=== PATIENT | female | born 1935 | race Caucasian/White ===

== ENCOUNTER 2016-10-06 17:08 | Emergency (ER) | payer OTHER ==
[~2016-10-06] VITALS: Ht 162.6 cm; Wt 75.0 kg
[~2016-10-06 17:08] MED LIST: ALLO100T PO; ASPI325T39 PO; CLOB-65 TOP; DILT120C68 PO; EZET10TA63 PO; FLUO0.05 TOP; LEVO50TA PO; ZNTT/150 PO
[2016-10-06 17:11] VITALS: TEMP 36.8; Ht 162.6 cm; Wt 75.0 kg
[2016-10-06] MEDS ORDERED: GEMF600T3 PO (17:29)
[2016-10-06] MEDS ORDERED: FLUO0.0566 TOP (17:32)
[2016-10-06] MEDS ORDERED: CLOB-77 TOP (17:32)
[2016-10-06] MEDS ORDERED: GELATIN SPONGE 12-7MM EXT STA (17:35)
[2016-10-06] MEDS ORDERED: DIPHTHERIA/TETANUS/PERTUSSIS 0.5 ML SYR/VIAL IM. ONE (17:45)
--- NOTE | 2016-10-06 18:26 | EMERGENCY ROOM VISIT NOTE ---
History First contact with patient: 17:23 Chief Complaint: FINGER PAIN Stated Complaint: LEFT INDEX FINGER LACERATION, ON BLOOD THINNER History of Present Illness The patient is a 81 year old female who presents to the Emergency Room with complaints of "left index finger laceration, on blood thinner". The patient states that earlier today she was cutting the tip of chicken wings around 9 AM when she accidentally sliced the left index finger just distal to the left second PIP removing a section of the skin. She states that since then it is been seeping blood and she went to the urgent care to bandage it and sent her home but she believes that due to the aspirin she takes the bleeding has not stopped therefore came here for evaluation. She denies any numbness or tingling or problems with movement of this region. She rates the pain is minimal and a 2/10. Her tetanus is not up-to-date. Review of Systems A complete 6-point Review of Systems was discussed with the patient, with pertinent positives and negatives listed in the History of Present Illness. All remaining Review of Systems questions can be considered negative unless otherwise specified. Past Medical/Surgical History High blood pressure, skin problems, bronchitis, hysterectomy, breast lumpectomy Family History Diabetes, high blood pressure, cancer, lung disease, emphysema Social History Smoking Status: Former Smoker Occupation Status: unemployed Social History: Patient is unemployed, lives alone, and denies alcohol or tobacco products. Current/Historical Medications Scheduled Allopurinol (Zyloprim), 2 TAB PO DAILY Aspirin (Aspirin Ec), 1 TAB PO DAILY Diltiazem Hcl Ext Rel (Tiazac), 120 MG PO DAILY Ezetimibe (Zetia), 10 MG PO DAILY Gemfibrozil (Lopid), 600 MG PO BID Levothyroxine Sodium (Synthroid), 1 TAB PO DAILY Ranitidine (Zantac), 150 MG PO DAILY Scheduled PRN Clobetasol Propionate (Temovate), 1 APPLN TOP BID PRN for Fluocinonide (Fluocinonide), 1 APPLN TOP BID PRN for Allergies Coded Allergies: Simvastatin (Verified Allergy, Unknown, RASH, 07/17/15) Physical Exam Vital Signs Date Time Temp Pulse Resp B/P Pulse Ox O2 Delivery O2 Flow Rate FiO2 10/06/16 18:49 71 16 185/88 95 10/06/16 17:11 36.8 72 20 188/88 93 Room Air Physical Exam VITAL SIGNS - Vital signs and nursing notes were reviewed. Patient is afebrile , she is hypertensive at 188/88, she is not tachycardic and is saturating well on room air at 93%. She was informed upon the hypertensive finding. GENERAL -81-year-old female appearing her stated age who is in no acute distress. Communicates well with provider and answers questions appropriately. SKIN - There is a 1 cm long skin avulsion/ laceration noted on the dorsal aspect of the second digit just distal to the PIP. There are no wound edges to approximate as the skin has been completely removed leaving a small crater. No foreign bodies appreciated. Upon further examination there are no deep structures including vessel, tendon, or bony structures appreciated. There is minimal active bleeding noted. MUSCULOSKELETAL - Laceration as described above. +5/5 strength appreciated of the affected digit. Full range of motion of the affected digit. NEUROLOGIC - Spinothalamic tract was found to be intact with ability to discriminate sharp versus dull sensation. No sensory defects of the dorsal column were appreciated utilizing light touch for evaluation. VASCULAR - Capillary refill was brisk. Medical Decision & Procedures Medications Administered Medications (Trade) Dose Ordered Sig/Dilip Route Start Time Stop Time Status Last Admin Dose Admin Diphtheria/ Pertussis/Tetanus Vacc (Adacel Inj) 0.5 ml ONCE ONCE IM. 10/06/16 17:45 10/06/16 17:46 DC 10/06/16 18:05 0.5 ML Medical Decision Patient was seen and evaluated by myself. Risks and benefits of performing primary wound closure versus no repair were discussed with the patient who verbalizes understanding. Verbal consent was obtained prior to performing the procedure. The wound was cleansed and prepped in the typical sterile fashion utilizing normal saline and Betadine. The wound was copiously irrigated with normal saline and Betadine. Gelfoam was applied and secured with roll gauze and coban and metal splint. Patient tolerated the procedure well. No complications were met. 15 minutes were allowed to pass and she was reevaluated and noted no additional bleeding. Patient received their Adacel vaccination. She was educated upon management. She was instructed to follow-up her high blood pressure. Patient educated on worrisome symptoms for return visit to the Emergency Department. Patient discharged to home in good condition. In the evaluation and treatment of this patient the following differential diagnoses were entertained: Finger laceration/avulsion. Impression Primary Impression: Avulsion of skin of finger Departure Information Dispostion Home / Self-Care Condition GOOD Referrals Ike Villa M.D. (PCP) Patient Instructions My [facility] Additional Instructions You have been treated in the Emergency Department today for your finger laceration. Leave the GELFOAM and dressing in place for the next 48 hours. Keep the dressing clean and dry until time for removal. To remove the GELFOAM dressing, remove the overlying tape and then soak the wound in warm water until the piece of GELFOAM can be easily removed. Please of the finger splint on for the first 48 hours as well. Proper wound care is essential for adequate wound healing and infection prevention. You can shower and clean the wound with soap and water. Do not scour over the wound, pat dry with a towel. You can use an antibiotic ointment with a dressing/bandage over the wound for the next 3-4 days. After this time you may leave the wound dry and open to the air. Look for signs of infection of the wound including: increased pain, swelling, foul discharge, streaking, or increased temperature. If any of these are noticed you should return to the Emergency Department for further assessment and treatment. As with any laceration you may have received nerve damage to the surrounding tissues. This damage could be permanent. For pain control, you can use the following fhjr-fuf-[id number] medicines (if >12 yo): - Regular strength (325mg/tab) Tylenol (acetaminophen) 2 tabs every 4-6 hours as needed. Do not exceed 12 tablets in a 24 hour period. Avoid taking more than 4 grams (4000 mg) of Tylenol per day. This includes any other sources of acetaminophen you may take on a regular basis. - Regular strength (200 mg/tab) Advil (ibuprofen) 1-2 tabs every 4-6 hours as needed. Do not exceed a dose of 3200 mg per day. Return to the emergency department if your symptoms worsen despite treatment course outlined above. As we discussed your blood pressure was high today. Please have this rechecked with your family doctor as soon as possible. Please return to the emergency department with any new/concerning symptoms. Problem Qualifiers Primary Impression: Avulsion of skin of finger Encounter type: initial encounter Qualified Codes: S61.209A - Unspecified open wound of unspecified finger without damage to nail, initial encounter
[2016-10-06 18:49] VITALS: BP 185/88; PULSE 71; O2SAT 95
== END 2016-10-06 18:50 | disposition home or self-care (01) ==
LOC: C.EDB 17:09 → C.EDD 18:50
DX: S61.211A Laceration without foreign body of left index finger without damage to nail, initial encounter (principal); W26.0XXA Contact with knife, initial encounter; Z87.891 Personal history of nicotine dependence; Z90.710 Acquired absence of both cervix and uterus; Z79.82 Long term (current) use of aspirin; Z23 Encounter for immunization

== ENCOUNTER → 2017-04-16 | Outpatient (CLI) | payer OTHER ==
[~2017-04-16] MED LIST changes: -CLOB-65 TOP; +CLOB-77 TOP; -FLUO0.05 TOP; +FLUO0.0566 TOP; +GEMF600T3 PO
[2017-04-16 18:33] LABS: ALT/SGPT 28 U/L (12-78); AST/SGOT 27 U/L (15-37); BLOOD UREA NITROGEN 16 mg/dl (7-18); BUN/CREATININE RATIO 16.8 (10-20); CALCIUM 9.4 mg/dl (8.5-10.1); CARBON DIOXIDE 27 mmol/L (21-32); CHLORIDE 107 mmol/L (98-107); CREATININE 0.96 mg/dl (0.60-1.20); GLUCOSE 105 mg/dl (70-99); POTASSIUM 3.8 mmol/L (3.5-5.1); SODIUM 142 mmol/L (136-145)
[2017-04-16 18:39] LABS: ALB/GLOB RATIO 0.9 (0.9-2); ALKALINE PHOSPHATASE 69 U/L (45-117)
--- NOTE | 2017-05-12 08:33 | CODING QUERY NO DIAGNOSIS ---
TREATMENT RENDERED WITHOUT A DIAGNOSIS To promote full compliance with coding requirements relating to patient care, physician participation is requested in all cases of outpatient coder uncertainty. Please assist us with providing a diagnosis/symptom for the test(s) below: A diagnosis/symptom was not documented on your Order. A valid diagnosis/symptom is required to bill all insurances. Please remember that we are unable to code a diagnosis of rule out, probable, possible, questionable, or suspected. Tests that require a diagnosis: * CMP DIAGNOSIS: Provider Signature: Date: Thank you Bernie Morales [employer] Once completed, please kindly fax back to [phone] For questions please call [phone]
== END | disposition home or self-care (01) ==
LOC: C.LABBFT 09:51
PROVIDERS: ATTEND Dermatology
DX: Z51.81 Encounter for therapeutic drug level monitoring (principal); L12.0 Bullous pemphigoid

== ENCOUNTER → 2017-05-11 | Outpatient (CLI) | payer OTHER ==
[2017-05-11 17:53] LABS: CHOLESTEROL/HDL RATIO 3.5; THYROID STIMULATING HORMONE 2.48 uIu/ml (0.300-4.500)
== END | disposition home or self-care (01) ==
LOC: C.LABBFT 12:57
PROVIDERS: ATTEND Internal Medicine
DX: I10 Essential (primary) hypertension (principal); E03.9 Hypothyroidism, unspecified

== ENCOUNTER → 2017-05-11 | Outpatient (CLI) | payer OTHER ==
--- NOTE | 2017-05-11 15:34 | MAMMOGRAPHY REPORT ---
BILATERAL DIGITAL SCREENING MAMMOGRAM TOMOSYNTHESIS WITH CAD: 05/11/2017 CLINICAL HISTORY: Asymptomatic. Personal history of breast cancer. TECHNIQUE: Breast tomosynthesis in addition to standard 2D mammography was performed. Current study was also evaluated with a Computer Aided Detection (CAD) system. COMPARISON: Comparison is made to exams dated: 09/13/2015 mammogram, 07/10/2014 mammogram, 07/09/2013 mammogram, 07/08/2012 mammogram, and 07/03/2011 mammogram - [facility]. BREAST COMPOSITION: There are scattered areas of fibroglandular density in both breasts. FINDINGS: No suspicious masses, calcifications, or areas of architectural distortion are noted in ei ther breast. There has been no significant interval change compared to prior exams. There are stable postoperative changes in the left 12:00 breast from prior lumpectomy. Bilateral benign-appearing ca lcifications are not significantly changed. IMPRESSION: ACR BI-RADS CATEGORY 2: BENIGN There is no mammographic evidence of malignancy. A 1 year screening mammogram is recommended. The pa tient will receive written notification of the results. Approximately 10% of breast cancers are not detected with mammography. A negative mammographic report should not delay biopsy if a clinically suggestive mass is present. Ana Branch M.D. ah/:05/11/2017 14:53:17 Permanent Waver: Arabella WANG)(M), [facility] letter sent: Normal 1/2 BI-RADS Code: ACR BI-RADS Category 2: Benign
== END | disposition home or self-care (01) ==
LOC: C.MAMM 13:56
PROVIDERS: ATTEND Internal Medicine
DX: Z12.31 Encounter for screening mammogram for malignant neoplasm of breast (principal); I10 Essential (primary) hypertension; E03.9 Hypothyroidism, unspecified

== ENCOUNTER → 2017-11-06 | Outpatient (CLI) | payer OTHER ==
[~2017-11-06] MED LIST changes: +RANI150T85 PO; -ZNTT/150 PO
[2017-11-06 12:59] LABS: ALBUMIN 3.7 gm/dl (3.4-5.0); ALKALINE PHOSPHATASE 58 U/L (45-117); ALT/SGPT 22 U/L (12-78); AST/SGOT 19 U/L (15-37); BLOOD UREA NITROGEN 22 mg/dl (7-18); CALCIUM 9.5 mg/dl (8.5-10.1); CARBON DIOXIDE 26 mmol/L (21-32); CREATININE 0.93 mg/dl (0.60-1.20); GLUCOSE 91 mg/dl (70-99); POTASSIUM 3.9 mmol/L (3.5-5.1); SODIUM 140 mmol/L (136-145); TOTAL PROTEIN 7.6 gm/dl (6.4-8.2)
[2017-11-06 13:10] LABS: CHOLESTEROL 162 mg/dl (0-200); LDL CHOLESTEROL CALCULATED 93 mg/dl
[2017-11-06 13:43] LABS: HEMOGLOBIN A1C 6.1 % (4.5-5.6)
== END | disposition home or self-care (01) ==
LOC: C.LABBFT 09:22
PROVIDERS: ATTEND Internal Medicine
DX: R73.01 Impaired fasting glucose (principal); E78.5 Hyperlipidemia, unspecified; E03.9 Hypothyroidism, unspecified

== ENCOUNTER → 2017-12-18 | Outpatient (CLI) | payer OTHER | END | disposition home or self-care (01) | LOC: C.LABSPEC 17:37 | PROVIDERS: ATTEND Internal Medicine | DX: R39.9 Unspecified symptoms and signs involving the genitourinary system (principal) ==

== ENCOUNTER 2019-10-31 00:41 | Inpatient (IN) ==
[2019-10-31 01:29] LABS: Basophils # (auto) 0.08 K/uL (0-0.2); Basophils % (auto) 0.7 %; Eosinophils # (auto) 0.33 K/uL (0-0.5); Eosinophils % (auto) 2.7 %; Hematocrit (blood only) 23.3 % (37-47); Hemoglobin 7.3 g/dL (12.0-16.0); Immature Granulocytes # (auto) 0.05 K/uL (0.00-0.02); Immature Granulocytes % (auto) 0.4 %; Lymphocytes # (auto) 1.47 K/uL (1.2-3.4); Lymphocytes % (auto) 12.1 %; Mean Corpuscular Hgb Conc 31.3 g/dL (32-36); Mean Corpuscular Volume 89.3 fL (80-100); Monocytes # (auto) 1.05 K/uL (0.11-0.59); Monocytes % (auto) 8.6 %; Neutrophils # (auto) 9.19 K/uL (1.4-6.5); Neutrophils % (auto) 75.5 %; Platelet Count 530 K/uL (130-400); RDW Coefficient of Variation 15.3 % (11.5-14.5); RDW Standard Deviation 49.3 fL (36.4-46.3); Red Blood Count 2.61 M/uL (4.2-5.4); White Blood Count 12.17 K/uL (4.8-10.8)
[2019-10-31] MEDS ORDERED: SODIUM CHLORIDE 0.9% 250 ML IV PRN (01:32)
[2019-10-31 01:40] LABS: Partial Thromboplastin Ratio 0.8; Partial Thromboplastin Time 21.7 Seconds (21.0-31.0); Prothrombin Time 10.4 Seconds (9.0-12.0)
[2019-10-31 01:41] LABS: Alanine Aminotransferase 14 U/L (12-78); Albumin Level 3.6 gm/dl (3.4-5.0); Aspartate Aminotransferase 18 U/L (15-37); BUN Creatinine Ratio 20.9 (10-20); Blood Urea Nitrogen 24 mg/dl (7-18); Calcium 10.3 mg/dl (8.5-10.1); Carbon Dioxide 23 mmol/L (21-32); Chloride 105 mmol/L (98-107); Est GFR (African American) 50.6; Est GFR (Non-African American) 43.7; Glucose 122 mg/dl (70-99); Potassium 3.6 mmol/L (3.5-5.1); Sodium 137 mmol/L (136-145)
[2019-10-31 01:46] LABS: Albumin Globulin Ratio 0.9 (0.9-2); Alkaline Phosphatase 57 U/L (45-117); Bilirubin,Total 0.4 mg/dl (0.2-1); Globulin 3.8 gm/dl (2.5-4.0); NT Pro B Type Natriuretic Pept 1220 pg/ml (0-1800); Total Protein 7.4 gm/dl (6.4-8.2); Troponin I 0.026 ng/ml (0-0.045)
[2019-10-31 01:50] LABS: Hypochromasia Present; Polychromasia 1+
--- NOTE | 2019-10-31 04:06 | History & Physical Report ---
Date of Service October 31, 2019 Assessment & Plan (1) GI bleed: Ana is a 84-year-old female with a past medical history of recently diagnosed mitral regurg, impaired fasting glucose, hypothyroidism, hypertension, hyperlipidemia, and dyspepsia who presents to the emergency department with increasing weakness and dyspnea on exertion and he was Hemoccult positive. Dyspnea on exertion, suspect 2/2 anemia with acute GI bleed Prior hemoglobin 10.9, 7.3 on admission. Receiving 1 unit of blood in ED at time of assessment. Patient endorses melena in the past week, progressive dyspnea on exertion for 2 weeks. Hemoccult positive in ED. Vital signs stable, clinically asymptomatic at rest at time of exam. No abdominal pain. Last colonoscopy 10 years ago, normal. Strong family history of colon cancer. Protonix IV bolus, followed by drip protocol Gastroenterology consulted Focal T wave inversions, no ST segment changes on exam. Troponin negative, patient asymptomatic. Trend troponins x3 total. H&H trend every 6 hours x3, defer further blood unless clinically symptomatic or hemoglobin less than 7 Mitral regurgitation Recently diagnosed, patient pending repeat echo on 11/09 TTE ordered, pending Lipidemia Continue ease a team but 10 mg daily Continue gemfibrozil 600 mg daily Hypertension Hold aspirin 81 mg daily in the setting of acute bleed Continue diltiazem 240 mg daily, hold for systolic pressure less than 110, diastolic pressure less than 90 Hypothyroidism Continue Synthroid 50 mcg daily History of bullous pemphigoid Under good control with prednisone maintenance therapy Held prednisone 10 mg daily THERAPIST RADIATION dosing in the setting of possible GI bleed Disposition: Med/surge with telemetry FEN GI: N.p.o. CODE STATUS: DNR/DNI DVT prophylaxis: SCDs, pharmacoprophylaxis contraindicated in the setting of acute bleed (2) Dyspnea: (3) Anemia: (4) Mitral regurgitation: (5) Impaired fasting glucose: History of Present Illness Chief Complaint: Dyspnea on exertion, melena Primary Care Provider: Ike Villa MD Ana is a 84-year-old female with a past medical history of recently diagnosed mitral regurg, impaired fasting glucose, hypothyroidism, hypertension, hyperlipidemia, and dyspepsia who presents to the emergency department with increasing weakness and dyspnea on exertion and he was Hemoccult positive. Ana reports her symptoms began about 2 weeks ago when she developed some cough and dyspnea on exertion. She was seen by her PCP KT who thought she had postnasal drip and prescribed her Claritin with pill in pocket azithromycin. She was not feeling improved after several days, so she completed a Z-Kendrick course. She took her last dose 4 days prior to presentation to the ED. she feels her cough resolved, but her shortness of breath has continued to progress. She is not short of breath at rest, but becomes easily winded with exertion. She does not have any chest pain, chest pressure syncope, presyncope, lightheadedness, dizziness. She endorses a history of dyspepsia, for which she takes intermittent [id number]-gyfgnlj antacids which has not changed in many years. She denies bright red blood per rectum, but endorses melena. She has a strong family history of colon cancer, she has 2 sisters and a maternal uncle all who developed colon cancer. Her last colonoscopy was normal, was performed about 10 years ago. She denies weight loss. He has had a recent murmur diagnosed for which he is scheduled to have a follow-up echo on 11/09, denies history of CAD/WV or other heart disease. Medical history: Reviewed in chart Surgical history: Reviewed in chart Medications: Reviewed Family history: 2 sisters and a maternal uncle with colon cancer, lung cancer in a relative who was a heavy smoker. Personal and family history of breast cancer. Social: Past tobacco use, 7 pack years quit in 1967. No alcohol use. No recreational drug use. CODE STATUS: DNR/DNI Allergies Allergy/AdvReac Type Severity Reaction Status Date / Time simvastatin Allergy Unknown RASH Verified 10/29/19 11:18 Home Medications Home Medications Medication Instructions Recorded Confirmed Type gemfibrozil 600 mg tablet 600 mg PO BID #180 tab 03/12/19 10/31/19 Rx calcium carb-vit D3-minerals 600 1 tab PO DAILY tab 05/23/19 10/31/19 History mg calcium-200 unit tablet aspirin 81 mg tablet,delayed 81 mg PO DAILY tab 05/29/19 10/31/19 History release prednisone 10 mg tablet 10 mg PO Q OTHER DAY #100 tab 05/29/19 10/31/19 Rx allopurinol 100 mg tablet 100 mg PO BID #60 tab 08/29/19 10/31/19 Rx diltiazem HCl 240 mg capsule,24 240 mg PO DAILY #30 cap 08/29/19 10/31/19 Rx hr,extended release ezetimibe 10 mg tablet 10 mg PO DAILY #30 tab 09/29/19 10/31/19 Rx levothyroxine 50 mcg tablet 50 mcg PO DAILY #30 tab 09/29/19 10/31/19 Rx loratadine 10 mg tablet 10 mg PO DAILY #30 tab 10/20/19 10/31/19 Rx Past Med/Surg History Medical History Avulsion of skin of finger (Acute) Gout (Acute) Hyperlipidemia (Chronic) Hypertension (Chronic) Hypothyroid (Chronic) Impaired fasting glucose (Chronic) Mitral regurgitation Rash (Acute) Surgical History S/P hysterectomy with oophorectomy S/P lumpectomy, left breast Family History Sister Breast cancer Colorectal cancer COPD (chronic obstructive pulmonary disease) Mother Diabetes Social History Preferred Language: Latvian Communication Ability: Effective Beliefs That Will Affect Care: None marital status: / Current Living Situation: Alone current occupational status: retired Feels Safe at Home: Yes Safety Concerns: Feels Safe At This Time Smoking Status: Former smoker Tobacco Type: cigarettes ; Age Started Using Tobacco: 15 ; Age Quit Using Tobacco: 33 ; packs per day: 0.5 ; Cigarettes Per Day: 10 ; Smoking End Date: 1967 ; Number of Years Since Quit: 51 ; Hx Alcohol Use: No Hx Substance Use: No Review of Systems Review of Systems: All systems reviewed & are unremarkable except as noted in HPI & below Physical Exam Physical Exam: General: A&Ox3. NAD. Cooperative. HEENT: Atraumatic, normocephalic. Mild pallor. Mucous membranes moist. Pulm: CTAB A&P. -wheezes, -rales, -rhonchi. Symmetrical chest rise. No increase work of breathing. No respiratory distress. Cardiac: RRR, iv/vi systolic murmur. Radial pulses intact and symmetrical. Abdominal: Nontender, nondistended, soft. BS present. Pupils are equal and react to light and accomidation. Visual acuity grossly intact. At primary gaze, there is no eye deviation. EoM intact without nystagmus. No facial asymmetry, full strength to eyebrow raise, smile, eye close, and cheek puff. Hearing is grossly intact. Palate elevates symmetrically. Phonation is normal without dysarthria.Head turning intact Tongue protrudes midline. Sensory: Light touch, pinprick intact in upper and low extremities without deficit or asymmetry. Strength: RUE: Shoulder flexion/extension/internal rotation/external rotation, elbow flexion/extension, finger flexion/extension, panel machine setter strength, interosseous 5/5 LUE: Shoulder flexion/extension/internal rotation/external rotation, elbow flexion/extension, finger flexion/extension, panel machine setter strength, interosseous 5/5 RLE: Hip flexion, knee flexion/extension, ankle plantar flexion/dorsiflexion 5/5 LLE: Hip flexion, knee flexion/extension, ankle plantar flexion/dorsiflexion 5/5 Coord Results & Data Vital Signs (Past 12 Hours) Vital Signs Temp Pulse Resp BP BP Pulse Ox 10/31/19 03:31 96 H 20 95 10/31/19 03:30 96 H 20 121/89 94 10/31/19 03:24 92 H 23 149/70 H 93 10/31/19 03:23 36.8 C 94 H 20 149/70 H 93 10/31/19 03:21 94 H 24 93 10/31/19 03:20 95 H 27 H 152/73 H 96 10/31/19 03:15 93 H 26 H 145/73 H 10/31/19 03:04 94 H 21 92 10/31/19 03:03 36.6 C 93 H 24 159/67 H 96 10/31/19 03:01 93 H 24 94 10/31/19 03:00 95 H 18 137/78 94 10/31/19 02:31 89 24 148/62 H 96 10/31/19 02:30 91 H 21 95 10/31/19 02:15 89 20 97 10/31/19 02:14 88 23 145/70 H 96 10/31/19 02:00 87 20 96 10/31/19 01:36 97 H 23 99 10/31/19 01:20 97 10/31/19 01:03 16 150/66 H 100 10/31/19 01:01 100 10/31/19 01:00 98 H 15 98 10/31/19 00:55 92 H 23 10/31/19 00:54 92 H 22 150/66 H 10/31/19 00:44 36.6 C 98 H 24 138/70 97 Supervising Physician Co-Signing Physician Notes Attending addendum: I have physically seen this patient, have supervised the medical residents activities, and agree with the H&P unless as otherwise noted. Assessment and Plan: Symptomatic anemia secondary to GI bleed- Admit to monitored bed. Hemoglobin decreased from 10.9-7.3 upon admission today. ED has begun transfusion of 1 unit PRBCs. H&H every 6 hours. Begin Protonix IV infusion. N.p.o. Consult gastroenterology. Holding aspirin. Nonspecific EKG changes/hypertension- Holding aspirin for GI bleed. The patient will be admitted to telemetry for serial cardiac enzymes, serial EKG's, cardiac rhythm monitoring and a 2-D echocardiogram with Dopplers. Continue oral diltiazem for now, but may need to change IV. Remainder of orders and notations as noted. Resident Activity Tracking Resident Involvement: Resident Care Provided Care Provided: Adult Hospital Medicine (1) GI bleed GI bleed type/associated pathology: unspecified gastrointestinal hemorrhage type Qualified Code(s): K92.2 - Gastrointestinal hemorrhage, unspecified (2) Anemia Anemia type: unspecified type Qualified Code(s): D64.9 - Anemia, unspecified (3) Dyspnea Dyspnea type: unspecified Qualified Code(s): R06.00 - Dyspnea, unspecified
[2019-10-31] MEDS ORDERED: ONDANSETRON INJ 2 MG/ML 2 ML VIAL IV STA (04:12)
[2019-10-31] MEDS ORDERED: FUROSEMIDE 40 MG/4 ML VIAL IV STA (04:12)
[2019-10-31] MEDS ORDERED: PANTOprazole 80 MG in DEXTROSE 5% 100 ML IV STA (04:21)
[2019-10-31] MEDS: PANTOprazole 40 MG in DEXTROSE 5% 100 ML IV SCH ×2 (04:49→08:58)
[2019-10-31] MEDS ORDERED: ONDANSETRON INJ 2 MG/ML 2 ML VIAL IV PRN (05:41)
[2019-10-31] MEDS ORDERED: ACETAMINOPHEN 325 MG TAB PO PRN (05:41)
--- NOTE | 2019-10-31 05:57 | Emergency Department Note ---
Entered by Thanh Granados acting as a scribe for History of Present Illness General Chief complaint: Shortness of Breath/Dyspnea Stated complaint: SOB,RAPID HEART RATE,HEART MURMMER,WEAKNESS Time Seen by Provider: 10/31/19 01:04 Source: patient History of Present Illness Onset (ago): day(s) (last night) Location: chest Pain Consistency: + other (worsening) Quality: + other (SOB) Exacerbated By: + other (exertion) Associated symptoms: + other (Positive for cough, congestion, and weakness.) The patient is an 84 year old female who presents to the emergency department with complaints of worsening SOB beginning last night. The patient states that she finished a Z-pack three days ago for congestion and a cough. She notes that she has also been SOB and weak for the last few weeks, but she reports that her symptoms worsened tonight. The patient states that her symptoms worsen with exertion, and she cannot walk the length of her mobile home, prompting her visit to the emergency department tonight. She notes that she has a history of a heart murmur. Home Medications Home Medications Medication Instructions Recorded Confirmed Type gemfibrozil 600 mg tablet 600 mg PO BID #180 tab 03/12/19 10/31/19 Rx calcium carb-vit D3-minerals 600 1 tab PO DAILY tab 05/23/19 10/31/19 History mg calcium-200 unit tablet aspirin 81 mg tablet,delayed 81 mg PO DAILY tab 05/29/19 10/31/19 History release prednisone 10 mg tablet 10 mg PO Q OTHER DAY #100 tab 05/29/19 10/31/19 Rx allopurinol 100 mg tablet 100 mg PO BID #60 tab 08/29/19 10/31/19 Rx diltiazem HCl 240 mg capsule,24 240 mg PO DAILY #30 cap 08/29/19 10/31/19 Rx hr,extended release ezetimibe 10 mg tablet 10 mg PO DAILY #30 tab 09/29/19 10/31/19 Rx levothyroxine 50 mcg tablet 50 mcg PO DAILY #30 tab 09/29/19 10/31/19 Rx loratadine 10 mg tablet 10 mg PO DAILY #30 tab 10/20/19 10/31/19 Rx Allergies Allergy/AdvReac Type Severity Reaction Status Date / Time simvastatin Allergy Unknown RASH Verified 10/29/19 11:18 Past Med/Surg History Medical History (Updated 10/31/19 @ 03:54 by Thanh Granados) Avulsion of skin of finger (Acute) Gout (Acute) Hyperlipidemia (Chronic) Hypertension (Chronic) Hypothyroid (Chronic) Impaired fasting glucose (Chronic) Mitral regurgitation Rash (Acute) Surgical History S/P hysterectomy with oophorectomy S/P lumpectomy, left breast Social History marital status: / current occupational status: retired Feels Safe at Home: Yes Smoking Status: Former smoker Tobacco Type: cigarettes ; Age Started Using Tobacco: 15 ; Age Quit Using Tobacco: 33 ; packs per day: 0.5 ; Cigarettes Per Day: 10 ; Number of Years Since Quit: 51 ; Review of Systems See HPI for pertinent positives & negatives. and A total of 10 systems reviewed and were otherwise negative Physical Exam Vital Signs Vital Signs - 24 hr 10/31/19 00:44 10/31/19 00:54 10/31/19 00:55 Temperature 36.6 C Temperature Source Oral Pulse Rate 98 H 92 H 92 H Pulse Rate from SpO2 Sensor Pulse Rhythm Respiratory Rate 24 22 23 Respiratory Effort / Characteristics Non-Labored Spontaneous Respiratory Depth Normal Respiratory Pattern Blood Pressure 138/70 150/66 H Blood Pressure [Right Arm] Blood Pressure Mean 92 107 Blood Pressure Mean [Right Arm] Blood Pressure Position Pulse Oximetry 97 Oxygen Delivery Method Room Air Sepsis Recent Fever Within 48 Hours No Sepsis Action Taken by Nursing No Action Required 10/31/19 01:00 10/31/19 01:01 10/31/19 01:03 Temperature Temperature Source Pulse Rate 98 H Pulse Rate from SpO2 Sensor 98 H Pulse Rhythm Respiratory Rate 15 16 Respiratory Effort / Characteristics Non-Labored Spontaneous Respiratory Depth Normal Respiratory Pattern Regular Blood Pressure Blood Pressure [Right Arm] 150/66 H Blood Pressure Mean Blood Pressure Mean [Right Arm] 94 Blood Pressure Position Pulse Oximetry 98 100 100 Oxygen Delivery Method Room Air Room Air Sepsis Recent Fever Within 48 Hours Sepsis Action Taken by Nursing 10/31/19 01:20 10/31/19 01:36 10/31/19 02:00 Temperature Temperature Source Pulse Rate 97 H 87 Pulse Rate from SpO2 Sensor 97 H 88 Pulse Rhythm Respiratory Rate 23 20 Respiratory Effort / Characteristics Respiratory Depth Respiratory Pattern Blood Pressure Blood Pressure [Right Arm] Blood Pressure Mean Blood Pressure Mean [Right Arm] Blood Pressure Position Pulse Oximetry 97 99 96 Oxygen Delivery Method Room Air Room Air Sepsis Recent Fever Within 48 Hours Sepsis Action Taken by Nursing 10/31/19 02:14 10/31/19 02:15 10/31/19 02:30 Temperature Temperature Source Pulse Rate 88 89 91 H Pulse Rate from SpO2 Sensor 88 87 92 H Pulse Rhythm Respiratory Rate 23 20 21 Respiratory Effort / Characteristics Respiratory Depth Respiratory Pattern Blood Pressure 145/70 H Blood Pressure [Right Arm] Blood Pressure Mean 100 Blood Pressure Mean [Right Arm] Blood Pressure Position Pulse Oximetry 96 97 95 Oxygen Delivery Method Sepsis Recent Fever Within 48 Hours Sepsis Action Taken by Nursing 10/31/19 02:31 10/31/19 03:00 10/31/19 03:01 Temperature Temperature Source Pulse Rate 89 95 H 93 H Pulse Rate from SpO2 Sensor 89 96 H 93 H Pulse Rhythm Respiratory Rate 24 18 24 Respiratory Effort / Characteristics Respiratory Depth Respiratory Pattern Blood Pressure 148/62 H 137/78 Blood Pressure [Right Arm] Blood Pressure Mean 86 99 Blood Pressure Mean [Right Arm] Blood Pressure Position Pulse Oximetry 96 94 94 Oxygen Delivery Method Sepsis Recent Fever Within 48 Hours Sepsis Action Taken by Nursing 10/31/19 03:03 10/31/19 03:04 10/31/19 03:15 Temperature 36.6 C Temperature Source Oral Pulse Rate 93 H 94 H 93 H Pulse Rate from SpO2 Sensor 94 H 92 H Pulse Rhythm Regular Respiratory Rate 24 21 26 H Respiratory Effort / Characteristics Respiratory Depth Respiratory Pattern Blood Pressure 159/67 H 145/73 H Blood Pressure [Right Arm] Blood Pressure Mean 97 105 Blood Pressure Mean [Right Arm] Blood Pressure Position Lying Pulse Oximetry 96 92 Oxygen Delivery Method Sepsis Recent Fever Within 48 Hours Sepsis Action Taken by Nursing 10/31/19 03:20 10/31/19 03:21 10/31/19 03:23 Temperature 36.8 C Temperature Source Oral Pulse Rate 95 H 94 H 94 H Pulse Rate from SpO2 Sensor 94 H 94 H Pulse Rhythm Respiratory Rate 27 H 24 20 Respiratory Effort / Characteristics Respiratory Depth Respiratory Pattern Blood Pressure 152/73 H 149/70 H Blood Pressure [Right Arm] Blood Pressure Mean 109 96 Blood Pressure Mean [Right Arm] Blood Pressure Position Lying Pulse Oximetry 96 93 93 Oxygen Delivery Method Sepsis Recent Fever Within 48 Hours Sepsis Action Taken by Nursing 10/31/19 03:24 10/31/19 03:30 10/31/19 03:31 Temperature Temperature Source Pulse Rate 92 H 96 H 96 H Pulse Rate from SpO2 Sensor 93 H 96 H 96 H Pulse Rhythm Respiratory Rate 23 20 20 Respiratory Effort / Characteristics Respiratory Depth Respiratory Pattern Blood Pressure 149/70 H 121/89 Blood Pressure [Right Arm] Blood Pressure Mean 102 95 Blood Pressure Mean [Right Arm] Blood Pressure Position Pulse Oximetry 93 94 95 Oxygen Delivery Method Sepsis Recent Fever Within 48 Hours Sepsis Action Taken by Nursing 10/31/19 04:00 10/31/19 04:12 Temperature 36.7 C Temperature Source Oral Pulse Rate 99 H Pulse Rate from SpO2 Sensor 94 H Pulse Rhythm Respiratory Rate 22 Respiratory Effort / Characteristics Respiratory Depth Respiratory Pattern Blood Pressure Blood Pressure [Right Arm] Blood Pressure Mean Blood Pressure Mean [Right Arm] Blood Pressure Position Pulse Oximetry Oxygen Delivery Method Sepsis Recent Fever Within 48 Hours Sepsis Action Taken by Nursing HEENT: Head - normocephalic and atraumatic Pupils are equal, round, and reactive to light. Extraocular eye muscles are intact, and sclera are anicteric. Nose - moist nasal mucosa without discharge. Mouth - dry buccal mucosa. Oropharynx is nonerythematous and there is no tonsillar exudate or edema noted. Neck: Supple; no JVD, nuchal rigidity, cervical lymphadenopathy, or auscultated bruits. Heart: Regular rate and rhythm. There is a normal S1 and S2 with no clicks or gallops appreciated. 4/6 systolic ejection murmur. Lungs: Clear to auscultation bilaterally with no wheezes, rales, or rhonchi. Diminished breath sounds at both lung bases. Abdomen: Soft, completely nontender, nondistended, with good bowel sounds. There are no palpable pulsatile masses or hepatosplenomegaly. There is no guarding, rigidity, or rebound noted. Extremities: No evidence of cyanosis or clubbing. There are easily palpable peripheral pulses. Trace pedal edema. Skin: warm and dry with good turgor and no rashes. Rectal: Brown stool that is Hemoccult positive. Course Course 0122: The patient was evaluated in room C8. A complete history and physical examination were performed. Nursing notes and previous electronic medical records were reviewed. IV lock was established and labs were drawn as above. An order was placed for continuous cardiac monitoring. The patient remained in a normal sinus rhythm at a rate of 88. The patient will go for chest x-ray. A twelve-lead EKG was obtained as described below. 0243: I reevaluated and updated the patient. A rectal exam was performed. 0256: I rechecked the patient. She was consented for packed red blood cells. 0317: Upon reevaluation, the patient is stable. I discussed the findings and the treatment plan with the patient. She expresses agreement and understanding. I spoke with the [facility] [place]. The patient will be evaluated for further management. 0410: I rechecked the patient while she is receiving the blood transfusion. She appears more SOB and has diffuse rales. The rate of her blood transfusion will be slowed. She is nauseous and will get 4mg Zofran. She will also get 40mg Lasix IV. She states that she has a history of anxiety, but she notes that she does not want anything for her anxiety yet. 0416: Furosemide 40mg IV, Ondansetron HCl 4mg IV Consultations Consultation #1: I reviewed the patient's case with Dr. Hurt - Hospitalist, [facility] [place]. He will evaluate the patient for further management. Time: 03:17 Administered Medications Pantoprazole Sodium 40 mg/ (Dextrose) 100 mls @ 20 mls/hr IV Q5H DEQUAN Stop: 11/30/19 04:44 Last Admin: 10/31/19 04:49 Dose: 20 mls/hr Documented by: [id number] Discontinued Medications Furosemide (Lasix) 40 mg IV NOW STA Stop: 10/31/19 04:13 Last Admin: 10/31/19 04:16 Dose: 40 mg Documented by: [id number] Pantoprazole Sodium 80 mg/ (Dextrose) 120 mls @ 480 mls/hr IV NOW STA Stop: 10/31/19 04:35 Last Infusion: 10/31/19 04:46 Dose: 0 mls/hr Documented by: [id number] Admin: 10/31/19 04:31 Dose: 480 mls/hr Documented by: [id number] Ondansetron HCl (Zofran) 4 mg IV NOW STA Stop: 10/31/19 04:13 Last Admin: 10/31/19 04:16 Dose: 4 mg Documented by: [id number] Critical Care Time Critical Care Time: Yes Total Critical Care Time: 50 I have personally spent 50 minutes of critical care time in the direct management of this patient. This includes bedside care, interpretation of diagnostic studies, and testing, discussion with consultants, patient, and family members, and other required patient management activities. This 50 minutes is in excess of all separately billable procedures. Medical Decision Making Differential Diagnosis Differential diagnoses include: CHF, cardiac ischemia, worsening mitral valve insufficiency, and anemia. Medical Records Attestation: I reviewed the patient's medical records. Home Medications Current Medication List: was personally reviewed by me Laboratory Data Attestation: I reviewed the patient's lab results. Result diagrams: 10/31/19 00:57 10/31/19 00:57 Lab Results 10/31/19 10/31/19 10/31/19 Range/Units 00:57 00:57 00:57 WBC 12.17 H (4.8-10.8) K/uL RBC 2.61 L (4.2-5.4) M/uL Hgb 7.3 L (12.0-16.0) g/dL Hct 23.3 L (37-47) % MCV 89.3 (80-100) fL MCH 28.0 (25-34) pg MCHC 31.3 L (32-36) g/dL RDW Std Deviation 49.3 H (36.4-46.3) fL RDW Coeff of Mervin 15.3 H (11.5-14.5) % Plt Count 530 H (130-400) K/uL MPV 9.0 (7.4-10.4) fL Immature Gran % (Auto) 0.4 % Neut % (Auto) 75.5 % Lymph % (Auto) 12.1 % [place] % (Auto) 8.6 % Eos % (Auto) 2.7 % Baso % (Auto) 0.7 % Immature Gran # (Auto) 0.05 H (0.00-0.02) K/uL Neut # (Auto) 9.19 H (1.4-6.5) K/uL Lymph # (Auto) 1.47 (1.2-3.4) K/uL [place] # (Auto) 1.05 H (0.11-0.59) K/uL Eos # (Auto) 0.33 (0-0.5) K/uL Baso # (Auto) 0.08 (0-0.2) K/uL Hypersegmented Neuts 1+ Polychromasia 1+ Hypochromasia Present PT 10.4 (9.0-12.0) Seconds INR 1.0 (0.9-1.1) APTT 21.7 (21.0-31.0) Seconds PTT Ratio 0.8 Sodium 137 (136-145) mmol/L Potassium 3.6 (3.5-5.1) mmol/L Chloride 105 (98-107) mmol/L Carbon Dioxide 23 (21-32) mmol/L Anion Gap 9.0 (3-11) BUN 24 H (7-18) mg/dl Creatinine 1.15 (0.6-1.2) mg/dl Est Cr Clr Drug Dosing Not Reportable Est GFR ( Amer) 50.6 Est GFR (Non-Af Amer) 43.7 BUN/Creatinine Ratio 20.9 H (10-20) Glucose 122 H (70-99) mg/dl Calcium 10.3 H (8.5-10.1) mg/dl Total Bilirubin 0.4 (0.2-1) mg/dl AST 18 (15-37) U/L ALT 14 (12-78) U/L Alkaline Phosphatase 57 (45-117) U/L Troponin I 0.026 (0-0.045) ng/ml NT-Pro-B Natriuret Pep 1220 (0-1800) pg/ml Total Protein 7.4 (6.4-8.2) gm/dl Albumin 3.6 (3.4-5.0) gm/dl Globulin 3.8 (2.5-4.0) gm/dl Albumin/Globulin Ratio 0.9 (0.9-2) Blood Type Antibody Screen Crossmatch 10/31/19 Range/Units 01:37 WBC (4.8-10.8) K/uL RBC (4.2-5.4) M/uL Hgb (12.0-16.0) g/dL Hct (37-47) % MCV (80-100) fL MCH (25-34) pg MCHC (32-36) g/dL RDW Std Deviation (36.4-46.3) fL RDW Coeff of Mervin (11.5-14.5) % Plt Count (130-400) K/uL MPV (7.4-10.4) fL Immature Gran % (Auto) % Neut % (Auto) % Lymph % (Auto) % [place] % (Auto) % Eos % (Auto) % Baso % (Auto) % Immature Gran # (Auto) (0.00-0.02) K/uL Neut # (Auto) (1.4-6.5) K/uL Lymph # (Auto) (1.2-3.4) K/uL [place] # (Auto) (0.11-0.59) K/uL Eos # (Auto) (0-0.5) K/uL Baso # (Auto) (0-0.2) K/uL Hypersegmented Neuts Polychromasia Hypochromasia PT (9.0-12.0) Seconds INR (0.9-1.1) APTT (21.0-31.0) Seconds PTT Ratio Sodium (136-145) mmol/L Potassium (3.5-5.1) mmol/L Chloride (98-107) mmol/L Carbon Dioxide (21-32) mmol/L Anion Gap (3-11) BUN (7-18) mg/dl Creatinine (0.6-1.2) mg/dl Est Cr Clr Drug Dosing Est GFR ( Amer) Est GFR (Non-Af Amer) BUN/Creatinine Ratio (10-20) Glucose (70-99) mg/dl Calcium (8.5-10.1) mg/dl Total Bilirubin (0.2-1) mg/dl AST (15-37) U/L ALT (12-78) U/L Alkaline Phosphatase (45-117) U/L Troponin I (0-0.045) ng/ml NT-Pro-B Natriuret Pep (0-1800) pg/ml Total Protein (6.4-8.2) gm/dl Albumin (3.4-5.0) gm/dl Globulin (2.5-4.0) gm/dl Albumin/Globulin Ratio (0.9-2) Blood Type A Positive Antibody Screen NEGATIVE Crossmatch See Detail Imaging Data Attestation: I personally reviewed and interpreted this imaging study as follo ws: My Impression: CHEST X-RAY: Left-sided pleural effusion vs. atelectasis. Borderline cardiomegaly. ECG Data Attestation: I personally reviewed and interpreted this ECG as follows: Indication: + SOB/dyspnea Rate (beats per minute): 93 Rhythm: + normal sinus ECG ST segments: + T-wave inversions (in lead 1 and AVL concerning for ischemia) ECG Findings: no PACs and no PVCs Comparison ECG Date: from (07/18/10) Change: the following changes noted (Compared to prior, TWI are new.) Blood Pressure Blood Pressure Findings: Elevated blood pressure Blood Pressure Disposition: further management by hospitalist CHARLES Fernández The patient is an 84 year old female who presents to the emergency department with complaints of worsening SOB beginning last night. Patient has a history of valvular insufficiency and is scheduled to undergo a repeat echocardiogram. However, she is noticed significant increasing in her shortness of breath especially with exertion. On laboratory testing tonight, the patient was found to be significantly anemic with a hemoglobin less than 8. She has no history of this. I did test her stool for blood and it was positive. She was typed and crossed for a unit of packed red blood cells. She has undergone previous colonoscopies which were negative for bleeding or other abnormalities. During the blood transfusion, the patient developed rails and became more short of breath. The transfusion was slowed and she was given a dose of IV Lasix. The patient did have EKG changes including T wave inversions in leads I and aVL. She had a negative troponin. The patient will be evaluated by the [facility] Hospitalist group. Impression & Plan Anemia, Dyspnea, GI bleed Discharge Plan Visit Data *Final* Discharge Date/Time: 10/31/19 05:01 Chief Complaint: Shortness of Breath/Dyspnea Stated Complaint: SOB,RAPID HEART RATE,HEART MURMMER,WEAKNESS ED Provider: Darlene Rodríguez Discharge Problem: Anemia, Dyspnea, GI bleed Patient Disposition: Admitted As Inpatient Discharge Instructions Interventions: ED Discharge Assessment Last Done: 10/31/19 05:01 Discharge Problem: Anemia Qualifiers: Anemia type: unspecified type Qualified Code(s): D64.9 - Anemia, unspecified Dyspnea Qualifiers: Dyspnea type: unspecified Qualified Code(s): R06.00 - Dyspnea, unspecified GI bleed Qualifiers: GI bleed type/associated pathology: unspecified gastrointestinal hemorrhage type Qualified Code(s): K92.2 - Gastrointestinal hemorrhage, unspecified The scribe's documentation has been prepared under my direction and personally reviewed by me in its entirety. I confirm that the note above accurately reflects all work, treatment, procedures, and medical decision making performed by me.
[2019-10-31] MEDS: SODIUM CHLORIDE 0.9% 1000ML 1,000 ML IV SCH ×2 (06:42→19:28)
[2019-10-31 06:56] LABS: Appearance Urine Clear (Clear); Bilirubin Urine Negative (Negative); Blood Urine Negative (Negative); Color Urine Yellow; Glucose Urine UA Negative (Negative); Ketones Urine Negative (Negative); Leukocyte Esterase Urine Negative (Negative); Nitrite Urine Negative (Negative); Protein Urine Negative (Negative); Specific Gravity Urine 1.009 (1.000-1.030); Urobilinogen Urine Negative (Negative); pH Urine 6.5 (4.5-7.5)
--- NOTE | 2019-10-31 07:17 | XRay Report ---
TWO VIEW CHEST CLINICAL HISTORY: Dyspnea. FINDINGS: PA and lateral chest radiographs are compared to study dated 09/26/2013. Heart is mildly enl arged. The pulmonary vasculature is noncongested. Chronic interstitial thickening is similar to previ ous. Surgical clips are noted in the left lower chest. There is bibasilar scarring/atelectasis. No ai rspace consolidation or pleural effusion is identified. There is no pneumothorax. The skeletal struct ures are osteopenic. The bony thorax appears intact. Degenerative change is seen throughout the thora cic spine. IMPRESSION: Mild cardiac enlargement with no active disease in the chest. ACT 112: Negative or not required by law. Electronically signed by: Luis Eagle M.D. 10/31/2019 7:15 AM
[2019-10-31 07:33] LABS: Hematocrit (blood only) 28.8 % (37-47); Hemoglobin 9.1 g/dL (12.0-16.0); Mean Corpuscular Hemoglobin 28.2 pg (25-34); Mean Corpuscular Hgb Conc 31.6 g/dL (32-36); Mean Corpuscular Volume 89.2 fL (80-100); Mean Platelet Volume 9.2 fL (7.4-10.4); Platelet Count 443 K/uL (130-400); RDW Coefficient of Variation 14.9 % (11.5-14.5); RDW Standard Deviation 48.6 fL (36.4-46.3); Red Blood Count 3.23 M/uL (4.2-5.4); White Blood Count 9.34 K/uL (4.8-10.8)
[2019-10-31] MEDS: LORATADINE 10 MG TAB PO SCH (08:58)
[2019-10-31] MEDS: dilTIAZem HCL 240 MG CAPCR PO SCH (08:58)
[2019-10-31] MEDS: LEVOTHYROXINE SODIUM 50 MCG TABLET PO SCH (08:58)
[2019-10-31] MEDS: EZETIMIBE 10 MG TABLET PO SCH (08:59)
[2019-10-31] MEDS: allopurinoL 100 MG TAB PO SCH ×3 (08:59→20:15)
[2019-10-31] MEDS ORDERED: CALCIUM 600MG + VIT D 400 IU TAB PO SCH (09:00)
[2019-10-31] MEDS ORDERED: gemfibroziL 600 MG TAB PO SCH (09:00)
--- NOTE | 2019-10-31 10:17 | Gastrointestinal Consultation ---
Date of Consultation October 31, 2019 Assessment & Plan (1) GI bleed: (2) Anemia: 1. Keep NPO for now. 2. Discussed plan for EGD today. Unfortunately anesthesia does not clear the patient at this time due to pending cardiac work up and respiratory status and is awaiting medical optimization. 3. Continue PPI ggt at 8 mg/hr. 4. Once EGD is performed, if no findings will likely need to proceed with consideration of colonoscopy as last procedure was >10 years ago and she carries a strong family history of colon cancer. Thank you for allowing us to participate in the care of this pleasant patient. If you have any questions or concerns, may contact the office at [phone]. Thanks. Supervising Physician Co-Signing Physician Notes I personally evaluated the patient and agree with the findings as documented by HORACIO Comer Exam: abd: soft, nt, nd Lungs: CTAB At this time patient is not cleared for the procedure by anesthesia. recommend supportive care, continue PPI drip or BID protonix 40 mg. If patient is discharged over the weekend then will plan for EGD as an outpatient. She can follow up with me in the office. Arnoldo Curry MD Gastroenterology History of Present Illness Reason for Consultation: GIB Requesting Physician: Dr. Lai Attending Physician: Rai Sharma MD History of Present Illness I had the pleasure of seeing Ana Rodríguez at the bedside in consultation after admission for symptomatic acute blood loss anemia. The patient does carry a history of GERD, hypothyroidism, HTN, HLD, and bullous pemphigoid for which she takes a daily low dose of Prednisone. She also uses a daily lose dose of aspirin. Prior to arrival, she reports a sudden onset of cough with associated dyspnea and had been evaluated by her PCP and treated with a Z-pack as well as Claritin. During the course of treatment, she began to develop soft stools that were melanotic in nature. No reported abdominal pain, nausea or vomiting or hematemesis. On arrival, she was noted to have a hemoglobin of 7.3 which was a noted drop from 10.9. After receiving 1 unit of PRBCs, she did have an improvement of the H&H to 9.1 and 28.8%. There was an abnormal ECG with inverted T-waves without ST elevation. Troponin has been serially negative. Echo is pending. She has been made NPO. Last solid food consumption was last evening. Last liquid consumption was approximately 8 oz around midnight. She has been placed on a PPI ggt at 8 mg/hr. Allergies Allergy/AdvReac Type Severity Reaction Status Date / Time simvastatin Allergy Unknown RASH Verified 10/29/19 11:18 Home Medications Home Medications Medication Instructions Recorded Confirmed Type gemfibrozil 600 mg tablet 600 mg PO BID #180 tab 03/12/19 10/31/19 Rx calcium carb-vit D3-minerals 600 1 tab PO DAILY tab 05/23/19 10/31/19 History mg calcium-200 unit tablet aspirin 81 mg tablet,delayed 81 mg PO DAILY tab 05/29/19 10/31/19 History release prednisone 10 mg tablet 10 mg PO Q OTHER DAY #100 tab 05/29/19 10/31/19 Rx allopurinol 100 mg tablet 100 mg PO BID #60 tab 08/29/19 10/31/19 Rx diltiazem HCl 240 mg capsule,24 240 mg PO DAILY #30 cap 08/29/19 10/31/19 Rx hr,extended release ezetimibe 10 mg tablet 10 mg PO DAILY #30 tab 09/29/19 10/31/19 Rx levothyroxine 50 mcg tablet 50 mcg PO DAILY #30 tab 09/29/19 10/31/19 Rx loratadine 10 mg tablet 10 mg PO DAILY #30 tab 10/20/19 10/31/19 Rx Patient History Medical History Avulsion of skin of finger (Acute) Gout (Acute) Hyperlipidemia (Chronic) Hypertension (Chronic) Hypothyroid (Chronic) Impaired fasting glucose (Chronic) Mitral regurgitation Rash (Acute) Surgical History S/P hysterectomy with oophorectomy S/P lumpectomy, left breast Family History Sister Breast cancer Colorectal cancer COPD (chronic obstructive pulmonary disease) Mother Diabetes Social History Preferred Language: Faroese Communication Ability: Effective Beliefs That Will Affect Care: None marital status: / Current Living Situation: Alone current occupational status: retired Feels Safe at Home: Yes Safety Concerns: Feels Safe At This Time Smoking Status: Former smoker Tobacco Type: cigarettes ; Age Started Using Tobacco: 15 ; Age Quit Using Tobacco: 33 ; packs per day: 0.5 ; Cigarettes Per Day: 10 ; Smoking End Date: 1967 ; Number of Years Since Quit: 51 ; Hx Alcohol Use: No Hx Substance Use: No Review of Systems Constitutional: + fatigue; no fever and no chills Eyes: no problem reported Ear, Nose, Mouth, Throat: no problem reported Respiratory: as per Subjective / HPI Cardiovascular: no chest pain and no palpitations Gastrointestinal: as per Subjective / HPI Genitourinary: no problem reported Musculoskeletal: no joint pain and no swelling Integumentary: no problem reported Neurologic: no problem reported Psychiatric: no problem reported Endocrine: no problem reported Physical Exam Constitutional: WD/WN, vitals as above Eyes: EOM intact bilaterally Neck: normal visual inspection Respiratory: normal respiratory effort, lungs clear to auscultation Cardiovascular: Rate/Rhythm: regular rate and regular rhythm Heart Sounds: + murmur Gastrointestinal (Abdomen): normal bowel sounds, soft, nontender, no hepatosplenomegaly Musculoskeletal: Extremities: extremities normal to inspection Skin: no rashes, warm and dry Psychiatric: A+Ox3, euthymic affect Results & Data ([facility]) Vital Signs (Past 12 Hours) Vital Signs Temp Pulse Pulse Resp BP BP Pulse Ox 10/31/19 08:05 36.7 C 89 19 145/77 H 91 10/31/19 06:46 88 10/31/19 06:23 36.8 C 88 18 155/78 H 99 10/31/19 05:57 36.8 C 91 H 18 158/74 H 97 10/31/19 04:31 92 H 15 98 10/31/19 04:30 92 H 18 131/81 98 10/31/19 04:12 36.7 C 10/31/19 04:00 99 H 22 10/31/19 03:31 96 H 20 95 10/31/19 03:30 96 H 20 121/89 94 10/31/19 03:24 92 H 23 149/70 H 93 10/31/19 03:23 36.8 C 94 H 20 149/70 H 93 10/31/19 03:21 94 H 24 93 10/31/19 03:20 95 H 27 H 152/73 H 96 10/31/19 03:15 93 H 26 H 145/73 H 10/31/19 03:04 94 H 21 92 10/31/19 03:03 36.6 C 93 H 24 159/67 H 96 10/31/19 03:01 93 H 24 94 10/31/19 03:00 95 H 18 137/78 94 10/31/19 02:31 89 24 148/62 H 96 10/31/19 02:30 91 H 21 95 10/31/19 02:15 89 20 97 10/31/19 02:14 88 23 145/70 H 96 10/31/19 02:00 87 20 96 10/31/19 01:36 97 H 23 99 10/31/19 01:20 97 10/31/19 01:03 16 150/66 H 100 10/31/19 01:01 100 10/31/19 01:00 98 H 15 98 10/31/19 00:55 92 H 23 10/31/19 00:54 92 H 22 150/66 H 10/31/19 00:44 36.6 C 98 H 24 138/70 97 PG Care Time/CCT Total # of Minutes Spent Total Time Spent with Patient: Total time spent is greater than 50% in coordination of care (as documented) at patient's floor/unit and/or counseling patient: Coding Level of Care Code 21004 Initial Inpt Care Lvl 3 Diagnoses GI bleed K92.2 GI bleed type/associated pathology: unspecified gastrointestinal hemorrhage type Anemia D64.9 Anemia type: unspecified type (1) GI bleed GI bleed type/associated pathology: unspecified gastrointestinal hemorrhage type Qualified Code(s): K92.2 - Gastrointestinal hemorrhage, unspecified (2) Anemia Anemia type: unspecified type Qualified Code(s): D64.9 - Anemia, unspecified
[2019-10-31 11:43] LABS: Hematocrit (blood only) 27.2 % (37-47); Hemoglobin 8.7 g/dL (12.0-16.0); Mean Corpuscular Hemoglobin 28.2 pg (25-34); Mean Corpuscular Volume 88.3 fL (80-100); Mean Platelet Volume 8.8 fL (7.4-10.4); Platelet Count 396 K/uL (130-400); RDW Coefficient of Variation 14.9 % (11.5-14.5); Red Blood Count 3.08 M/uL (4.2-5.4); White Blood Count 8.98 K/uL (4.8-10.8)
[2019-10-31] MEDS ORDERED: dilTIAZem HCL 240 MG CAPCR PO STA (16:57)
--- NOTE | 2019-10-31 17:41 | XCELERA ---
[id number] \\[email or web address]\[id number]_[email or web address]\[id number]
[2019-10-31] MEDS ORDERED: allopurinoL 100 MG TAB PO STA (18:08)
--- NOTE | 2019-10-31 18:47 | Communication Note ---
Date of Service: October 31, 2019 Patient seen and examined but admitted same day therefore I will not be billing for this encounter. Admission for GI bleed. Melena for 7-10 days. Started before azithromycin given progressed after she started this. Two sisters with colon cancer. Patient feeling much better after 1 unit blood transfusion. Patient was NPO for EGD however delayed to await cardiac workup before clearance prior to surgery. Risk factor for gastroduodenal ulcer - steroid and azithromycin use. Prior to this bleeding episode she reports some mild SOBOE but no chest pains or dizziness on exertion. O/E Chest CTAB, tachycardia (regular) Ejection murmur 5/6 loudest LUSB, Abdo SNT A&P GI bleed -> very symptomatic with Hgb 7.3. Transfuse Hgb > 8. Switch to pantoprazole 40mg IV BID as per GI and patient can eat. Possible EGD as outpatient if discharged over weekend. Severe aortic and mitral stenosis - surprising echocardiogram given relatively n ormal echocardiogram in 2017 and lack of symptoms prior to her melena 1 week ago. Discussed with Dr Law who will review in AM as suspect she is too high risk for EGD. Will d/c IV fluids at this time although no signs of heart failure on exam. Prior to discharge may aim Hgb higher > 9 as likely contributing towards SOBOE. Abnormal EKG - troponin x2 negative. Not ACS.
[2019-10-31 18:54] LABS: Hematocrit (blood only) 26.3 % (37-47); Hemoglobin 8.4 g/dL (12.0-16.0); Mean Corpuscular Hemoglobin 28.3 pg (25-34); Mean Corpuscular Hgb Conc 31.9 g/dL (32-36); Mean Corpuscular Volume 88.6 fL (80-100); Platelet Count 395 K/uL (130-400); RDW Coefficient of Variation 14.9 % (11.5-14.5); Red Blood Count 2.97 M/uL (4.2-5.4); White Blood Count 8.69 K/uL (4.8-10.8)
[2019-10-31] MEDS: PANTOprazole 40 MG in SYRINGE 0 ML IV SCH (20:15)
--- NOTE | 2019-10-31 21:23 | Electrocardiogram Report ---
Test Reason : Blood Pressure : / mmHG Vent. Rate : 093 BPM Atrial Rate : 093 BPM P-R Int : 148 ms QRS Dur : 088 ms QT Int : 380 ms P-R-T Axes : 041 004 118 degrees QTc Int : 472 ms Poor data quality, interpretation may be adversely affected Normal sinus rhythm Left ventricular hypertrophy with repolarization abnormality Abnormal ECG When compared with ECG of 18-JUL-2010 20:09, T wave inversion now evident in Lateral leads Confirmed by Peter Porras ([id number]) on 10/31/2019 9:22:56 PM Referred By: REFERRED SELF Confirmed By:Peter Porras
--- NOTE | 2019-11-01 00:02 | Billing Data ---
Date of Service November 01, 2019 Coding Level of Care Code 90762 Initial Inpt Care Lvl 3
[2019-11-01 06:21] LABS: Hematocrit (blood only) 27.5 % (37-47); Hemoglobin 8.7 g/dL (12.0-16.0); Mean Corpuscular Hemoglobin 28.2 pg (25-34); Mean Corpuscular Hgb Conc 31.6 g/dL (32-36); Mean Platelet Volume 8.7 fL (7.4-10.4); Platelet Count 414 K/uL (130-400); RDW Coefficient of Variation 14.8 % (11.5-14.5); RDW Standard Deviation 47.9 fL (36.4-46.3); Red Blood Count 3.09 M/uL (4.2-5.4); White Blood Count 7.83 K/uL (4.8-10.8)
[2019-11-01] MEDS: LEVOTHYROXINE SODIUM 50 MCG TABLET PO SCH (06:27)
[2019-11-01 06:58] LABS: BUN Creatinine Ratio 19.9 (10-20); Calcium 8.9 mg/dl (8.5-10.1); Creatinine Clr Calc Pharmacy 36.3 ml/min; Est GFR (African American) 55.8; Est GFR (Non-African American) 48.2; Potassium 3.2 mmol/L (3.5-5.1)
[2019-11-01] MEDS: POTASSIUM CHLORIDE / WTR 10 MEQ/100 ML PLCT IV SCH ×2 (08:11→09:10)
[2019-11-01] MEDS: LORATADINE 10 MG TAB PO SCH (08:20)
[2019-11-01] MEDS: dilTIAZem HCL 240 MG CAPCR PO SCH (08:21)
[2019-11-01] MEDS: EZETIMIBE 10 MG TABLET PO SCH (08:23)
[2019-11-01] MEDS: allopurinoL 100 MG TAB PO SCH ×2 (08:24→21:00)
[2019-11-01] MEDS: PANTOprazole 40 MG in SYRINGE 0 ML IV SCH (08:25)
--- NOTE | 2019-11-01 09:31 | Hospitalist Progress Note ---
Date of Service November 01, 2019 Assessment & Plan (1) GI bleed: s/p 2 units blood, 2nd unit given in light of severe /MS to aim Hgb > 9. Repeat Hgb in PM. Switch IV to PO pantoprazole. Concerning family history with two sisters diagnosed with colon cancer however prednisone use and melena make a gastric ulcer more likely. Plan to consult anesthesiology tomorrow after cardiac clearance for potential EGD on Sunday. Given valvular disease this would be a much safer procedure as an inpatient rather than outpatient. Holding gemfibrozil in case contributory. (2) Dyspnea: Secondary to above. Less likely severe valvular disease playing a role si nce she felt fine 1 month ago -> minimal SOBOE which may be down to deconditioning rather than valvular disease. (3) Anemia: Stable as above s/p 2 units PRBCs (4) Impaired fasting glucose: HbA1C 6.0 in May 2019. Will not be accurate at present given GI bleed, therefore no plans to repeat. Glucose levels WNL. (5) Aortic stenosis, severe: Follow up cardiology outpatient Fluid status acceptable, no heart failure on exam from IV fluids and blood given. Appreciate cardiology review (6) Mitral stenosis: Follow up cardiology outpatient Appreciate cardiology review Admission and Anticipated Discharge Date Admission Date: October 31, 2019 Subjective Hgb stable. Patient feels much improved after 1 unit blood transfusion, however she hasn't been walking around much. No chest pain or shortness of breath at rest. She does report a history of mild shortness of breath on exertion but no dizziness or chest pain prior to this bleeding episode that started 7-10 days ago. Review of Systems Review of Systems: All systems reviewed & are unremarkable except as noted in HPI & below Physical Exam Constitutional: WD/WN, vitals as above Eyes: + anicteric sclerae; normal pupil size Neck: trachea midline Respiratory: normal respiratory effort, lungs clear to auscultation Cardiovascular: Rate/Rhythm: regular rate and regular rhythm Heart Sounds: + murmur (holosystolic murmur 5/6 loudest LUSB) Gastrointestinal (Abdomen): normal bowel sounds, soft, nontender, no hepatosplenomegaly Musculoskeletal: no cyanosis or clubbing, extremities motor strength 5/5 Extremities: extremities normal to inspection Skin: no rashes, warm and dry Neurologic: moves all extremities and awake; no focal motor deficits and not confused Motor/Sensory: no tremor Psychiatric: A+Ox3, euthymic affect Results & Data ([facility]) Vital Signs (Past 12 Hours) Vital Signs Temp Pulse Pulse Resp BP Pulse Ox 11/01/19 08:01 36.9 C 96 H 18 138/72 97 11/01/19 03:48 37.0 C 88 18 131/78 96 11/01/19 00:00 87 10/31/19 22:07 36.9 C 92 H 18 126/82 95 PG Care Time/CCT Total # of Minutes Spent Total Time Spent with Patient: Total time spent is greater than 50% in coordination of care (as documented) at patient's floor/unit and/or counseling patient: Coding Level of Care Code 71276 Subseq Hosp Care Lvl 3 Diagnoses GI bleed K92.2 GI bleed type/associated pathology: unspecified gastrointestinal hemorrhage type Dyspnea R06.00 Dyspnea type: unspecified Anemia D64.9 Anemia type: unspecified type Impaired fasting glucose R73.01 Aortic stenosis, severe I35.0 Mitral stenosis I05.0 Cardiac valve disease etiology: etiology unspecified (1) GI bleed GI bleed type/associated pathology: unspecified gastrointestinal hemorrhage type Qualified Code(s): K92.2 - Gastrointestinal hemorrhage, unspecified (2) Anemia Anemia type: unspecified type Qualified Code(s): D64.9 - Anemia, unspecified (3) Dyspnea Dyspnea type: unspecified Qualified Code(s): R06.00 - Dyspnea, unspecified (4) Mitral stenosis Cardiac valve disease etiology: etiology unspecified Qualified Code(s): I05.0 - Rheumatic mitral stenosis
[2019-11-01] MEDS ORDERED: SODIUM CHLORIDE 0.9% 250 ML IV PRN (10:20)
--- NOTE | 2019-11-01 10:54 | Cardiology Consultation ---
Date of Consultation November 01, 2019 Assessment & Plan (1) Aortic stenosis, severe: (2) Mitral stenosis: (3) Mitral regurgitation: The patient has severe valvular heart disease. She did have echocardiography performed in 2017 which suggested moderate to severe mitral stenosis. She had an element of mitral regurgitation at that time. Was no evidence of significant aortic stenosis at that time but her current transvalvular velocities are quite high and the dimensionless index approach is for. This would suggest significant aortic stenosis as well. It does seem that her current symptoms are more likely related to her acute blood loss rather than valvular heart disease. He states that her acute breathing difficulties appear to have resolved with transfusion an increase in her hemoglobin. She does have some element of baseline dyspnea. However, she is elderly and relatively sedentary. Unclear whether she has symptomatic valvular heart disease. She does not endorse other symptoms of aortic stenosis such as chest discomfort, dizziness or syncope. While she does have mildly elevated pulmonary pressures based on her echocardiogram, she does not have a known history of atrial fibrillation. I do not believe her current sense of palpitations represents atrial fibrillation. I do not believe she requires any acute intervention. I do not believe she has a current indication for anticoagulation despite her degree of mitral stenosis. She will need to have her overall volume status monitored closely and fluids should be used judiciously in order to avoid pulmonary edema. While her procedural risk is certainly higher given her severe valvular heart disease, she appears to be compensated at this time. Main concern during any procedure would be a change in her volume status or hemodynamics. Avoiding significant hypotension or volume overload would be the main recommendation. It seems imperative that we exclude some form of GI malignancy prior to proceeding with any form of cardiovascular evaluation. It is very likely that she will need surgical intervention for her valvular heart disease at some point in the future. I do not believe there is a current indication for urgent or emergent valve with intervention including valvotomy. History of Present Illness Reason for Consultation: Murmur Requesting Physician: Ming Attending Physician: Rai Sharma MD History of Present Illness The patient is an 84-year-old woman with a history of mitral regurgitation who presented to the hospital with symptoms of progressive dyspnea over 2 weeks. Patient states that at baseline she has an element of dyspnea. This is fairly mild in nature and associated with walking long distances or moderate exertion. It does not appear to be limiting in nature. However, over 2 weeks the patient has breathing deteriorated to the point where she was short of breath even walking around her residence. This did not appear to be associated with symptoms of dizziness or lightheadedness. She did not have symptoms of chest discomfort. She did not report orthopnea or paroxysmal nocturnal dyspnea. It also seems that for several days leading up to her presentation she had dark stool. She denied other gastrointestinal symptoms such as abdominal pain, nausea or difficulty eating. She did not endorse the use of significant nonsteroidal medication. She had been recently treated for an upper respiratory infection with antibiotics. Patient was found to be anemic and thought to have evidence of gastrointestinal blood loss. She underwent a blood transfusion with resolution of her acute dyspnea. Patient states that at this time she is not having breathing difficulty. She is occasionally aware of a sense of palpitation. However, this appears to be fairly fleeting in nature and lasting only a few seconds. It is not associated with other symptoms. Allergies Allergy/AdvReac Type Severity Reaction Status Date / Time simvastatin Allergy Unknown RASH Verified 10/29/19 11:18 Home Medications Home Medications Medication Instructions Recorded Confirmed Type gemfibrozil 600 mg tablet 600 mg PO BID #180 tab 03/12/19 10/31/19 Rx calcium carb-vit D3-minerals 600 1 tab PO DAILY tab 05/23/19 10/31/19 History mg calcium-200 unit tablet aspirin 81 mg tablet,delayed 81 mg PO DAILY tab 05/29/19 10/31/19 History release prednisone 10 mg tablet 10 mg PO Q OTHER DAY #100 tab 05/29/19 10/31/19 Rx allopurinol 100 mg tablet 100 mg PO BID #60 tab 08/29/19 10/31/19 Rx diltiazem HCl 240 mg capsule,24 240 mg PO DAILY #30 cap 08/29/19 10/31/19 Rx hr,extended release ezetimibe 10 mg tablet 10 mg PO DAILY #30 tab 09/29/19 10/31/19 Rx levothyroxine 50 mcg tablet 50 mcg PO DAILY #30 tab 09/29/19 10/31/19 Rx loratadine 10 mg tablet 10 mg PO DAILY #30 tab 10/20/19 10/31/19 Rx Patient History Medical History Avulsion of skin of finger (Acute) Gout (Acute) Hyperlipidemia (Chronic) Hypertension (Chronic) Hypothyroid (Chronic) Impaired fasting glucose (Chronic) Mitral regurgitation Rash (Acute) Surgical History S/P hysterectomy with oophorectomy S/P lumpectomy, left breast Family History Sister Breast cancer Colorectal cancer COPD (chronic obstructive pulmonary disease) Mother Diabetes Social History Preferred Language: Martiniquais Communication Ability: Effective Beliefs That Will Affect Care: None marital status: / Current Living Situation: Alone current occupational status: retired Feels Safe at Home: Yes Safety Concerns: Feels Safe At This Time Smoking Status: Former smoker Tobacco Type: cigarettes ; Age Started Using Tobacco: 15 ; Age Quit Using Tobacco: 33 ; packs per day: 0.5 ; Cigarettes Per Day: 10 ; Smoking End Date: 1967 ; Number of Years Since Quit: 51 ; Hx Alcohol Use: No Hx Substance Use: No Review of Systems Review of Systems: Per HPI. No history of syncope or presyncope. Physical Exam Physical Exam: She is alert and oriented x3. Mood affect appear normal. She answered all questions appropriately. HEENT: Sclerae are anicteric. Pupils are equal and reactive to light and accommodation. Extraocular movements were intact. Neuro: Cranial nerves intact Neck: Examination of the submandibular region did not reveal any significant lymphadenopathy. Carotids are palpable bilaterally and free of bruits on auscultation. There was no evidence of jugular venous distention. The thyroid was not enlarged. Lungs: Lungs are clear to auscultation bilaterally. There are no rales wheezes or rhonchi. She has normal respiratory effort without use of accessory muscles. There is normal pulmonary excursion. Cardiac: The rhythm was regular. There was an opening S1 click. There was a course crescendo systolic murmur and a very soft diastolic murmur. Abdomen: The abdomen was soft and nontender. Extremities: Patient has bilateral radial pulses that are equal in intensity. There is no evidence cyanosis or clubbing. There was no evidence of significant peripheral edema bilaterally. Skin: There are no rashes noted on examination today. Results & Data ([facility]) Vital Signs (Past 12 Hours) Vital Signs Temp Pulse Pulse Resp BP Pulse Ox 11/01/19 08:01 36.9 C 96 H 18 138/72 97 11/01/19 03:48 37.0 C 88 18 131/78 96 11/01/19 00:00 87 Laboratory Results Abnormal Lab Results 10/31/19 10/31/19 10/31/19 01:37 11:30 18:29 WBC 8.98 8.69 RBC 3.08 L 2.97 L Hgb 8.7 L 8.4 L Hct 27.2 L 26.3 L MCV 88.3 88.6 MCH 28.2 28.3 MCHC 32.0 31.9 L RDW Std Deviation 48.0 H 48.0 H RDW Coeff of Mervin 14.9 H 14.9 H Plt Count 396 395 MPV 8.8 9.0 Sodium Potassium Chloride Carbon Dioxide Anion Gap BUN Creatinine Est Cr Clr Drug Dosing Est GFR ( Amer) Est GFR (Non-Af Amer) BUN/Creatinine Ratio Glucose Calcium Crossmatch See Detail 11/01/19 11/01/19 05:57 05:57 WBC 7.83 RBC 3.09 L Hgb 8.7 L Hct 27.5 L MCV 89.0 MCH 28.2 MCHC 31.6 L RDW Std Deviation 47.9 H RDW Coeff of Mervin 14.8 H Plt Count 414 H MPV 8.7 Sodium 140 Potassium 3.2 L Chloride 107 Carbon Dioxide 27 Anion Gap 6.0 BUN 21 H Creatinine 1.06 Est Cr Clr Drug Dosing 36.3 Est GFR ( Amer) 55.8 Est GFR (Non-Af Amer) 48.2 BUN/Creatinine Ratio 19.9 Glucose 88 Calcium 8.9 Crossmatch Diagnostic Findings Echocardiogram obtained 10/31/2019: Moderate LVH. Normal LV systolic function. Moderate left atrial and mild right atrial dilation. Mild aortic regurgitation. Mild to moderate mitral regurgitation. Severe aortic and mitral stenosis. Mildly elevated right ventricular systolic pressure. Chest x-ray obtained at the time of admission did not reveal any acute cardiopulmonary process ECG Additional Comments: EKG revealed normal sinus rhythm with evidence of left ventricular hypertrophy. The PG Care Time/CCT Total # of Minutes Spent Total Time Spent with Patient: Total time spent is greater than 50% in coordination of care (as documented) at patient's floor/unit and/or counseling patient: Coding Level of Care Code 73141 Initial Inpt Care Lvl 3 Diagnoses Aortic stenosis, severe I35.0 Mitral stenosis I05.0 Mitral regurgitation I34.0
[2019-11-01 17:01] LABS: Hematocrit (blood only) 31.2 % (37-47); Hemoglobin 10.2 g/dL (12.0-16.0); Mean Corpuscular Hemoglobin 28.3 pg (25-34); Mean Corpuscular Hgb Conc 32.7 g/dL (32-36); Mean Corpuscular Volume 86.7 fL (80-100); Mean Platelet Volume 8.9 fL (7.4-10.4); Platelet Count 384 K/uL (130-400); RDW Coefficient of Variation 15.3 % (11.5-14.5); RDW Standard Deviation 48.1 fL (36.4-46.3)
[2019-11-01] MEDS: PANTOprazole 40 MG TAB PO SCH (21:00)
[2019-11-02 06:10] LABS: Basophils # (auto) 0.03 K/uL (0-0.2); Basophils % (auto) 0.3 %; Eosinophils # (auto) 0.35 K/uL (0-0.5); Eosinophils % (auto) 3.1 %; Hematocrit (blood only) 31.7 % (37-47); Hemoglobin 10.3 g/dL (12.0-16.0); Immature Granulocytes # (auto) 0.03 K/uL (0.00-0.02); Immature Granulocytes % (auto) 0.3 %; Lymphocytes # (auto) 0.67 K/uL (1.2-3.4); Lymphocytes % (auto) 5.9 %; Mean Corpuscular Hemoglobin 28.5 pg (25-34); Mean Corpuscular Hgb Conc 32.5 g/dL (32-36); Mean Corpuscular Volume 87.6 fL (80-100); Mean Platelet Volume 9.1 fL (7.4-10.4); Monocytes # (auto) 1.05 K/uL (0.11-0.59); Monocytes % (auto) 9.3 %; Neutrophils # (auto) 9.14 K/uL (1.4-6.5); Neutrophils % (auto) 81.1 %; Platelet Count 410 K/uL (130-400); RDW Coefficient of Variation 16.1 % (11.5-14.5); RDW Standard Deviation 51.3 fL (36.4-46.3); Red Blood Count 3.62 M/uL (4.2-5.4); White Blood Count 11.27 K/uL (4.8-10.8)
[2019-11-02] MEDS: LEVOTHYROXINE SODIUM 50 MCG TABLET PO SCH (06:34)
[2019-11-02 06:41] LABS: BUN Creatinine Ratio 18.2 (10-20); Calcium 8.7 mg/dl (8.5-10.1); Creatinine Clr Calc Pharmacy 42.8 ml/min; Est GFR (African American) 68.1; Est GFR (Non-African American) 58.7
[2019-11-02] MEDS ORDERED: POTASSIUM CHLORIDE 20 MEQ TABCR PO STA (07:54)
[2019-11-02] MEDS: dilTIAZem HCL 240 MG CAPCR PO SCH (08:16)
[2019-11-02] MEDS: EZETIMIBE 10 MG TABLET PO SCH (08:17)
[2019-11-02] MEDS: LORATADINE 10 MG TAB PO SCH (08:17)
[2019-11-02] MEDS: PANTOprazole 40 MG TAB PO SCH ×2 (08:17→20:33)
[2019-11-02] MEDS: allopurinoL 100 MG TAB PO SCH ×2 (08:18→20:32)
--- NOTE | 2019-11-02 09:54 | Anesthesiology Consultation ---
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 History Height/Weight Height: 5 ft 3 in Weight: 66.9 kg Allergies Allergy/AdvReac Type Severity Reaction Status Date / Time simvastatin Allergy Unknown RASH Verified 10/29/19 11:18 Medications Home Medications Medication Instructions Recorded Confirmed Last Taken gemfibrozil 600 mg tablet 600 mg PO BID #180 tab 03/12/19 10/31/19 Unknown calcium carb-vit D3-minerals 600 1 tab PO DAILY tab 05/23/19 10/31/19 Unknown mg calcium-200 unit tablet aspirin 81 mg tablet,delayed 81 mg PO DAILY tab 05/29/19 10/31/19 Unknown release prednisone 10 mg tablet 10 mg PO Q OTHER DAY #100 tab 05/29/19 10/31/19 Unknown allopurinol 100 mg tablet 100 mg PO BID #60 tab 08/29/19 10/31/19 Unknown diltiazem HCl 240 mg capsule,24 240 mg PO DAILY #30 cap 08/29/19 10/31/19 Unknown hr,extended release ezetimibe 10 mg tablet 10 mg PO DAILY #30 tab 09/29/19 10/31/19 Unknown levothyroxine 50 mcg tablet 50 mcg PO DAILY #30 tab 09/29/19 10/31/19 Unknown loratadine 10 mg tablet 10 mg PO DAILY #30 tab 10/20/19 10/31/19 Unknown Active Medications Generic Name Dose Route Start Last Admin Trade Name Freq PRN Reason Stop Dose Admin Acetaminophen 650 mg 10/31/19 05:41 11/02/19 06:34 Tylenol PO 11/30/19 05:40 650 mg Q4H PRN Administration Pain or Fever Allopurinol 100 mg 10/31/19 09:00 11/02/19 08:18 Zyloprim PO 11/30/19 08:59 100 mg BID DEQUAN Administration Diltiazem HCl 240 mg 10/31/19 09:00 11/02/19 08:16 Cardizem Cd PO 11/30/19 08:59 240 mg DAILY DEQUAN Administration Ezetimibe 10 mg 10/31/19 09:00 11/02/19 08:17 Zetia PO 11/30/19 08:59 10 mg DAILY DEQUAN Administration Gemfibrozil 600 mg 10/31/19 09:00 10/31/19 08:59 Lopid PO 11/30/19 08:59 Not Given BID DEQUAN Levothyroxine Sodium 50 mcg 10/31/19 06:30 11/02/19 06:34 Synthroid PO 11/30/19 06:29 50 mcg DAILYBB DEQUAN Administration Loratadine 10 mg 10/31/19 09:00 11/02/19 08:17 Claritin PO 11/30/19 08:59 Not Given DAILY DEQUAN Pantoprazole Sodium 40 mg 11/01/19 21:00 11/02/19 08:17 Protonix PO 12/01/19 20:59 40 mg BID DEQUAN Administration Past Medical History Medical History Avulsion of skin of finger (Acute) Gout (Acute) Hyperlipidemia (Chronic) Hypertension (Chronic) Hypothyroid (Chronic) Impaired fasting glucose (Chronic) Mitral regurgitation Rash (Acute) Past Family History Family History Sister Breast cancer Colorectal cancer COPD (chronic obstructive pulmonary disease) Mother Diabetes Past Surgical History Surgical History S/P hysterectomy with oophorectomy S/P lumpectomy, left breast Social History Smoking Status: Former smoker tobacco type: cigarettes Smoking cigarettes per day: 10 Smoking End Date: 1967 Hx Alcohol Use: No Hx Substance Use: No Physical Exam Vital Signs Last Vital Signs Temp 100.0 F H 11/02/19 07:51 Pulse 96 H 11/02/19 07:51 Resp 19 11/02/19 07:51 BP 123/69 11/02/19 07:51 Pulse Ox 95 11/02/19 07:51 Testing Laboratory Results 11/02/19 05:42 11/02/19 05:42 PT 10.4 Seconds (9.0-12.0) 10/31/19 00:57 INR 1.0 (0.9-1.1) 10/31/19 00:57 APTT 21.7 Seconds (21.0-31.0) 10/31/19 00:57 Urine Color Yellow 10/31/19 06:43 Urine Appearance Clear (Clear) 10/31/19 06:43 Urine pH 6.5 (4.5-7.5) 10/31/19 06:43 Ur Specific [place] 1.009 (1.000-1.030) 10/31/19 06:43 Urine Protein Negative (Negative) 10/31/19 06:43 Urine Glucose (UA) Negative (Negative) 10/31/19 06:43 Urine Ketones Negative (Negative) 10/31/19 06:43 Urine Nitrite Negative (Negative) 10/31/19 06:43 Ur Leukocyte Esterase Negative (Negative) 10/31/19 06:43 Blood Type A Positive 10/31/19 01:37 Antibody Screen NEGATIVE 10/31/19 01:37 Electrocardiogram Date: 10/31/19 Normal sinus rhythm, rate 93 bpm Left ventricular hypertrophy with repolarization abnormality Abnormal ECG When compared with ECG of 18-JUL-2010 20:09, T wave inversion now evident in Lateral leads Confirmed by Peter Porras ([id number]) on 10/31/2019 9:22:56 PM Chest X-Ray Date: 10/31/19 IMPRESSION: Mild cardiac enlargement with no active disease in the chest. Echocardiogram Date: 10/31/19 EF 60-65% Moderate LVH LV systolic function is normal LA moderately dilated RA mildly dilated Mild AR Severe Mod mitral annular calcification Mild-mod MR Severe MS RVSP 30-40mmHg
--- NOTE | 2019-11-02 19:38 | Hospitalist Progress Note ---
Date of Service November 02, 2019 Assessment & Plan (1) GI bleed: s/p 2 units blood, 2nd unit given in light of severe /MS to aim Hgb > 9. Now stable 10.3. Concerning family history with two sisters diagnosed with colon cancer however prednisone use, high stress levels and melena make a gastric ulcer more likely. Plan for EGD on tomorrow. Given valvular disease this would be a much safer procedure as an inpatient rather than outpatient. Holding gemfibrozil in case contributory. (2) Dyspnea: Secondary to above. Less likely severe valvular disease playing a role since she felt fine 1 month ago -> minimal SOBOE which may be down to deconditi oning rather than valvular disease. (3) Anemia: Stable as above s/p 2 units PRBCs (4) Impaired fasting glucose: HbA1C 6.0 in May 2019. Will not be accurate at present given GI bleed, therefore no plans to repeat. Glucose levels WNL. (5) Aortic stenosis, severe: Follow up cardiology outpatient Fluid status acceptable, no heart failure on exam from IV fluids and blood given. Appreciate cardiology review (6) Mitral stenosis: Follow up cardiology outpatient Appreciate cardiology review Admission and Anticipated Discharge Date Admission Date: October 31, 2019 Subjective Very anxious about everything that is going on. She had a friend that had an EGD requiring a dilatation for stenosis and caused esophageal tear which she related to her subsequent progressive medical issues where she a year later. We discussed her care was different from this and I suspect she doesn't need a dilatation. She admits to having a panic attack after Dr Law described open heart surgery regarding her severe aortic stenosis and mitral stenosis although I reassured her that she was currently not having a lot of symptoms regarding this and we should concentrate on her bleeding initially and she should follow up with cardiology regarding the heart after this. She does not wish to try any medication for anxiety at present. Reports previously having Ativan after her breast cancer but this didn't work well. No chest pain, shortness of breath, dizziness. Review of Systems Review of Systems: All systems reviewed & are unremarkable except as noted in HPI & below Physical Exam Constitutional: WD/WN, vitals as above Eyes: + anicteric sclerae; normal pupil size Neck: trachea midline Respiratory: normal respiratory effort, lungs clear to auscultation Cardiovascular: Rate/Rhythm: regular rate and regular rhythm Heart Sounds: + murmur (holosystolic murmur 5/6 loudest LUSB) Gastrointestinal (Abdomen): normal bowel sounds, soft, nontender, no hepatosplenomegaly Musculoskeletal: no cyanosis or clubbing, extremities motor strength 5/5 Extremities: extremities normal to inspection Skin: no rashes, warm and dry Neurologic: moves all extremities and awake; no focal motor deficits and not confused Motor/Sensory: no tremor Psychiatric: A+Ox3, euthymic affect Results & Data ([facility]) Vital Signs (Past 12 Hours) Vital Signs Temp Pulse Pulse Resp BP Pulse Ox 11/02/19 15:46 37.2 C 95 H 19 145/68 H 96 11/02/19 15:18 91 H 11/02/19 11:44 36.6 C 79 18 152/61 H 93 11/02/19 08:00 37.2 C 91 H 11/02/19 07:51 37.8 C H 96 H 19 123/69 95 PG Care Time/CCT Total # of Minutes Spent Total Time Spent with Patient: Total time spent is greater than 50% in coordination of care (as documented) at patient's floor/unit and/or counseling patient: Coding Level of Care Code 96184 Subseq Hosp Care Lvl 2 Diagnoses GI bleed K92.2 GI bleed type/associated pathology: unspecified gastrointestinal hemorrhage type Dyspnea R06.00 Dyspnea type: unspecified Anemia D64.9 Anemia type: unspecified type Impaired fasting glucose R73.01 Aortic stenosis, severe I35.0 Mitral stenosis I05.0 Cardiac valve disease etiology: etiology unspecified (1) GI bleed GI bleed type/associated pathology: unspecified gastrointestinal hemorrhage type Qualified Code(s): K92.2 - Gastrointestinal hemorrhage, unspecified (2) Anemia Anemia type: unspecified type Qualified Code(s): D64.9 - Anemia, unspecified (3) Dyspnea Dyspnea type: unspecified Qualified Code(s): R06.00 - Dyspnea, unspecified (4) Mitral stenosis Cardiac valve disease etiology: etiology unspecified Qualified Code(s): I05.0 - Rheumatic mitral stenosis
[2019-11-03] MEDS: LEVOTHYROXINE SODIUM 50 MCG TABLET PO SCH (06:36)
[2019-11-03 07:19] LABS: Hematocrit (blood only) 29.7 % (37-47); Hemoglobin 9.6 g/dL (12.0-16.0); Mean Corpuscular Hemoglobin 28.6 pg (25-34); Mean Corpuscular Hgb Conc 32.3 g/dL (32-36); Mean Corpuscular Volume 88.4 fL (80-100); Mean Platelet Volume 9.3 fL (7.4-10.4); Platelet Count 352 K/uL (130-400); RDW Coefficient of Variation 16.1 % (11.5-14.5); RDW Standard Deviation 51.6 fL (36.4-46.3); Red Blood Count 3.36 M/uL (4.2-5.4); White Blood Count 11.88 K/uL (4.8-10.8)
[2019-11-03 07:50] LABS: BUN Creatinine Ratio 24.4 (10-20); Calcium 9.2 mg/dl (8.5-10.1); Est GFR (African American) 68.1; Est GFR (Non-African American) 58.7; Potassium 3.4 mmol/L (3.5-5.1)
[2019-11-03] MEDS: PANTOprazole 40 MG TAB PO SCH ×2 (08:00→21:21)
[2019-11-03] MEDS: LORATADINE 10 MG TAB PO SCH ×2 (08:00→08:01)
[2019-11-03] MEDS: dilTIAZem HCL 240 MG CAPCR PO SCH (08:00)
[2019-11-03] MEDS: allopurinoL 100 MG TAB PO SCH ×2 (08:00→21:22)
[2019-11-03] MEDS: EZETIMIBE 10 MG TABLET PO SCH (08:00)
[2019-11-03] MEDS: POTASSIUM CHLORIDE 20 MEQ TABCR PO SCH ×2 (08:40→21:21)
[2019-11-03] MEDS ORDERED: methylPREDNISolone 10 MG in SYRINGE 0 ML IV SCH (14:00)
[2019-11-03] MEDS ORDERED: ePHEDrine sulfate 50 MG/ML AMP IV PRN (14:42)
[2019-11-03] MEDS ORDERED: ATROPINE SULFATE 0.1 MG/ML 10ML SYR IV PRN (14:42)
--- NOTE | 2019-11-03 15:19 | Gastroenterology Progress Note ---
Date of Service November 03, 2019 Assessment & Plan (1) GI bleed: Admission and Anticipated Discharge Date Admission Date: October 31, 2019 Continue current therapy Proceed with EGD now. Subjective Doing better today. Denies fevers, chills, nausea, vomiting, hematemesis, hematochezia or melena. She denies any other complaints at present. She states that she has not had a BM since she presented to [facility]. Review of Systems Review of Systems: All systems reviewed & are unremarkable except as noted in HPI & below Physical Exam Constitutional: WD/WN, vitals as above Respiratory: normal respiratory effort, lungs clear to auscultation Cardiovascular: RRR, no murmur, no edema Gastrointestinal (Abdomen): normal bowel sounds, soft, nontender, no hepatosplenomegaly Results & Data ([facility]) Vital Signs (Past 12 Hours) Vital Signs Temp Pulse Pulse Resp BP BP Pulse Ox 11/03/19 14:57 36.9 C 109 H 18 139/75 96 11/03/19 14:51 37.6 C H 101 H 20 131/70 131/70 96 11/03/19 10:59 37.5 C 97 H 20 110/61 92 11/03/19 07:52 90 11/03/19 07:20 37.2 C 97 H 18 133/70 94 PG Care Time/CCT Total # of Minutes Spent Total Time Spent with Patient: Total time spent is greater than 50% in coordination of care (as documented) at patient's floor/unit and/or counseling patient: Coding Level of Care Code None Diagnoses GI bleed K92.2 GI bleed type/associated pathology: unspecified gastrointestinal hemorrhage type (1) GI bleed GI bleed type/associated pathology: unspecified gastrointestinal hemorrhage type Qualified Code(s): K92.2 - Gastrointestinal hemorrhage, unspecified
[2019-11-03] MEDS ORDERED: PROPOFOL IV EMULSION 10 MG/ML 20 ML VIAL IV ONE (15:55)
[2019-11-03] MEDS ORDERED: LIDOCAINE HCL 2% 2 ML VIAL/AMP(20MG/ML) INFIL ONE (15:55)
[2019-11-03] MEDS ORDERED: PHENYLEPHRINE 100MCG/ML 5ML SYR ONE (15:55)
--- NOTE | 2019-11-03 15:57 | GI REPORT ---
Patient Name: Ana Rodríguez Procedure Date: 11/03/2019 3:37 PM Date of : 1935 Admit Type: Inpatient Age: 84 Gender: Female Attending MD: Loco Woodruff DO Procedure: Upper GI endoscopy Providers: Loco Woodruff DO Referring MD: Rai Arellano Indications: Recent gastrointestinal bleeding Medicines: Monitored Anesthesia Care Complications: No immediate complications. Estimated Blood Loss: Estimated blood loss: none. Procedure: Pre-Anesthesia Assessment: - Prior to the procedure, a History and Physical was performed, and patient medications and allergies were reviewed. The patient's tolerance of previous anesthesia was also reviewed. The risks and benefits of the procedure and the sedation options and risks were discussed with the patient. All questions were answered, and informed consent was obtained. Prior Anticoagulants: The patient has taken aspirin, last dose was 4 days prior to procedure. ASA Grade Assessment: IV - A patient with severe systemic disease that is a constant threat to life. After reviewing the risks and benefits, the patient was deemed in satisfactory condition to undergo the procedure. After obtaining informed consent, the endoscope was passed under direct vision. Throughout the procedure, the patient's blood pressure, pulse, and oxygen saturations were monitored continuously. The Endoscope was introduced through the mouth, and advanced to the second part of duodenum. The upper GI endoscopy was accomplished without difficulty. The patient tolerated the procedure well. Findings: A moderate Schatzki ring was found in the distal esophagus. A small hiatal hernia was present. The examined duodenum was normal. Impression: - Moderate Schatzki ring. - Small hiatal hernia. - Normal examined duodenum. - No specimens collected. Recommendation: - [facility]. - Advance diet as tolerated. - Continue present medications. - Perform a CT scan (computed tomography) of abdomen with contrast and pelvis with contrast tomorrow. Loco Woodruff DO 11/03/2019 3:57:26 PM This report has been signed electronically. Note Initiated On: 11/03/2019 3:37 PM Number of Addenda: 0 I attest to the content of the Intraoperative Record and orders documented therein, exceptions below {[id number]}
--- NOTE | 2019-11-03 16:17 | Anesthesiology Progress Note ---
Date of Service November 03, 2019 Anesthesia Post Procedure Vital Signs Vital Signs: Temp Pulse Pulse Resp BP BP Pulse Ox 11/03/19 16:13 99 H 18 119/69 95 11/03/19 15:59 105 H 11/03/19 15:58 36.6 C 96 H 18 110/56 L 95 11/03/19 14:57 36.9 C 109 H 18 139/75 96 11/03/19 14:51 37.6 C H 101 H 20 131/70 131/70 96 11/03/19 10:59 37.5 C 97 H 20 110/61 92 11/03/19 07:52 90 11/03/19 07:20 37.2 C 97 H 18 133/70 94 11/03/19 00:40 93 H 11/02/19 22:32 37.0 C 106 H 18 137/70 94 11/02/19 20:24 37.4 C 102 H 18 125/71 96 Pain Intensity Back: Pain Intensity: 0 Transfer of Care Handoff Completed per policy Notes Mental Status: alert / awake / arousable and participated in evaluation Patient Amnestic to Procedure: Yes Nausea / Vomiting: adequately controlled Pain: adequately controlled Airway Patency, RR, SpO2: stable & adequate BP & HR: stable & adequate Hydration State: stable & adequate Anesthetic Complications: no major complications apparent
[2019-11-03] MEDS ORDERED: IOVERSOL 100ml IV PRN (19:33)
--- NOTE | 2019-11-03 19:52 | CT Scan Report ---
CT OF THE ABDOMEN AND PELVIS WITH CONTRAST CLINICAL HISTORY: GI bleeding COMPARISON STUDY: None. TECHNIQUE: Following IV administration of 84 mL of Optiray-320, axial images of the abdomen and pelvi s were obtained from the lung bases to the proximal femurs. Images were reviewed in the axial, sagitt al, and coronal planes. IV contrast was administered without complication. Automated exposure contro l was utilized for the study. A dose lowering technique was utilized adhering to the principles of A KAYLA. Oral contrast was administered. CT DOSE: 774.11 mGycm FINDINGS: Imaged portions of the lower chest demonstrate small left and trace right pleural effusions with associated airspace opacities consistent with atelectasis. Interlobular septal thickening sugge sts mild pulmonary edema. Moderate cardiomegaly. Moderate aortic valvular calcification is noted. The re is mitral annular calcification. No pneumatosis, free air or portal venous gas is present. The junie er, spleen, adrenal glands and pancreas are unremarkable. There is no biliary or pancreatic ductal di latation. There is no hydronephrosis. A few subcentimeter renal lesions are too small to characterize . There is scarring within the upper pole of the right kidney. A cortical calcification within the up per pole the right kidney is noted. Sensitivity for detection of mucosal lesions is diminished given CT technique but none are identified. There is no bowel wall thickening. Sigmoid diverticulosis is no tarik without evidence for acute diverticulitis. The appendix is normal. There is no lymphadenopathy. S mall fat-containing umbilical hernia is noted. There are no suspicious osseous lesions. There is mode rate plaque of the abdominal aorta. IMPRESSION: 1. No acute process within the abdomen or pelvis. 2. No bowel wall thickening. No bowel obstruction. Colonic diverticulosis without evidence for acute diverticulitis. 3. Small left and trace right pleural effusions with associated atelectasis. Mild interstitial pulmon diamond edema. Cardiomegaly. ACT 112: Negative or not required by law. Electronically signed by: Nickolas Green M.D. 11/03/2019 7:51 PM
[2019-11-03] MEDS ORDERED: LORazepam 0.5 MG TAB PO ONE (20:43)
--- NOTE | 2019-11-03 20:51 | Hospitalist Progress Note ---
Date of Service November 03, 2019 Assessment & Plan (1) GI bleed: etiology uncertain. GI bleed resulted in acute blood loss anemia. s/p 2 units PRBCs earlier this admission. EGD today - no source of bleeding. CT abd/pelvis ordered by Dr Woodruff - no abnormalities. outpatient capsule endoscopy? colonoscopy? both? start ferrous sulfate at discharge. repeat CBC am. diet as tolerated. (2) Anemia: Stable as above s/p 2 units PRBCs for ACUTE BLOOD LOSS ANEMIA. repeat cbc in am. (3) Dyspnea: likely 2nd to severe acute blood loss anemia (lowest Hb was 7.3). dyspnea now improved. seen by cardiology - dyspnea not felt to be from valvular heart disease. (4) Impaired fasting glucose: HbA1C 6.0 in May 2019. Controlled. (5) Aortic stenosis, severe: outpatient cardiology f/u to discuss future valve replacement (6) Mitral stenosis: outpatient cardiology follow-up to discuss potential for valve replacement down the line, if desired by patient (7) Hypothyroid: TSH 05/2019 wnl cont synthroid as is (8) Hypertension: controlled cont home meds (9) Bullous pemphigoid: on chronic prednisone 10mg QOD x 3-4 years gave solumedrol 10mg IV x 1 as she was NPO today resume prednisone 10mg QOD starting tomorrow (10) Chronic kidney disease, stage 3a: baseline CrCl 30s/40s repeat BMP am (11) DVT prophylaxis: SCDs ambulation chemical means contraindicated due to suspected GI bleeding insomnia x 4-5 days -- ativan orally 0.25mg x 1 tonight cautiously replace K repeat BMP/mag am family updated PT eval on 11/04 to see if patient is appropriate for home Admission and Anticipated Discharge Date Admission Date: October 31, 2019 Subjective patient denies any complaints. saw her pre-EGD. multiple family at bedside. she was anxious about the EGD. she states she has not slept in 4-5 nights due to anxiety. denies dyspnea. denies abd pain. denies ongoing melena or BRBPR. Review of Systems Constitutional: no fever, no chills and no fatigue Respiratory: no cough and no dyspnea Cardiovascular: no chest pain Gastrointestinal: no abdominal pain, no nausea, no vomiting, no diarrhea/loose stools, no blood in stools and no melena Physical Exam Constitutional: well developed and well nourished; no acute distress ENMT: external ear and nose normal, oropharynx normal Respiratory: normal respiratory effort, lungs clear to auscultation Cardiovascular: Rate/Rhythm: regular rate and regular rhythm Heart Sounds: normal S1, normal S2 and + murmur (3/6 holosystolic RUSB/apex) Vessels: posterior tibial pulses present and dorsalis pedis pulses present; no JVD Extremities: no edema Gastrointestinal (Abdomen): normal bowel sounds, soft, nontender, no hepatosplenomegaly Skin: + pallor (mild) Psychiatric: Orientation: alert and oriented x 3 Speech: + pressured speech (speaks very quickly) Affect: + anxious affect Results & Data ([facility]) Vital Signs (Past 12 Hours) Vital Signs Temp Pulse Pulse Resp BP BP Pulse Ox 11/03/19 18:45 37.1 C 106 H 20 136/74 96 11/03/19 17:21 36.7 C 109 H 16 148/75 H 97 11/03/19 16:28 100 H 16 129/71 97 11/03/19 16:13 99 H 18 119/69 95 11/03/19 15:59 105 H 11/03/19 15:58 36.6 C 96 H 18 110/56 L 95 11/03/19 14:57 36.9 C 109 H 18 139/75 96 11/03/19 14:51 37.6 C H 101 H 20 131/70 131/70 96 11/03/19 10:59 37.5 C 97 H 20 110/61 92 Laboratory Results Laboratory Results - last 24 hr 11/03/19 11/03/19 07:03 07:03 WBC 11.88 H RBC 3.36 L Hgb 9.6 L Hct 29.7 L MCV 88.4 MCH 28.6 MCHC 32.3 RDW Std Deviation 51.6 H RDW Coeff of Mervin 16.1 H Plt Count 352 MPV 9.3 Sodium 143 Potassium 3.4 L Chloride 111 H Carbon Dioxide 24 Anion Gap 7.0 BUN 22 H Creatinine 0.90 Est Cr Clr Drug Dosing 43.0 Est GFR ( Amer) 68.1 Est GFR (Non-Af Amer) 58.7 BUN/Creatinine Ratio 24.4 H Glucose 99 Calcium 9.2 PG Care Time/CCT Total # of Minutes Spent Total Time Spent with Patient: Total time spent is greater than 50% in coordination of care (as documented) at patient's floor/unit and/or counseling patient: Coding Level of Care Code 45017 Subseq Hosp Care Lvl 3 Diagnoses GI bleed K92.2 GI bleed type/associated pathology: unspecified gastrointestinal hemorrhage type Anemia D64.9 Anemia type: unspecified type Dyspnea R06.00 Dyspnea type: unspecified Impaired fasting glucose R73.01 Aortic stenosis, severe I35.0 Mitral stenosis I05.0 Cardiac valve disease etiology: etiology unspecified Hypothyroid E03.9 Hypothyroidism type: acquired Hypertension I10 Hypertension type: essential hypertension Bullous pemphigoid L12.0 Chronic kidney disease, stage 3a N18.3 DVT prophylaxis Z29.9 (1) GI bleed GI bleed type/associated pathology: unspecified gastrointestinal hemorrhage type Qualified Code(s): K92.2 - Gastrointestinal hemorrhage, unspecified (2) Dyspnea Dyspnea type: unspecified Qualified Code(s): R06.00 - Dyspnea, unspecified (3) Anemia Anemia type: unspecified type Qualified Code(s): D64.9 - Anemia, unspecified (4) Mitral stenosis Cardiac valve disease etiology: etiology unspecified Qualified Code(s): I05.0 - Rheumatic mitral stenosis (5) Hypothyroid Hypothyroidism type: acquired Qualified Code(s): E03.9 - Hypothyroidism, unsp ecified (6) Hypertension Hypertension type: essential hypertension Qualified Code(s): I10 - Essential (primary) hypertension
[2019-11-04 05:39] LABS: Hematocrit (blood only) 27.2 % (37-47); Hemoglobin 8.8 g/dL (12.0-16.0); Mean Corpuscular Hemoglobin 28.7 pg (25-34); Mean Corpuscular Hgb Conc 32.4 g/dL (32-36); Mean Corpuscular Volume 88.6 fL (80-100); Mean Platelet Volume 8.9 fL (7.4-10.4); Platelet Count 318 K/uL (130-400); RDW Standard Deviation 51.1 fL (36.4-46.3); Red Blood Count 3.07 M/uL (4.2-5.4); White Blood Count 10.45 K/uL (4.8-10.8)
[2019-11-04] MEDS: LEVOTHYROXINE SODIUM 50 MCG TABLET PO SCH (05:44)
[2019-11-04 06:24] LABS: BUN Creatinine Ratio 26.4 (10-20); Calcium 8.3 mg/dl (8.5-10.1); Creatinine Clr Calc Pharmacy 49.7 ml/min; Est GFR (African American) 80.9; Est GFR (Non-African American) 69.8
--- NOTE | 2019-11-04 07:51 | Anesthesiology Progress Note ---
Date of Service November 04, 2019 Anesthesia Post Procedure Vital Signs Vital Signs: Temp Pulse Pulse Resp BP BP Pulse Ox 11/04/19 04:29 37.0 C 93 H 20 103/53 L 95 11/04/19 02:45 91 H 11/03/19 23:55 36.9 C 102 H 20 118/71 95 11/03/19 18:45 37.1 C 106 H 20 136/74 96 11/03/19 17:21 36.7 C 109 H 16 148/75 H 97 11/03/19 16:28 100 H 16 129/71 97 11/03/19 16:13 99 H 18 119/69 95 11/03/19 15:59 105 H 11/03/19 15:58 36.6 C 96 H 18 110/56 L 95 11/03/19 14:57 36.9 C 109 H 18 139/75 96 11/03/19 14:51 37.6 C H 101 H 20 131/70 131/70 96 11/03/19 10:59 37.5 C 97 H 20 110/61 92 11/03/19 07:52 90 Pain Intensity Back: Pain Intensity: 0 Notes Mental Status: alert / awake / arousable and participated in evaluation Patient Amnestic to Procedure: Yes Nausea / Vomiting: adequately controlled Pain: adequately controlled Airway Patency, RR, SpO2: stable & adequate BP & HR: stable & adequate Hydration State: stable & adequate Anesthetic Complications: no major complications apparent and Pt Satisfied with anesthetic care
[2019-11-04] MEDS: LORATADINE 10 MG TAB PO SCH (07:52)
[2019-11-04] MEDS: allopurinoL 100 MG TAB PO SCH ×2 (07:54→21:47)
[2019-11-04] MEDS: predniSONE 10 MG TABLET PO SCH (07:54)
[2019-11-04] MEDS: POTASSIUM CHLORIDE 20 MEQ TABCR PO SCH ×2 (07:55→21:46)
[2019-11-04] MEDS: EZETIMIBE 10 MG TABLET PO SCH (07:55)
[2019-11-04] MEDS: dilTIAZem HCL 240 MG CAPCR PO SCH ×2 (07:59→08:00)
[2019-11-04] MEDS: PANTOprazole 40 MG TAB PO SCH ×2 (07:59→21:47)
--- NOTE | 2019-11-04 14:09 | Hospitalist Progress Note ---
Date of Service November 04, 2019 Assessment & Plan (1) GI bleed: Presumed. Etiology uncertain. GI bleed resulted in acute blood loss anemia. S/p 2 units PRBCs -> One on 10/31 & one on 11/01. EGD on 11/03 - no source of bleeding. CT abd/pelvis ordered by Dr Woodruff - no abnormalities. Hgb on 11/04 down to 8.8; almost 1 gram drop in 1 day. Patient willing to undergo colonoscopy and this was discussed with Dr. Woodruff. Has 2 sisters with colon cancer and her last colonoscopy was >10 years ago. Will give IV iron. Start ferrous sulfate at discharge. repeat CBC am. diet as tolerated. (2) Anemia: Stable as above s/p 2 units PRBCs for ACUTE BLOOD LOSS ANEMIA. repeat cbc in am. IV Iron today and tomorrow. (3) Dyspnea: likely 2nd to severe acute blood loss anemia (lowest Hb was 7.3). dyspnea now improved. seen by cardiology - dyspnea not felt to be from valvular heart disease. (4) Impaired fasting glucose: HbA1C 6.0 in May 2019. Controlled. (5) Aortic stenosis, severe: outpatient cardiology f/u to discuss future valve replacement (6) Mitral stenosis: outpatient cardiology follow-up to discuss potential for valve replacement down the line, if desired by patient (7) Hypothyroid: TSH 05/2019 wnl cont synthroid as is (8) Hypertension: controlled cont home meds (9) Bullous pemphigoid: on chronic prednisone 10mg QOD x 3-4 years prednisone 10mg QOD (10) Chronic kidney disease, stage 3a: baseline CrCl 30s/40s repeat BMP am (11) DVT prophylaxis: SCDs ambulation chemical means contraindicated due to suspected GI bleeding Admission and Anticipated Discharge Date Admission Date: October 31, 2019 Subjective Notes darker, looser stools today. Possibly the contrast coming through. Reports no fevers/chills, chest pain, shortness of breath, abdominal pain, nausea, or vomiting. Physical Exam Constitutional: WD/WN, vitals as above Eyes: EOM intact bilaterally; no conjunctival abnormality ENMT: external ear and nose normal, oropharynx normal Neck: trachea midline, no thyromegaly normal visual inspection Respiratory: normal respiratory effort, lungs clear to auscultation no respiratory distress Cardiovascular: RRR, no murmur, no edema Gastrointestinal (Abdomen): Inspection/Auscultation: abdomen normal to inspection; abdomen not distended Musculoskeletal: no cyanosis or clubbing, extremities motor strength 5/5 Skin: no rashes, warm and dry Neurologic: moves all extremities and awake Psychiatric: Orientation: alert, oriented to person and cooperative Results & Data ([facility]) Vital Signs (Past 12 Hours) Vital Signs Temp Pulse Pulse Resp BP BP Pulse Ox 11/04/19 11:17 36.7 C 97 H 18 134/79 96 11/04/19 09:49 93 H 11/04/19 08:01 37.0 C 90 18 119/71 95 11/04/19 04:29 37.0 C 93 H 20 103/53 L 95 11/04/19 02:45 91 H PG Care Time/CCT Total # of Minutes Spent Total Time Spent with Patient: Total time spent is greater than 50% in coordination of care (as documented) at patient's floor/unit and/or counseling patient: Coding Level of Care Code 26091 Subseq Hosp Care Lvl 3 Diagnoses GI bleed K92.2 GI bleed type/associated pathology: unspecified gastrointestinal hemorrhage type Anemia D64.9 Anemia type: unspecified type Dyspnea R06.00 Dyspnea type: unspecified Impaired fasting glucose R73.01 Aortic stenosis, severe I35.0 Mitral stenosis I05.0 Cardiac valve disease etiology: etiology unspecified Hypothyroid E03.9 Hypothyroidism type: acquired Hypertension I10 Hypertension type: essential hypertension Bullous pemphigoid L12.0 Chronic kidney disease, stage 3a N18.3 DVT prophylaxis Z29.9 (1) GI bleed GI bleed type/associated pathology: unspecified gastrointestinal hemorrhage type Qualified Code(s): K92.2 - Gastrointestinal hemorrhage, unspecified (2) Anemia Anemia type: unspecified type Qualified Code(s): D64.9 - Anemia, unspecified (3) Dyspnea Dyspnea type: unspecified Qualified Code(s): R06.00 - Dyspnea, unspecified (4) Mitral stenosis Cardiac valve disease etiology: etiology unspecified Qualified Code(s): I05.0 - Rheumatic mitral stenosis (5) Hypothyroid Hypothyroidism type: acquired Qualified Code(s): E03.9 - Hypothyroidism, unspecified (6) Hypertension Hypertension type: essential hypertension Qualified Code(s): I10 - Essential (primary) hypertension
[2019-11-04 15:13] LABS: Ferritin 38.9 ng/ml (8-388)
[2019-11-04] MEDS: IRON SUCROSE 200 MG in 0.9 % SODIUM CHLORIDE 100 ML IV SCH (16:26)
[2019-11-04] MEDS ORDERED: POLYETHYLENE (MIRALAX) 17 GM PACK PO SCH (18:00)
[2019-11-04] MEDS ORDERED: bisacodyL 5 MG TABEC PO ONE (18:00)
[2019-11-04] MEDS ORDERED: POLYETHYLENE (MIRALAX) 17 GM PACK PO ONE (21:00)
[2019-11-05] MEDS: LEVOTHYROXINE SODIUM 50 MCG TABLET PO SCH (05:44)
[2019-11-05 06:48] LABS: Hematocrit (blood only) 27.5 % (37-47); Hemoglobin 8.7 g/dL (12.0-16.0); Mean Corpuscular Hgb Conc 31.6 g/dL (32-36); Mean Corpuscular Volume 88.4 fL (80-100); Platelet Count 347 K/uL (130-400); RDW Coefficient of Variation 15.9 % (11.5-14.5); RDW Standard Deviation 51.2 fL (36.4-46.3); Red Blood Count 3.11 M/uL (4.2-5.4); White Blood Count 10.32 K/uL (4.8-10.8)
[2019-11-05 07:23] LABS: BUN Creatinine Ratio 21.7 (10-20); Calcium 8.7 mg/dl (8.5-10.1); Creatinine Clr Calc Pharmacy 43.6 ml/min; Est GFR (Non-African American) 59.5; Potassium 3.4 mmol/L (3.5-5.1)
[2019-11-05] MEDS: allopurinoL 100 MG TAB PO SCH ×2 (07:38→20:30)
[2019-11-05] MEDS: LORATADINE 10 MG TAB PO SCH (07:39)
[2019-11-05] MEDS: POTASSIUM CHLORIDE 20 MEQ TABCR PO SCH ×3 (07:39→20:29)
[2019-11-05] MEDS: EZETIMIBE 10 MG TABLET PO SCH (07:39)
[2019-11-05] MEDS: PANTOprazole 40 MG TAB PO SCH ×2 (07:39→20:30)
[2019-11-05] MEDS: IRON SUCROSE 200 MG in 0.9 % SODIUM CHLORIDE 100 ML IV SCH (13:21)
--- NOTE | 2019-11-05 14:21 | Gastroenterology Progress Note ---
Date of Service November 05, 2019 Assessment & Plan (1) GI bleed: (2) Acute blood loss anemia: Doing better today Proceed with colonoscopy now Continue PPI Further recommendations to follow. Admission and Anticipated Discharge Date Admission Date: October 31, 2019 Subjective Feeling a little better today. No overt GI bleeding overnight. She denies any abdominal pain, fevers, chills, nausea or vomiting. No further complaints. Physical Exam Constitutional: WD/WN, vitals as above Respiratory: normal respiratory effort, lungs clear to auscultation Cardiovascular: RRR, no murmur, no edema Gastrointestinal (Abdomen): normal bowel sounds, soft, nontender, no hepatosplenomegaly Results & Data ([facility]) Vital Signs (Past 12 Hours) Vital Signs Temp Pulse Resp BP BP Pulse Ox 11/05/19 13:00 37 C 105 H 20 150/77 H 98 11/05/19 07:39 36.9 C 62 18 131/66 11/05/19 03:53 36.8 C 98 H 20 130/71 92 PG Care Time/CCT Total # of Minutes Spent Total Time Spent with Patient: Total time spent is greater than 50% in coordination of care (as documented) at patient's floor/unit and/or counseling patient: Coding Level of Care Code None Diagnoses GI bleed K92.2 GI bleed type/associated pathology: unspecified gastrointestinal hemorrhage type Acute blood loss anemia D62 (1) GI bleed GI bleed type/associated pathology: unspecified gastrointestinal hemorrhage type Qualified Code(s): K92.2 - Gastrointestinal hemorrhage, unspecified
--- NOTE | 2019-11-05 14:38 | Anesthesiology Consultation ---
Date of Service November 05, 2019 Assessment & Plan (1) Encounter for pre-operative examination: Chart Review Chart Review: Acceptable Risk for Surgery and Patient NOT seen in Pre Admission Testing Consults Requested none History Surgery Operation Date: 11/03/19 16:00 Proposed Procedures p Esophagogastroduodenoscopy Dr Ranjan Rosales Case, DO Operation Date: 11/05/19 16:00 Proposed Procedures p Colonoscopy Dr. Ranjan Rosales Case, DO Height/Weight Height: 5 ft 3 in Weight: 68.2 kg Allergies Allergy/AdvReac Type Severity Reaction Status Date / Time simvastatin Allergy Unknown RASH Verified 11/05/19 14:16 Medications Home Medications Medication Instructions Recorded Confirmed Last Taken gemfibrozil 600 mg tablet 600 mg PO BID #180 tab 03/12/19 10/31/19 Unknown calcium carb-vit D3-minerals 600 1 tab PO DAILY tab 05/23/19 10/31/19 Unknown mg calcium-200 unit tablet aspirin 81 mg tablet,delayed 81 mg PO DAILY tab 05/29/19 10/31/19 Unknown release prednisone 10 mg tablet 10 mg PO Q OTHER DAY #100 tab 05/29/19 10/31/19 Unknown allopurinol 100 mg tablet 100 mg PO BID #60 tab 08/29/19 10/31/19 Unknown diltiazem HCl 240 mg capsule,24 240 mg PO DAILY #30 cap 08/29/19 10/31/19 Unknown hr,extended release ezetimibe 10 mg tablet 10 mg PO DAILY #30 tab 09/29/19 10/31/19 Unknown levothyroxine 50 mcg tablet 50 mcg PO DAILY #30 tab 09/29/19 10/31/19 Unknown loratadine 10 mg tablet 10 mg PO DAILY #30 tab 10/20/19 10/31/19 Unknown Active Medications Generic Name Dose Route Start Last Admin Trade Name Freq PRN Reason Stop Dose Admin Acetaminophen 650 mg 10/31/19 05:41 11/02/19 06:34 Tylenol PO 11/30/19 05:40 650 mg Q4H PRN Administration Pain or Fever Allopurinol 100 mg 10/31/19 09:00 11/05/19 07:38 Zyloprim PO 11/30/19 08:59 100 mg BID DEQUAN Administration Diltiazem HCl 240 mg 10/31/19 09:00 02/25/20 08:00 Cardizem Cd PO 11/30/19 08:59 240 mg DAILY DEQUAN Administration Ezetimibe 10 mg 10/31/19 09:00 11/05/19 07:39 Zetia PO 11/30/19 08:59 10 mg DAILY DEQUAN Administration Gemfibrozil 600 mg 10/31/19 09:00 10/31/19 08:59 Lopid PO 11/30/19 08:59 Not Given BID DEQUAN Iron Sucrose 200 mg/ Sodium 110 mls @ 220 mls/hr 11/04/19 14:30 11/05/19 13:55 Chloride IV 11/06/19 14:29 Infused DAILY@1400 DEQUAN Infusion Ioversol 84 ml 11/03/19 19:33 11/03/19 19:34 Optiray 320 100ml IV 11/07/19 19:32 84 ml ONCE PRN Administration Interaction Checking Levothyroxine Sodium 50 mcg 10/31/19 06:30 11/05/19 05:44 Synthroid PO 11/30/19 06:29 50 mcg DAILYBB DEQUAN Administration Loratadine 10 mg 10/31/19 09:00 11/05/19 07:39 Claritin PO 11/30/19 08:59 10 mg DAILY DEQUAN Administration Pantoprazole Sodium 40 mg 11/01/19 21:00 11/05/19 07:39 Protonix PO 12/01/19 20:59 40 mg BID DEQUAN Administration Potassium Chloride 40 meq 11/05/19 09:00 11/05/19 09:01 Klor-Con M20 PO 12/05/19 08:59 40 meq BID DEQUAN Administration Prednisone 10 mg 11/04/19 09:00 11/04/19 07:54 Prednisone PO 12/04/19 08:59 10 mg Q2D DEQUAN Administration NPO Date Last Intake of Fluids: 11/04/19 Time Last Intake of Fluids: 21:00 Last Intake of Fluids Comment: ice chips and hour ago Date Last Intake of Solids: 11/04/19 Time Last Intake of Solids: 12:00 Past Medical History Medical History (Updated 11/05/19 @ 14:38 by Deep Ahn MD) Acute blood loss anemia Aortic stenosis, severe Avulsion of skin of finger (Acute) Bullous pemphigoid Chronic kidney disease, stage 3a Gout (Acute) Hyperlipidemia (Chronic) Hypertension (Chronic) Hypothyroid (Chronic) Impaired fasting glucose (Chronic) Mitral regurgitation Mitral stenosis Rash (Acute) Exercise / Class Metabolic Activity III < 4 Walking/Shop/Light housework Past Family History Family History Sister Breast cancer Colorectal cancer COPD (chronic obstructive pulmonary disease) Mother Diabetes Past Surgical History Surgical History S/P hysterectomy with oophorectomy S/P lumpectomy, left breast egd 11/03/2019: propofol no issues. Past Anesthesia History No Hx of Anesthesia Complications and No Family Hx of Anesthesia Complications History of PONV No Hx of PONV and No Hx of Motion Sickness Social History Smoking Status: Former smoker tobacco type: cigarettes Smoking cigarettes per day: 10 Do You Dip or Chew Tobacco: No Smoking End Date: 1967 Hx Alcohol Use: No Hx Substance Use: No Physical Exam Vital Signs Last Vital Signs Temp 37.5 C 11/05/19 14:17 Pulse 110 H 11/05/19 14:17 Resp 18 11/05/19 14:17 BP 147/79 H 11/05/19 14:17 Pulse Ox 91 11/05/19 14:17 Testing Laboratory Results 11/05/19 06:24 11/05/19 06:24 PT 10.4 Seconds (9.0-12.0) 10/31/19 00:57 INR 1.0 (0.9-1.1) 10/31/19 00:57 APTT 21.7 Seconds (21.0-31.0) 10/31/19 00:57 Urine Color Yellow 10/31/19 06:43 Urine Appearance Clear (Clear) 10/31/19 06:43 Urine pH 6.5 (4.5-7.5) 10/31/19 06:43 Ur Specific [place] 1.009 (1.000-1.030) 10/31/19 06:43 Urine Protein Negative (Negative) 10/31/19 06:43 Urine Glucose (UA) Negative (Negative) 10/31/19 06:43 Urine Ketones Negative (Negative) 10/31/19 06:43 Urine Nitrite Negative (Negative) 10/31/19 06:43 Ur Leukocyte Esterase Negative (Negative) 10/31/19 06:43 Blood Type A Positive 10/31/19 01:37 Antibody Screen NEGATIVE 10/31/19 01:37 Electrocardiogram Date: 10/31/19 Normal sinus rhythm, rate 93 bpm Left ventricular hypertrophy with repolarization abnormality Abnormal ECG When compared with ECG of 18-JUL-2010 20:09, T wave inversion now evident in Lateral leads Confirmed by Peter Porras ([id number]) on 10/31/2019 9:22:56 PM Chest X-Ray Date: 10/31/19 IMPRESSION: Mild cardiac enlargement with no active disease in the chest. Echocardiogram Date: 10/31/19 EF 60-65% Moderate LVH LV systolic function is normal LA moderately dilated RA mildly dilated Mild AR Severe Mod mitral annular calcification Mild-mod MR Severe MS RVSP 30-40mmHg
--- NOTE | 2019-11-05 15:35 | GI REPORT ---
Patient Name: Ana Rodríguez Procedure Date: 11/05/2019 2:53 PM Date of : 1935 Admit Type: Inpatient Age: 84 Gender: Female Attending MD: Loco Woodruff DO Procedure: Colonoscopy Providers: Loco Woodruff DO Referring MD: Rai Arellano Indications: Acute post hemorrhagic anemia Medicines: Monitored Anesthesia Care Complications: No immediate complications. Estimated Blood Loss: Estimated blood loss: none. Procedure: Pre-Anesthesia Assessment: - Prior to the procedure, a History and Physical was performed, and patient medications and allergies were reviewed. The patient's tolerance of previous anesthesia was also reviewed. The risks and benefits of the procedure and the sedation options and risks were discussed with the patient. All questions were answered, and informed consent was obtained. Prior Anticoagulants: The patient has taken aspirin, last dose was 7 days prior to procedure. ASA Grade Assessment: IV - A patient with severe systemic disease that is a constant threat to life. After reviewing the risks and benefits, the patient was deemed in satisfactory condition to undergo the procedure. After I obtained informed consent, the scope was passed under direct vision. Throughout the procedure, the patient's blood pressure, pulse, and oxygen saturations were monitored continuously. The scope was introduced through the anus and advanced to the terminal ileum. The colonoscopy was performed without difficulty. The patient tolerated the procedure well. The quality of the bowel preparation was fair. The terminal ileum, the appendiceal orifice and the rectum were photographed. Findings: The perianal and digital rectal examinations were normal. Multiple small-mouthed diverticula were found in the sigmoid colon. Non-bleeding internal hemorrhoids were found during retroflexion. The hemorrhoids were small. Impression: - Preparation of the colon was fair. - Diverticulosis in the sigmoid colon. - Non-bleeding internal hemorrhoids. - No specimens collected. Recommendation: - Resume previous diet. - Continue present medications. - No repeat colonoscopy due to age and the absence of advanced adenomas. - Return to primary care physician as previously scheduled. Loco Woodruff DO 11/05/2019 3:35:24 PM This report has been signed electronically. Note Initiated On: 11/05/2019 2:53 PM Number of Addenda: 0 I attest to the content of the Intraoperative Record and orders documented therein, exceptions below {[id number]}
[2019-11-05] MEDS ORDERED: PROPOFOL IV EMULSION 10 MG/ML 20 ML VIAL IV ONE (15:37)
[2019-11-05] MEDS ORDERED: LIDOCAINE HCL 2% 2 ML VIAL/AMP(20MG/ML) INFIL ONE (15:37)
--- NOTE | 2019-11-05 16:10 | Anesthesiology Progress Note ---
Date of Service November 05, 2019 Anesthesia Post Procedure Vital Signs Vital Signs: Temp Pulse Pulse Resp BP BP Pulse Ox 11/05/19 15:54 115 H 18 134/99 95 11/05/19 15:37 112 H 16 106/69 93 11/05/19 14:17 99.5 F 110 H 18 147/79 H 91 11/05/19 13:00 98.6 F 105 H 20 150/77 H 98 11/05/19 07:39 98.4 F 62 18 131/66 11/05/19 03:53 98.2 F 98 H 20 130/71 92 11/05/19 00:56 99 H 11/05/19 00:08 98.2 F 96 H 20 160/72 H 95 11/04/19 19:56 97.9 F 98 H 18 125/68 97 11/04/19 18:39 106 H Pain Intensity Back: Pain Intensity: 0 Transfer of Care Handoff Completed per policy Notes Mental Status: alert / awake / arousable and participated in evaluation Patient Amnestic to Procedure: Yes Nausea / Vomiting: adequately controlled Pain: adequately controlled Airway Patency, RR, SpO2: stable & adequate BP & HR: stable & adequate Hydration State: stable & adequate Anesthetic Complications: no major complications apparent and Pt Satisfied with anesthetic care
[2019-11-05] MEDS: dilTIAZem HCL 240 MG CAPCR PO SCH (18:07)
--- NOTE | 2019-11-05 20:15 | Hospitalist Progress Note ---
Date of Service November 05, 2019 Assessment & Plan (1) GI bleed: etiology uncertain. GI bleed resulted in acute blood loss anemia. s/p 2 units PRBCs earlier this admission. s/p EGD - no source of bleeding. CT abd/pelvis w/o abnormalities. colonoscopy today w/o source of bleeding (mild distal diverticular disease but no signs of recent bleeding). No colon ca noted either. outpatient capsule endoscopy? defer to GI. given her aortic stenosis could she have small bowel AVMs? repeat CBC in am for stability. allow diet as tolerated. cont Fe infusion. (2) Anemia: Stable as above s/p 2 units PRBCs for ACUTE BLOOD LOSS ANEMIA. repeat cbc in am. H/H last 24 hours noted to be stable. (3) Dyspnea: likely 2nd to severe acute blood loss anemia (lowest Hb was 7.3). dyspnea now improved. seen by cardiology - dyspnea not felt to be from valvular heart disease. (4) Impaired fasting glucose: HbA1C 6.0 in May 2019. Controlled. (5) Aortic stenosis, severe: outpatient cardiology f/u to discuss future valve replacement (6) Mitral stenosis: outpatient cardiology follow-up to discuss potential for valve replacement down the line, if desired by patient (7) Hypothyroid: TSH 05/2019 wnl cont synthroid (8) Hypertension: controlled cont home meds (9) Bullous pemphigoid: on chronic prednisone 10mg QOD x 3-4 years cont such (10) Chronic kidney disease, stage 3a: baseline CrCl 30s/40s (11) DVT prophylaxis: SCDs ambulation d/c home tomorrow am Admission and Anticipated Discharge Date Admission Date: October 31, 2019 Subjective saw patient before and after the colonoscopy today. had no GI complaints - no BRBPR, melena, abd pain. no dizziness. tele has been normal. Review of Systems Constitutional: no fatigue Respiratory: no dyspnea Cardiovascular: no chest pain Gastrointestinal: no abdominal pain, no nausea, no vomiting, no blood in stools and no melena Physical Exam Constitutional: well developed and well nourished; no acute distress ENMT: external ear and nose normal, oropharynx normal Respiratory: normal respiratory effort, lungs clear to auscultation Cardiovascular: Rate/Rhythm: regular rate and regular rhythm Heart Sounds: normal S1, normal S2 and + murmur (3/6 holosystolic RUSB/apex) Vessels: posterior tibial pulses present and dorsalis pedis pulses present; no JVD Extremities: no edema Gastrointestinal (Abdomen): normal bowel sounds, soft, nontender, no hepatosplenomegaly Skin: + pallor (mild) Psychiatric: Orientation: alert and oriented x 3 Results & Data ([facility]) Vital Signs (Past 12 Hours) Vital Signs Temp Pulse Pulse Resp BP BP Pulse Ox 11/05/19 19:16 37.2 C 108 H 20 143/67 H 97 11/05/19 17:39 118 H 11/05/19 16:31 36.5 C 115 H 20 143/81 H 95 11/05/19 16:08 113 H 18 131/75 94 11/05/19 15:54 115 H 18 134/99 95 11/05/19 15:37 112 H 16 106/69 93 11/05/19 14:17 37.5 C 110 H 18 147/79 H 91 11/05/19 13:00 37 C 105 H 20 150/77 H 98 Laboratory Results Laboratory Results - last 24 hr 11/05/19 11/05/19 06:24 06:24 WBC 10.32 RBC 3.11 L Hgb 8.7 L Hct 27.5 L MCV 88.4 MCH 28.0 MCHC 31.6 L RDW Std Deviation 51.2 H RDW Coeff of Mervin 15.9 H Plt Count 347 MPV 9.0 Sodium 142 Potassium 3.4 L Chloride 115 H Carbon Dioxide 21 Anion Gap 6.0 BUN 19 H Creatinine 0.89 Est Cr Clr Drug Dosing 43.6 Est GFR ( Amer) 69.0 Est GFR (Non-Af Amer) 59.5 BUN/Creatinine Ratio 21.7 H Glucose 84 Calcium 8.7 PG Care Time/CCT Total # of Minutes Spent Total Time Spent with Patient: Total time spent is greater than 50% in coordination of care (as documented) at patient's floor/unit and/or counseling patient: Coding Level of Care Code 49974 Subseq Hosp Care Lvl 2 Diagnoses GI bleed K92.2 GI bleed type/associated pathology: unspecified gastrointestinal hemorrhage type Anemia D64.9 Anemia type: unspecified type Dyspnea R06.00 Dyspnea type: unspecified Impaired fasting glucose R73.01 Aortic stenosis, severe I35.0 Mitral stenosis I05.0 Cardiac valve disease etiology: etiology unspecified Hypothyroid E03.9 Hypothyroidism type: acquired Hypertension I10 Hypertension type: essential hypertension Bullous pemphigoid L12.0 Chronic kidney disease, stage 3a N18.3 DVT prophylaxis Z29.9 (1) GI bleed GI bleed type/associated pathology: unspecified gastrointestinal hemorrhage type Qualified Code(s): K92.2 - Gastrointestinal hemorrhage, unspecified (2) Anemia Anemia type: unspecified type Qualified Code(s): D64.9 - Anemia, unspecified (3) Dyspnea Dyspnea type: unspecified Qualified Code(s): R06.00 - Dyspnea, unspecified (4) Hypothyroid Hypothyroidism type: acquired Qualified Code(s): E03.9 - Hypothyroidism, unspecified (5) Mitral stenosis Cardiac valve disease etiology: etiology unspecified Qualified Code(s): I05.0 - Rheumatic mitral stenosis (6) Hypertension Hypertension type: essential hypertension Qualified Code(s): I10 - Essential (primary) hypertension
[2019-11-05] MEDS ORDERED: LORazepam 0.5 MG TAB PO ONE (21:00)
[2019-11-06] MEDS: LEVOTHYROXINE SODIUM 50 MCG TABLET PO SCH (06:16)
[2019-11-06 06:24] LABS: Hemoglobin 9.7 g/dL (12.0-16.0); Mean Corpuscular Hgb Conc 31.3 g/dL (32-36); Mean Corpuscular Volume 89.6 fL (80-100); Mean Platelet Volume 8.9 fL (7.4-10.4); Platelet Count 423 K/uL (130-400); RDW Coefficient of Variation 16.1 % (11.5-14.5); RDW Standard Deviation 51.9 fL (36.4-46.3); Red Blood Count 3.46 M/uL (4.2-5.4); White Blood Count 8.92 K/uL (4.8-10.8)
[2019-11-06 07:02] LABS: BUN Creatinine Ratio 15.6 (10-20); Calcium 9.1 mg/dl (8.5-10.1); Creatinine Clr Calc Pharmacy 47.3 ml/min; Est GFR (African American) 76.2; Est GFR (Non-African American) 65.7; Potassium 4.2 mmol/L (3.5-5.1)
[2019-11-06] MEDS: dilTIAZem HCL 240 MG CAPCR PO SCH (07:28)
[2019-11-06] MEDS: EZETIMIBE 10 MG TABLET PO SCH (07:28)
[2019-11-06] MEDS: POTASSIUM CHLORIDE 20 MEQ TABCR PO SCH (07:28)
[2019-11-06] MEDS: allopurinoL 100 MG TAB PO SCH (07:28)
[2019-11-06] MEDS: predniSONE 10 MG TABLET PO SCH (07:29)
[2019-11-06] MEDS: LORATADINE 10 MG TAB PO SCH (07:29)
[2019-11-06] MEDS: PANTOprazole 40 MG TAB PO SCH (07:29)
--- NOTE | 2019-11-06 07:44 | Anesthesiology Progress Note ---
Date of Service November 06, 2019 Anesthesia Post Procedure Vital Signs Vital Signs: Temp Pulse Pulse Resp BP BP Pulse Ox 11/06/19 07:24 36.6 C 97 H 20 133/76 96 11/06/19 05:20 92 H 11/06/19 00:03 36.8 C 89 20 116/60 92 11/05/19 19:16 37.2 C 108 H 20 143/67 H 97 11/05/19 17:39 118 H 11/05/19 16:31 36.5 C 115 H 20 143/81 H 95 11/05/19 16:08 113 H 18 131/75 94 11/05/19 15:54 115 H 18 134/99 95 11/05/19 15:37 112 H 16 106/69 93 11/05/19 14:17 37.5 C 110 H 18 147/79 H 91 11/05/19 13:00 37 C 105 H 20 150/77 H 98 Pain Intensity Back: Pain Intensity: 0 Notes Mental Status: alert / awake / arousable and participated in evaluation Patient Amnestic to Procedure: Yes Nausea / Vomiting: adequately controlled Pain: adequately controlled Airway Patency, RR, SpO2: stable & adequate BP & HR: stable & adequate Hydration State: stable & adequate Anesthetic Complications: no major complications apparent and Pt Satisfied with anesthetic care
[2019-11-06] MEDS: IRON SUCROSE 200 MG in 0.9 % SODIUM CHLORIDE 100 ML IV SCH (10:44)
--- NOTE | 2019-11-06 10:53 | Discharge Summary ---
Date of Service November 06, 2019 Admission HPI Per Admitting Provider Ana is a 84-year-old female with a past medical history of recently diagnosed mitral regurg, impaired fasting glucose, hypothyroidism, hypertension, hyperlipidemia, and dyspepsia who presents to the emergency department with increasing weakness and dyspnea on exertion and she was Hemoccult positive. Ana reports her symptoms began about 2 weeks ago when she developed some cough and dyspnea on exertion. She was seen by her PCP PA who thought she had postnasal drip and prescribed her Claritin with pill in pocket azithromycin. She was not feeling improved after several days, so she completed a Z-Kendrick course. She took her last dose 4 days prior to presentation to the ED. she feels her cough resolved, but her shortness of breath has continued to progress. She is not short of breath at rest, but becomes easily winded with exertion. She does not have any chest pain, chest pressure syncope, presyncope, lightheadedness, dizziness. She endorses a history of dyspepsia, for which she takes intermittent rhtb-rcz-[id number] antacids which has not changed in many years. She denies bright red blood per rectum, but endorses melena. She has a strong family history of colon cancer, she has 2 sisters and a maternal uncle all who developed colon cancer. Her last colonoscopy was normal, was performed about 10 years ago. She denies weight loss. He has had a recent murmur diagnosed for which he is scheduled to have a follow-up echo on 11/09, denies history of CAD/SC or other heart disease. Principal Diagnosis acute blood loss anemia 2nd to GI bleeding - source unknown Discharge Exam Constitutional well developed and well nourished; no acute distress ENMT external ear and nose normal, oropharynx normal Respiratory normal respiratory effort, lungs clear to auscultation Cardiovascular Rate/Rhythm: regular rate and regular rhythm Heart Sounds: normal S1, normal S2 and + murmur (3/6 holosystolic RUSB/apex) Vessels: posterior tibial pulses present and dorsalis pedis pulses present; no JVD Extremities: no edema Gastrointestinal (Abdomen) normal bowel sounds, soft, nontender, no hepatosplenomegaly Skin + pallor (mild) Psychiatric Orientation: alert and oriented x 3 Affect: + anxious affect Discharge Data Allergies Allergy/AdvReac Type Severity Reaction Status Date / Time simvastatin Allergy Unknown RASH Verified 11/05/19 14:16 Consultations Gastroenterology - Loco Woodruff DO Cardiology - Matthew Law MD Anesthesiology Procedures Performed Operation Date: 11/03/19 Esophagogastroduodenoscopy - Loco Rosales Case, DO * Moderate Schatzki ring. * Small hiatal hernia. * Normal examined duodenum. * No specimens collected. * No source for recent bleeding. Operation Date: 11/05/19 Colonoscopy - Loco Rosales Case, DO * Diverticulosis in the sigmoid colon. No active or stigmata of any recent bleeding. * Non-bleeding internal hemorrhoids. * No polyps or mass. * No source for recent bleeding. Ordered Studies * CT abd pelvis w/ IV/PO contrast - IMPRESSION: 1. No acute process within the abdomen or pelvis. 2. No bowel wall thickening. No bowel obstruction. Colonic diverticulosis without evidence for acute diverticulitis. 3. Small left and trace right pleural effusions with associated atelectasis. Mild interstitial pulmonary edema. Cardiomegaly. * 2 units PRBCs * echocardiogram - * EF 60-65% * severe * severe MS * mild-moderate MR * mild pulmonary HTN Hospital Course (1) GI bleed: Etiology was uncertain. The GI bleed resulted in acute blood loss anemia. She was s/p 2 units PRBCs for such. EGD by Dr Loco Woodruff - no source of bleeding. CT abd/pelvis w/o abnormalities. Colonoscopy by Dr Woodruff also w/o source of bleeding. Given her aortic stenosis could she have small bowel AVMs? I recommended follow-up with Dr Woodruff in the [facility] [place]. Outpatient capsule endoscopy? (2) Anemia: ACUTE BLOOD LOSS ANEMIA. 2nd to GI bleeding of undetermined location. s/p 2 units PRBCs. Lowest Hb 7.3 Discharge Hb 9.7. Received 2 runs of IV venofer and was asked to take ferrous sulfate after discharge. Recommend repeat CBC within 1 week of discharge. Iron studies should also be followed as an outpatient. (3) Dyspnea: Likely 2nd to severe acute blood loss anemia. Seen by [facility] - dyspnea not felt to be from valvular heart disease. Dyspnea improved following her blood transfusion. o2 sats were normal at rest and with activity during the hospitalization. (4) Impaired fasting glucose: pre-T2DM. HbA1C 6.0 in May 2019. Controlled while hospitalized. (5) Aortic stenosis, severe: As seen on echocardiogram. Outpatient cardiology f/u to discuss future valve replacement advised. (6) Mitral stenosis: Severe MS. As seen on echo this admission. Outpatient cardiology follow-up advised to discuss potential for valve replacement down the line, if desired by patient. (7) Hypothyroid: TSH 05/2019 wnl. cont synthroid. (8) Hypertension: controlled cont home meds as previous (9) Bullous pemphigoid: On chronic prednisone 10mg QOD x 3-4 years. Continue prednisone as previous. No issues while hospitalized. (10) Chronic kidney disease, stage 3a: baseline CrCl 30s/40s discharge Cr was 0.8. Total Time Total Time Spent Total Time Spent (In Minutes): 40 Total Time Includes: Examination of the Patient, Discharge Planning and Medication Reconciliation Discharge Plan Discharge Items Patient Disposition: Home - Self-Care Reason For Visit: Shortness of breath; gastrointestinal bleeding Discharge Diagnosis: 1. shortness of breath - likely due to anemia (low red cells) from gastrointestinal bleeding 2. gastrointestinal bleeding - upper and lower endoscopies without source of bleeding; presumed that bleeding was from the small intestine; follow-up with MICHAEL Chapin, recommended 3. severe aortic stenosis and severe mitral stenosis Activity: As commented below Activity Comment: gradually increase activities over the next 5 days Non-emergency contact: Primary Care Provider, Product Management Intern and Gas troenterologist Call non-emergency contact if: you have any medication questions, your symptoms worsen and you have a fever Follow-up/Referrals: Loco Woodruff DO [Physician] - (see Dr Woodruff or his PAs within 1-2 weeks) Ike Villa III, MD [Primary Care Provider] - 11/13/19 2:00 pm (If you need to reschedule this appointment, please call either [phone] or [phone]. You will be seeing Tonia Heredia.) Sin Law MD [Physician] - (see Dr Law next 2 weeks for mitral & aortic stenosis ) Diet: Carb Consistent or DM2 Addtl Attending Provider Instructions: You were treated for the conditions listed above in "discharge diagnoses." Dr Woodruff from [facility] performed upper and lower endoscopies. You have a very small hiatal hernia but this is not causing problems for you. We did not find any source of bleeding on the upper endoscopy. On the colonoscopy we saw a small amount of diverticulosis and small hemorrhoids but NO colon cancer or source of bleeding. It is presumed, then, that your GI bleeding came from the small intestine. You received 2 units of blood and 3 runs of intravenous iron for your anemia. Your discharge hemoglobin was 9.7. Your hemoglobin when you were first admitted was 7.3. At time of discharge there are no signs of active, ongoing bleeding. You were also seen by the showplace manager for your shortness of breath. It was felt that your shortness of breath was due to the anemia as opposed to a heart issue. Your echocardiogram did show severe stenosis of the aortic valve and mitral valve, however, and you will need follow-up for this. Recommendations: 1. please take wvvr-txz-cnvvpxf iron (ferrous sulfate) 325mg once daily. The iron may make your stools look dark and may make you constipated. Take the iron for 2-3 months or as directed by Dr Villa. 2. STOP your aspirin for now. 3. DO NOT TAKE lvwn-qrs-zuvidku motrin, ibuprofen, naprosyn, or alleve. 4. for your hemorrhoids - use anusol cream up to 4 times a day. Also consider taking a fiber supplement (metamucil) once daily to soften the stools. 5. take pantoprazole 40mg once daily; this is to protect your stomach from the effects of prednisone. 6. follow-up - see separate section. 7. please ask Dr Villa to recheck a "CBC" on you at time of hospital follow- up. This is to ensure your blood counts are stable. Return to [facility] if: * you see recurrent black/coffee-ground like stools at home - this would be concerning for recurrent GI bleeding * you have dizziness or lightheadedness * you have chest pains or worsening shortness of breath * any other concerns Pending Studies at Discharge: No Stand-Alone Forms: My [facility] CV Properties, Smoking Cessation Medications and DC Order Prescriptions: New pantoprazole 40 mg Tablet,Delayed Release (Dr/Ec) 40 mg PO DAILY Qty: 30 RF: 5 ferrous sulfate 325 mg (65 mg iron) tablet 325 mg PO DAILY Qty: 30 RF: 2 hydrocortisone [Proctozone-HC] 2.5 % cream with perineal applicator 1 appln W[place] Q6H PRN (Reason: hemorrhoids) Qty: 30 RF: 0 Continued gemfibrozil 600 mg tablet 600 mg PO BID Qty: 180 RF: 3 allopurinol 100 mg tablet 100 mg PO BID Qty: 60 RF: 11 diltiazem HCl 240 mg capsule,extended release 24 hr 240 mg PO DAILY Qty: 30 RF: 11 ezetimibe 10 mg tablet 10 mg PO DAILY Qty: 30 RF: 5 levothyroxine 50 mcg tablet 50 mcg PO DAILY Qty: 30 RF: 5 loratadine [Claritin] 10 mg tablet 10 mg PO DAILY Qty: 30 RF: 0 Calcium 600 + Minerals 600 mg calcium- 200 unit tablet 1 tab PO DAILY RF: 0 prednisone 10 mg tablet 10 mg PO Q OTHER DAY Qty: 100 RF: 0 Discontinued aspirin 81 mg tablet,delayed release (DR/EC) 81 mg PO DAILY RF: 0 Discharge Orders: Discharge Order (Routine); Ordered 11/06/19 Ordered By: Rai Arellano Admission Data Admit Date/Time: 10/31/19 04:18 Attending Provider: Rai Arellano Admit Provider: Bright Lai Primary Care Provider: Ike Villa III Other Providers: Sin Law ; Saad Weiner ; Arnoldo Curry Other Interventions: Discharge Summary Assessment (RN) Last Done: 11/06/19 11:09 DC Date/Time DO NOT enter until pt leaves facility: 11/06/19 12:30 Coding Level of Care Code D/C Day Management >30 mins Diagnoses GI bleed K92.2 GI bleed type/associated pathology: unspecified gastrointestinal hemorrhage type Anemia D64.9 Anemia type: unspecified type Dyspnea R06.00 Dyspnea type: unspecified Impaired fasting glucose R73.01 Aortic stenosis, severe I35.0 Mitral stenosis I05.0 Cardiac valve disease etiology: etiology unspecified Hypothyroid E03.9 Hypothyroidism type: acquired Hypertension I10 Hypertension type: essential hypertension Bullous pemphigoid L12.0 Chronic kidney disease, stage 3a N18.3
== END 2019-11-06 12:30 | disposition home or self-care (01) | DRG 378 ==
LOC: ED 00:41 → SUATTDRO 04:18 → 2N 04:18

== ENCOUNTER 2021-03-22 23:35 | Inpatient (IN) ==
[2021-03-23] MEDS ORDERED: FUROSEMIDE 40 MG/4 ML VIAL IV STA (00:18)
[2021-03-23 00:33] LABS: Basophils # (auto) 0.03 K/uL (0-0.2); Basophils % (auto) 0.2 %; Eosinophils # (auto) 0.28 K/uL (0-0.5); Eosinophils % (auto) 1.9 %; Hematocrit (blood only) 28.2 % (37-47); Hemoglobin 8.7 g/dL (12.0-16.0); Immature Granulocytes # (auto) 0.06 K/uL (0.00-0.02); Immature Granulocytes % (auto) 0.4 %; Lymphocytes % (auto) 9.7 %; Mean Corpuscular Hemoglobin 28.2 pg (25-34); Mean Corpuscular Hgb Conc 30.9 g/dL (32-36); Mean Corpuscular Volume 91.3 fL (80-100); Mean Platelet Volume 9.5 fL (7.4-10.4); Monocytes # (auto) 1.04 K/uL (0.11-0.59); Monocytes % (auto) 7.2 %; Neutrophils # (auto) 11.57 K/uL (1.4-6.5); Neutrophils % (auto) 80.6 %; Platelet Count 436 K/uL (130-400); RDW Coefficient of Variation 14.8 % (11.5-14.5); RDW Standard Deviation 48.7 fL (36.4-46.3); Red Blood Count 3.09 M/uL (4.2-5.4); White Blood Count 14.38 K/uL (4.8-10.8)
[2021-03-23 00:51] LABS: Alanine Aminotransferase 14 U/L (12-78); Albumin Level 3.4 gm/dl (3.4-5.0); Aspartate Aminotransferase 13 U/L (15-37); BUN Creatinine Ratio 27.8 (10-20); Blood Urea Nitrogen 29 mg/dl (7-18); Calcium 9.1 mg/dl (8.5-10.1); Carbon Dioxide 25 mmol/L (21-32); Chloride 106 mmol/L (98-107); Est GFR (African American) 56.1 ml/min; Est GFR (Non-African American) 48.4 ml/min; Glucose 124 mg/dl (70-99); Potassium 3.7 mmol/L (3.5-5.1); Sodium 140 mmol/L (136-145)
[2021-03-23 00:56] LABS: Albumin Globulin Ratio 0.8 (0.9-2); Alkaline Phosphatase 75 U/L (45-117); Bilirubin,Total 0.3 mg/dl (0.2-1); Globulin 4.1 gm/dl (2.5-4.0); NT Pro B Type Natriuretic Pept 2114 pg/ml (0-1800); Total Protein 7.5 gm/dl (6.4-8.2)
[2021-03-23] MEDS ORDERED: PANTOprazole 40 MG in SYRINGE 0 ML IV ONE (01:40)
--- NOTE | 2021-03-23 04:21 | History & Physical Report ---
Date of Service March 23, 2021 Assessment & Plan (1) GI bleed: 85 yo F with a history severe and MS, TIA, anxiety, hypothyroidism, HTN, HLD, impaired fasting glucose, bullous pemphigoid on chronic steroid therapy, previous GIB 10/2019 admitted for low Hgb and suspected GIB. GIB: - Hx of 10/2019 requiring PRBCs x2 units, workup including colonoscopy and EGD was negative. - Hgb 8.7 in ER today; hemodynamically stable. - Not on PPI chronically, no subjective GERD. No noted melana, BRBPR. - Protonix 40mg IV BID; iron supplement daily. - 60mL/hr NSS with KCl 20meq added. - Ceftriaxone empirically given GIB. - NPO. - GI consulted. - Telemetry for cardiac monitoring. Hx bullous pemphigoid: -On PO steroids chronically. -Solumedrol 50 IV q8h for adrenal insufficiency while NPO. Impaired fasting glucose: -SSI ordered given Hx impaired fasting glucose and IV steroids. Aortic and Mitral valve stenosis, severe: -Noted on [facility] 01/2021. -For TAVR 04/06/21. -No present cardiac concerns/complaints. HTN: -Hold home anti-hypertensives. -Lopressor 5mg IV q4h prn SBP >140. Code Status: DNR/DNI FEN: NPO, NSS with KCl 20meq at 60cc/hr DVT ppx: SCDs, no chemoppx given GI Bleed Dispo: Telemetry (2) Impaired fasting glucose: (3) Hypothyroid: (4) Anxiety: (5) Hypertension: (6) Mitral stenosis: (7) Aortic stenosis: (8) Hyperlipidemia: Admission and Anticipated Discharge Date Admission Date: March 23, 2021 History of Present Illness Chief Complaint: SOB, weakness Primary Care Provider: Ike Villa MD 85 yo F with a history severe and MS, TIA, anxiety, hypothyroidism, HTN, HLD, impaired fasting glucose, bullous pemphigoid on chronic steroid therapy, pr evious GIB 10/2019 presented with feeling weak for the last 2 weeks, worsening in that time. Tonight she started to have SOB and typically she will take her furosemide and it will resolve. When it did not she came to the ER. Denies recent fevers or chills, chest pain, abdominal pain, melena, bright red stools, diarrhea, constipation, recent sick contacts. In ER patient did get Lasix 20mg IV prior to labwork coming back. Hgb noted to be 8.7 (baseline 13) and hemoccult was positive. Allergies Allergy/AdvReac Type Severity Reaction Status Date / Time simvastatin Allergy Mild RASH Verified 03/23/21 00:44 HMG-CoA-R Inhibitors Allergy Unknown CAN'T Uncoded 03/23/21 00:44 REMEMBER hydroCHLOROthiazide TABS Allergy Unknown CAN'T Uncoded 03/23/21 00:44 REMEMBER Statins Allergy Unknown CAN'T Uncoded 03/23/21 00:44 REMEMBER Tramadol Allergy Unknown CAN'T Uncoded 03/23/21 00:44 REMEMBER trospium Allergy Unknown CAN'T Uncoded 03/23/21 00:44 REMEMBER Home Medications Medication Instructions Recorded Confirmed Type prednisone 10 mg tablet 10 mg PO Q OTHER DAY #100 tab 05/29/19 03/23/21 Rx ezetimibe 10 mg tablet 10 mg PO DAILY #30 tab 02/18/21 03/23/21 Rx gemfibrozil 600 mg tablet 600 mg PO BID #180 tab 02/18/21 03/23/21 Rx levothyroxine 50 mcg tablet 50 mcg PO DAILY #30 tab 02/18/21 03/23/21 Rx allopurinol 100 mg tablet 200 mg PO QAM 03/23/21 03/23/21 History diltiazem HCl 240 mg capsule,24 240 mg PO QPM 03/23/21 03/23/21 History hr,extended release (Tiadylt ER) furosemide 20 mg tablet (Lasix) 20 mg PO DAILY 03/23/21 03/23/21 History potassium chloride 15 mEq 15 meq PO QPM 03/23/21 03/23/21 History tablet,extended release(part/cryst) Past Med/Surg History Medical History (Updated 03/23/21 @ 04:22 by Rosalba Stoner DO) Acute blood loss anemia Acute blood loss anemia Aortic stenosis, severe Avulsion of skin of finger Bullous pemphigoid Chronic kidney disease, stage 3a Gout Hyperlipidemia Hypertension Hypothyroid Impaired fasting glucose Mammogram abnormal Mitral regurgitation Mitral stenosis Rash Right carotid bruit Surgical History S/P hysterectomy with oophorectomy S/P lumpectomy, left breast Family History Sister Breast cancer Colorectal cancer COPD (chronic obstructive pulmonary disease) Mother Diabetes Sister Breast cancer Colorectal cancer Denies family history of Ovarian cancer Prostate cancer Myocardial infarction Social History Smoking Status: Former smoker Age Started Using Tobacco: 15; Age Quit Using Tobacco: 33; packs per day: 0.5; Years Smoked: 18; Cigarettes Per Day: 10; Number of Years Since Quit: 51; Second Hand Exposure: Yes; Hx Alcohol Use: No Hx Substance Use: No Preferred Language: Vincentian Communication Ability: Effective Visual Impairment: No Limitations Hearing Ability: Normal Beliefs That Will Affect Care: None marital status: / Current Living Situation: Alone current occupational status: retired 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 - HEENT: Denies changes in vision and hearing. - RESPIRATORY: Endorses SOB (not during interview but at home), denies cough. - CV: Denies palpitations and CP. - GI: Denies abdominal pain, nausea, vomiting and diarrhea. - : Denies dysuria, hematuria, and urinary frequency. - NEUROLOGICAL: Denies headache and syncope. Physical Exam Physical Exam: - GENERAL: Alert and oriented x 3. No acute distress. Well- nourished. - EYES: EOMI. Anicteric. - HEENT: Moist mucous membranes. No scleral icterus. No cervical lymphadenopathy. No nasal or ear external abnormalities. - LUNGS: Clear to auscultation bilaterally. No accessory muscle use. - CARDIOVASCULAR: Regular rate and rhythm. 4/6 systolic murmur noted over RUSB, LMSB. No JVD. - ABDOMEN: Soft, non-tender and non-distended. No palpable masses. - EXTREMITIES: No edema. Non-tender. - SKIN: No rashes or lesions. Warm. - NEUROLOGIC: No focal neurological deficits. - PSYCHIATRIC: Cooperative. Appropriate mood and affect. Results & Data Results & Data ([facility]) Vital Signs (Past 12 Hours) Vital Signs Temp Pulse Resp BP Pulse Ox 03/23/21 01:00 118/67 95 03/23/21 00:45 86 10 L 130/75 97 03/23/21 00:30 90 18 129/63 97 03/23/21 00:15 97 H 18 141/97 H 98 03/23/21 00:01 132/78 97 03/22/21 23:42 36.6 C 98 H 20 127/64 97 Code Status & VTE Plan Code Status DNR/DNI VTE Prophylaxis Plan VTE Prophylaxis will be ordered: Yes Supervising Physician Co-Signing Physician Notes Attending addendum: I have physically seen this patient, have supervised the medical residents activities, and agree with the H&P unless as otherwise noted. Assessment and Plan: GI bleed- Admit to monitored bed Hemoglobin 8.7 upon admission, down from 13.1 when last checked on 01/19/2021. Last admission on 11/01/2019, with GI bleed at that time requiring 2 units PRBCs, with negative colonoscopy and EGD performed by Dr. Woodruff +2040 mg IV twice daily N.p.o. NSS plus KCl 20 mEq at 60 mils per hour Ceftriaxone 2 g IV daily Consult gastroenterology Dr. Woodruff History bullous pemphigoid- Hold prednisone 10 mg every other day Placed on hydrocortisone 50 mg IV every 8 hours for stress testing Impaired fasting glucose- Placed on Accu-Cheks before meals and at bedtime with NovoLog coverage due to potential increased caused by IV hydrocortisone Severe aortic valve and mitral valve stenosis/hypertension- While n.p.o. hold oral medications Lopressor 5 mg IV every 4 hours as needed systolic blood pressure greater than 140 Remaining orders and notations as noted Resident Activity Tracking Resident Involvement: Resident Care Provided Care Provided: Adult Hospital Medicine (1) Hypothyroid Hypothyroidism type: acquired Qualified Code(s): E03.9 - Hypothyroidism, unspecified
--- NOTE | 2021-03-23 04:34 | Billing Data ---
Date of Service March 23, 2021 Coding Level of Care Code 08462 Initial Inpt Care Lvl 3
[2021-03-23] MEDS ORDERED: PATIENT'S WEIGHT NEEDED SCH (05:30)
[2021-03-23] MEDS ORDERED: METOPROLOL TARTRATE 1 MG/ML VIAL IV PRN (05:53)
[2021-03-23] MEDS ORDERED: ACETAMINOPHEN 1000 MG/100 ML IV IV PRN (05:53)
[2021-03-23] MEDS ORDERED: HYDROCORTISONE SOD SUCCINATE 100 MG/2 ML VIAL IV SCH (05:53)
[2021-03-23] MEDS ORDERED: GLUCAGON FOR INJ 1 MG VIAL SQ PRN (05:53)
[2021-03-23] MEDS ORDERED: DEXTROSE 50% 50 ML SYRINGE IV PRN (05:53)
[2021-03-23] MEDS ORDERED: GLUCOSE 10 TABS/TUBE PO PRN (05:53)
[2021-03-23] MEDS ORDERED: CARBOHYDRATES FOR HYPOGLYCEMIA PO PRN (05:53)
[2021-03-23] MEDS ORDERED: ONDANSETRON INJ 2 MG/ML 2 ML VIAL IV PRN (05:53)
[2021-03-23] MEDS ORDERED: GLUCOSE 40% GEL 15 GM TUBE PO PRN (05:53)
[2021-03-23 06:22] LABS: Hematocrit (blood only) 27.8 % (37-47); Hemoglobin 8.9 g/dL (12.0-16.0)
[2021-03-23] MEDS: NSS + 20MEQ KCL 20 MEQ/1,000 ML BAG IV SCH (06:37)
[2021-03-23] MEDS: INSULIN ASPART 100 UNITS/ML 3 ML PEN SC SCH ×3 (07:32→18:33)
--- NOTE | 2021-03-23 07:47 | XRay Report ---
XR chest 1V portable CLINICAL HISTORY: Dyspnea COMPARISON STUDY: Chest radiograph October 31, 2020. FINDINGS: There is no pneumothorax. There may be a trace left pleural effusion. There is pulmonary va scular congestion. No consolidation is identified. Note is made of mild cardiomegaly. IMPRESSION: 1. Pulmonary vascular congestion. 2. Trace left pleural effusion. ACT 112: Negative or not required by law. Electronically signed by: Nickolas Green M.D. 03/23/2021 7:45 AM
[2021-03-23] MEDS: PANTOprazole 40 MG in SYRINGE 0 ML IV SCH ×2 (08:26→20:49)
[2021-03-23] MEDS: HYDROCORTISONE SOD 50 MG in SYRINGE 0 ML IV SCH ×3 (08:29→21:58)
[2021-03-23] MEDS: cefTRIAXone SODIUM 2,000 MG in DEXTROSE 5% 50 ML IV SCH (08:30)
[2021-03-23] MEDS: FERROUS SULFATE 325 MG TAB PO SCH (08:32)
[2021-03-23] MEDS ORDERED: cefTRIAXone SODIUM 2,000 MG in DEXTROSE 5% 50 ML IV SCH (09:00)
--- NOTE | 2021-03-23 09:44 | Medical Student Progress Note ---
Date of Service March 23, 2021 Assessment & Plan (1) GI bleed: 85 yo F with a history severe and MS, TIA, anxiety, hypothyroidism, HTN, HLD, impaired fasting glucose, bullous pemphigoid on chronic steroid therapy, previous GIB 10/2019 admitted for low Hgb and suspected GIB. GIB: History GI bleed 10/2019 requiring PRBCs x2 units. Workup including colonoscopy and EGD was negative at the time. Patient presented to the ED with Hgb 8.7 but hemodynamically stable. She is not on PPI chronically. Reported intermittent dark stools, but not black and sticky. Hbg was noted to be 13.1 on 01/19/2021. - Protonix 40mg IV BID; iron supplement daily. - 60mL/hr NSS with KCl 20meq added. - Ceftriaxone empirically given GIB. - NPO - GI consulted. - Small bowel enteroscopy was planned for today, but anesthesiology felt she was too high risk given her severe and MS. Recommended transfer to [facility] - Transfer pending - Telemetry for cardiac monitoring. Hx bullous pemphigoid: -On PO steroids chronically. -Solumedrol 50 IV q8h for adrenal insufficiency while NPO. Impaired fasting glucose: -SSI ordered given Hx impaired fasting glucose and IV steroids. Aortic and Mitral valve stenosis, severe: -Noted on [facility] 01/2021. -Scheduled for TAVR 04/06/21. -No present cardiac concerns/complaints. HTN: -Hold home anti-hypertensives. -Lopressor 5mg IV q4h prn SBP >140. HLD: -Continue home ezetimibe, gemfibrozil Gout: -Continue home allopurinol Hypothyroidism: -Continue home levothyroxine Code Status: DNR/DNI FEN: NPO, NSS with KCl 20meq at 60cc/hr DVT ppx: SCDs, no chemoppx given GI Bleed Dispo: Telemetry Admission and Anticipated Discharge Date Admission Date: March 23, 2021 Supervising Attestation Attending attestation Pt seen and examined in concert with St. Dr. Alise Arvizu. In agreement with the documented findings as noted in the resident documentation with any exceptions or additions as noted here. Resting in chair with persistent complaint of fatigue which is unchanged from presentation. On examination, S1/S2 tachycardia with 3/6 DRAKE to the carotid c/w impending TAVR. CTAB. Abd NT/ND BS+ve New onset anemia (13 --> 8.8) with concern for GIB (+ guiac) - GI consultation - recommendation of specialty team in the setting of impending TAVR with complicated underlying disease would rec transfer to [facility] for further evaluation, agree w/ same. Continue PPI and trend CBC q12 Else see student/resident documentation as noted. Subjective Seen seated in room chair. Does not feel short of breath at rest, but says she would if she walked. Has baseline SOB from valvular issues. Endorses history of occasional dark stools, although not sticky and black. Endorses generalized weakness. Denies dizziness. Denies chest pain/ palitations. Denies abdominal pain. Review of Systems Review of Systems: All systems reviewed & are unremarkable except as noted in Subjective Physical Exam Physical Exam: GENERAL: pleasant, nad HEENT: conjunctiva without injection b/l, oropharynx moist, external nose and pinna are normal CHEST: cta bilaterally with no wheezes, rhonchi or rales, normal respiratory effort CARDIOVASCULAR: heart regular rate and rhythm, systolic murmur appreciated, no gallops or rubs, no lower extremity edema ABD: nontender to palpation, nondistended, normal active bowel sounds SKIN: no rashes or suspicious lesions noted NEURO: PERRLA Results & Data ([facility]) Vital Signs (Past 12 Hours) Vital Signs Temp Pulse Pulse Resp BP BP Pulse Ox 03/23/21 07:27 87 16 114/63 97 03/23/21 05:18 89 18 120/58 L 96 03/23/21 01:00 118/67 95 03/23/21 00:45 86 10 L 130/75 97 03/23/21 00:30 90 18 129/63 97 03/23/21 00:15 97 H 18 141/97 H 98 03/23/21 00:01 132/78 97 03/22/21 23:42 36.6 C 98 H 20 127/64 97
--- NOTE | 2021-03-23 10:48 | Gastrointestinal Consultation ---
Date of Consultation March 23, 2021 Assessment & Plan (1) Anemia: -Keep NPO for small bowel enteroscopy today -If no findings, will need to reconsider outpatient video capsule study and hematology evaluation -Continue to monitor H/H -Continue IV Protonix 40 mg BID -Supportive care per primary team Supervising Physician Co-Signing Physician Notes Agree with WILLIAM Rojas as above Discussed case with Dr. Rascon of Anesthesia, and he did not feel the patient was an appropriate candidate for push enteroscopy with Aortic stenosis, Heart failure and no overt GI bleeding. Decision was made to recommend transfer to [facility] as she is undergoing Aortic Valve Replacement at [facility] in 2 weeks. If they feel a GI workup is indicated this can occur at [facility] as well. Continue current therapy and supportive care History of Present Illness Reason for Consultation: Anemia Attending Physician: Sin Garcia MD History of Present Illness Patient is an 85 yo female with PMH of severe aortic stenosis, TIA, anxiety, hypothyroidism, HTN, HLD, bullous pemphigoid on chronic steroid therapy, & previous admissions for anemia who presents with weakness over 2 weeks. She was noted to be anemic upon presentation to the ED. H/H 8.9/27.8 presently and stool is heme positive. Patient had a work-up for anemia while hospitalized in October 2019. EGD indicated a schatzki ring that was dilated and a small hiatal hernia. Colonoscopy indicated diverticulosis & internal hemorrhoids. There was no obvious source of GI bleeding. Patient has no overt GI bleeding at present. She has been NPO since 7 PM on 03/22/21. She denies abdominal pain, heartburn, reflux, or dysphagia. She denies changes in her bowel habits. She notes that she has an upcoming aortic valve replacement in 2 weeks scheduled at [facility]. She does not take a PPI daily. The patient has been seen in the office by Latoya LEONARD in November 2019. At that time, the patient had declined a VCE for further evaluation as her anemia had resolved and she was feeling well. Allergies Allergy/AdvReac Type Severity Reaction Status Date / Time simvastatin Allergy Mild RASH Verified 03/23/21 00:44 hydrochlorothiazide Allergy Unknown Unknown Verified 03/23/21 05:31 Mmrhius-Orv-Qch Reductase Allergy Unknown Unknown Verified 03/23/21 05:30 Inhibitor tramadol Allergy Unknown Unknown Verified 03/23/21 05:31 trospium Allergy Unknown Unknown Verified 03/23/21 05:32 Home Medications Medication Instructions Recorded Confirmed Type prednisone 10 mg tablet 10 mg PO Q OTHER DAY #100 tab 05/29/19 03/23/21 Rx ezetimibe 10 mg tablet 10 mg PO DAILY #30 tab 02/18/21 03/23/21 Rx gemfibrozil 600 mg tablet 600 mg PO BID #180 tab 02/18/21 03/23/21 Rx levothyroxine 50 mcg tablet 50 mcg PO DAILY #30 tab 02/18/21 03/23/21 Rx allopurinol 100 mg tablet 200 mg PO QAM 03/23/21 03/23/21 History diltiazem HCl 240 mg capsule,24 240 mg PO QPM 03/23/21 03/23/21 History hr,extended release (Tiadylt ER) furosemide 20 mg tablet (Lasix) 20 mg PO DAILY 03/23/21 03/23/21 History potassium chloride 15 mEq 15 meq PO QPM 03/23/21 03/23/21 History tablet,extended release(part/cryst) Patient History Medical History Acute blood loss anemia Acute blood loss anemia Aortic stenosis, severe Avulsion of skin of finger Bullous pemphigoid Chronic kidney disease, stage 3a Gout Hyperlipidemia Hypertension Hypothyroid Impaired fasting glucose Mammogram abnormal Mitral regurgitation Mitral stenosis Rash Right carotid bruit Surgical History S/P hysterectomy with oophorectomy S/P lumpectomy, left breast Family History Sister Breast cancer Colorectal cancer COPD (chronic obstructive pulmonary disease) Mother Diabetes Sister Breast cancer Colorectal cancer Denies family history of Ovarian cancer Prostate cancer Myocardial infarction Social History Smoking Status: Never smoker Age Started Using Tobacco: 15; Age Quit Using Tobacco: 33; packs per day: 0.5; Years Smoked: 18; Cigarettes Per Day: 10; Number of Years Since Quit: 51; Second Hand Exposure: Yes; Hx Alcohol Use: No Hx Substance Use: No Preferred Language: Bahamian Communication Ability: Effective Visual Impairment: No Limitations Hearing Ability: Normal Beliefs That Will Affect Care: None marital status: / Current Living Situation: Alone current occupational status: retired 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 How many Children do You have: 3 Other Information That Helps Us Care for You: No Feels Safe at Home: Yes Childhood Exposure to Second-Hand Smoke: Yes caffeine: No during the past year weight has: remained stable Dental Care, Regularly: No Physical Activity Frequency: Does not Exercise Seatbelt Use: always Sunscreen Use: Yes Assistive Devices: Denture - Upper Review of Systems Constitutional: + fatigue; no fever and no chills Respiratory: no cough and no dyspnea Cardiovascular: no chest pain Gastrointestinal: no abdominal pain, no bloating, no heartburn, no nausea, no vomiting, no dysphagia, no change in bowel habits, no diarrhea/loose stools, no blood in stools and no melena Hematologic / Lymphatic: no unexplained weight loss Physical Exam Constitutional: well developed Respiratory: normal respiratory effort, lungs clear to auscultation Cardiovascular: Rate/Rhythm: regular rate and regular rhythm Heart Sounds: + murmur Gastrointestinal (Abdomen): normal bowel sounds, soft, nontender, no hepatosplenomegaly Musculoskeletal: Extremities: extremities normal to inspection Psychiatric: A+Ox3, euthymic affect Results & Data ([facility]) Vital Signs (Past 12 Hours) Vital Signs Temp Pulse Pulse Resp BP BP Pulse Ox 03/23/21 07:27 87 16 114/63 97 03/23/21 05:18 89 18 120/58 L 96 03/23/21 01:00 118/67 95 03/23/21 00:45 86 10 L 130/75 97 03/23/21 00:30 90 18 129/63 97 03/23/21 00:15 97 H 18 141/97 H 98 03/23/21 00:01 132/78 97 03/22/21 23:42 36.6 C 98 H 20 127/64 97 Laboratory Results H/H 8.9/27.8 PG Care Time/CCT Total # of Minutes Spent Total Time Spent with Patient: Total time spent is greater than 50% in coordination of care (as documented) at patient's floor/unit and/or counseling patient: Coding Level of Care Code 36671 Initial Inpt Care Lvl 3 Diagnoses Anemia D64.9 Anemia type: unspecified type (1) Anemia Anemia type: unspecified type Qualified Code(s): D64.9 - Anemia, unspecified
[2021-03-23] MEDS: allopurinoL 100 MG TAB PO SCH (11:36)
[2021-03-23] MEDS: EZETIMIBE 10 MG TABLET PO SCH (11:37)
[2021-03-23] MEDS: gemfibroziL 600 MG TAB PO SCH ×2 (11:38→20:49)
[2021-03-23 13:33] LABS: Appearance Urine Clear (Clear); Bilirubin Urine Negative (Negative); Blood Urine Negative (Negative); Color Urine Yellow; Glucose Urine UA Negative (Negative); Ketones Urine Negative (Negative); Leukocyte Esterase Urine Negative (Negative); Nitrite Urine Negative (Negative); Protein Urine Negative (Negative); Specific Gravity Urine 1.015 (1.000-1.030); Urobilinogen Urine Negative (Negative)
[2021-03-23 15:08] LABS: Hematocrit (blood only) 28.2 % (37-47); Hemoglobin 8.8 g/dL (12.0-16.0)
--- NOTE | 2021-03-23 17:05 | Electrocardiogram Report ---
Test Reason : Blood Pressure : / mmHG Vent. Rate : 103 BPM Atrial Rate : 103 BPM P-R Int : 196 ms QRS Dur : 088 ms QT Int : 388 ms P-R-T Axes : 074 003 168 degrees QTc Int : 508 ms Sinus tachycardia Left ventricular hypertrophy with repolarization abnormality Abnormal ECG When compared with ECG of 31-OCT-2019 00:51, No significant change was found Confirmed by Matthew Law ([id number]) on 03/23/2021 5:05:43 PM Referred By: REFERRED SELF Confirmed By:Zoltan Law
[2021-03-23 19:03] LABS: Hematocrit (blood only) 28.3 % (37-47); Hemoglobin 8.9 g/dL (12.0-16.0)
[2021-03-24] MEDS: INSULIN ASPART 100 UNITS/ML 3 ML PEN SC SCH ×4 (00:28→19:15)
[2021-03-24 00:39] LABS: Hematocrit (blood only) 25.5 % (37-47); Hemoglobin 8.1 g/dL (12.0-16.0)
[2021-03-24] MEDS: NSS + 20MEQ KCL 20 MEQ/1,000 ML BAG IV SCH ×2 (04:07→17:03)
[2021-03-24] MEDS: HYDROCORTISONE SOD 50 MG in SYRINGE 0 ML IV SCH ×2 (05:54→14:06)
[2021-03-24] MEDS ORDERED: LEVOTHYROXINE SODIUM 50 MCG TABLET PO SCH (06:30)
[2021-03-24 07:24] LABS: Basophils # (auto) 0.02 K/uL (0-0.2); Basophils % (auto) 0.2 %; Eosinophils # (auto) 0.02 K/uL (0-0.5); Eosinophils % (auto) 0.2 %; Hematocrit (blood only) 26.9 % (37-47); Hemoglobin 8.4 g/dL (12.0-16.0); Immature Granulocytes # (auto) 0.03 K/uL (0.00-0.02); Immature Granulocytes % (auto) 0.3 %; Lymphocytes # (auto) 0.73 K/uL (1.2-3.4); Lymphocytes % (auto) 7.1 %; Mean Corpuscular Hemoglobin 27.8 pg (25-34); Mean Corpuscular Hgb Conc 31.2 g/dL (32-36); Mean Corpuscular Volume 89.1 fL (80-100); Mean Platelet Volume 8.8 fL (7.4-10.4); Monocytes % (auto) 4.9 %; Neutrophils # (auto) 8.99 K/uL (1.4-6.5); Neutrophils % (auto) 87.3 %; Platelet Count 397 K/uL (130-400); RDW Coefficient of Variation 14.9 % (11.5-14.5); RDW Standard Deviation 48.2 fL (36.4-46.3); Red Blood Count 3.02 M/uL (4.2-5.4); White Blood Count 10.29 K/uL (4.8-10.8)
[2021-03-24] MEDS: PANTOprazole 40 MG in SYRINGE 0 ML IV SCH ×2 (07:47→21:16)
[2021-03-24] MEDS: gemfibroziL 600 MG TAB PO SCH ×2 (07:48→21:16)
[2021-03-24] MEDS: EZETIMIBE 10 MG TABLET PO SCH (07:48)
[2021-03-24] MEDS: allopurinoL 100 MG TAB PO SCH (07:48)
[2021-03-24] MEDS: FERROUS SULFATE 325 MG TAB PO SCH (07:48)
[2021-03-24 07:57] LABS: Albumin Level 3.3 gm/dl (3.4-5.0); Calcium 9.1 mg/dl (8.5-10.1); Creatinine Clr Calc Pharmacy 38.7 ml/min; Est GFR (African American) 69.4 ml/min; Est GFR (Non-African American) 59.9 ml/min; Magnesium 2.3 mg/dl (1.8-2.4); Potassium 3.9 mmol/L (3.5-5.1)
[2021-03-24 08:00] LABS: Albumin Globulin Ratio 0.9 (0.9-2); Bilirubin,Total 0.5 mg/dl (0.2-1); Globulin 3.8 gm/dl (2.5-4.0); Total Protein 7.1 gm/dl (6.4-8.2)
[2021-03-24] MEDS: cefTRIAXone SODIUM 2,000 MG in DEXTROSE 5% 50 ML IV SCH (08:06)
[2021-03-24] MEDS: LEVOTHYROXINE SODIUM 50 MCG TABLET PO SCH (08:49)
[2021-03-24 09:17] LABS: Estimated Average Glucose 111 mg/dl; Hemoglobin A1C 5.5 % (4.5-5.6)
[2021-03-24 12:50] LABS: Hematocrit (blood only) 28.2 % (37-47); Hemoglobin 8.6 g/dL (12.0-16.0)
--- NOTE | 2021-03-24 14:14 | Medical Student Progress Note ---
Date of Service March 24, 2021 Assessment & Plan (1) GI bleed: Plan: 85yo female with a history of acute blood loss anemia due to GI bleed (10/2020, requiring 2u pRBC), severe aortic stenosis and mitral stenosis with TAVR planned for 04/07/2021), severe mitral stenosis, HTN, HLD, impaired fasting glucose, bullous pemphigoid (on chronic steroid therapy), TIA, and anxiety who presented with 1-2 days of SOB and generalized weakness. Acute anemia Patient with acute-onset SOB and generalized weakness found on admission with Hgb of 8.7, representing a drop from 13 one month ago History of GI bleed (10/2020) requiring transfusion of 2u pRBC; colonoscopy and EGD negative at that time Reports recent melena but no BRBPR Empiric ceftriaxone 2g IV given, discontinued 03/24 GI consulted and felt patient requires push enteroscopy; however, [facility] anesthesiology uncomfortable with procedure given patient's cardiac history Discussed with [facility] [place] patient will be transferred there for higher level of care Continue NSS @ 60mL/hr with KCl 20mEq Continue protonix 40mg IV bid Continue ferrous sulfate 325mg qd NPO except for sips and chips Continue telemetry monitoring Follow serial hemoglobin/hematocrit q8h. Stable Covid PCR negative (03/23/2021) in preparation of transfer to [facility] Severe aortic stenosis, severe mitral stenosis Noted on NEV[place] (01/2021); patient is scheduled for TAVR on 04/07/2021 at [facility] Patient without chest pain, EKG with sinus tachycardia and LVH but otherwise unremarkable [facility] team can consider cardiology consult, as earlier TAVR may be indicated HTN Hold home diltiazem Lopressor 5mg IV q4h as needed for SBP>140 Bullous pemphigoid Symptoms under control at this time Home prednisone held, hydrocortizone 50mg IV q8h changed to hydrocortisone 25mg IV Q8H HLD Continue home ezetimibe, gemfibrozil Gout Continue home allopurinol Hypothyroidism Continue home levothyroxine Code Status: DNR/DNI FEN: NPO, NSS with KCl 20meq at 60cc/hr DVT ppx: SCDs, no chemoppx given GI Bleed Dispo: Telemetry Admission and Anticipated Discharge Date Admission Date: March 23, 2021 Supervising Attestation Attending attestation Pt seen and examined in concert with Dr. Sterling, . Dr. Carrero. In agreement with the documented findings as noted in the resident documentation with any exceptions or additions as noted here. Resting in chair with persistent complaint of fatigue which is unchanged from presentation. On examination, S1/S2 tachycardia with 3/6 DRAKE to the carotid c/w impending TAVR. CTAB. Abd NT/ND BS+ve New onset anemia (13 --> 8.6) with concern for GIB (+ guiac) - GI consultation - monitoring CBC, transition to q8h. Continue PPI Else see student/resident documentation as noted. Subjective Seen at bedside. Patient is feeling well. Denies any shortness of breath, increased fatigue, chest pain, palpitations. Has not had a BM since arrival to the hospital. Review of Systems Review of Systems: All systems reviewed & are unremarkable except as noted in Subjective Physical Exam Physical Exam: GENERAL: pleasant, nad HEENT: conjunctiva without injection b/l, oropharynx moist, external nose and pinna are normal CHEST: cta bilaterally with no wheezes, rhonchi or rales, normal respiratory effort CARDIOVASCULAR: heart regular rate and rhythm, systolic murmur appreciated, no gallops or rubs, no lower extremity edema ABD: nontender to palpation, nondistended, normal active bowel sounds SKIN: no rashes or suspicious lesions noted NEURO: PERRLA Results & Data ([facility]) Vital Signs (Past 12 Hours) Vital Signs Temp Pulse Pulse Resp BP BP Pulse Ox 03/24/21 11:20 36.6 C 97 H 16 119/72 92 03/24/21 07:43 98 H 03/24/21 07:03 36.4 C L 101 H 19 129/69 97 03/24/21 04:39 36.5 C 96 H 18 125/74 97
[2021-03-24] MEDS: POTASSIUM CHLORIDE 20 MEQ in LACTATED RINGER'S 1,000 ML IV SCH (18:38)
[2021-03-24] MEDS: HYDROCORTISONE SOD 25 MG in SYRINGE 0 ML IV SCH (21:16)
[2021-03-24 22:53] LABS: Hematocrit (blood only) 24.6 % (37-47); Hemoglobin 7.6 g/dL (12.0-16.0)
[2021-03-24] MEDS ORDERED: SODIUM CHLORIDE 0.9% 250 ML IV PRN (23:11)
[2021-03-25] MEDS: INSULIN ASPART 100 UNITS/ML 3 ML PEN SC SCH ×4 (00:24→19:11)
[2021-03-25] MEDS: HYDROCORTISONE SOD 25 MG in SYRINGE 0 ML IV SCH ×3 (06:10→22:04)
[2021-03-25 06:52] LABS: Hemoglobin 9.8 g/dL (12.0-16.0)
[2021-03-25 07:30] LABS: Albumin Level 3.2 gm/dl (3.4-5.0); BUN Creatinine Ratio 32.5 (10-20); Calcium 9.2 mg/dl (8.5-10.1); Est GFR (African American) 59.5 ml/min; Est GFR (Non-African American) 51.3 ml/min; Magnesium 2.3 mg/dl (1.8-2.4); Potassium 3.7 mmol/L (3.5-5.1)
[2021-03-25 07:33] LABS: Albumin Globulin Ratio 0.8 (0.9-2); Bilirubin,Total 0.8 mg/dl (0.2-1); Globulin 3.9 gm/dl (2.5-4.0); Total Protein 7.1 gm/dl (6.4-8.2)
--- NOTE | 2021-03-25 08:28 | Medical Student Progress Note ---
Date of Service March 25, 2021 Assessment & Plan (1) GI bleed: Plan: 85yo female with a history of acute blood loss anemia due to GI bleed (10/2020, requiring 2u pRBC), severe aortic stenosis and mitral stenosis with TAVR planned for 04/07/2021), severe mitral stenosis, HTN, HLD, impaired fasting glucose, bullous pemphigoid (on chronic steroid therapy), TIA, and anxiety who presented with 1-2 days of SOB and generalized weakness. Acute anemia Patient with acute-onset SOB and generalized weakness found on admission with Hgb of 8.7, representing a drop from 13 one month ago History of GI bleed (10/2020) requiring transfusion of 2u pRBC; colonoscopy and EGD negative at that time Reports recent melena but no BRBPR Empiric ceftriaxone 2g IV given, discontinued 03/24 GI consulted and felt patient requires push enteroscopy; however, [facility] anesthesiology uncomfortable with procedure given patient's cardiac history Discussed with [facility] [place] patient will be transferred there for higher level of care Continue KCl 20Meq in LR @110mls/hr Continue protonix 40mg IV bid Continue ferrous sulfate 325mg qd NPO except for sips and chips Continue telemetry monitoring Follow serial hemoglobin/hematocrit q8h. Hbg dropped to 7.6 on 03/24 requiring 1 unit PRBCs. Stable Covid PCR negative (03/23/2021) in preparation of transfer to [facility] Severe aortic stenosis, severe mitral stenosis Noted on [place] (01/2021); patient is scheduled for TAVR on 04/07/2021 at [facility] Patient without chest pain, EKG with sinus tachycardia and LVH but otherwise unremarkable [facility] team can consider cardiology consult, as earlier TAVR may be indicated HTN Hold home diltiazem Lopressor 5mg IV q4h as needed for SBP>140 Bullous pemphigoid Symptoms under control at this time Home prednisone held, hydrocortizone 50mg IV q8h changed to hydrocortisone 25mg IV Q8H HLD Continue home ezetimibe, gemfibrozil Gout Continue home allopurinol Hypothyroidism Continue home levothyroxine Code Status: DNR/DNI FEN: NPO, KCl 20Meq in LR 110mls Q10h DVT ppx: SCDs, no chemoppx given GI Bleed Dispo: Telemetry Admission and Anticipated Discharge Date Admission Date: March 23, 2021 Supervising Attestation I also saw the patient with the resident physician as well as the medical student who has documented, and I completed a history and physical exam concurrent with the team. Upon our visit, the patient was seated in the bedside chair. She had no complaints. She does report a black watery stool just prior to our visit. Exam 132/77, heart rate 95, respiratory rate 20, temperature 36.6, pulse oximetry 90% on room air Heart is regular with 3/6 systolic ejection murmur Lungs are clear Abdomen is soft and nontender Data Hemoglobin 9.7; this is up from 7.6 last evening (status post 1 unit packed red blood cells), and relatively stable from earlier this morning (9.8). Platelet count 397 BUN 33, creatinine 1.0. Impression and plan Acute anemia secondary to gastrointestinal bleed Severe aortic stenosis Close monitoring of H&H Continue IV proton pump inhibitor Increase rate of IV fluids given n.p.o. status Plan is transfer to tertiary care facility once bed available Transfuse if necessary I did discuss with the patient showed a bed not become available at the [facility], we may need to look at alternative tertiary care facilities. Obviously, [facility] would be optimal since that is where she is scheduled for her TAVR procedure later this month. Hypertension Holding home medications As needed Lopressor Elevated cholesterol Gout Hypothyroidism Chronic and stable Continue home medications Subjective Patient seen seated in her chair. She had two episodes of watery melena. Endorses increased weakness and dizziness associated with going from lying to upright. Denies acute worsening of SOB at rest. Denies abdominal pain, chest pain, and palpitations. Review of Systems Review of Systems: All systems reviewed & are unremarkable except as noted in Subjective Physical Exam Physical Exam: GENERAL: pleasant, nad HEENT: conjunctiva without injection b/l, oropharynx moist, external nose and pinna are normal CHEST: cta bilaterally with no wheezes, rhonchi or rales, normal respiratory effort CARDIOVASCULAR: heart regular rate and rhythm, systolic murmur appreciated, no gallops or rubs, no lower extremity edema ABD: nontender to palpation, nondistended, normal active bowel sounds SKIN: no rashes or suspicious lesions noted NEURO: PERRLA Results & Data ([facility]) Vital Signs (Past 12 Hours) Vital Signs Temp Pulse Pulse Resp BP BP Pulse Ox 03/25/21 08:05 36.4 C L 97 H 18 128/76 98 03/25/21 07:12 95 H 03/25/21 02:51 36.5 C 100 H 20 115/68 95 03/25/21 02:19 36.3 C L 101 H 16 120/74 92 03/25/21 01:19 36.6 C 101 H 20 130/80 95 03/25/21 01:00 132 H 149/85 H 03/25/21 00:49 36.3 C L 132 H 22 149/85 H 97 03/25/21 00:34 36.8 C 114 H 18 114/70 92 03/25/21 00:13 36.5 C 107 H 18 111/68 95 03/24/21 23:30 101 H
[2021-03-25] MEDS: PANTOprazole 40 MG in SYRINGE 0 ML IV SCH ×2 (09:26→20:33)
[2021-03-25] MEDS: LEVOTHYROXINE SODIUM 50 MCG TABLET PO SCH (09:27)
[2021-03-25] MEDS: FERROUS SULFATE 325 MG TAB PO SCH (09:27)
[2021-03-25] MEDS: EZETIMIBE 10 MG TABLET PO SCH (09:27)
[2021-03-25] MEDS: gemfibroziL 600 MG TAB PO SCH ×2 (09:27→20:33)
[2021-03-25] MEDS: allopurinoL 100 MG TAB PO SCH (09:27)
[2021-03-25] MEDS: POTASSIUM CHLORIDE 20 MEQ in LACTATED RINGER'S 1,000 ML IV SCH ×3 (11:50→22:03)
[2021-03-25 11:59] LABS: Hematocrit (blood only) 31.1 % (37-47); Hemoglobin 9.7 g/dL (12.0-16.0)
[2021-03-25 18:13] LABS: Hematocrit (blood only) 31.9 % (37-47); Hemoglobin 9.9 g/dL (12.0-16.0)
[2021-03-26 01:28] LABS: Hematocrit (blood only) 28.6 % (37-47)
[2021-03-26] MEDS: INSULIN ASPART 100 UNITS/ML 3 ML PEN SC SCH ×5 (01:44→21:02)
[2021-03-26 06:03] LABS: Hematocrit (blood only) 28.5 % (37-47)
[2021-03-26] MEDS: HYDROCORTISONE SOD 25 MG in SYRINGE 0 ML IV SCH ×3 (06:20→21:01)
[2021-03-26 06:39] LABS: Albumin Level 3.1 gm/dl (3.4-5.0); BUN Creatinine Ratio 32.5 (10-20); Calcium 8.9 mg/dl (8.5-10.1); Creatinine Clr Calc Pharmacy 42.5 ml/min; Est GFR (African American) 77.9 ml/min; Est GFR (Non-African American) 67.2 ml/min; Magnesium 2.2 mg/dl (1.8-2.4); Potassium 4.1 mmol/L (3.5-5.1)
[2021-03-26 06:42] LABS: Albumin Globulin Ratio 0.9 (0.9-2); Bilirubin,Total 0.7 mg/dl (0.2-1); Globulin 3.6 gm/dl (2.5-4.0); Total Protein 6.7 gm/dl (6.4-8.2)
--- NOTE | 2021-03-26 06:47 | Hospitalist Progress Note ---
Date of Service March 26, 2021 Assessment & Plan (1) GI bleed: Plan: 85yo female with a history of acute blood loss anemia due to GI bleed (10/2020, requiring 2u pRBC), severe aortic stenosis and mitral stenosis with TAVR planned for 04/07/2021), severe mitral stenosis, HTN, HLD, impaired fasting glucose, bullous pemphigoid (on chronic steroid therapy), TIA, and anxiety who presented with 1-2 days of SOB and generalized weakness, likely 2/2 acute blood loss from unknown GI source. Stable. Acute anemia Patient with acute-onset SOB and generalized weakness found on admission with Hgb of 8.7, representing a drop from 13 one month ago History of GI bleed (10/2020) requiring transfusion of 2u pRBC; colonoscopy and EGD negative at that time Reports recent melena but no BRBPR Empiric ceftriaxone 2g IV given, discontinued 03/24 GI consulted and felt patient requires push enteroscopy; however, [facility] anesthesiology uncomfortable with procedure given patient's cardiac history Discussed with [facility] - patient will be transferred there for higher level of care Continue protonix 40mg IV bid Continue ferrous sulfate 325mg qd Continue telemetry monitoring Follow serial hemoglobin/hematocrit q8h. Hbg dropped to 7.6 on 03/24 requiring 1 unit PRBCs. Stable Severe aortic stenosis, severe mitral stenosis Noted on [place] (01/2021); patient is scheduled for TAVR on 04/07/2021 at [facility] Patient without chest pain, EKG with sinus tachycardia and LVH but otherwise unremarkable [facility] team can consider cardiology consult, as earlier TAVR may be indicated - slightly hypervolemic on 03/26 exam, restarted home PO lasix 20mg daily. cxr ~ unchanged vs 03/22, HTN Hold home diltiazem Bullous pemphigoid Symptoms under control at this time Home prednisone held, hydrocortisone 50mg IV q8h changed to hydrocortisone 25mg IV Q8H HLD Continue home ezetimibe, gemfibrozil Gout Continue home allopurinol Hypothyroidism Continue home levothyroxine Code Status: DNR/DNI FEN: restarted diet today. HH, low Na. d/c'd ivf DVT ppx: SCDs, no chemoppx given GI Bleed Dispo: PCU. Pending transfer to [place], no bed as of 03/26 Plan: I also saw the patient and confirmed khan portions of the history and physical examination. I discussed the case with the resident physician and I agree with the assessment and plan as noted in his documentation. She denies abdominal pain. She had one bowel movement overnight -dark in color but not watery. Her hemoglobin remained stable. She has been n.p.o. since Sunday in anticipation of either emergent procedure here or transfer to [facility] for procedure. She is still awaiting transfer to [facility] pending bed availability. At this point, giv en that she is hemodynamically stable and not having any abdominal pain, I think is reasonable to resume a diet. Discussed this with the patient -even if she were to transfer today, I suspect the procedure would not be completed for couple days yet. Exam 117/73, 114, 17, 36.9, 95% on room air Heart is regular with 3/6 systolic ejection murmur Upon my auscultation, heart rate in the mid 90s Lungs are clear Abdomen is soft and nontender Data Hemoglobin 9.5 BUN 26, creatinine 0.80 Impression and Plan Acute anemia secondary to gastrointestinal bleed Severe aortic stenosis Close monitoring of H&H Continue IV proton pump inhibitor Will resume diet; start with full liquid and advance as tolerated Plan is transfer to tertiary care facility once bed available Transfuse if necessary Again discussed with the patient showed a bed not become available at the [facility], we may need to look at alternative tertiary care facilities. Obviously, [facility] would be optimal since that is where she is scheduled for her TAVR procedure later this month. She remains hemodynamically stable with relatively stable hemoglobin at this point time. Hypertension Holding home medications As needed Lopressor Elevated cholesterol Gout Hypothyroidism Chronic and stable Continue home medications Admission and Anticipated Discharge Date Admission Date: March 23, 2021 Subjective Patient would like to transfer out. She is anxious about waiting. Per sighout, patient had anxiety this AM regarding her medical conditions. Patient feels ok. States she felt a little SOB while lying down last night. She thinks it's from home Lasix being held. + small amount of melenic liquid this AM, mostly passing gas. Overall, this has been decreasing in the last few days. Review of Systems Review of Systems: Constitutional: Denies fever, chills, weight change Eyes: Denies blurry vision, vision changes Cardiovascular: Denies chest pain, palpitations Respiratory: Denies shortness of breath while sitting in chair. +CONDON at baseline. Gastrointestinal: Denies abdominal pain, nausea, vomiting, constipation. Genitourinary: Denies urinary symptoms including dysuria Musculoskeletal: Denies weakness, muscle aches/pain, joint aches/pain Neurological: Denies headache, numbness, tingling, focal weakness Physical Exam Physical Exam: General: Grossly A&O. NAD. Cooperative. HEENT: Atraumatic, normocephalic. +JVD Pulm: Faint insp crackles diffusely. No respiratory distress. Cardiac: RRR, 3/6 systolic murmur. No LE edema. Abdominal: Nontender, nondistended, soft. Results & Data Results & Data ([facility]) Vital Signs (Past 12 Hours) Vital Signs Temp Pulse Pulse Resp BP BP Pulse Ox 03/26/21 03:52 36.7 C 106 H 24 144/82 H 95 03/26/21 00:00 95 H 03/25/21 23:14 36.7 C 103 H 16 111/68 95 03/25/21 20:00 99 H 03/25/21 19:26 36.8 C 108 H 16 153/75 H 96 Laboratory Results H/H stable 9.0. cmp stable. Diagnostic Findings 03/26 cxr 1. Cardiomegaly with mild central pulmonary vascular congestion. 2. Trace bilateral pleural effusions. 3. Bibasilar linear densities are nonspecific but favor segmental atelectasis. Resident Activity Tracking Resident Involvement: Resident Care Provided Care Provided: Adult Hospital Medicine
[2021-03-26] MEDS: PANTOprazole 40 MG in SYRINGE 0 ML IV SCH ×2 (08:00→20:58)
[2021-03-26] MEDS: allopurinoL 100 MG TAB PO SCH (08:00)
[2021-03-26] MEDS: FERROUS SULFATE 325 MG TAB PO SCH (08:00)
[2021-03-26] MEDS: gemfibroziL 600 MG TAB PO SCH ×2 (08:00→21:00)
[2021-03-26] MEDS: LEVOTHYROXINE SODIUM 50 MCG TABLET PO SCH (08:00)
[2021-03-26] MEDS: EZETIMIBE 10 MG TABLET PO SCH (08:00)
--- NOTE | 2021-03-26 08:24 | XRay Report ---
XR chest 1V portable HISTORY: Shortness of breath. COMPARISON: Chest 03/22/2021. FINDINGS: No pneumothorax. Trace bilateral pleural effusions. The heart is mildly enlarged. There is mild diffuse interstitial thickening, unchanged. There are bibasilar linear densities. IMPRESSION: 1. Cardiomegaly with mild central pulmonary vascular congestion. 2. Trace bilateral pleural effusions. 3. Bibasilar linear densities are nonspecific but favor segmental atelectasis. ACT 112: Negative or not required by law. Electronically signed by: Dany Samson M.D. 03/26/2021 8:23 AM
[2021-03-26] MEDS: POTASSIUM CHLORIDE 20 MEQ in LACTATED RINGER'S 1,000 ML IV SCH (10:24)
[2021-03-26 12:08] LABS: Hematocrit (blood only) 30.2 % (37-47); Hemoglobin 9.5 g/dL (12.0-16.0)
[2021-03-26] MEDS ORDERED: POTASSIUM CHLORIDE PWD 20 MEQ PACK PO SCH (18:15)
[2021-03-26] MEDS ORDERED: FUROSEMIDE 20 MG TAB PO SCH (18:15)
[2021-03-26 23:56] LABS: Hematocrit (blood only) 30.8 % (37-47); Hemoglobin 9.8 g/dL (12.0-16.0)
--- NOTE | 2021-03-27 05:40 | Discharge Summary ---
Date of Service March 27, 2021 Principal Diagnosis Anemia secondary to GI bleed Discharge Exam Constitutional WD/WN, vitals as above Respiratory normal respiratory effort; no respiratory distress, no labored breathing and no audible wheezes Cardiovascular Rate/Rhythm: regular rate and regular rhythm Gastrointestinal (Abdomen) Percussion/Palpation: abdomen soft; abdomen nontender Skin no rashes, warm and dry Discharge Data Allergies Allergy/AdvReac Type Severity Reaction Status Date / Time simvastatin Allergy Mild RASH Verified 03/23/21 00:44 hydrochlorothiazide Allergy Unknown Unknown Verified 03/23/21 05:31 Wclqrdt-Hrw-Aej Reductase Allergy Unknown Unknown Verified 03/23/21 05:30 Inhibitor tramadol Allergy Unknown Unknown Verified 03/23/21 05:31 trospium Allergy Unknown Unknown Verified 03/23/21 05:32 Consultations 03/23/21 01:22 ED Decision to Admit Stat Procedures Performed Operation Date: 03/23/21 17:00 <No data on this case meets the specified criteria> Hospital Course (1) GI bleed: 85yo female with a history of acute blood loss anemia due to GI bleed (10/2020, requiring 2u pRBC), severe aortic stenosis and mitral stenosis with TAVR planned for 04/07/2021), severe mitral stenosis, HTN, HLD, impaired fasting glucose, bullous pemphigoid (on chronic steroid therapy), TIA, and anxiety who presented with 1-2 days of SOB and generalized weakness, likely 2/2 acute blood loss from unknown GI source. Stable. Acute anemia secondary to GI bleed Patient with acute-onset SOB and generalized weakness found on admission with Hgb of 8.7, representing a drop from 13 one month ago History of GI bleed (10/2020) requiring transfusion of 2u pRBC; colonoscopy and EGD negative at that time Reports recent melena but no BRBPR Empiric ceftriaxone 2g IV given, discontinued 03/24 GI consulted and felt patient requires push enteroscopy; however, [facility] anesthesiology uncomfortable with procedure given patient's cardiac history Patient transferred to [facility] for further evaluation and treatment Severe aortic stenosis, severe mitral stenosis Noted on [place] (01/2021); patient is scheduled for TAVR on 04/07/2021 at [facility] Patient without chest pain, EKG with sinus tachycardia and LVH but otherwise unremarkable HTN Hold home diltiazem Bullous pemphigoid Symptoms under control at this time Home prednisone held, hydrocortisone 50mg IV q8h changed to hydrocortisone 25mg IV Q8H HLD Continue home ezetimibe, gemfibrozil Gout Continue home allopurinol Hypothyroidism Continue home levothyroxine Code Status: DNR/DNI DVT ppx: SCDs, no chemoppx given GI Bleed Total Time Total Time Spent Total Time Spent (In Minutes): <30 Discharge Plan Discharge Items Patient Disposition: Transfer Acute Care Hospital Reason For Visit: GI BLEED, SYMPTOMATIC ANEMIA Discharge Diagnosis: Acute symptomatic anemia Activity: Per Instructions section Non-emergency contact: Primary Care Provider and Drier Tender Call non-emergency contact if: your symptoms worsen Follow-up/Referrals: Ike Villa III, MD [Primary Care Provider] - Diet: Carb Consistent or DM2 and Heart Healthy Addtl Attending Provider Instructions: 85yo female with a history of acute blood loss anemia due to GI bleed (10/2020, requiring 2u pRBC), severe aortic stenosis and mitral stenosis with TAVR planned for 04/07/2021), severe mitral stenosis, HTN, HLD, impaired fasting glucose, bullous pemphigoid (on chronic steroid therapy), TIA, and anxiety who presented with 1-2 days of SOB and generalized weakness. Acute anemia Patient with acute-onset SOB and generalized weakness found on admission with Hgb of 8.7, representing a drop from 13 one month ago History of GI bleed (10/2020) requiring transfusion of 2u pRBC; colonoscopy and EGD negative at that time Reports recent melena but no BRBPR Empiric ceftriaxone 2g IV given GI consulted and felt patient requires push enteroscopy; however, [facility] anesthesiology uncomfortable with procedure given patient's cardiac history Discussed with [facility] - patient will be transferred there for higher level of care Continue NSS @ 60mL/hr with KCl 20mEq Continue protonix 40mg IV bid Continue ferrous sulfate 325mg qd NPO except for sips and chips Continue telemetry monitoring Follow serial hemoglobin/hematocrit q6h Covid PCR negative (03/23/2021) in preparation of transfer to [facility] Severe aortic stenosis, severe mitral stenosis Noted on [place] (01/2021); patient is scheduled for TAVR on 04/07/2021 at [facility] Patient without chest pain, EKG with sinus tachycardia and LVH but otherwise unremarkable [facility] team can consider cardiology consult, as earlier TAVR may be indicated HTN Hold home diltiazem Lopressor 5mg IV q4h as needed for SBP>140 Bullous pemphigoid Symptoms under control at this time Home prednisone held, continue hydrocortizone 50mg IV q8h HLD Continue home ezetimibe, gemfibrozil Gout Continue home allopurinol Hypothyroidism Continue home levothyroxine Pending Studies at Discharge: No Stand-Alone Forms: My [facility] Skilled Items Patient informed of condition?: Yes DNR: Yes Discharge Level of Care: Other Communicable Disease: No Discharge Prognosis: Stable Lines: Peripheral IV Urinary Catheter: No Medications and DC Order Prescriptions: Continued ezetimibe 10 mg tablet 10 mg PO DAILY Qty: 30 RF: 11 gemfibrozil 600 mg tablet 600 mg PO BID Qty: 180 RF: 3 levothyroxine 50 mcg tablet 50 mcg PO DAILY Qty: 30 RF: 11 allopurinol 100 mg tablet 200 mg PO QAM RF: 0 Discontinued prednisone 10 mg tablet 10 mg PO Q OTHER DAY Qty: 100 RF: 0 diltiazem HCl [Tiadylt ER] 240 mg capsule,extended release 24 hr 240 mg PO QPM RF: 0 furosemide [Lasix] 20 mg tablet 20 mg PO DAILY RF: 0 potassium chloride 15 mEq tablet,ER particles/crystals 15 meq PO QPM RF: 0 Discharge Orders: Discharge Order (Routine); Ordered 03/26/21 Ordered By: Johnathan Shaffer Admission Data Admit Date/Time: 03/23/21 01:40 Attending Provider: Sherman Guy Admit Provider: Shekhar Hurt Primary Care Provider: Ike Villa III Other Providers: Shekhar Hurt ; Sin Garcia Other Interventions: Discharge Summary Assessment (RN) Last Done: 03/27/21 08:04 Supervising Physician Co-Signing Physician Notes I did not see the patient on the day of discharge (03/27/2021) as she was transferred to [facility] during the overnight shift. In sum, 85-year-old female scheduled for TAVR later this month at the [facility] presented to our facility with acute anemia secondary to gastrointestinal bleed. The patient was hemodynamically stable; given her severe aortic stenosis, intervention was deferred to her tertiary care center. The patient remained hemodynamically stable during her hospitalization here while awaiting bed availability at [place]. In the securities and real estate director hours of 03/27/2021, notified that a bed had become available. ALS ground transport was arranged and the patient was subsequently transferred for definitive care. Resident Activity Tracking Resident Involvement: Resident Care Provided Care Provided: Adult Hospital Medicine
[2021-03-27] MEDS: HYDROCORTISONE SOD 25 MG in SYRINGE 0 ML IV SCH (06:26)
[2021-03-27] MEDS: INSULIN ASPART 100 UNITS/ML 3 ML PEN SC SCH (07:57)
--- NOTE | 2021-03-29 21:01 | Emergency Department Note ---
History of Present Illness General Chief complaint: Respiratory Problems Stated complaint: HAVING TROUBLE BREATHING Time Seen by Provider: 03/22/21 23:50 Source: patient and RN notes reviewed Mode of arrival: ambulatory Limitations: no limitations History of Present Illness Provider complaint: Weakness, dizziness, shortness of breath This patient is an 85-year-old female who presents to the emergency department with complaints of shortness of breath and weakness. She states she took her fluid pill today but continues to be short of breath. She does have a history of aortic stenosis, mitral stenosis and hypertension. Patient is known also to have a history of GI bleeds. She is not able to give a very detailed history but denies any fevers. She states she does cough when she gets particularly short of breath but otherwise is okay. Patient only feels short of breath when she is exerting herself. She denies any nausea, vomiting or significant diarrhea. Patient denies any urinary symptoms. Home Medications Medication Instructions Recorded Confirmed Type ezetimibe 10 mg tablet 10 mg PO DAILY #30 tab 02/18/21 03/23/21 Rx gemfibrozil 600 mg tablet 600 mg PO BID #180 tab 02/18/21 03/23/21 Rx levothyroxine 50 mcg tablet 50 mcg PO DAILY #30 tab 02/18/21 03/23/21 Rx allopurinol 100 mg tablet 200 mg PO QAM 03/23/21 03/23/21 History Allergies Allergy/AdvReac Type Severity Reaction Status Date / Time simvastatin Allergy Mild RASH Verified 03/23/21 00:44 hydrochlorothiazide Allergy Unknown Unknown Verified 03/23/21 05:31 Aphermj-Vrd-Nrr Reductase Allergy Unknown Unknown Verified 03/23/21 05:30 Inhibitor tramadol Allergy Unknown Unknown Verified 03/23/21 05:31 trospium Allergy Unknown Unknown Verified 03/23/21 05:32 Past Med/Surg History Medical History (Updated 03/30/21 @ 19:13 by Fabiola Magdaleno MD) Acute blood loss anemia Acute blood loss anemia Aortic stenosis, severe Avulsion of skin of finger Bullous pemphigoid Chronic kidney disease, stage 3a Gout Hyperlipidemia Hypertension Hypothyroid Impaired fasting glucose Mammogram abnormal Mitral regurgitation Mitral stenosis Rash Right carotid bruit Surgical History S/P hysterectomy with oophorectomy S/P lumpectomy, left breast Family History Sister Breast cancer Colorectal cancer COPD (chronic obstructive pulmonary disease) Mother Diabetes Sister Breast cancer Colorectal cancer Denies family history of Ovarian cancer Prostate cancer Myocardial infarction Social History Smoking Status: Never smoker Age Started Using Tobacco: 15; Age Quit Using Tobacco: 33; packs per day: 0.5; Years Smoked: 18; Cigarettes Per Day: 10; Number of Years Since Quit: 51; Second Hand Exposure: Yes; Hx Alcohol Use: No Hx Substance Use: No Preferred Language: Lao Communication Ability: Effective Visual Impairment: No Limitations Hearing Ability: Normal Beliefs That Will Affect Care: None marital status: / Current Living Situation: Alone current occupational status: retired 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 and A total of 10 systems reviewed and were otherwise negative Physical Exam Vital Signs Vital Signs - 24 hr 03/22/21 23:42 03/23/21 00:01 03/23/21 00:15 Temperature 36.6 C Temperature Source Temporal Artery Scan Pulse Rate 98 H 97 H Pulse Rate from SpO2 Sensor 98 H 97 H Respiratory Rate 20 18 Blood Pressure 127/64 132/78 141/97 H Blood Pressure Mean 85 96 111 Pulse Oximetry 97 97 98 Oxygen Delivery Method Room Air Sepsis Recent Fever Within 48 Hours No Sepsis New/Unexplained Change in Mental Status No Sepsis Action Taken by Nursing No Action Required 03/23/21 00:16 03/23/21 00:30 03/23/21 00:45 Temperature Temperature Source Pulse Rate 90 86 Pulse Rate from SpO2 Sensor 90 86 Respiratory Rate 18 10 L Blood Pressure 129/63 130/75 Blood Pressure Mean 85 93 Pulse Oximetry 97 97 Oxygen Delivery Method Room Air Sepsis Recent Fever Within 48 Hours Sepsis New/Unexplained Change in Mental Status Sepsis Action Taken by Nursing 03/23/21 01:00 Temperature Temperature Source Pulse Rate Pulse Rate from SpO2 Sensor 85 Respiratory Rate Blood Pressure 118/67 Blood Pressure Mean 84 Pulse Oximetry 95 Oxygen Delivery Method Sepsis Recent Fever Within 48 Hours Sepsis New/Unexplained Change in Mental Status Sepsis Action Taken by Nursing Vital signs reviewed. General: Well-appearing 85-year-old female, in no significant distress. HEENT: No scleral icterus, PERRLA, neck supple. Atraumatic. Cardiovascular: Regular rate and rhythm, positive systolic ejection murmur Pulmonary: Distant breath sounds bilaterally but generally clear, somewhat increased work of breathing. Abdomen: Soft, nontender, nondistended, positive bowel sounds. Rectal: Guaiac positive dark stool, soft. No fissure noted. Musculoskeletal: Atraumatic, no peripheral edema. Neurologic: Patient awake alert and oriented x 3 Skin: Warm, dry, no rash Course Administered Medications Discontinued Medications Allopurinol (Allopurinol 100 Mg Tab) 200 mg PO [facility] Stop: 04/22/21 10:14 Last Admin: 03/26/21 08:00 Dose: 200 mg Documented by: [id number] Admin: 03/25/21 09:27 Dose: 200 mg Documented by: [id number] Admin: 03/24/21 07:48 Dose: 200 mg Documented by: [id number] Admin: 03/23/21 11:36 Dose: 200 mg Documented by: [id number] Ezetimibe (Ezetimibe 10 Mg Tablet) 10 mg PO [facility] Stop: 04/22/21 10:14 Last Admin: 03/26/21 08:00 Dose: 10 mg Documented by: [id number] Admin: 03/25/21 09:27 Dose: 10 mg Documented by: [id number] Admin: 03/24/21 07:48 Dose: 10 mg Documented by: [id number] Admin: 03/23/21 11:37 Dose: 10 mg Documented by: [id number] Ferrous Sulfate (Ferrous Sulfate 325 Mg Tab) 325 mg PO [facility] Stop: 04/22/21 08:59 Last Admin: 03/26/21 08:00 Dose: 325 mg Documented by: [id number] Admin: 03/25/21 09:27 Dose: 325 mg Documented by: [id number] Admin: 03/24/21 07:48 Dose: 325 mg Documented by: [id number] Admin: 03/23/21 08:32 Dose: 325 mg Documented by: [id number] Furosemide (Furosemide 40 Mg/4 Ml Vial) 20 mg IV NOW STA Stop: 03/23/21 00:19 Last Admin: 03/23/21 00:30 Dose: 20 mg Documented by: [id number] Furosemide (Furosemide 20 Mg Tab) 20 mg PO DAILY [facility] Stop: 04/25/21 18:14 Last Admin: 03/26/21 20:58 Dose: 20 mg Documented by: [id number] Gemfibrozil (Gemfibrozil 600 Mg Tab) 600 mg PO BID [facility] Stop: 04/22/21 10:14 Last Admin: 03/26/21 21:00 Dose: 600 mg Documented by: [id number] Admin: 03/26/21 08:00 Dose: 600 mg Documented by: [id number] Admin: 03/25/21 20:33 Dose: 600 mg Documented by: [id number] Admin: 03/25/21 09:27 Dose: 600 mg Documented by: [id number] Admin: 03/24/21 21:16 Dose: 600 mg Documented by: [id number] Admin: 03/24/21 07:48 Dose: 600 mg Documented by: [id number] Admin: 03/23/21 20:49 Dose: 600 mg Documented by: [id number] Admin: 03/23/21 11:38 Dose: 600 mg Documented by: [id number] Pantoprazole Sodium 40 mg/ (Syringe) 10 mls @ 5 mls/min IV NOW ONE Stop: 03/23/21 01:41 Last Admin: 03/23/21 01:54 Dose: 5 mls/min Documented by: [id number] Pantoprazole Sodium 40 mg/ (Syringe) 10 mls @ 5 mls/min IV BID [facility] Stop: 04/22/21 08:59 Last Admin: 03/26/21 20:58 Dose: 5 mls/min Documented by: [id number] Admin: 03/26/21 08:00 Dose: 5 mls/min Documented by: [id number] Admin: 03/25/21 20:33 Dose: 5 mls/min Documented by: [id number] Admin: 03/25/21 09:26 Dose: 5 mls/min Documented by: [id number] Admin: 03/24/21 21:16 Dose: 5 mls/min Documented by: [id number] Admin: 03/24/21 07:47 Dose: 5 mls/min Documented by: [id number] Admin: 03/23/21 20:49 Dose: 5 mls/min Documented by: [id number] Admin: 03/23/21 08:26 Dose: 5 mls/min Documented by: [id number] Ceftriaxone Sodium 2,000 mg/ (Dextrose) 70 mls @ 100 mls/hr IV DAILY DE[facility]; Protocol Stop: 03/25/21 08:59 Last Infusion: 03/24/21 08:49 Dose: 0 mls/hr Documented by: [id number] Admin: 03/24/21 08:06 Dose: 100 mls/hr Documented by: [id number] Infusion: 03/23/21 09:00 Dose: 0 mls/hr Documented by: [id number] Admin: 03/23/21 08:30 Dose: 100 mls/hr Documented by: [id number] Potassium Chloride/Sodium Chloride (Normal Saline W/20 Meq Kcl) 20 meq in 1,000 mls @ 60 mls/hr IV .[id number] [facility] Stop: 04/22/21 05:59 Last Admin: 03/24/21 17:03 Dose: Not Given Documented by: [id number] Infusion: 03/24/21 17:03 Dose: 0 mls/hr Documented by: [id number] Admin: 03/24/21 04:07 Dose: 60 mls/hr Documented by: [id number] Infusion: 03/24/21 04:07 Dose: 0 mls/hr Documented by: [id number] Admin: 03/23/21 06:37 Dose: 60 mls/hr Documented by: [id number] Hydrocortisone Sodium (Succinate 50 mg/ Syringe) 1 mls @ 4 mls/min IV Q8H [facility] Stop: 04/22/21 05:59 Last Admin: 03/24/21 14:06 Dose: 4 mls/min Documented by: [id number] Admin: 03/24/21 05:54 Dose: 4 mls/min Documented by: [id number] Admin: 03/23/21 21:58 Dose: 4 mls/min Documented by: [id number] Admin: 03/23/21 15:48 Dose: 4 mls/min Documented by: [id number] Admin: 03/23/21 08:29 Dose: 4 mls/min Documented by: [id number] Hydrocortisone Sodium (Succinate 25 mg/ Syringe) 0.5 mls @ 4 mls/min IV Q8H [facility] Stop: 04/23/21 21:59 Last Admin: 03/27/21 06:26 Dose: 4 mls/min Documented by: [id number] Admin: 03/26/21 21:01 Dose: 4 mls/min Documented by: [id number] Admin: 03/26/21 13:42 Dose: 4 mls/min Documented by: [id number] Admin: 03/26/21 06:20 Dose: 4 mls/min Documented by: [id number] Admin: 03/25/21 22:04 Dose: 4 mls/min Documented by: [id number] Admin: 03/25/21 15:50 Dose: 4 mls/min Documented by: [id number] Admin: 03/25/21 06:10 Dose: 4 mls/min Documented by: [id number] Admin: 03/24/21 21:16 Dose: 4 mls/min Documented by: [id number] Potassium Chloride 20 meq/ (Lactated Ringer's) 1,010 mls @ 60 mls/hr IV .[id number] [facility] Stop: 04/23/21 17:29 Last Infusion: 03/25/21 12:05 Dose: 0 mls/hr Documented by: [id number] Admin: 03/25/21 11:50 Dose: 60 mls/hr Documented by: [id number] Infusion: 03/25/21 11:28 Dose: 60 mls/hr Documented by: [id number] Admin: 03/24/21 18:38 Dose: 60 mls/hr Documented by: [id number] Potassium Chloride 20 meq/ (Lactated Ringer's) 1,010 mls @ 100 mls/hr IV .Q1 0H6M [facility] Stop: 04/24/21 11:59 Last Admin: 03/26/21 10:24 Dose: Not Given Documented by: [id number] Infusion: 03/26/21 03:50 Dose: 0 mls/hr Documented by: [id number] Admin: 03/25/21 22:03 Dose: 100 mls/hr Documented by: [id number] Infusion: 03/25/21 22:03 Dose: 100 mls/hr Documented by: [id number] Admin: 03/25/21 12:05 Dose: 100 mls/hr Documented by: [id number] Insulin Aspart (Insulin Aspart 100 Units/Ml 3 Ml Pen) 0 units SC Q6 [facility] Stop: 04/22/21 05:59 Last Admin: 03/26/21 06:48 Dose: Not Given Documented by: [id number] Cosigned by: [id number] Admin: 03/26/21 01:44 Dose: Not Given Documented by: [id number] Cosigned by: [id number] Admin: 03/25/21 19:11 Dose: Not Given Documented by: [id number] Cosigned by: [id number] Admin: 03/25/21 11:57 Dose: Not Given Documented by: [id number] Cosigned by: [id number] Admin: 03/25/21 06:33 Dose: Not Given Documented by: [id number] Admin: 03/25/21 00:24 Dose: Not Given Documented by: [id number] Admin: 03/24/21 19:15 Dose: Not Given Documented by: [id number] Admin: 03/24/21 12:14 Dose: Not Given Documented by: [id number] Admin: 03/24/21 06:11 Dose: Not Given Documented by: [id number] Admin: 03/24/21 00:28 Dose: Not Given Documented by: [id number] Admin: 03/23/21 18:33 Dose: Not Given Documented by: [id number] Admin: 03/23/21 12:14 Dose: Not Given Documented by: [id number] Cosigned by: [id number] Admin: 03/23/21 07:32 Dose: Not Given Documented by: [id number] Cosigned by: [id number] Insulin Aspart (Insulin Aspart 100 Units/Ml 3 Ml Pen) [facility] Stop: 04/25/21 11:29 Last Admin: 03/27/21 07:57 Dose: Not Given Documented by: [id number] Admin: 03/26/21 21:02 Dose: 1 units Documented by: [id number] Cosigned by: [id number] Admin: 03/26/21 17:05 Dose: Not Given Documented by: [id number] Cosigned by: [id number] Admin: 03/26/21 12:36 Dose: Not Given Documented by: [id number] Cosigned by: [id number] Levothyroxine Sodium (Levothyroxine Sodium 50 Mcg Tablet) [facility]: 04/23/21 06:29 Last Admin: 03/23/21 11:37 Dose: 50 mcg Documented by: [id number] Levothyroxine Sodium (Levothyroxine Sodium 50 Mcg Tablet) [facility] [place] Stop: 04/23/21 08:59 Last Admin: 03/26/21 08:00 Dose: 50 mcg Documented by: [id number] Admin: 03/25/21 09:27 Dose: 50 mcg Documented by: [id number] Admin: 03/24/21 08:49 Dose: 50 mcg Documented by: [id number] Metoprolol Tartrate (Metoprolol Tartrate 1 Mg/Ml Vial) 5 mg IV Q4 PRN PRN Reason: Hypertension Stop: 04/22/21 05:52 Last Admin: 03/25/21 01:00 Dose: 5 mg Documented by: [id number] Potassium Chloride (Potassium Chloride Pwd 20 Meq Pack) 20 meq PO DAILY [facility] Stop: 04/25/21 18:14 Last Admin: 03/26/21 20:59 Dose: 20 meq Documented by: [id number] Medical Decision Making Differential Diagnosis Reactive airway disease, pneumonia, pneumothorax, COPD, CHF, infections, cardiac ischemia, pulmonary embolism, musculoskeletal, gastrointestinal, as well as other pathologies. Medical Records Attestation: I reviewed the patient's medical records. Home Medications Current Medication List: was personally reviewed by me Laboratory Data Result diagrams: 03/26/21 23:45 03/26/21 05:29 Lab Results 03/23/21 03/23/21 03/23/21 Range/Units 00:19 00:19 00:19 WBC 14.38 H (4.8-10.8) K/uL RBC 3.09 L (4.2-5.4) M/uL Hgb 8.7 L (12.0-16.0) g/dL Hct 28.2 L (37-47) % MCV 91.3 (80-100) fL MCH 28.2 (25-34) pg MCHC 30.9 L (32-36) g/dL RDW Std Deviation 48.7 H (36.4-46.3) fL RDW Coeff of Mervin 14.8 H (11.5-14.5) % Plt Count 436 H (130-400) K/uL MPV 9.5 (7.4-10.4) fL Immature Gran % (Auto) 0.4 % Neut % (Auto) 80.6 % Lymph % (Auto) 9.7 % [place] % (Auto) 7.2 % Eos % (Auto) 1.9 % Baso % (Auto) 0.2 % Neut # (Auto) 11.57 H (1.4-6.5) K/uL Lymph # (Auto) 1.40 (1.2-3.4) K/uL [place] # (Auto) 1.04 H (0.11-0.59) K/uL Eos # (Auto) 0.28 (0-0.5) K/uL Baso # (Auto) 0.03 (0-0.2) K/uL Immature Gran # (Auto) 0.06 H (0.00-0.02) K/uL Sodium 140 (136-145) mmol/L Potassium 3.7 (3.5-5.1) mmol/L Chloride 106 (98-107) mmol/L Carbon Dioxide 25 (21-32) mmol/L Anion Gap 9.0 (3-11) BUN 29 H (7-18) mg/dl Creatinine 1.05 (0.6-1.2) mg/dl Est Cr Clr Drug Dosing Not Reportable Est GFR ( Amer) 56.1 ml/min Est GFR (Non-Af Amer) 48.4 ml/min BUN/Creatinine Ratio 27.8 H (10-20) Glucose 124 H (70-99) mg/dl Calcium 9.1 (8.5-10.1) mg/dl Magnesium 2.0 (1.8-2.4) mg/dl Total Bilirubin 0.3 (0.2-1) mg/dl AST 13 L (15-37) U/L ALT 14 (12-78) U/L Alkaline Phosphatase 75 (45-117) U/L Troponin I 0.040 (0-0.045) ng/ml NT-Pro-B Natriuret Pep 2114 H (0-1800) pg/ml Total Protein 7.5 (6.4-8.2) gm/dl Albumin 3.4 (3.4-5.0) gm/dl Globulin 4.1 H (2.5-4.0) gm/dl Albumin/Globulin Ratio 0.8 L (0.9-2) COVID-19 Eval Order Covid19 at [facility] SARS-CoV-2 (PCR) (Negative) 03/23/21 Range/Units 00:19 WBC (4.8-10.8) K/uL RBC (4.2-5.4) M/uL Hgb (12.0-16.0) g/dL Hct (37-47) % MCV (80-100) fL MCH (25-34) pg MCHC (32-36) g/dL RDW Std Deviation (36.4-46.3) fL RDW Coeff of Mervin (11.5-14.5) % Plt Count (130-400) K/uL MPV (7.4-10.4) fL Immature Gran % (Auto) % Neut % (Auto) % Lymph % (Auto) % [place] % (Auto) % Eos % (Auto) % Baso % (Auto) % Neut # (Auto) (1.4-6.5) K/uL Lymph # (Auto) (1.2-3.4) K/uL [place] # (Auto) (0.11-0.59) K/uL Eos # (Auto) (0-0.5) K/uL Baso # (Auto) (0-0.2) K/uL Immature Gran # (Auto) (0.00-0.02) K/uL Sodium (136-145) mmol/L Potassium (3.5-5.1) mmol/L Chloride (98-107) mmol/L Carbon Dioxide (21-32) mmol/L Anion Gap (3-11) BUN (7-18) mg/dl Creatinine (0.6-1.2) mg/dl Est Cr Clr Drug Dosing Est GFR ( Amer) ml/min Est GFR (Non-Af Amer) ml/min BUN/Creatinine Ratio (10-20) Glucose (70-99) mg/dl Calcium (8.5-10.1) mg/dl Magnesium (1.8-2.4) mg/dl Total Bilirubin (0.2-1) mg/dl AST (15-37) U/L ALT (12-78) U/L Alkaline Phosphatase (45-117) U/L Troponin I (0-0.045) ng/ml NT-Pro-B Natriuret Pep (0-1800) pg/ml Total Protein (6.4-8.2) gm/dl Albumin (3.4-5.0) gm/dl Globulin (2.5-4.0) gm/dl Albumin/Globulin Ratio (0.9-2) COVID-19 Eval Order SARS-CoV-2 (PCR) NEGATIVE (Negative) Imaging Data Radiologist's Impression: Chest X-Ray 03/22/21 23:50 XR chest 1V portable CLINICAL HISTORY: Dyspnea COMPARISON STUDY: Chest radiograph October 31, 2020. FINDINGS: There is no pneumothorax. There may be a trace left pleural effusion. There is pulmonary vascular congestion. No consolidation is identified. Note is made of mild cardiomegaly. IMPRESSION: 1. Pulmonary vascular congestion. 2. Trace left pleural effusion. ACT 112: Negative or not required by law. Electronically signed by: Nickolas Green M.D. 03/23/2021 7:45 AM ECG Data Attestation: I personally reviewed and interpreted this ECG as follows: Indication: + SOB/dyspnea Rate (beats per minute): 103 Rhythm: + sinus tachycardia ECG Intervals/blocks: + Prolonged QT ECG ST segments: + Normal ST segments and + repolarization abnormalities ECG Findings: + LVH MDM Narrative This patient was evaluated and appeared to be in no significant distress. IV access was obtained and laboratory work was drawn. An order for cardiac monitoring was placed and the patient is noted to be in a sinus rhythm at 90 bpm. It was felt that the pt may benefit from diuresis, she was given 20 mg IV lasix. Lab work reveals hgb of 8.7 from 13.1. Pt has h/o occult GI bleed. Case was d/w the hospitalist service. GIven her complex medical history and sx anemia, with likely UGIB, pt will be admitted for further management. Impression & Plan Anemia, UGIB (upper gastrointestinal bleed) Discharge Plan Visit Data Chief Complaint: Respiratory Problems Stated Complaint: HAVING TROUBLE BREATHING ED Provider: Fabiola Magdaleno Discharge Problem: Anemia, UGIB (upper gastrointestinal bleed) Patient Disposition: Admitted As Inpatient Discharge Instructions Interventions: ED Discharge Assessment Last Done: 03/23/21 18:19 Discharge Problem: Anemia Qualifiers: Anemia type: iron deficiency Iron deficiency anemia type: chronic blood loss Qualified Code(s): D50.0 - Iron deficiency anemia secondary to blood loss (chronic)
== END 2021-03-27 08:05 | disposition short-term general hospital (02) | DRG 378 ==
LOC: ED 23:35 → EDINP 03-23 01:31 → SUATTDRO 03-23 01:31 → 2S 03-23 01:40 → EDINP 03-23 18:19

== ENCOUNTER 2022-04-25 15:57 | Inpatient (IN) ==
[2022-04-25] MEDS ORDERED: ONDANSETRON INJ 2 MG/ML 2 ML VIAL IV STA ×2 (16:21→20:41)
[2022-04-25] MEDS ORDERED: SODIUM CHLORIDE 0.9% 1000ML 1,000 ML IV ONE (16:21)
[2022-04-25] MEDS ORDERED: ACETAMINOPHEN 1,000 MG/100 ML VIAL IV STA (16:21)
[2022-04-25] MEDS ORDERED: FAMOTIDINE 20MG IV PUSH 20 MG/5 ML SYR IV STA (16:21)
[2022-04-25 16:36] LABS: Basophils # (auto) 0.05 K/uL (0-0.2); Basophils % (auto) 0.6 %; Eosinophils # (auto) 0.43 K/uL (0-0.50); Eosinophils % (auto) 4.8 %; Hematocrit (blood only) 37.4 % (34.1-44.9); Hemoglobin 12.3 g/dl (12.0-16.0); Immature Granulocytes # (auto) 0.04 K/uL (0.00-0.02); Immature Granulocytes % (auto) 0.4 %; Lymphocytes # (auto) 0.65 K/uL (1.2-3.4); Lymphocytes % (auto) 7.2 %; Mean Corpuscular Hemoglobin 32.5 pg (25.0-34.0); Mean Corpuscular Hgb Conc 32.9 g/dL (32.0-36.0); Mean Corpuscular Volume 98.9 fL (80.0-100.0); Monocytes # (auto) 0.62 K/uL (0.24-0.82); Monocytes % (auto) 6.9 %; Neutrophils % (auto) 80.1 %; Platelet Count 255 K/uL (130-400); RDW Standard Deviation 47.2 fL (36.4-46.3); Red Blood Count 3.78 M/uL (3.93-5.22); White Blood Count 8.99 K/ul (4.8-10.8)
[2022-04-25 16:58] LABS: Albumin Globulin Ratio 1.3 (0.9-2); Albumin Level 4.2 gm/dl (3.4-5.0); BUN Creatinine Ratio 20.2 (10-20); Bilirubin,Total 0.7 mg/dl (0.2-1.0); Calcium 9.5 mg/dl (8.5-10.1); Creatinine Clr Calc Pharmacy 45.1 ml/min; Est GFR (African American) 72.9 ml/min; Est GFR (Non-African American) 62.9 ml/min; Globulin 3.3 gm/dl (2.5-4.0); Potassium 3.6 mmol/L (3.5-5.1); Total Protein 7.5 gm/dl (6.0-8.3)
[2022-04-25 17:01] LABS: Troponin I High Sensitivity 7.8 pg/ml (0-14)
[2022-04-25] MEDS ORDERED: OPTIRAY 300 100mL IV ONE (17:30)
--- NOTE | 2022-04-25 17:48 | CT Scan Report ---
ABDOMEN AND PELVIS CT WITH IV CONTRAST CT DOSE: 505.18 mGy.cm HISTORY: Generalized abdominal pain. Nausea. Vomiting. TECHNIQUE: Multiaxial CT images of the abdomen and pelvis were performed following the use of intrave nous contrast. A dose lowering technique was utilized adhering to the principles of ALARA. COMPARISON STUDY: Abdomen and pelvis CT 11/03/2019. FINDINGS: Partially visualized aortic valve prosthesis is noted. A trace left pleural effusion has de creased in size. There is a 5 mm nodule within the right middle lobe on image 16. Mild interstitial t hickening is noted at the lung bases. This may represent mild congestive change. No pneumoperitoneum. No pneumatosis. No fractures within the visualized osseous structures. Small to moderate size fat-co ntaining umbilical hernia, unchanged. Mild pelvic floor collapse. Prior hysterectomy. The bladder is unremarkable. Colonic diverticulosis. No evidence for acute diverticulitis. The majority of the colon is mildly distended and filled with gas and fluid. There are also multiple gas and fluid-filled loop s of small bowel seen throughout the abdomen. Findings favor a gastroenteritis/diarrheal illness. No transition point to suggest a bowel obstruction. There is no bowel wall thickening. Normal appendix. The liver, gallbladder, spleen, adrenal glands, and pancreas are unremarkable. Mild bilateral cortica l renal scarring. A few subcentimeter hypodense renal lesions are technically too small to characteri ze but favor cysts. The main portal vein is patent. Moderate calcified plaque within the normal calib er abdominal aorta. No retroperitoneal or pelvic lymphadenopathy. IMPRESSION: 1. Multiple borderline dilated gas and fluid-filled loops of large and small bowel seen throughout th e abdomen. No transition point to suggest a bowel obstruction. Therefore, this favors a gastroenterit is/diarrheal illness. 2. Colonic diverticulosis. No evidence for acute diverticulitis. 3. Normal appendix. 4. Interval improvement in the trace left pleural effusion. 5. A 5 mm indeterminate pulmonary nodule within the right middle lobe. Please refer to the chart belo w for recommended follow-up. 6. Mild interstitial thickening at the lung bases. This may represent mild congestive change or chron ic interstitial change. Please refer to below summary of Fleischner criteria recommendations for follow-up of incidental CT n odules (Chris Uriostegui, Guidelines for management of small pulmonary nodules detected on CT scans: A sta tement from the Fleischner Society, Radiology 237: [phone].) SOLID NODULES Solitary nodule size: <6 mm * Low risk patients: no follow-up needed * high risk patients: optional CT at 12 months Solitary nodule size: 6-8 mm * Low risk patients: follow-up at 6-12 months, then consider further follow-up at 18-24 months * high risk patients: initial follow-up CT at 6-12 months and then at 18-24 months if no change Solitary nodule size: >8 mm * either low or high risk patients - consider follow-up CT at 3 months, and/or CT-PET, and/or biopsy Multiple nodules size: <6 mm * Low risk patients: no routine follow-up * high risk patients: optional CT at 12 months Multiple nodules size: 6-8 mm * Low risk patients: follow-up at 3-6 months, then consider further follow-up at 18-24 months * high risk patients: follow-up at 3-6 months, then at 18-24 months if no change Multiple nodules size: >8 mm * Low risk patients: follow-up at 3-6 months, then consider further follow-up at 18-24 months * high risk patients: follow-up at 3-6 months, then at 18-24 months if no change Note: newly detected indeterminate nodule in persons 35 years of age or older. * Low risk patients: minimal or absent history of smoking and/or other known risk factors * high risk patients: history of smoking or of other known risk factors (e.g. first degree relative with lung cancer, or exposure to asbestos, radon, uranium) * if a nodule up to 8 mm is partly solid or is ground glass further follow-up is required after 24 m onths to exclude possible slow growing adenocarcinoma (FIFI) SUBSOLID NODULES Solitary pure ground-glass nodule * nodule size <6 mm - no CT follow-up required * nodule size >=6 mm - follow-up CT at 6-12 months, then every 2 years until 5 years Solitary part-solid nodule * nodule size <6 mm - no CT follow-up required * nodule size >=6 mm - follow-up CT at 3-6 months. If unchanged, and solid component remains <6 mm, then annual follow-up for 5 years Multiple subsolid nodules * nodule size <6 mm - follow-up CT at 3-6 months, consider further follow-up at 2 and 4 years if sta ble * nodule size >=6 mm - follow-up CT at 3-6 months, subsequent management based on the most suspiciou s nodule(s) ACT 112: Positive. There are findings on this exam that require communication between the performing entity and the patient following Patient Test Result Information Act ([place] Act 112) guidelines. Electronically signed by: Dany Samson M.D. 04/25/2022 5:46 PM
[2022-04-25 18:22] LABS: Appearance Urine Clear (Clear); Bilirubin Urine Negative (Negative); Blood Urine Negative (Negative); Color Urine Yellow; Glucose Urine UA Negative (Negative); Ketones Urine Negative (Negative); Leukocyte Esterase Urine Negative (Negative); Nitrite Urine Negative (Negative); Protein Urine Negative (Negative); Specific Gravity Urine 1.018 (1.000-1.030); Urobilinogen Urine Negative (Negative); pH Urine 6.5 (4.5-7.5)
[2022-04-25] MEDS ORDERED: METOCLOPRAMIDE HCL INJ 5 MG/ML 2 ML VIAL IV ONE (18:44)
[2022-04-25] MEDS ORDERED: SUCRALFATE 1 GM/10 ML UDC PO STA (18:44)
--- NOTE | 2022-04-25 20:17 | Emergency Department Note ---
Impression & Plan Gastroenteritis, Dehydration, At risk for inadequate oral intake ED Provider Note NAME: RAFA MACIEL AGE: 86 SEX: F ARRIVES VIA: Ambulance INFORMANT: Patient ED PROVIDER(S): Edmond Yun MD CHIEF COMPLAINT: Nausea, vomiting. PLAN: Disposition: Admit MEDICAL DECISION MAKING: The patient is a pleasant 86-year-old woman with a past medical history of chronic diarrhea who presents to the emergency department referred by her PCPs office for nausea and vomiting in the setting of having an outpatient x-ray on Sunday for evaluation of her chronic diarrhea and there was suggestion of constipation and so was started on MiraLAX. However today she developed nausea and vomiting with increasing weakness. She denies any fevers, cough, congestion, chest pain, shortness of breath. She denies any recent antibiotics. On arrival patient is uncomfortable but no acute distress, afebrile with stable vital signs. Her abdomen is mildly distended but soft without discrete tenderness. She has normal active bowel sounds. Chronic umbilical hernia is s oft and nontender. WBC, H/H and platelets within normal limits. Chemistry without metabolic acidos is. LFTs unremarkable. High-sensitivity troponin 7.8, within normal limits. Lipase is not elevated. UA without evidence of infection. CT of the abdomen pelvis was performed and demonstrates borderline dilated gas and fluid-filled loops of large and small bowel throughout the abdomen without transition point and so favors gastroenteritis/diarrheal illness however also occurs in the setting of the patient taking MiraLAX. Incidental 5 mm indeterminate pulmonary nodule was seen. Mild interstitial thickening likely chronic given no respiratory symptoms. Upon reevaluation the patient did report some improvement after IV fluid hydration, APAP, famotidine, Zofran. She did report mild residual nausea. She was given Reglan and Carafate with additional improvement. We did discuss the option for close outpatient follow-up if she was able to tolerate p.o. trial. However she had reservations about this given the persistence of her nausea and that she lives alone. Thus, given the persistence of her symptoms with poor oral intake we agreed to refer her for admission. Case was discussed with Dr. Hurt, [facility] hospitalist, who will evaluate the patient for admission. Triage Nursing notes reviewed and agree them. Prior medical records reviewed Vital Signs: reviewed and remarkable for no significant abnormalities Differential diagnosis: Gastroenteritis, food borne illness, infections, appendicitis, diverticulitis, inflammatory bowel disease, obstruction, GI bleed, biliary pathology, volvulus, as well as other pathologies. ER treatment provided: See below. Diagnostics interpreted by me: ECG: Normal sinus rhythm, 69 bpm, LVH with repolarization abnormality, no overt ST elevation or depression, QTC 477, QRS 104. Similar to September 30, 2021. Cardiac Monitoring: An order for continuous cardiac monitoring was placed and demonstrated Normal sinus rhythm, 69 bpm, no ectopy. Laboratory studies: See below Imaging studies: See below Consultation(s): Dr. Hurt, [facility] hospitalist HPI: The patient is a pleasant 86-year-old woman with a past medical history of chronic diarrhea who presents emerged department referred by her PCPs office for nausea and vomiting in the setting of having an outpatient x-ray on Sunday for evaluation of her chronic diarrhea and there was suggestion of constipation and so was started on MiraLAX. However today she developed nausea and vomiting with increasing weakness. She denies any fevers, cough, congestion, chest pain, shortness of breath. She denies any recent antibiotics. ROS: See above HPI for pertinent positives & negatives. A total of 10 systems reviewed and were otherwise negative. VITALS:See Below PHYSICAL EXAMINATION: GENERAL: Awake, alert, uncomfortable-appearing, in no distress HENT: Normocephalic, atraumatic. Oropharynx with dry mucous membranes and other michele unremarkable. EYES: Normal conjunctiva. Sclera non-icteric. NECK: Supple. No nuchal rigidity. FROM. No JVD. RESPIRATORY: Clear to auscultation. CARDIAC: Regular rate, normal rhythm. Extremities warm and well perfused. Pulses equal. ABDOMEN: Mildly distended but soft without discrete tenderness. She has normal active bowel sounds. Chronic umbilical hernia is soft and nontender. RECTAL: Deferred. MUSCULOSKELETAL: Chest examination reveals no tenderness. The back is symmetrical on inspection without obvious abnormality. There is no CVA tenderness to palpation. No joint edema. LOWER EXTREMITIES: Calves are equal size bilaterally and non-tender. No edema. No discoloration. NEURO: Normal sensorium. No sensory or motor deficits noted. SKIN: No rash or jaundice noted. Edmond Yun MD Past Med/Surg History Medical History Acute blood loss anemia Acute blood loss anemia Aortic stenosis, severe Avulsion of skin of finger Bullous pemphigoid Chronic kidney disease, stage 3a Gout Hyperlipidemia Hypertension Hypothyroid Impaired fasting glucose Mammogram abnormal Mitral regurgitation Mitral stenosis Rash Right carotid bruit Surgical History H/O aortic valve replacement March 2021 S/P hysterectomy with oophorectomy S/P lumpectomy, left breast Family History Sister Breast cancer Colorectal cancer COPD (chronic obstructive pulmonary disease) Mother Diabetes Sister Breast cancer Colorectal cancer Denies family history of Ovarian cancer Prostate cancer Myocardial infarction Social History Smoking Status: Former smoker Tobacco Type: Cigarettes Age Started Using Tobacco: 15; Age Quit Using Tobacco: 33; packs per day: 0.5; Years Smoked: 18; Cigarettes Per Day: 10; Number of Years Since Quit: 51; Second Hand Exposure: No ( Makes everyone smoke outside ); Hx Alcohol Use: No Hx Substance Use: No Preferred Language: Italian Communication Ability: Effective Visual Impairment: No Limitations Hearing Ability: Normal Electrical Cad Designer Required: No Beliefs That Will Affect Care: None marital status: / Current Living Situation: Alone current occupational status: retired 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 How many Children do You have: 3 Other Information That Helps Us Care for You: No Feels Safe at Home: Yes Safety Concerns: Feels Safe At This Time Childhood Exposure to Second-Hand Smoke: Yes caffeine: No during the past year weight has: remained stable Dental Care, Regularly: No Physical Activity Frequency: Does not Exercise Seatbelt Use: always Sunscreen Use: No Assistive Devices: Denture - Upper and Glasses Allergies Allergies Allergy/AdvReac Type Severity Reaction Status Date / Time simvastatin Allergy Mild RASH Verified 04/25/22 17:14 hydrochlorothiazide Allergy Unknown Unknown Verified 04/25/22 17:14 [id number] Reductase Allergy Unknown Unknown Verified 04/25/22 17:14 Inhibitor [Flwlyne-Hks-Hbk Reductase Inhibitor] tramadol Allergy Unknown Unknown Verified 04/25/22 17:14 trospium Allergy Unknown Unknown Verified 04/25/22 17:14 Home Meds Home Medications Medication Instructions Recorded Confirmed aspirin 81 mg tablet,delayed 81 mg PO QAM 04/20/21 04/25/22 release (Adult Aspirin Regimen) ferrous sulfate 325 mg (65 mg 325 mg PO TID 05/23/21 04/25/22 iron) tablet allopurinol 100 mg tablet 200 mg PO QAM 07/05/21 04/25/22 diltiazem HCl 240 mg capsule,24 240 mg PO QAM 04/25/22 04/25/22 hr,extended release (Tiadylt ER) levothyroxine 50 mcg tablet 50 mcg PO DAILYBB 04/25/22 04/25/22 prednisone 10 mg tablet 10 mg PO Q OTHER DAY 04/25/22 04/25/22 Previous Rx's Medication Instructions Recorded carvedilol 12.5 mg tablet 12.5 mg PO BID #180 tabs 07/18/21 ezetimibe 10 mg tablet 10 mg PO DAILY #30 tabs 12/29/21 pantoprazole 40 mg tablet,delayed 40 mg PO DAILY #90 tabs 02/03/22 release gemfibrozil 600 mg tablet 600 mg PO BID #180 tabs 02/14/22 Results & Data (ED) Vital Signs Vital Signs - 24 hr 04/25/22 16:02 04/25/22 16:21 04/25/22 16:05 Temperature 36.6 C Temperature Source Oral Pulse Rate 74 75 Pulse Rate from SpO2 Sensor 75 Respiratory Rate 17 22 Respiratory Effort / Characteristics Non-Labored Respiratory Depth Normal Blood Pressure 168/78 H Blood Pressure Mean 108 Pulse Oximetry 94 92 95 Oxygen Delivery Method Room Air Room Air Sepsis Recent Fever Within 48 Hours No Sepsis New/Unexplained Change in Mental Status N/A Sepsis Action Taken by Nursing No Action Required 04/25/22 16:10 04/25/22 16:20 04/25/22 16:30 Temperature Temperature Source Pulse Rate 72 72 72 Pulse Rate from SpO2 Sensor 72 72 72 Respiratory Rate 26 H 12 20 Respiratory Effort / Characteristics Respiratory Depth Blood Pressure Blood Pressure Mean Pulse Oximetry 85 L 93 91 Oxygen Delivery Method Sepsis Recent Fever Within 48 Hours Sepsis New/Unexplained Change in Mental Status Sepsis Action Taken by Nursing 04/25/22 16:40 04/25/22 16:50 04/25/22 17:00 Temperature Temperature Source Pulse Rate 71 72 Pulse Rate from SpO2 Sensor 71 72 Respiratory Rate 18 17 Respiratory Effort / Characteristics Respiratory Depth Blood Pressure 164/75 H Blood Pressure Mean 104 Pulse Oximetry 91 94 Oxygen Delivery Method Sepsis Recent Fever Within 48 Hours Sepsis New/Unexplained Change in Mental Status Sepsis Action Taken by Nursing 04/25/22 17:00 04/25/22 17:10 04/25/22 17:20 Temperature Temperature Source Pulse Rate 73 74 74 Pulse Rate from SpO2 Sensor 73 74 75 Respiratory Rate 18 20 18 Respiratory Effort / Characteristics Respiratory Depth Blood Pressure Blood Pressure Mean Pulse Oximetry 92 91 88 L Oxygen Delivery Method Sepsis Recent Fever Within 48 Hours Sepsis New/Unexplained Change in Mental Status Sepsis Action Taken by Nursing 04/25/22 17:37 04/25/22 17:40 04/25/22 17:50 Temperature Temperature Source Pulse Rate 78 79 78 Pulse Rate from SpO2 Sensor Respiratory Rate 14 23 23 Respiratory Effort / Characteristics Respiratory Depth Blood Pressure Blood Pressure Mean Pulse Oximetry Oxygen Delivery Method Sepsis Recent Fever Within 48 Hours Sepsis New/Unexplained Change in Mental Status Sepsis Action Taken by Nursing 04/25/22 18:00 04/25/22 18:10 04/25/22 18:20 Temperature Temperature Source Pulse Rate 86 80 77 Pulse Rate from SpO2 Sensor 79 77 Respiratory Rate 17 19 17 Respiratory Effort / Characteristics Respiratory Depth Blood Pressure Blood Pressure Mean Pulse Oximetry 95 96 Oxygen Delivery Method Sepsis Recent Fever Within 48 Hours Sepsis New/Unexplained Change in Mental Status Sepsis Action Taken by Nursing 04/25/22 18:30 04/25/22 18:40 04/25/22 18:50 Temperature Temperature Source Pulse Rate 80 78 78 Pulse Rate from SpO2 Sensor 80 78 78 Respiratory Rate 17 16 16 Respiratory Effort / Characteristics Respiratory Depth Blood Pressure Blood Pressure Mean Pulse Oximetry 96 96 94 Oxygen Delivery Method Sepsis Recent Fever Within 48 Hours Sepsis New/Unexplained Change in Mental Status Sepsis Action Taken by Nursing 04/25/22 19:00 04/25/22 19:07 04/25/22 19:07 Temperature Temperature Source Pulse Rate 77 80 Pulse Rate from SpO2 Sensor 78 80 Respiratory Rate 19 18 Respiratory Effort / Characteristics Respiratory Depth Blood Pressure 161/77 H Blood Pressure Mean 105 Pulse Oximetry 94 92 Oxygen Delivery Method Sepsis Recent Fever Within 48 Hours Sepsis New/Unexplained Change in Mental Status Sepsis Action Taken by Nursing 04/25/22 19:30 04/25/22 19:30 04/25/22 20:00 Temperature Temperature Source Pulse Rate 82 Pulse Rate from SpO2 Sensor 82 Respiratory Rate 19 Respiratory Effort / Characteristics Respiratory Depth Blood Pressure 162/73 H 165/81 H Blood Pressure Mean 102 109 Pulse Oximetry 93 Oxygen Delivery Method Sepsis Recent Fever Within 48 Hours Sepsis New/Unexplained Change in Mental Status Sepsis Action Taken by Nursing 04/25/22 20:00 04/25/22 20:30 04/25/22 20:30 Temperature Temperature Source Pulse Rate 82 85 Pulse Rate from SpO2 Sensor Respiratory Rate 24 30 H Respiratory Effort / Characteristics Respiratory Depth Blood Pressure 145/72 H Blood Pressure Mean 96 Pulse Oximetry Oxygen Delivery Method Sepsis Recent Fever Within 48 Hours Sepsis New/Unexplained Change in Mental Status Sepsis Action Taken by Nursing 04/25/22 21:00 04/25/22 21:00 Temperature Temperature Source Pulse Rate 83 Pulse Rate from SpO2 Sensor Respiratory Rate 20 Respiratory Effort / Characteristics Respiratory Depth Blood Pressure 169/77 H Blood Pressure Mean 107 Pulse Oximetry Oxygen Delivery Method Sepsis Recent Fever Within 48 Hours Sepsis New/Unexplained Change in Mental Status Sepsis Action Taken by Nursing Laboratory Data Attestation: I reviewed the patient's lab results. Result diagrams: 04/25/22 16:15 04/25/22 16:15 Lab Results 04/25/22 04/25/22 04/25/22 Range/Units 16:15 16:15 18:04 WBC 8.99 (4.8-10.8) K/ul RBC 3.78 L (3.93-5.22) M/uL Hgb 12.3 (12.0-16.0) g/dl Hct 37.4 (34.1-44.9) % MCV 98.9 (80.0-100.0) fL MCH 32.5 (25.0-34.0) pg MCHC 32.9 (32.0-36.0) g/dL RDW Std Deviation 47.2 H (36.4-46.3) fL RDW Coeff of Mervin 13.0 (11.5-14.5) % Plt Count 255 (130-400) K/uL MPV 10.0 (9.4-12.3) fL Immature Gran % (Auto) 0.4 % Neut % (Auto) 80.1 % Lymph % (Auto) 7.2 % [place] % (Auto) 6.9 % Eos % (Auto) 4.8 % Baso % (Auto) 0.6 % Neut # (Auto) 7.20 H (1.4-6.5) K/uL Lymph # (Auto) 0.65 L (1.2-3.4) K/uL [place] # (Auto) 0.62 (0.24-0.82) K/uL Eos # (Auto) 0.43 (0-0.50) K/uL Baso # (Auto) 0.05 (0-0.2) K/uL Immature Gran # (Auto) 0.04 H (0.00-0.02) K/uL Sodium 132 L (136-145) mmol/L Potassium 3.6 (3.5-5.1) mmol/L Chloride 101 (98-107) mmol/L Carbon Dioxide 21 (21-32) mmol/L Anion Gap 10 (3-11) BUN 17 (6-23) mg/dl Creatinine 0.84 (0.6-1.2) mg/dl Est Cr Clr Drug Dosing 45.1 ml/min Est GFR ( Amer) 72.9 ml/min Est GFR (Non-Af Amer) 62.9 ml/min BUN/Creatinine Ratio 20.2 H (10-20) Glucose 112 H (70-99(Fasting)) mg/dl Calcium 9.5 (8.5-10.1) mg/dl Total Bilirubin 0.7 (0.2-1.0) mg/dl AST 16 (13-39) U/L ALT 9 (7-52) U/L Alkaline Phosphatase 92 (34-104) U/L Troponin I High Sens 7.8 (0-14) pg/ml Total Protein 7.5 (6.0-8.3) gm/dl Albumin 4.2 (3.4-5.0) gm/dl Globulin 3.3 (2.5-4.0) gm/dl Albumin/Globulin Ratio 1.3 (0.9-2) Lipase 30 (11-82) U/L Urine Color Yellow Urine Appearance Clear (Clear) Urine pH 6.5 (4.5-7.5) Ur Specific [place] 1.018 (1.000-1.030) Urine Protein Negative (Negative) Urine Glucose (UA) Negative (Negative) Urine Ketones Negative (Negative) Urine Blood Negative (Negative) Urine Nitrite Negative (Negative) Urine Bilirubin Negative (Negative) Urine Urobilinogen Negative (Negative) Ur Leukocyte Esterase Negative (Negative) SARS-CoV-2, RNA, NAAT (NEGATIVE) 04/25/22 Range/Units 20:12 WBC (4.8-10.8) K/ul RBC (3.93-5.22) M/uL Hgb (12.0-16.0) g/dl Hct (34.1-44.9) % MCV (80.0-100.0) fL MCH (25.0-34.0) pg MCHC (32.0-36.0) g/dL RDW Std Deviation (36.4-46.3) fL RDW Coeff of Mervin (11.5-14.5) % Plt Count (130-400) K/uL MPV (9.4-12.3) fL Immature Gran % (Auto) % Neut % (Auto) % Lymph % (Auto) % [place] % (Auto) % Eos % (Auto) % Baso % (Auto) % Neut # (Auto) (1.4-6.5) K/uL Lymph # (Auto) (1.2-3.4) K/uL [place] # (Auto) (0.24-0.82) K/uL Eos # (Auto) (0-0.50) K/uL Baso # (Auto) (0-0.2) K/uL Immature Gran # (Auto) (0.00-0.02) K/uL Sodium (136-145) mmol/L Potassium (3.5-5.1) mmol/L Chloride (98-107) mmol/L Carbon Dioxide (21-32) mmol/L Anion Gap (3-11) BUN (6-23) mg/dl Creatinine (0.6-1.2) mg/dl Est Cr Clr Drug Dosing ml/min Est GFR ( Amer) ml/min Est GFR (Non-Af Amer) ml/min BUN/Creatinine Ratio (10-20) Glucose (70-99(Fasting)) mg/dl Calcium (8.5-10.1) mg/dl Total Bilirubin (0.2-1.0) mg/dl AST (13-39) U/L ALT (7-52) U/L Alkaline Phosphatase (34-104) U/L Troponin I High Sens (0-14) pg/ml Total Protein (6.0-8.3) gm/dl Albumin (3.4-5.0) gm/dl Globulin (2.5-4.0) gm/dl Albumin/Globulin Ratio (0.9-2) Lipase (11-82) U/L Urine Color Urine Appearance (Clear) Urine pH (4.5-7.5) Ur Specific [place] (1.000-1.030) Urine Protein (Negative) Urine Glucose (UA) (Negative) Urine Ketones (Negative) Urine Blood (Negative) Urine Nitrite (Negative) Urine Bilirubin (Negative) Urine Urobilinogen (Negative) Ur Leukocyte Esterase (Negative) SARS-CoV-2, RNA, NAAT NEGATIVE (NEGATIVE) Administered Medications Carvedilol (Carvedilol 12.5 Mg Tab) 12.5 mg PO BID DEQUAN Stop: 05/25/22 22:20 Last Admin: 04/25/22 23:52 Dose: 12.5 mg Documented By: PETTY Gemfibrozil (Gemfibrozil 600 Mg Tab) 600 mg PO BID DEQUAN Stop: 05/25/22 22:20 Last Admin: 04/25/22 23:52 Dose: 600 mg Documented By: PETTY Sodium Chloride (Nss 1000ml) 1,000 mls @ 80 mls/hr IV .[id number] DEQUAN Stop: 04/26/22 10:29 Last Admin: 04/25/22 22:44 Dose: 80 mls/hr Documented By: PETTY Prednisone (Prednisone 10 Mg Tablet) 10 mg PO Q2D@1630 DEQUAN Stop: 05/25/22 22:59 Last Admin: 04/25/22 23:53 Dose: 10 mg Documented By: PETTY Discontinued Medications Sodium Chloride (Nss 1000ml) 1,000 mls @ 999 mls/hr IV .[id number] ONE Stop: 04/25/22 17:21 Last Infusion: 04/25/22 17:12 Dose: 0 mls/hr Documented By: Admin: 04/25/22 16:30 Dose: 999 mls/hr Documented By: ZUNILDA Acetaminophen (Ofirmev) 1,000 mg in 100 mls @ 400 mls/hr IV NOW STA Stop: 04/25/22 16:35 Last Infusion: 04/25/22 17:12 Dose: 0 mls/hr Documented By: Admin: 04/25/22 16:30 Dose: 400 mls/hr Documented By: ZUNILDA Famotidine (Pepcid 20mg Iv Push) 20 mg in 5 mls @ 2.5 mls/min IV NOW STA Stop: 04/25/22 16:22 Last Admin: 04/25/22 16:30 Dose: 2.5 mls/min Documented By: ZUNILDA Ioversol (Optiray 300 100ml) 89 ml IV ONCE ONE Stop: 04/25/22 17:31 Last Admin: 04/25/22 17:33 Dose: 89 ml Documented By: GUSTAVO Metoclopramide HCl (Metoclopramide Hcl Inj 5 Mg/Ml 2 Ml Vial) 5 mg IV ONE ONE Stop: 04/25/22 18:45 Last Admin: 04/25/22 19:11 Dose: 5 mg Documented By: ZUNILDA Ondansetron HCl (Ondansetron Inj 2 Mg/Ml 2 Ml Vial) 4 mg IV NOW STA Stop: 04/25/22 16:22 Last Admin: 04/25/22 16:30 Dose: 4 mg Documented By: ZUNILDA Ondansetron HCl (Ondansetron Inj 2 Mg/Ml 2 Ml Vial) 4 mg IV NOW STA Stop: 04/25/22 20:42 Last Admin: 04/25/22 21:21 Dose: 4 mg Documented By: ZUNILDA Sucralfate (Sucralfate 1 Gm/10 Ml Udc) 1 gm PO NOW STA Stop: 04/25/22 18:45 Last Admin: 04/25/22 19:10 Dose: 1 gm Documented By: ZUNILDA Imaging Data Radiologist's Impression: Abdomen/Pelvis CT 04/25/22 16:[address] WITH IV CONTRAST CT DOSE: 505.18 mGy.cm HISTORY: Generalized abdominal pain. Nausea. Vomiting. TECHNIQUE: Multiaxial CT images of the abdomen and pelvis were performed following the use of intravenous contrast. A dose lowering technique was utilized adhering to the principles of ALARA. COMPARISON STUDY: Abdomen and pelvis CT 11/03/2019. FINDINGS: Partially visualized aortic valve prosthesis is noted. A trace left pleural effusion has decreased in size. There is a 5 mm nodule within the right middle lobe on image 16. Mild interstitial thickening is noted at the lung bases. This may represent mild congestive change. No pneumoperitoneum. No pneumatosis. No fractures within the visualized osseous structures. Small to moderate size fat-containing umbilical hernia, unchanged. Mild pelvic floor collapse. Prior hysterectomy. The bladder is unremarkable. Colonic diverticulosis. No evidence for acute diverticulitis. The majority of the colon is mildly distended and filled with gas and fluid. There are also multiple gas and fluid-filled loops of small bowel seen throughout the abdomen. Findings favor a gastroenteritis/diarrheal illness. No transition point to suggest a bowel obstruction. There is no bowel wall thickening. Normal appendix. The liver, gallbladder, spleen, adrenal glands, and pancreas are unremarkable. Mild bilateral cortical renal scarring. A few subcentimeter hypodense renal lesions are technically too small to characterize but favor cysts. The main portal vein is patent. Moderate calcified plaque within the normal caliber abdominal aorta. No retroperitoneal or pelvic lymphadenopathy. IMPRESSION: 1. Multiple borderline dilated gas and fluid-filled loops of large and small bowel seen throughout the abdomen. No transition point to suggest a bowel obstruction. Therefore, this favors a gastroenteritis/diarrheal illness. 2. Colonic diverticulosis. No evidence for acute diverticulitis. 3. Normal appendix. 4. Interval improvement in the trace left pleural effusion. 5. A 5 mm indeterminate pulmonary nodule within the right middle lobe. Please refer to the chart below for recommended follow-up. 6. Mild interstitial thickening at the lung bases. This may represent mild congestive change or chronic interstitial change. Please refer to below summary of Fleischner criteria recommendations for follow- up of incidental CT nodules (Chris Uriostegui, Guidelines for management of small pulmonary nodules detected on CT scans: A statement from the Fleischner Society, Radiology 237: [phone].) SOLID NODULES Solitary nodule size: <6 mm * Low risk patients: no follow-up needed * high risk patients: optional CT at 12 months Solitary nodule size: 6-8 mm * Low risk patients: follow-up at 6-12 months, then consider further follow-up at 18-24 months * high risk patients: initial follow-up CT at 6-12 months and then at 18-24 months if no change Solitary nodule size: >8 mm * either low or high risk patients - consider follow-up CT at 3 months, and/or CT-PET, and/or biopsy Multiple nodules size: <6 mm * Low risk patients: no routine follow-up * high risk patients: optional CT at 12 months Multiple nodules size: 6-8 mm * Low risk patients: follow-up at 3-6 months, then consider further follow-up at 18-24 months * high risk patients: follow-up at 3-6 months, then at 18-24 months if no change Multiple nodules size: >8 mm * Low risk patients: follow-up at 3-6 months, then consider further follow-up at 18-24 months * high risk patients: follow-up at 3-6 months, then at 18-24 months if no change Note: newly detected indeterminate nodule in persons 35 years of age or older. * Low risk patients: minimal or absent history of smoking and/or other known risk factors * high risk patients: history of smoking or of other known risk factors (e.g. first degree relative with lung cancer, or exposure to asbestos, radon, uranium) * if a nodule up to 8 mm is partly solid or is ground glass further follow-up is required after 24 months to exclude possible slow growing adenocarcinoma (FIFI ) SUBSOLID NODULES Solitary pure ground-glass nodule * nodule size <6 mm - no CT follow-up required * nodule size >=6 mm - follow-up CT at 6-12 months, then every 2 years until 5 years Solitary part-solid nodule * nodule size <6 mm - no CT follow-up required * nodule size >=6 mm - follow-up CT at 3-6 months. If unchanged, and solid component remains <6 mm, then annual follow-up for 5 years Multiple subsolid nodules * nodule size <6 mm - follow-up CT at 3-6 months, consider further follow-up at 2 and 4 years if stable * nodule size >=6 mm - follow-up CT at 3-6 months, subsequent management based on the most suspicious nodule(s) ACT 112: Positive. There are findings on this exam that require communication b etween the performing entity and the patient following Patient Test Result Information Act ([place] Act 112) guidelines. Electronically signed by: Dany Samson M.D. 04/25/2022 5:46 PM Discharge Plan Visit Data Chief Complaint: Nausea Stated Complaint: bowel obstruction ED Provider: Edmond Yun Discharge Problem: Gastroenteritis, Dehydration, At risk for inadequate oral intake Patient Disposition: Admitted As Inpatient Discharge Instructions Interventions: ED Discharge Assessment Last Done: 04/25/22 22:05
--- NOTE | 2022-04-25 20:22 | History & Physical Report ---
Date of Service April 25, 2022 Assessment & Plan (1) Chronic diarrhea: Plan: 86yo female with a history of HTN, HLD, aortic stenosis s/p TAVR, CKD3, impaired fasting glucose, UGIB, TIA, and hypothyroidism presents with a few-day history of diarrhea, nausea, and vomiting. Diarrhea, nausea, vomiting Initial labs notable for mild hyponatremia (132); WBC, Hgb, and plt all wnl; no electrolyte abnormalities; LFTs wnl; UA not infected In the ED, patient received IVF, APAP, famotidine, zofran, reglan, and carafate Stool PCR ordered; contact precautions pending result Continue NSS @ 80mL/hr (x1 bag ordered), continue zofran prn Case management consulted for home safety assessment PT/OT ordered Trend CBC, BMP Aortic stenosis s/p TAVR: continue home regimen HTN: continue home regimen HLD: continue home regimen CKD3: avoid nephrotoxins, continue home regimen, trend BMP History of impaired fasting glucose: A1c 4.8% (04/2021), repeat value pending; holding off on ordering DM2 diet for now Hypothyroidism: continue home regimen FEN: heart-healthy diet, NSS @ 80mL/hr (x1 bag ordered) Code status: DNR/DNI DVT ppx: SCDs Isolation: contact precautions pending stool PCR result PT/OT: ordered Case management: consulted for home safety assessment Dispo: med/surg (2) Chronic kidney disease, stage 3a: (3) Aortic stenosis: (4) S/P TAVR (transcatheter aortic valve replacement): (5) Transient ischemic attack: (6) UGIB (upper gastrointestinal bleed): (7) Iron deficiency anemia: (8) Impaired fasting glucose: (9) Hypertension: (10) Hyperlipidemia: History of Present Illness Primary Care Provider: NO PCP 86yo female with a history of HTN, HLD, aortic stenosis s/p TAVR, CKD3, impaired fasting glucose, UGIB, TIA, and hypothyroidism presents with a few-day history of diarrhea, nausea, and vomiting. Patient was recently seen by her PCP for a follow-up for chronic diarrhea and had a KUB performed which suggested constipation, and so patient was started on miralax; however, after starting m iralax, patient developed nausea and vomiting in addition to weakness. Patient denies fever, chills, headache, vision changes, CP, palpitations, SOB, edema, abdominal pain, dysuria, lightheadedness, dizziness, numbness, tingling, weakness, or other symptoms. Denies recent illness and recent travel. Denies recent antibiotic use. Of note, patient lives alone and was concerned about her safety upon returning home. Initial labs were notable only for mild hyponatremia (132); WBC, Hgb, and plt all wnl. No electrolyte abnormalities, LFTs wnl, UA not infected. In the ED, patient received IVF, APAP, famotidine, zofran, reglan, and carafate. Surrogate decision-maker in case of an emergency: nia Rodríguez (cell: [phone]) Allergies Allergy/AdvReac Type Severity Reaction Status Date / Time simvastatin Allergy Mild RASH Verified 04/25/22 17:14 hydrochlorothiazide Allergy Unknown Unknown Verified 04/25/22 17:14 [id number] Reductase Allergy Unknown Unknown Verified 04/25/22 17:14 Inhibitor [Hotckmk-Ebp-Off Reductase Inhibitor] tramadol Allergy Unknown Unknown Verified 04/25/22 17:14 trospium Allergy Unknown Unknown Verified 04/25/22 17:14 Home Medications Medication Instructions Recorded Confirmed Type aspirin 81 mg tablet,delayed 81 mg PO QAM 04/20/21 04/25/22 History release (Adult Aspirin Regimen) ferrous sulfate 325 mg (65 mg 325 mg PO TID 05/23/21 04/25/22 History iron) tablet allopurinol 100 mg tablet 200 mg PO QAM 07/05/21 04/25/22 History carvedilol 12.5 mg tablet 12.5 mg PO BID #180 tabs 07/18/21 04/25/22 Rx ezetimibe 10 mg tablet 10 mg PO DAILY #30 tabs 12/29/21 04/25/22 Rx pantoprazole 40 mg tablet,delayed 40 mg PO DAILY #90 tabs 02/03/22 04/25/22 Rx release gemfibrozil 600 mg tablet 600 mg PO BID #180 tabs 02/14/22 04/25/22 Rx diltiazem HCl 240 mg capsule,24 240 mg PO QAM 04/25/22 04/25/22 History hr,extended release (Tiadylt ER) levothyroxine 50 mcg tablet 50 mcg PO DAILYBB 04/25/22 04/25/22 History prednisone 10 mg tablet 10 mg PO Q OTHER DAY 04/25/22 04/25/22 History Past Med/Surg History Medical History Acute blood loss anemia Acute blood loss anemia Aortic stenosis, severe Avulsion of skin of finger Bullous pemphigoid Chronic kidney disease, stage 3a Gout Hyperlipidemia Hypertension Hypothyroid Impaired fasting glucose Mammogram abnormal Mitral regurgitation Mitral stenosis Rash Right carotid bruit Surgical History H/O aortic valve replacement March 2021 S/P hysterectomy with oophorectomy S/P lumpectomy, left breast Family History Sister Breast cancer Colorectal cancer COPD (chronic obstructive pulmonary disease) Mother Diabetes Sister Breast cancer Colorectal cancer Denies family history of Ovarian cancer Prostate cancer Myocardial infarction Social History Smoking Status: Former smoker Tobacco Type: Cigarettes Age Started Using Tobacco: 15; Age Quit Using Tobacco: 33; packs per day: 0.5; Years Smoked: 18; Cigarettes Per Day: 10; Number of Years Since Quit: 51; Second Hand Exposure: No ( Makes everyone smoke outside ); Hx Alcohol Use: No Hx Substance Use: No Preferred Language: Kyrgyz Communication Ability: Effective Visual Impairment: No Limitations Hearing Ability: Normal 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: No Beliefs That Will Affect Care: None marital status: / Current Living Situation: Alone current occupational status: retired 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 How many Children do You have: 3 Other Information That Helps Us Care for You: No Feels Safe at Home: Yes Safety Concerns: Feels Safe At This Time Childhood Exposure to Second-Hand Smoke: Yes caffeine: No during the past year weight has: remained stable Dental Care, Regularly: No Physical Activity Frequency: Does not Exercise Seatbelt Use: always Sunscreen Use: No Assistive Devices: Cane Physical Exam Physical Exam: Constitutional: well-appearing, no acute distress HEENT: NCAT, no conjunctival injection CV: regular rhythm, grade 3/6 holosystolic murmur appreciated, extremities well- perfused, 1+ BL LE edema Resp: CTABL, no wheezes/rales/rhonchi appreciated, no increased work of breathing GI: soft, nondistended, nontender, BS normoactive MSK: no gross deformities appreciated Skin: warm, dry, no rash appreciated Neuro: alert, oriented, no focal neurologic deficit appreciated Results & Data Results & Data ([facility]) Vital Signs (Past 12 Hours) Vital Signs Temp Pulse Resp BP Pulse Ox O2 Del Method 04/25/22 19:00 77 19 94 04/25/22 18:50 78 16 94 04/25/22 18:40 78 16 96 04/25/22 18:30 80 17 96 04/25/22 18:20 77 17 96 04/25/22 18:10 80 19 95 04/25/22 18:00 86 17 04/25/22 17:50 78 23 04/25/22 17:40 79 23 04/25/22 17:37 78 14 04/25/22 17:20 74 18 88 L 04/25/22 17:10 74 20 91 04/25/22 17:00 73 18 92 04/25/22 17:00 164/75 H 04/25/22 16:50 72 17 94 04/25/22 16:40 71 18 91 04/25/22 16:30 72 20 91 04/25/22 16:20 72 12 93 04/25/22 16:10 72 26 H 85 L 04/25/22 16:05 75 22 95 04/25/22 16:21 92 Room Air 04/25/22 16:02 36.6 C 74 17 168/78 H 94 Room Air Supervising Physician Co-Signing Physician Notes Attending addendum: I have physically seen this patient, have supervised the medical residents activities, and agree with the H&P unless as otherwise noted. Assessment and Plan: Diarrhea, nausea, vomiting- Check stool PCR NSS 80 mils per hour Zofran 4 mg IV every 6 hours as needed Consult case management for guarding home safety Consult PT/OT Status post TAVR/hypertension/hyperlipidemia- Continue routine home medications CKD stage III- Creatinine 0.84 Follow serially Hypothyroidism- Continue levothyroxine Gout- Continue allopurinol Remaining orders and notations as noted Resident Activity Tracking Resident Involvement: Resident Care Provided and Factorer Coverage Note Care Provided: Adult Hospital Medicine
[2022-04-25] MEDS ORDERED: SODIUM CHLORIDE 0.9% 1000ML 1,000 ML IV SCH (22:00)
[2022-04-25] MEDS ORDERED: ACETAMINOPHEN 325 MG TAB PO PRN (22:21)
[2022-04-25] MEDS ORDERED: ONDANSETRON INJ 2 MG/ML 2 ML VIAL IV PRN (22:21)
[2022-04-25] MEDS ORDERED: predniSONE 10 MG TABLET PO SCH (23:00)
[2022-04-25] MEDS: carvediloL 12.5 MG TAB PO SCH (23:52)
[2022-04-25] MEDS: gemfibroziL 600 MG TAB PO SCH (23:52)
[2022-04-26 01:51] LABS: Adenovirus F 40/41 PCR Not Detected (NotDetected); Astrovirus PCR Not Detected (NotDetected); Campylobacter PCR Not Detected (NotDetected); Cryptosporidium PCR Not Detected (NotDetected); Cyclospora cayetanensis PCR Not Detected (NotDetected); Entamoeba histolytica PCR Not Detected (NotDetected); Enteroaggregative E.coli(EAEC) Not Detected (NotDetected); Enteropathogenic E.coli (EPEC) Not Detected (NotDetected); Enterotoxigenic E.coli (ETEC) Not Detected (NotDetected); Giardia lamblia PCR Not Detected (NotDetected); Norovirus GI/GII PCR Not Detected (NotDetected); Plesiomonas shigelloides PCR Not Detected (NotDetected); Rotavirus A PCR Not Detected (NotDetected); Salmonella PCR Not Detected (NotDetected); Sapovirus PCR Not Detected (NotDetected); Shiga-like Toxin E.coli (STEC) Not Detected (NotDetected); Shigella/Enteroinvasive E.coli Not Detected (NotDetected); Vibrio cholerae PCR Not Detected (NotDetected); Vibrio species PCR Not Detected (NotDetected); Yersinia enterocolitica PCR Not Detected (NotDetected)
[2022-04-26 03:35] LABS: Cdiff Antigen Negative; Cdiff Toxin A+B Negative Cdiff Toxin (Negative)
[2022-04-26] MEDS: LEVOTHYROXINE SODIUM 50 MCG TABLET PO SCH (06:49)
[2022-04-26] MEDS: FERROUS SULFATE 325 MG TAB PO SCH (07:37)
[2022-04-26] MEDS: carvediloL 12.5 MG TAB PO SCH ×2 (07:37→20:53)
[2022-04-26] MEDS: EZETIMIBE 10 MG TABLET PO SCH (07:37)
[2022-04-26] MEDS: ASPIRIN 81 MG ECTAB PO SCH (07:37)
[2022-04-26] MEDS: allopurinoL 100 MG TAB PO SCH (07:37)
[2022-04-26] MEDS: gemfibroziL 600 MG TAB PO SCH ×2 (07:38→20:53)
[2022-04-26] MEDS: dilTIAZem ER 120 MG CAPCR PO SCH (07:38)
[2022-04-26] MEDS: PANTOprazole 40 MG TAB PO SCH (07:38)
--- NOTE | 2022-04-26 07:49 | Hospitalist Progress Note ---
Date of Service April 26, 2022 Assessment & Plan (1) Chronic diarrhea: Plan: 86yo female with a history of HTN, HLD, aortic stenosis s/p TAVR, CKD3, impaired fasting glucose, UGIB, TIA, and hypothyroidism presents with a few-day history of diarrhea, nausea, and vomiting. Diarrhea, nausea, vomiting Initially stated taken Metamucil and had extreme n/v and then explosive episode of incontinence and feeling so weak that she needed to call EMS See by GI recently and w/ overflow, recs for Imodium and Metamucil and patient not compliant at home CTAP c/w diarrheal illness Stool studies +cdiff gene but NOT toxin --Discussed with GI and NOT treat diarrhea given negative toxin --Rec to add Imodium daily -- start/continue Metamucil at d/c at home (encouraged adequate H2O intake with such) No further IVF, monitor ability to keep up with oral intake Supportive care, antiemetics prn PT/OT consulted Bullous Pemphigoid Also of note, on 10mg prednisone Q2D for hx bullous pemphigoid (follows with Dr Magdaleno) -Not hypotensive on admission, however patient without stress dose instructions -Will order 20mg PO x 1 now, double tomorrows dose to 20mg and then would rec 10mg daily x 3 days prior to decreasing back to usual dose at home as possibly a little adrenally insufficiency given chronic use Check cortisol level w/ AM labs Hypomagnesemia Mag 1.6 -- IV replacement ordered Repeat level in AM Aortic stenosis s/p TAVR: follows with cards, known hx mitral stenosis not amendable to intervention continue home regimen HTN: BP stable, no hypotension continue diltiazem 240mg, awguwtldux69.5mg BID HLD: continue home ezetimibe 10mg, gemfibrozil 600mg BID CKD3: avoid nephrotoxins Cr stable Monitor in AM History of impaired fasting glucose: A1c 4.8% (04/2021), repeat value 5.7 Hypothyroidism: TSH 3.483 Continue levothyroxine 50mcg daily GERD Continue protonix 40mg Of note, A 5 mm indeterminate pulmonary nodule within the right middle lobe. Will need follow-up, optional 6 mo f/u CT chest. (2) Chronic kidney disease, stage 3a: (3) Aortic stenosis: (4) S/P TAVR (transcatheter aortic valve replacement): (5) Transient ischemic attack: (6) UGIB (upper gastrointestinal bleed): (7) Iron deficiency anemia: (8) Impaired fasting glucose: (9) Hypertension: (10) Hyperlipidemia: Plan continued inpatient stay 30mg prednisone for today, increased dose for tomorrow to double 20mg and then 10mg daily x 3 days prior to resuming prior schedule hopeful discharge tomorrow Admission and Anticipated Discharge Date Admission Date: April 25, 2022 Supervising Physician Co-Signing Physician Notes Attending Attestation - Chart reviewed in detail, care plan d/w PA Ramona Pryor. I agree with the khan components of her documentation. Rai Arellano MD Subjective Patient evaluated this morning. States had multiple bowel movements overnight, explosive. She states she was doing a prep with metamucil, because of her overflow issues, last night and became so ill that she was nauseated and vomiting. Discussed reached out to GI about cdiff gene positive but not toxin. They do not recommend treating and instead recommend that she be on daily Imodium and start metamucil outpatient. Patient understanding of plan. She states she just felt so weak last night that she needed to call the ambulance and she does feel much better and hoping to go home. Discussed replacement of mag and monitoring of labs in AM to keep up with oral intake. She does follow with dermatology for pemphigus and on prednisone 10mg every other day. She notes previously she was on dosing every 5 days but she got return of blisters to her palms/itchy and this was increased and remained stable at such doses. She denies any instruction for stress dose steroids, however it is possible during these times she may require a dose of steroids to prevent insufficiency. Review of Systems Review of Systems: All systems reviewed & are unremarkable except as noted in HPI & below Physical Exam Physical Exam: General: WD/WN elderly female sitting up in bed, NAD HEENT: head normocephalic, atraumatic, mmm, trachea midline without deviation Resp: CTAB, no w/c/r, on room air CV: regular rate/rhythm, +Murmur, systolic holosystolic at apex, trace b/l LE edema GI: +BS, soft, nontender : no zelaya MSK/Neuro: moves all extremities, no focal deficits Skin: warm, dry, no increased rash Results & Data Results & Data ([facility]) Vital Signs (Past 12 Hours) Vital Signs Temp Pulse Pulse Resp BP BP Pulse Ox 04/26/22 07:20 36.8 C 84 18 132/76 96 04/26/22 03:01 38.4 C H 141 H 20 107/65 92 04/25/22 22:34 04/25/22 22:28 36.7 C 84 20 130/68 91 04/25/22 22:05 04/25/22 21:00 83 20 04/25/22 21:00 169/77 H 04/25/22 20:30 85 30 H 04/25/22 20:30 145/72 H 04/25/22 20:00 82 24 04/25/22 20:00 165/81 H O2 Del Method 04/26/22 07:20 Room Air 04/26/22 03:01 Room Air 04/25/22 22:34 Room Air 04/25/22 22:28 Room Air 04/25/22 22:05 Room Air 04/25/22 21:00 04/25/22 21:00 04/25/22 20:30 04/25/22 20:30 04/25/22 20:00 04/25/22 20:00 Laboratory Results 04/26/22 04/26/22 04/26/22 Range/Units 08:05 08:05 08:05 WBC 7.68 (4.8-10.8) K/ul RBC 3.87 L (3.93-5.22) M/uL Hgb 12.5 (12.0-16.0) g/dl Hct 37.7 (34.1-44.9) % MCV 97.4 (80.0-100.0) fL MCH 32.3 (25.0-34.0) pg MCHC 33.2 (32.0-36.0) g/dL RDW Std Deviation 45.9 (36.4-46.3) fL RDW Coeff of Mervin 13.0 (11.5-14.5) % Plt Count 291 (130-400) K/uL MPV 10.1 (9.4-12.3) fL Immature Gran % (Auto) 0.3 % Neut % (Auto) 91.3 % Lymph % (Auto) 6.1 % [place] % (Auto) 2.0 % Eos % (Auto) 0.0 % Baso % (Auto) 0.3 % Neut # (Auto) 7.02 H (1.4-6.5) K/uL Lymph # (Auto) 0.47 L (1.2-3.4) K/uL [place] # (Auto) 0.15 L (0.24-0.82) K/uL Eos # (Auto) 0.00 (0-0.50) K/uL Baso # (Auto) 0.02 (0-0.2) K/uL Immature Gran # (Auto) 0.02 (0.00-0.02) K/uL Sodium 137 (136-145) mmol/L Potassium 3.6 (3.5-5.1) mmol/L Chloride 107 (98-107) mmol/L Carbon Dioxide 22 (21-32) mmol/L Anion Gap 8 (3-11) BUN 11 (6-23) mg/dl Creatinine 0.72 (0.6-1.2) mg/dl Est Cr Clr Drug Dosing 52.6 ml/min Est GFR ( Amer) 87.9 ml/min Est GFR (Non-Af Amer) 75.8 ml/min BUN/Creatinine Ratio 15.3 (10-20) Glucose 93 (70-99(Fasting)) mg/dl Estimat Average Glucose 117 mg/dl Hemoglobin A1c 5.7 H (4.5-5.6) % Calcium 8.8 (8.5-10.1) mg/dl Magnesium 1.6 L (1.7-2.4) mg/dl Total Bilirubin (0.2-1.0) mg/dl AST (13-39) U/L ALT (7-52) U/L Alkaline Phosphatase (34-104) U/L Troponin I High Sens (0-14) pg/ml Total Protein (6.0-8.3) gm/dl Albumin (3.4-5.0) gm/dl Globulin (2.5-4.0) gm/dl Albumin/Globulin Ratio (0.9-2) Lipase (11-82) U/L Urine Color Urine Appearance (Clear) Urine pH (4.5-7.5) Ur Specific [place] (1.000-1.030) Urine Protein (Negative) Urine Glucose (UA) (Negative) Urine Ketones (Negative) Urine Blood (Negative) Urine Nitrite (Negative) Urine Bilirubin (Negative) Urine Urobilinogen (Negative) Ur Leukocyte Esterase (Negative) Stl C. cayetanensis PCR (NotDetected) Stool Rotavirus A PCR (NotDetected) Stl Adenov F 40/41 PCR (NotDetected) Stool Astrovirus (PCR) (NotDetected) Stool Campylobacter PCR (NotDetected) Stl C.difficile Tox A&B (Negative) Stl C. diff Tox A/B PCR (NotDetected) Stool Cryptosporidium PCR (NotDetected) Stl E.coli Shiga Tox PCR (NotDetected) Stl Enterotoxigenic E PCR (NotDetected) Stool EPEC (PCR) (NotDetected) Stool EAEC (PCR) (NotDetected) Stl E. histolytica PCR (NotDetected) Stool Giardia Lamblia PCR (NotDetected) Stool Salmonella PCR (NotDetected) Stool Sapovirus (PCR) (NotDetected) Stl P. shigelloides PCR (NotDetected) Stl Shigella/EIEC PCR (NotDetected) St Y.enterocolitica PCR (NotDetected) Stool Vibrio (PCR) (NotDetected) Stl Vibrio cholerae PCR (NotDetected) Stl Norovirus GI/GII PCR (NotDetected) SARS-CoV-2, RNA, NAAT (NEGATIVE) 04/26/22 04/25/22 04/25/22 Range/Units 00:20 20:12 18:04 WBC (4.8-10.8) K/ul RBC (3.93-5.22) M/uL Hgb (12.0-16.0) g/dl Hct (34.1-44.9) % MCV (80.0-100.0) fL MCH (25.0-34.0) pg MCHC (32.0-36.0) g/dL RDW Std Deviation (36.4-46.3) fL RDW Coeff of Mervin (11.5-14.5) % Plt Count (130-400) K/uL MPV (9.4-12.3) fL Immature Gran % (Auto) % Neut % (Auto) % Lymph % (Auto) % [place] % (Auto) % Eos % (Auto) % Baso % (Auto) % Neut # (Auto) (1.4-6.5) K/uL Lymph # (Auto) (1.2-3.4) K/uL [place] # (Auto) (0.24-0.82) K/uL Eos # (Auto) (0-0.50) K/uL Baso # (Auto) (0-0.2) K/uL Immature Gran # (Auto) (0.00-0.02) K/uL Sodium (136-145) mmol/L Potassium (3.5-5.1) mmol/L Chloride (98-107) mmol/L Carbon Dioxide (21-32) mmol/L Anion Gap (3-11) BUN (6-23) mg/dl Creatinine (0.6-1.2) mg/dl Est Cr Clr Drug Dosing ml/min Est GFR ( Amer) ml/min Est GFR (Non-Af Amer) ml/min BUN/Creatinine Ratio (10-20) Glucose (70-99(Fasting)) mg/dl Estimat Average Glucose mg/dl Hemoglobin A1c (4.5-5.6) % Calcium (8.5-10.1) mg/dl Magnesium (1.7-2.4) mg/dl Total Bilirubin (0.2-1.0) mg/dl AST (13-39) U/L ALT (7-52) U/L Alkaline Phosphatase (34-104) U/L Troponin I High Sens (0-14) pg/ml Total Protein (6.0-8.3) gm/dl Albumin (3.4-5.0) gm/dl Globulin (2.5-4.0) gm/dl Albumin/Globulin Ratio (0.9-2) Lipase (11-82) U/L Urine Color Yellow Urine Appearance Clear (Clear) Urine pH 6.5 (4.5-7.5) Ur Specific [place] 1.018 (1.000-1.030) Urine Protein Negative (Negative) Urine Glucose (UA) Negative (Negative) Urine Ketones Negative (Negative) Urine Blood Negative (Negative) Urine Nitrite Negative (Negative) Urine Bilirubin Negative (Negative) Urine Urobilinogen Negative (Negative) Ur Leukocyte Esterase Negative (Negative) Stl C. cayetanensis PCR Not Detected (NotDetected) Stool Rotavirus A PCR Not Detected (NotDetected) Stl Adenov F 40/41 PCR Not Detected (NotDetected) Stool Astrovirus (PCR) Not Detected (NotDetected) Stool Campylobacter PCR Not Detected (NotDetected) Stl C.difficile Tox A&B Negative Cdiff Toxin (Negative) Stl C. diff Tox A/B PCR C.diff Gene Detected A (NotDetected) Stool Cryptosporidium PCR Not Detected (NotDetected) Stl E.coli Shiga Tox PCR Not Detected (NotDetected) Stl Enterotoxigenic E PCR Not Detected (NotDetected) Stool EPEC (PCR) Not Detected (NotDetected) Stool EAEC (PCR) Not Detected (NotDetected) Stl E. histolytica PCR Not Detected (NotDetected) Stool Giardia Lamblia PCR Not Detected (NotDetected) Stool Salmonella PCR Not Detected (NotDetected) Stool Sapovirus (PCR) Not Detected (NotDetected) Stl P. shigelloides PCR Not Detected (NotDetected) Stl Shigella/EIEC PCR Not Detected (NotDetected) St Y.enterocolitica PCR Not Detected (NotDetected) Stool Vibrio (PCR) Not Detected (NotDetected) Stl Vibrio cholerae PCR Not Detected (NotDetected) Stl Norovirus GI/GII PCR Not Detected (NotDetected) SARS-CoV-2, RNA, NAAT NEGATIVE (NEGATIVE) 04/25/22 04/25/22 Range/Units 16:15 16:15 WBC 8.99 (4.8-10.8) K/ul RBC 3.78 L (3.93-5.22) M/uL Hgb 12.3 (12.0-16.0) g/dl Hct 37.4 (34.1-44.9) % MCV 98.9 (80.0-100.0) fL MCH 32.5 (25.0-34.0) pg MCHC 32.9 (32.0-36.0) g/dL RDW Std Deviation 47.2 H (36.4-46.3) fL RDW Coeff of Mervin 13.0 (11.5-14.5) % Plt Count 255 (130-400) K/uL MPV 10.0 (9.4-12.3) fL Immature Gran % (Auto) 0.4 % Neut % (Auto) 80.1 % Lymph % (Auto) 7.2 % [place] % (Auto) 6.9 % Eos % (Auto) 4.8 % Baso % (Auto) 0.6 % Neut # (Auto) 7.20 H (1.4-6.5) K/uL Lymph # (Auto) 0.65 L (1.2-3.4) K/uL [place] # (Auto) 0.62 (0.24-0.82) K/uL Eos # (Auto) 0.43 (0-0.50) K/uL Baso # (Auto) 0.05 (0-0.2) K/uL Immature Gran # (Auto) 0.04 H (0.00-0.02) K/uL Sodium 132 L (136-145) mmol/L Potassium 3.6 (3.5-5.1) mmol/L Chloride 101 (98-107) mmol/L Carbon Dioxide 21 (21-32) mmol/L Anion Gap 10 (3-11) BUN 17 (6-23) mg/dl Creatinine 0.84 (0.6-1.2) mg/dl Est Cr Clr Drug Dosing 45.1 ml/min Est GFR ( Amer) 72.9 ml/min Est GFR (Non-Af Amer) 62.9 ml/min BUN/Creatinine Ratio 20.2 H (10-20) Glucose 112 H (70-99(Fasting)) mg/dl Estimat Average Glucose mg/dl Hemoglobin A1c (4.5-5.6) % Calcium 9.5 (8.5-10.1) mg/dl Magnesium (1.7-2.4) mg/dl Total Bilirubin 0.7 (0.2-1.0) mg/dl AST 16 (13-39) U/L ALT 9 (7-52) U/L Alkaline Phosphatase 92 (34-104) U/L Troponin I High Sens 7.8 (0-14) pg/ml Total Protein 7.5 (6.0-8.3) gm/dl Albumin 4.2 (3.4-5.0) gm/dl Globulin 3.3 (2.5-4.0) gm/dl Albumin/Globulin Ratio 1.3 (0.9-2) Lipase 30 (11-82) U/L Urine Color Urine Appearance (Clear) Urine pH (4.5-7.5) Ur Specific [place] (1.000-1.030) Urine Protein (Negative) Urine Glucose (UA) (Negative) Urine Ketones (Negative) Urine Blood (Negative) Urine Nitrite (Negative) Urine Bilirubin (Negative) Urine Urobilinogen (Negative) Ur Leukocyte Esterase (Negative) Stl C. cayetanensis PCR (NotDetected) Stool Rotavirus A PCR (NotDetected) Stl Adenov F 40/41 PCR (NotDetected) Stool Astrovirus (PCR) (NotDetected) Stool Campylobacter PCR (NotDetected) Stl C.difficile Tox A&B (Negative) Stl C. diff Tox A/B PCR (NotDetected) Stool Cryptosporidium PCR (NotDetected) Stl E.coli Shiga Tox PCR (NotDetected) Stl Enterotoxigenic E PCR (NotDetected) Stool EPEC (PCR) (NotDetected) Stool EAEC (PCR) (NotDetected) Stl E. histolytica PCR (NotDetected) Stool Giardia Lamblia PCR (NotDetected) Stool Salmonella PCR (NotDetected) Stool Sapovirus (PCR) (NotDetected) Stl P. shigelloides PCR (NotDetected) Stl Shigella/EIEC PCR (NotDetected) St Y.enterocolitica PCR (NotDetected) Stool Vibrio (PCR) (NotDetected) Stl Vibrio cholerae PCR (NotDetected) Stl Norovirus GI/GII PCR (NotDetected) SARS-CoV-2, RNA, NAAT (NEGATIVE) Diagnostic Findings Abdomen/Pelvis CT 04/25/22 16:[address] WITH IV CONTRAST CT DOSE: 505.18 mGy.cm HISTORY: Generalized abdominal pain. Nausea. Vomiting. TECHNIQUE: Multiaxial CT images of the abdomen and pelvis were performed following the use of intravenous contrast. A dose lowering technique was utilized adhering to the principles of ALARA. COMPARISON STUDY: Abdomen and pelvis CT 11/03/2019. FINDINGS: Partially visualized aortic valve prosthesis is noted. A trace left pleural effusion has decreased in size. There is a 5 mm nodule within the right middle lobe on image 16. Mild interstitial thickening is noted at the lung bases. This may represent mild congestive change. No pneumoperitoneum. No pneumatosis. No fractures within the visualized osseous structures. Small to moderate size fat-containing umbilical hernia, unchanged. Mild pelvic floor collapse. Prior hysterectomy. The bladder is unremarkable. Colonic diverticulosis. No evidence for acute diverticulitis. The majority of the colon is mildly distended and filled with gas and fluid. There are also multiple gas and fluid-filled loops of small bowel seen throughout the abdomen. Findings favor a gastroenteritis/diarrheal illness. No transition point to suggest a bowel obstruction. There is no bowel wall thickening. Normal appendix. The liver, gallbladder, spleen, adrenal glands, and pancreas are unremarkable. Mild bilateral cortical renal scarring. A few subcentimeter hypodense renal lesions are technically too small to characterize but favor cysts. The main portal vein is patent. Moderate calcified plaque within the normal caliber abdominal aorta. No retroperitoneal or pelvic lymphadenopathy. IMPRESSION: 1. Multiple borderline dilated gas and fluid-filled loops of large and small bowel seen throughout the abdomen. No transition point to suggest a bowel obstru ction. Therefore, this favors a gastroenteritis/diarrheal illness. 2. Colonic diverticulosis. No evidence for acute diverticulitis. 3. Normal appendix. 4. Interval improvement in the trace left pleural effusion. 5. A 5 mm indeterminate pulmonary nodule within the right middle lobe. Please refer to the chart below for recommended follow-up. 6. Mild interstitial thickening at the lung bases. This may represent mild congestive change or chronic interstitial change. Please refer to below summary of Fleischner criteria recommendations for follow- up of incidental CT nodules (Chris Uriostegui, Guidelines for management of small pulmonary nodules detected on CT scans: A statement from the Fleischner Society, Radiology 237: [phone].) SOLID NODULES Solitary nodule size: <6 mm * Low risk patients: no follow-up needed * high risk patients: optional CT at 12 months Solitary nodule size: 6-8 mm * Low risk patients: follow-up at 6-12 months, then consider further follow-up at 18-24 months * high risk patients: initial follow-up CT at 6-12 months and then at 18-24 months if no change Solitary nodule size: >8 mm * either low or high risk patients - consider follow-up CT at 3 months, and/or CT-PET, and/or biopsy Multiple nodules size: <6 mm * Low risk patients: no routine follow-up * high risk patients: optional CT at 12 months Multiple nodules size: 6-8 mm * Low risk patients: follow-up at 3-6 months, then consider further follow-up at 18-24 months * high risk patients: follow-up at 3-6 months, then at 18-24 months if no change Multiple nodules size: >8 mm * Low risk patients: follow-up at 3-6 months, then consider further follow-up at 18-24 months * high risk patients: follow-up at 3-6 months, then at 18-24 months if no change Note: newly detected indeterminate nodule in persons 35 years of age or older. * Low risk patients: minimal or absent history of smoking and/or other known risk factors * high risk patients: history of smoking or of other known risk factors (e.g. first degree relative with lung cancer, or exposure to asbestos, radon, uranium) * if a nodule up to 8 mm is partly solid or is ground glass further follow-up is required after 24 months to exclude possible slow growing adenocarcinoma (FIFI) SUBSOLID NODULES Solitary pure ground-glass nodule * nodule size <6 mm - no CT follow-up required * nodule size >=6 mm - follow-up CT at 6-12 months, then every 2 years until 5 years Solitary part-solid nodule * nodule size <6 mm - no CT follow-up required * nodule size >=6 mm - follow-up CT at 3-6 months. If unchanged, and solid component remains <6 mm, then annual follow-up for 5 years Multiple subsolid nodules * nodule size <6 mm - follow-up CT at 3-6 months, consider further follow-up at 2 and 4 years if stable * nodule size >=6 mm - follow-up CT at 3-6 months, subsequent management based on the most suspicious nodule(s) ACT 112: Positive. There are findings on this exam that require communication between the performing entity and the patient following Patient Test Result Information Act ([place] Act 112) guidelines. Electronically signed by: Dany Samson M.D. 04/25/2022 5:46 PM PG Care Time/CCT Total # of Minutes Spent Total Time Spent with Patient: Total time spent is greater than 50% in coordination of care (as documented) at patient's floor/unit and/or counseling patient: Coding Level of Care Code 71891 Subseq Obs Care Lvl 3 Diagnoses Chronic diarrhea K52.9 Chronic kidney disease, stage 3a N18.3 Aortic stenosis I35.0 S/P TAVR (transcatheter aortic valve replacement) Z95.2 Transient ischemic attack G45.9 UGIB (upper gastrointestinal bleed) K92.2 Iron deficiency anemia D50.9 Impaired fasting glucose R73.01 Hypertension I10 Hyperlipidemia E78.5
[2022-04-26 08:38] LABS: Hematocrit (blood only) 37.7 % (34.1-44.9); Hemoglobin 12.5 g/dl (12.0-16.0); Mean Corpuscular Hemoglobin 32.3 pg (25.0-34.0); Mean Corpuscular Hgb Conc 33.2 g/dL (32.0-36.0); Mean Corpuscular Volume 97.4 fL (80.0-100.0); Mean Platelet Volume 10.1 fL (9.4-12.3); Platelet Count 291 K/uL (130-400); RDW Standard Deviation 45.9 fL (36.4-46.3); Red Blood Count 3.87 M/uL (3.93-5.22); White Blood Count 7.68 K/ul (4.8-10.8)
[2022-04-26 08:54] LABS: Basophils # (auto) 0.02 K/uL (0-0.2); Basophils % (auto) 0.3 %; Immature Granulocytes # (auto) 0.02 K/uL (0.00-0.02); Immature Granulocytes % (auto) 0.3 %; Lymphocytes # (auto) 0.47 K/uL (1.2-3.4); Lymphocytes % (auto) 6.1 %; Monocytes # (auto) 0.15 K/uL (0.24-0.82); Neutrophils # (auto) 7.02 K/uL (1.4-6.5); Neutrophils % (auto) 91.3 %
[2022-04-26 09:02] LABS: BUN Creatinine Ratio 15.3 (10-20); Calcium 8.8 mg/dl (8.5-10.1); Creatinine Clr Calc Pharmacy 52.6 ml/min; Est GFR (African American) 87.9 ml/min; Est GFR (Non-African American) 75.8 ml/min; Magnesium 1.6 mg/dl (1.7-2.4); Potassium 3.6 mmol/L (3.5-5.1)
[2022-04-26 09:16] LABS: Estimated Average Glucose 117 mg/dl; Hemoglobin A1C 5.7 % (4.5-5.6)
[2022-04-26] MEDS: MAGNESIUM SULFATE / D5W 1 GM/100 ML BAG IV SCH ×2 (09:56→11:37)
[2022-04-26] MEDS ORDERED: LOPERAMIDE HCL 2 MG CAP PO SCH (10:00)
[2022-04-26] MEDS ORDERED: predniSONE 10 MG TABLET PO STA (13:06)
--- NOTE | 2022-04-26 13:41 | Electrocardiogram Report ---
Test Reason : Blood Pressure : / mmHG Vent. Rate : 069 BPM Atrial Rate : 069 BPM P-R Int : 172 ms QRS Dur : 104 ms QT Int : 446 ms P-R-T Axes : 060 -14 083 degrees QTc Int : 477 ms Normal sinus rhythm Left ventricular hypertrophy with repolarization abnormality Abnormal ECG When compared with ECG of 30-SEP-2021 17:05, No significant change was found Confirmed by Chente Abdul ([id number]) on 04/26/2022 1:41:30 PM Referred By: REFERRED SELF Confirmed By:Chente Abdul
[2022-04-26] MEDS: RASPBERRY SYRUP 5 ML UDP PO SCH ×3 (15:27→23:07)
[2022-04-26] MEDS: VANCOMYCIN HCL 125 MG/2.5ML SOLN PO SCH ×3 (15:27→23:07)
--- NOTE | 2022-04-26 22:14 | Billing Data ---
Date of Service April 26, 2022 Coding Level of Care Code INT OBSERVATION CARE 70M LVL 3
[2022-04-27] MEDS: RASPBERRY SYRUP 5 ML UDP PO SCH ×4 (06:03→22:52)
[2022-04-27] MEDS: LEVOTHYROXINE SODIUM 50 MCG TABLET PO SCH (06:03)
[2022-04-27] MEDS: VANCOMYCIN HCL 125 MG/2.5ML SOLN PO SCH ×4 (06:04→22:52)
[2022-04-27 07:53] LABS: Hemoglobin 10.9 g/dl (12.0-16.0); Mean Corpuscular Hemoglobin 32.2 pg (25.0-34.0); Mean Corpuscular Volume 97.3 fL (80.0-100.0); Mean Platelet Volume 10.2 fL (9.4-12.3); Platelet Count 235 K/uL (130-400); RDW Standard Deviation 45.9 fL (36.4-46.3); Red Blood Count 3.39 M/uL (3.93-5.22); White Blood Count 9.21 K/ul (4.8-10.8)
--- NOTE | 2022-04-27 08:07 | Hospitalist Progress Note ---
Date of Service April 27, 2022 Assessment & Plan (1) Chronic diarrhea: Plan: 86yo female with a history of HTN, HLD, aortic stenosis s/p TAVR, CKD3, impaired fasting glucose, UGIB, TIA, and hypothyroidism presents with a few-day history of diarrhea, nausea, and vomiting. Diarrhea, nausea, vomiting Initially stated taken Metamucil and had extreme n/v and then explosive episode of incontinence and feeling so weak that she needed to call EMS See by GI recently and w/ overflow, recs for Imodium and Metamucil and patient not compliant at home CTAP c/w diarrheal illness and dilated loops of bowels Given explosive diarrhea ongoing, despite cdiff toxin being negative but gene + (and negative rest of stool PCR), checked ESR/CRP which were elevated and decision to treat with PO vancomycin was undertaken. Sandoval checked and rx sent $3 Avoiding imodium/metamucil as rec'd by GI for thought overflow diarrhea Was going to d/c today, however patient with temp 38.4C reported overnight on admission not notified to anyone. Blood cultures obtained for completeness given weakness reported on admit 2 loose stools overnight into today, more form to them. No abdominal pain/n/v WBC elevated (however note steroids as below) Supportive care/monitoring overnight given fever 38.4C , afebrile since that time Bullous Pemphigoid Also of note, on 10mg prednisone Q2D for hx bullous pemphigoid (follows with Dr Magdaleno) Not hypotensive on admission, however patient without stress dose instructions Ordered prednisone 30mg x 1 for 04/26, 20mg for 04/27 and to continue 10mg x 3 days then continue her usual QOD dosing Educated about stress dosing and to discuss with PCP Hypomagnesemia Mag 1.6 -- IV replacement ordered, normal on repeat Aortic stenosis s/p TAVR: follows with cards, known hx mitral stenosis not amendable to intervention continue home regimen HTN: BP stable, no hypotension stress dose steroids as above continue diltiazem 240mg, qamufjggio45.5mg BID HLD: continue home ezetimibe 10mg, gemfibrozil 600mg BID CKD3: avoid nephrotoxins Cr stable Monitor in AM History of impaired fasting glucose: A1c 4.8% (04/2021), repeat value 5.7 counseling prior to d/c Hypothyroidism: TSH 3.483 Continue levothyroxine 50mcg daily GERD Continue protonix 40mg Of note, A 5 mm indeterminate pulmonary nodule within the right middle lobe. Will need follow-up, optional 6 mo f/u CT chest. (2) Chronic kidney disease, stage 3a: (3) Aortic stenosis: (4) S/P TAVR (transcatheter aortic valve replacement): (5) Transient ischemic attack: (6) UGIB (upper gastrointestinal bleed): (7) Iron deficiency anemia: (8) Impaired fasting glucose: (9) Hypertension: (10) Hyperlipidemia: Plan was going to discharge today as patient feeling better, however discussed with supervising provider given prior fever on admission and no bcx obtained and recommended to contiue to monitor patient overnight changed to full admit rx for vanco sent (will just need instructions for decreased duration), $3 sandoval checked Admission and Anticipated Discharge Date Admission Date: April 25, 2022 Supervising Physician Co-Signing Physician Notes Attending Attestation - Chart reviewed in detail, care plan d/w PA Ramona Pryor. I agree with the khan components of her documentation. C diff enteritis - agree with Rx with vancomycin QID x [address] findings and symptoms. Rai Arellano MD Subjective Patient evaluated this morning. Doing well, eating/drinking no issue. Less loose stool and starting to form up. Discussed fever recorded in system however patient denied any fever on admission or chills. Unclear if documented incorrectly but given temp and diarrheal illness would like to obtain blood cultures and monitor overnight and plan for discharge tomorrow. Patient denies any fever/chill, chest pain, shortness of breath, abdominal pain, nausea or vomiting at this time. Review of Systems Review of Systems: All systems reviewed & are unremarkable except as noted in HPI & below Physical Exam Physical Exam: General: WD/WN elderly female sitting up in bed, NAD HEENT: head normocephalic, atraumatic, mmm, trachea midline without deviation Resp: CTAB, no w/c/r, on room air CV: regular rate/rhythm, +Murmur, systolic holosystolic at apex, trace b/l LE edema dependent GI: +BS, soft, nontender : no zelaya MSK/Neuro: moves all extremities, no focal deficits Skin: warm, dry, no increased rash to palms Results & Data Results & Data ([facility]) Vital Signs (Past 12 Hours) Vital Signs Temp Pulse Resp BP Pulse Ox 04/27/22 06:56 36.7 C 83 16 137/69 94 04/26/22 20:41 36.9 C 61 16 123/60 94 Laboratory Results 04/27/22 04/27/22 04/27/22 Range/Units 07:24 07:24 07:24 WBC 9.21 (4.8-10.8) K/ul RBC 3.39 L (3.93-5.22) M/uL Hgb 10.9 L (12.0-16.0) g/dl Hct 33.0 L (34.1-44.9) % MCV 97.3 (80.0-100.0) fL MCH 32.2 (25.0-34.0) pg MCHC 33.0 (32.0-36.0) g/dL RDW Std Deviation 45.9 (36.4-46.3) fL RDW Coeff of Mervin 13.0 (11.5-14.5) % Plt Count 235 (130-400) K/uL MPV 10.2 (9.4-12.3) fL ESR (0-30) mm/hr Sodium 139 (136-145) mmol/L Potassium 3.7 (3.5-5.1) mmol/L Chloride 109 H (98-107) mmol/L Carbon Dioxide 23 (21-32) mmol/L Anion Gap 7 (3-11) BUN 14 (6-23) mg/dl Creatinine 0.80 (0.6-1.2) mg/dl Est Cr Clr Drug Dosing 47.4 ml/min Est GFR ( Amer) 77.4 ml/min Est GFR (Non-Af Amer) 66.8 ml/min BUN/Creatinine Ratio 17.5 (10-20) Glucose 116 H (70-99(Fasting)) mg/dl Calcium 8.9 (8.5-10.1) mg/dl Magnesium 2.0 (1.7-2.4) mg/dl Total Bilirubin 0.6 (0.2-1.0) mg/dl AST 12 L (13-39) U/L ALT 8 (7-52) U/L Alkaline Phosphatase 74 (34-104) U/L C-Reactive Protein (0-0.5) mg/dl Total Protein 6.3 (6.0-8.3) gm/dl Albumin 3.6 (3.4-5.0) gm/dl Globulin 2.7 (2.5-4.0) gm/dl Albumin/Globulin Ratio 1.3 (0.9-2) Cortisol AM Sample 7.06 (6.2-22.6) mcg/dl 04/26/22 04/26/22 Range/Units 08:05 08:05 WBC (4.8-10.8) K/ul RBC (3.93-5.22) M/uL Hgb (12.0-16.0) g/dl Hct (34.1-44.9) % MCV (80.0-100.0) fL MCH (25.0-34.0) pg MCHC (32.0-36.0) g/dL RDW Std Deviation (36.4-46.3) fL RDW Coeff of Mervin (11.5-14.5) % Plt Count (130-400) K/uL MPV (9.4-12.3) fL ESR 40 H (0-30) mm/hr Sodium (136-145) mmol/L Potassium (3.5-5.1) mmol/L Chloride (98-107) mmol/L Carbon Dioxide (21-32) mmol/L Anion Gap (3-11) BUN (6-23) mg/dl Creatinine (0.6-1.2) mg/dl Est Cr Clr Drug Dosing ml/min Est GFR ( Amer) ml/min Est GFR (Non-Af Amer) ml/min BUN/Creatinine Ratio (10-20) Glucose (70-99(Fasting)) mg/dl Calcium (8.5-10.1) mg/dl Magnesium (1.7-2.4) mg/dl Total Bilirubin (0.2-1.0) mg/dl AST (13-39) U/L ALT (7-52) U/L Alkaline Phosphatase (34-104) U/L C-Reactive Protein 0.63 H (0-0.5) mg/dl Total Protein (6.0-8.3) gm/dl Albumin (3.4-5.0) gm/dl Globulin (2.5-4.0) gm/dl Albumin/Globulin Ratio (0.9-2) Cortisol AM Sample (6.2-22.6) mcg/dl PG Care Time/CCT Total # of Minutes Spent Total Time Spent with Patient: Total time spent is greater than 50% in coordination of care (as documented) at patient's floor/unit and/or counseling patient: Coding Level of Care Code 06609 Subseq Hosp Care Lvl 2 Diagnoses Chronic diarrhea K52.9 Chronic kidney disease, stage 3a N18.3 Aortic stenosis I35.0 S/P TAVR (transcatheter aortic valve replacement) Z95.2 Transient ischemic attack G45.9 UGIB (upper gastrointestinal bleed) K92.2 Iron deficiency anemia D50.9 Impaired fasting glucose R73.01 Hypertension I10 Hyperlipidemia E78.5
[2022-04-27] MEDS: dilTIAZem ER 120 MG CAPCR PO SCH (08:15)
[2022-04-27] MEDS: allopurinoL 100 MG TAB PO SCH (08:15)
[2022-04-27] MEDS: EZETIMIBE 10 MG TABLET PO SCH (08:15)
[2022-04-27] MEDS: gemfibroziL 600 MG TAB PO SCH ×2 (08:15→20:40)
[2022-04-27] MEDS: ASPIRIN 81 MG ECTAB PO SCH (08:15)
[2022-04-27] MEDS: carvediloL 12.5 MG TAB PO SCH ×2 (08:15→20:40)
[2022-04-27] MEDS: PANTOprazole 40 MG TAB PO SCH (08:15)
[2022-04-27 08:27] LABS: Albumin Globulin Ratio 1.3 (0.9-2); Albumin Level 3.6 gm/dl (3.4-5.0); BUN Creatinine Ratio 17.5 (10-20); Bilirubin,Total 0.6 mg/dl (0.2-1.0); Calcium 8.9 mg/dl (8.5-10.1); Creatinine Clr Calc Pharmacy 47.4 ml/min; Est GFR (African American) 77.4 ml/min; Est GFR (Non-African American) 66.8 ml/min; Globulin 2.7 gm/dl (2.5-4.0); Potassium 3.7 mmol/L (3.5-5.1); Total Protein 6.3 gm/dl (6.0-8.3)
[2022-04-27] MEDS: predniSONE 20 MG TAB PO SCH (08:58)
--- NOTE | 2022-04-27 08:59 | Discharge Summary ---
Date of Service April 27, 2022 Admission HPI Per Admitting Provider 86yo female with a history of HTN, HLD, aortic stenosis s/p TAVR, CKD3, impaired fasting glucose, UGIB, TIA, and hypothyroidism presents with a few-day history of diarrhea, nausea, and vomiting. Patient was recently seen by her PCP for a follow-up for chronic diarrhea and had a KUB performed which suggested constipation, and so patient was started on miralax; however, after starting miralax, patient developed nausea and vomiting in addition to weakness. Patient denies fever, chills, headache, vision changes, CP, palpitations, SOB, edema, abdominal pain, dysuria, lightheadedness, dizziness, numbness, tingling, w eakness, or other symptoms. Denies recent illness and recent travel. Denies recent antibiotic use. Of note, patient lives alone and was concerned about her safety upon returning home. Initial labs were notable only for mild hyponatremia (132); WBC, Hgb, and plt all wnl. No electrolyte abnormalities, LFTs wnl, UA not infected. In the ED, patient received IVF, APAP, famotidine, zofran, reglan, and carafate. Surrogate decision-maker in case of an emergency: nia Rodríguez (cell: [phone]) Discharge Data Allergies Allergy/AdvReac Type Severity Reaction Status Date / Time simvastatin Allergy Mild RASH Verified 04/25/22 17:14 hydrochlorothiazide Allergy Unknown Unknown Verified 04/25/22 17:14 Tooegzo-XLZ-JoE Reductase Allergy Unknown Unknown Verified 04/25/22 17:14 Inhibitor [Fltmzqh-Rdk-Ymk Reductase Inhibitor] tramadol Allergy Unknown Unknown Verified 04/25/22 17:14 trospium Allergy Unknown Unknown Verified 04/25/22 17:14 Consultations 04/25/22 20:03 ED Decision to Admit Stat Ordered Studies 04/25/22 16:21 CT abd pelvis IV con only Stat Hospital Course (1) Chronic diarrhea: 86yo female with a history of HTN, HLD, aortic stenosis s/p TAVR, CKD3, impaired fasting glucose, UGIB, TIA, and hypothyroidism presents with a few-day history of diarrhea, nausea, and vomiting. Diarrhea, nausea, vomiting Initially stated taken Metamucil and had extreme n/v and then explosive episode of incontinence and feeling so weak that she needed to call EMS See by GI recently and w/ overflow, recs for Imodium and Metamucil and patient not compliant at home CTAP c/w diarrheal illness Stool studies +cdiff gene but NOT toxin --Discussed with GI and NOT treat diarrhea given negative toxin --Rec to add Imodium daily -- start/continue Metamucil at d/c at home (encouraged adequate H2O intake with such) No further IVF, monitor ability to keep up with oral intake Supportive care, antiemetics prn PT/OT consulted Bullous Pemphigoid Also of note, on 10mg prednisone Q2D for hx bullous pemphigoid (follows with Dr Magdaleno) -Not hypotensive on admission, however patient without stress dose instructions -Will order 20mg PO x 1 now, double tomorrows dose to 20mg and then would rec 10mg daily x 3 days prior to decreasing back to usual dose at home as possibly a little adrenally insufficiency given chronic use Check cortisol level w/ AM labs Hypomagnesemia Mag 1.6 -- IV replacement ordered Repeat level in AM Aortic stenosis s/p TAVR: follows with cards, known hx mitral stenosis not amendable to intervention continue home regimen HTN: BP stable, no hypotension continue diltiazem 240mg, vttfhadiyi14.5mg BID HLD: continue home ezetimibe 10mg, gemfibrozil 600mg BID CKD3: avoid nephrotoxins Cr stable Monitor in AM History of impaired fasting glucose: A1c 4.8% (04/2021), repeat value 5.7 Hypothyroidism: TSH 3.483 Continue levothyroxine 50mcg daily GERD Continue protonix 40mg Of note, A 5 mm indeterminate pulmonary nodule within the right middle lobe. Will need follow-up, optional 6 mo f/u CT chest. (2) Chronic kidney disease, stage 3a: (3) Aortic stenosis: (4) S/P TAVR (transcatheter aortic valve replacement): (5) Transient ischemic attack: (6) UGIB (upper gastrointestinal bleed): (7) Iron deficiency anemia: (8) Impaired fasting glucose: (9) Hypertension: (10) Hyperlipidemia: Plan continued inpatient stay 30mg prednisone for today, increased dose for tomorrow to double 20mg and then 10mg daily x 3 days prior to resuming prior schedule hopeful discharge tomorrow Discharge Plan Discharge Items Patient Disposition: Home - Self-Care Reason For Visit: DIARRHEA, NAUSEA Discharge Diagnosis: Diarrhea, possible cdiff Goals: You have been hospitalized for an acute medical problem. During your stay at [facility], we have made an effort to correct the problem that brought you to the hospital while keeping you as comfortable as possible. Medications were used to bring your condition under control and your discharge instructions will include directions for any medications you should take after leaving the hospital. Please make sure you see your Primary Care Provider as part of your follow up plan. Activity: Resume your previous activity Non-emergency contact: Primary Care Provider and Dehydrogenation Supervisor Call non-emergency contact if: you have any medication questions, your symptoms worsen, your pain is not controlled and you have a fever Follow-up/Referrals: Loco Woodruff DO [Physician] - Lou Shepard PA-C [Physician Home Stager] - PCP,FRANCO [Primary Care Provider] - Diet: Heart Healthy Addtl Attending Provider Instructions: You have been hospitalized for diarrhea. Given imaging with diarrheal illness, despite the cdiff toxin being negative, we have decided to treat with vancomycin by mouth four times daily for 7 days. You have 6 days left of treatment. We have also increased your steroids temporarily for stress dosing as you are on chronic steroids and sometimes during stress these are needed.' You have been given 20mg of prednisone for today and should continue 10mg daily for the next 2 days then continue your usual dose. Please follow up with GI, Dr Woodruff, and your PCP in the next 7-10 days to monitor your progress. We did obtain blood cultures given recorded fever however you have been afebrile since then and this could possibly be incorrectly documented. You will be called if any abnormal results. Please return to the ER with any increased diarrhea, fever, inability to keep up with oral intake or for any other symptoms concerning for you. Take care! Pending Studies at Discharge: Yes Studies:: Blood cultures Stand-Alone Forms: My [facility] Medications and DC Order Prescriptions: New vancomycin 125 mg capsule 125 mg PO Q6H 6 Days Qty: 24 0RF Continued carvedilol 12.5 mg tablet 12.5 mg PO BID Qty: 180 3RF Rx Instructions: must administer with a meal/food ezetimibe 10 mg tablet 10 mg PO DAILY Qty: 30 11RF pantoprazole 40 mg tablet,delayed release (DR/EC) 40 mg PO DAILY Qty: 90 3RF gemfibrozil 600 mg tablet 600 mg PO BID Qty: 180 3RF allopurinol 100 mg tablet 200 mg PO QAM aspirin [Adult Aspirin Regimen] 81 mg tablet,delayed release (DR/EC) 81 mg PO QAM diltiazem HCl [Tiadylt ER] 240 mg capsule,extended release 24 hr 240 mg PO QAM levothyroxine 50 mcg tablet 50 mcg PO DAILYBB prednisone 10 mg tablet 10 mg PO Q OTHER DAY Rx Instructions: take with evening meal Changed ferrous sulfate 325 mg (65 mg iron) tablet 325 mg PO Q48H Qty: 7 0RF Admission Data Admit Date/Time: 04/25/22 21:18 Attending Provider: Rai Arellano Admit Provider: Adrian Sterling Primary Care Provider: PCP,NO Other Providers: Shekhar Hurt Coding Diagnoses Chronic diarrhea K52.9 Chronic kidney disease, stage 3a N18.3 Aortic stenosis I35.0 S/P TAVR (transcatheter aortic valve replacement) Z95.2 Transient ischemic attack G45.9 UGIB (upper gastrointestinal bleed) K92.2 Iron deficiency anemia D50.9 Impaired fasting glucose R73.01 Hypertension I10 Hyperlipidemia E78.5
[2022-04-28] MEDS: RASPBERRY SYRUP 5 ML UDP PO SCH ×2 (06:13→12:04)
[2022-04-28] MEDS: LEVOTHYROXINE SODIUM 50 MCG TABLET PO SCH (06:13)
[2022-04-28] MEDS: VANCOMYCIN HCL 125 MG/2.5ML SOLN PO SCH ×2 (06:14→12:04)
[2022-04-28] MEDS: carvediloL 12.5 MG TAB PO SCH (07:51)
[2022-04-28] MEDS: dilTIAZem ER 120 MG CAPCR PO SCH (07:51)
[2022-04-28] MEDS: predniSONE 20 MG TAB PO SCH (07:51)
[2022-04-28] MEDS: EZETIMIBE 10 MG TABLET PO SCH (07:51)
[2022-04-28] MEDS: FERROUS SULFATE 325 MG TAB PO SCH (07:51)
[2022-04-28] MEDS: ASPIRIN 81 MG ECTAB PO SCH (07:51)
[2022-04-28] MEDS: allopurinoL 100 MG TAB PO SCH (07:51)
[2022-04-28] MEDS: PANTOprazole 40 MG TAB PO SCH (07:51)
[2022-04-28] MEDS: gemfibroziL 600 MG TAB PO SCH (07:51)
[2022-04-28 08:08] LABS: Hematocrit (blood only) 32.2 % (34.1-44.9); Hemoglobin 10.4 g/dl (12.0-16.0); Mean Corpuscular Hemoglobin 32.2 pg (25.0-34.0); Mean Corpuscular Hgb Conc 32.3 g/dL (32.0-36.0); Mean Corpuscular Volume 99.7 fL (80.0-100.0); Mean Platelet Volume 10.1 fL (9.4-12.3); Platelet Count 225 K/uL (130-400); RDW Coefficient of Variation 13.1 % (11.5-14.5); RDW Standard Deviation 47.4 fL (36.4-46.3); Red Blood Count 3.23 M/uL (3.93-5.22)
[2022-04-28 08:29] LABS: BUN Creatinine Ratio 21.7 (10-20); Creatinine Clr Calc Pharmacy 45.7 ml/min; Est GFR (Non-African American) 63.9 ml/min
--- NOTE | 2022-04-28 11:15 | Discharge Summary ---
Date of Service date of admission - April 25, 2022 date of discharge - April 28, 2022 Admission HPI Per Admitting Provider 86yo female with a history of HTN, HLD, aortic stenosis s/p TAVR, CKD3, impaired fasting glucose, prior upper GI bleeding, TIA, and hypothyroidism presents with a several days of diarrhea, nausea, and vomiting. Patient was recently seen by her PCP for a follow-up for chronic diarrhea and had a KUB performed which suggested constipation, and so patient was started on miralax; however, after starting miralax, patient developed nausea and vomiting in addition to weakness. Patient denies fever, chills, headache, vision changes, CP, palpitations, SOB, edema, abdominal pain, dysuria, lightheadedness, dizziness, numbness, tingling, weakness, or other symptoms. Denies recent illness and recent travel. Denies recent antibiotic use. Of note, patient lives alone and was concerned about her safety upon returning home. Initial labs were notable only for mild hyponatremia (132); WBC, Hgb, and plt all wnl. No electrolyte abnormalities, LFTs wnl, UA not infected. In the ED, patient received IVF, APAP, famotidine, zofran, reglan, and carafate. Principal Diagnosis acute/chronic diarrhea c diff infection Discharge Exam gen - NAD, pleasant mouth - MMM neck - no JVD heart - RRR, s1 s2, 2/6 systolic murmur LLSB lungs - CTA b/l abd - soft NT ND BS+ ext - no edema, pulses 2+ b/l Discharge Data Allergies Allergy/AdvReac Type Severity Reaction Status Date / Time simvastatin Allergy Mild RASH Verified 04/25/22 17:14 hydrochlorothiazide Allergy Unknown Unknown Verified 04/25/22 17:14 Jczygij-IKZ-JqX Reductase Allergy Unknown Unknown Verified 04/25/22 17:14 Inhibitor [Qhazieu-Bvn-Zhf Reductase Inhibitor] tramadol Allergy Unknown Unknown Verified 04/25/22 17:14 trospium Allergy Unknown Unknown Verified 04/25/22 17:14 Ordered Studies Abdomen/Pelvis CT 04/25/22 16:[address] WITH IV CONTRAST CT DOSE: 505.18 mGy.cm HISTORY: Generalized abdominal pain. Nausea. Vomiting. TECHNIQUE: Multiaxial CT images of the abdomen and pelvis were performed following the use of intravenous contrast. A dose lowering technique was utilized adhering to the principles of ALARA. COMPARISON STUDY: Abdomen and pelvis CT 11/03/2019. FINDINGS: Partially visualized aortic valve prosthesis is noted. A trace left pleural effusion has decreased in size. There is a 5 mm nodule within the right middle lobe on image 16. Mild interstitial thickening is noted at the lung bases. This may represent mild congestive change. No pneumoperitoneum. No pneumatosis. No fractures within the visualized osseous structures. Small to moderate size fat-containing umbilical hernia, unchanged. Mild pelvic floor collapse. Prior hysterectomy. The bladder is unremarkable. Colonic diverticulosis. No evidence for acute diverticulitis. The majority of the colon is mildly distended and filled with gas and fluid. There are also multiple gas and fluid-filled loops of small bowel seen throughout the abdomen. Findings favor a gastroenteritis/diarrheal illness. No transition point to suggest a bowel obstruction. There is no bowel wall thickening. Normal appendix. The liver, gallbladder, spleen, adrenal glands, and pancreas are unremarkable. Mild bilateral cortical renal scarring. A few subcentimeter hypodense renal lesions are technically too small to characterize but favor cysts. The main portal vein is patent. Moderate calcified plaque within the normal caliber abdominal aorta. No retroperitoneal or pelvic lymphadenopathy. IMPRESSION: 1. Multiple borderline dilated gas and fluid-filled loops of large and small bowel seen throughout the abdomen. No transition point to suggest a bowel obstruction. Therefore, this favors a gastroenteritis/diarrheal illness. 2. Colonic diverticulosis. No evidence for acute diverticulitis. 3. Normal appendix. 4. Interval improvement in the trace left pleural effusion. 5. A 5 mm indeterminate pulmonary nodule within the right middle lobe. Please refer to the chart below for recommended follow-up. 6. Mild interstitial thickening at the lung bases. This may represent mild congestive change or chronic interstitial change. Please refer to below summary of Fleischner criteria recommendations for follow- up of incidental CT nodules (Chris Uriostegui, Guidelines for management of small pulmonary nodules detected on CT scans: A statement from the Fleischner Society, Radiology 237: [phone].) SOLID NODULES Solitary nodule size: <6 mm * Low risk patients: no follow-up needed * high risk patients: optional CT at 12 months Solitary nodule size: 6-8 mm * Low risk patients: follow-up at 6-12 months, then consider further follow-up at 18-24 months * high risk patients: initial follow-up CT at 6-12 months and then at 18-24 months if no change Solitary nodule size: >8 mm * either low or high risk patients - consider follow-up CT at 3 months, and/or CT-PET, and/or biopsy Multiple nodules size: <6 mm * Low risk patients: no routine follow-up * high risk patients: optional CT at 12 months Multiple nodules size: 6-8 mm * Low risk patients: follow-up at 3-6 months, then consider further follow-up at 18-24 months * high risk patients: follow-up at 3-6 months, then at 18-24 months if no change Multiple nodules size: >8 mm * Low risk patients: follow-up at 3-6 months, then consider further follow-up at 18-24 months * high risk patients: follow-up at 3-6 months, then at 18-24 months if no change Note: newly detected indeterminate nodule in persons 35 years of age or older. * Low risk patients: minimal or absent history of smoking and/or other known risk factors * high risk patients: history of smoking or of other known risk factors (e.g. first degree relative with lung cancer, or exposure to asbestos, radon, uranium) * if a nodule up to 8 mm is partly solid or is ground glass further follow-up is required after 24 months to exclude possible slow growing adenocarcinoma (BA C) SUBSOLID NODULES Solitary pure ground-glass nodule * nodule size <6 mm - no CT follow-up required * nodule size >=6 mm - follow-up CT at 6-12 months, then every 2 years until 5 years Solitary part-solid nodule * nodule size <6 mm - no CT follow-up required * nodule size >=6 mm - follow-up CT at 3-6 months. If unchanged, and solid component remains <6 mm, then annual follow-up for 5 years Multiple subsolid nodules * nodule size <6 mm - follow-up CT at 3-6 months, consider further follow-up at 2 and 4 years if stable * nodule size >=6 mm - follow-up CT at 3-6 months, subsequent management based on the most suspicious nodule(s) ACT 112: Positive. There are findings on this exam that require communication between the performing entity and the patient following Patient Test Result Information Act ([place] Act 112) guidelines. Electronically signed by: Dany Samson M.D. 04/25/2022 5:46 PM Hospital Course (1) Clostridioides difficile infection: The patient has had chronic diarrhea for some time but had an acute worsening of her diarrhea along with nausea/emesis. ESR and CRP were modestly elevated. She had an isolated fever of 38.[address] abd/pelvis showed dilated loops of small & large intestine. Stool [employer] PCR panel was negative except for C diff gene POSITIVE but toxin negative. In light of the clinical picture, despite the C diff toxin being negative, a decision was made to initiate treatment with oral vancomycin. Symptoms improved with such while here. She will complete in total 10 days of vancomycin 125mg QID. During the stay blood cultures were negative. Of note - she received several days of "stress dose" prednisone while hospitali zed. (is on prednisone every other day for bullous pemphigoid) She will continue this stress dosing for a few more days post-discharge, then resume her usual dosing thereafter. (2) Bullous pemphigoid: Chronic steroid dosing -- 10mg of prednisone every other day. Follows with Dr Magdaleno for this condition. (3) Pulmonary nodule: Seen incidentally on CT imaging. 5mm, right middle lobe. Refer to [facility] Pulmonary Nodule program. (4) Chronic diarrhea: Now with acute diarrhea - likely c diff infection. See #1 above. She will need GI follow-up post-discharge to monitor this condition. (5) Chronic kidney disease, stage 3a: Baseline CrCl 40-45 Discharge creatinine = 0.8. (6) Aortic stenosis: s/p TAVR (7) S/P TAVR (transcatheter aortic valve replacement): (8) Transient ischemic attack: (9) Iron deficiency anemia: Hb 10.5 to 12.5 while hospitalized. Last ferritin 130 in September 2021. (10) Impaired fasting glucose: HbA1C 5.7% April 2022. (11) Hypertension: Continue home medications as previous. (12) Hyperlipidemia: (13) Mitral stenosis: Severe. Based on echo 2020. Follows with cardiology. (14) Hypothyroid: TSH 12 April 2022. Continue synthroid as previous. Total Time Total Time Spent Total Time Spent (In Minutes): 25 Discharge Plan Discharge Items Patient Disposition: Home - Self-Care Reason For Visit: DIARRHEA, NAUSEA Discharge Diagnosis: Diarrhea - likely due to c. diff infection Goals: You have been hospitalized for an acute medical problem. During your stay at [facility], we have made an effort to correct the problem that brought you to the hospital while keeping you as comfortable as possible. Medications were used to bring your condition under control and your discharge instructions will include directions for any medications you should take after leaving the hospital. Please make sure you see your Primary Care Provider as part of your follow up plan. Activity: As commented below Activity Comment: gradually increase your activities over the next 5 days Non-emergency contact: Primary Care Provider and [employer] Call non-emergency contact if: you have any medication questions, your symptoms worsen, your pain is not controlled and you have a fever Follow-up/Referrals: Lcoo Woodruff DO [Physician] - 05/18/22 11:30 am Lou Shepard PA-C [Physician Insurance Loss Control Surveyor] - 05/10/22 2:00 pm (please see Drea within 5-7 days APPT WITH CHAPIN FOX PA-C. ) Diet: Heart Healthy Addtl Attending Provider Instructions: You have been hospitalized for diarrhea. Your CT scan of the abdomen showed findings consistent with an infectious process of the intestines. Your c. diff test was positive and you were started on vancomycin by mouth four times daily. This is the antibiotic treatment for c. diff. You have 8 days left of treatment. We have also increased your steroids temporarily for stress dosing as you are on chronic steroids and sometimes during stress these are needed. You took 20mg of prednisone this morning, 04/28/22. On Sunday, 04/29, please take 10mg. On Sunday, 04/30, please take 10mg. Then resume your usual dose of 10mg EVERY OTHER DAY as previous. Please know that c. diff IS contagious to others, especially while you are having active diarrhea. Hand washing with soap & water for minimum of 20 seconds KILLS c. diff if it's on your hands. PURELL alcohol-based hand rubs do NOT kill c.diff. Wash towels, linens, underwear, sheets, etc in hot water over the next week or two. To clean your bathroom, toilet, door handles, etc you should use diluted bleach or bleach wipes as bleach kills c.diff. Incidentally on your CT scan of the abdomen they saw a small lung nodule in your right lung, about 5mm in size. I am going to refer you to our [facility] Nodule program. They will help you set up a repeat CT scan of the lungs in the future. Most lung nodules are BENIGN and not harmful but this should be followed up. With respect to diet and bowel agents -- please eat a normal diet over the next 1-2 weeks. Avoid high-fiber foods - examples include excessive amounts of fruits & vegetables, fiber-rich cereals, beans, etc. Avoid taking metamucil and fiber supplements over the next 1-2 weeks. If you feel constipated as you enter the early part of next week simply resume your miralax once daily. Follow-up - * see your family doctor within 5-7 days * see Dr Woodruff from [facility] GI within [address] [facility] if - * you have fevers over 100 degrees * you develop abdominal pain * you have vomiting and can't keep food/drink down * your diarrhea comes back and is severe * any other concerns Please continue to feel better! Pending Studies at Discharge: Yes Studies:: Blood cultures Stand-Alone Forms: My [facility] Medications and DC Order Prescriptions: New prednisone 10 mg tablet 10 mg PO DAILY Qty: 7 0RF Saccharomyces boulardii 250 mg capsule 250 mg PO DAILY 10 Days Qty: 10 0RF vancomycin 125 mg capsule 125 mg PO QID 8 Days Qty: 32 0RF Continued carvedilol 12.5 mg tablet 12.5 mg PO BID Qty: 180 3RF Rx Instructions: must administer with a meal/food ezetimibe 10 mg tablet 10 mg PO DAILY Qty: 30 11RF pantoprazole 40 mg tablet,delayed release (DR/EC) 40 mg PO DAILY Qty: 90 3RF gemfibrozil 600 mg tablet 600 mg PO BID Qty: 180 3RF allopurinol 100 mg tablet 200 mg PO QAM aspirin [Adult Aspirin Regimen] 81 mg tablet,delayed release (DR/EC) 81 mg PO QAM diltiazem HCl [Tiadylt ER] 240 mg capsule,extended release 24 hr 240 mg PO QAM levothyroxine 50 mcg tablet 50 mcg PO DAILYBB prednisone 10 mg tablet 10 mg PO Q OTHER DAY Rx Instructions: take with evening meal Changed ferrous sulfate 325 mg (65 mg iron) tablet 325 mg PO Q48H Qty: 7 0RF Discharge Orders: Discharge Order (Routine); Ordered 04/28/22 Ordered By: Rai Arellano Admission Data Admit Date/Time: 04/27/22 11:51 Attending Provider: Rai Arellano Admit Provider: Adrian Sterling Primary Care Provider: PCP,NO Other Providers: Shekhar Hurt Other Interventions: Discharge Summary Assessment (RN) Last Done: 04/28/22 11:26 Coding Level of Care Code D/C DAY MANAGEMENT <30 MINS Diagnoses Clostridioides difficile infection A49.8 Bullous pemphigoid L12.0 Pulmonary nodule R91.1 Chronic diarrhea K52.9 Chronic kidney disease, stage 3a N18.3 Aortic stenosis I35.0 S/P TAVR (transcatheter aortic valve replacement) Z95.2 Transient ischemic attack G45.9 Iron deficiency anemia D50.9 Impaired fasting glucose R73.01 Hypertension I10 Hyperlipidemia E78.5 Mitral stenosis I05.0 Cardiac valve disease etiology: etiology unspecified Hypothyroid E03.9 Hypothyroidism type: acquired
== END 2022-04-28 13:36 | disposition home or self-care (01) | DRG 372 ==
LOC: ED 15:57 → 3N 15:57 → SUATTDRO 21:18 → 3N 22:05
DX: L12.0 Bullous pemphigoid; Z79.890 Hormone replacement therapy; Z87.891 Personal history of nicotine dependence; M10.9 Gout, unspecified; Z79.82 Long term (current) use of aspirin; I12.9 Hypertensive chronic kidney disease with stage 1 through stage 4 chronic kidney disease, or unspecified chronic kidney disease; E83.42 Hypomagnesemia; E78.5 Hyperlipidemia, unspecified; A04.72 Enterocolitis due to Clostridium difficile, not specified as recurrent; N18.31 Chronic kidney disease, stage 3a; E03.9 Hypothyroidism, unspecified; Z95.2 Presence of prosthetic heart valve; Z66 Do not resuscitate; E87.1 Hypo-osmolality and hyponatremia

== ENCOUNTER 2023-12-30 10:33 | Inpatient (IN) ==
[2023-12-30] MEDS: SODIUM CHLORIDE 0.9% 1,000 ML IV SCH (11:28)
[2023-12-30] MEDS: ONDANSETRON INJ 2 MG/ML 2 ML VIAL IV STA (11:29)
[2023-12-30 11:40] LABS: Basophils # (auto) 0.06 K/uL (0.00-0.20); Basophils % (auto) 0.4 %; Eosinophils # (auto) 0.13 K/uL (0.00-0.50); Eosinophils % (auto) 0.8 %; Hematocrit (blood only) 36.1 % (37.0-47.0); Hemoglobin 11.9 g/dl (12.0-16.0); Immature Granulocytes # (auto) 0.12 K/uL (0.01-0.20); Immature Granulocytes % (auto) 0.7 %; Lymphocytes # (auto) 0.72 K/uL (1.20-3.40); Lymphocytes % (auto) 4.2 %; Mean Corpuscular Hemoglobin 31.5 pg (25.0-34.0); Mean Corpuscular Volume 95.5 fL (80.0-100.0); Mean Platelet Volume 10.5 fL (9.4-12.4); Monocytes # (auto) 0.94 K/uL (0.11-0.59); Monocytes % (auto) 5.5 %; Neutrophils # (auto) 15.07 K/uL (1.40-6.50); Neutrophils % (auto) 88.4 %; Platelet Count 310 K/uL (130-400); RDW Coefficient of Variation 13.2 % (11.5-14.5); RDW Standard Deviation 45.8 fL (36.4-46.3); Red Blood Count 3.78 M/uL (4.20-5.40); White Blood Count 17.04 K/ul (4.8-10.8)
--- NOTE | 2023-12-30 11:45 | XRay Report ---
XR chest 1V portable CLINICAL HISTORY: shortness of breath COMPARISON STUDY: Chest radiograph September 15, 2023. FINDINGS: Low lung volumes are unchanged. There is no pneumothorax or pleural effusion. Aortic valve prosthesis is noted. Cardiomegaly is unchanged. There is no radiographic evidence for pulmonary edema . Left basilar opacity is unchanged and favors atelectasis. No consolidation to suggest pneumonia. IMPRESSION: No acute cardiopulmonary findings. Note significant change in appearance of the chest. ACT 112: Negative or not required by law. Electronically signed by: Nickolas Green M.D. 12/30/2023 11:43 AM
--- NOTE | 2023-12-30 11:52 | Emergency Department Note ---
Impression & Plan Generalized weakness, Leukocytosis, Acute dehydration ED Provider Note NAME: RAFA MACIEL AGE: 88 SEX: Female INFORMANT: Patient ED PROVIDER(S): Bro Lunsford MD CHIEF COMPLAINT: Generalized weakness and shortness of PLAN: Disposition: Admitted Outpatient prescription management: none Referral: None MEDICAL DECISION MAKING: Patient presented because of generalized weakness. She clinically looked dry. IV was established. She was started on gentle fluid hydration. Chest x-ray was performed and was unremarkable. ECG shows some inferolateral ST abnormality. Patient's blood pressure was borderline low. Blood cultures and cath urinalysis ordered. Patient's white blood cell count is elevated at 17,000. Lactate ordered. Patient was empirically given a dose of IV Rocephin. The patient's lactate is normal. Patient's cardiac troponin is minimally elevated but she has no chest pain. Patient does have a significant elevation of her BNP. There is no signs of CHF on her chest x-ray or physical examination. My concern is that she has this pre-existing problems with her valves. She will need further management in the hospital given her symptoms and findings here in the emergency department. Patient is in agreement. Her ECG was repeated to further evaluate her rhythm and it appears that it is in A-fib with normal rate. This would be a new finding for her based on prior ECGs. [facility] Case was discussed with Dr. Sharma. Patient was evaluated in the ER and admitted for further management. 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 Vital Signs: reviewed and remarkable for borderline tachycardia Additional History obtained from: none Chronic Medical/Social Conditions affecting care: Aortic stenosis, hypertension Prior/ Outside/ External records reviewed: none Differential Diagnosis: Infection, dehydration, metabolic abnormality, hypo/hyperglycemia, electrolyte disturbance, anemia, hypoxia, cardiac sources, intracerebral event, toxicologic, neurologic, as well as other pathologies. Diagnostics, independently interpreted by me: ECG: Twelve-lead ECG reveals atrial fibrillation at 88 bpm. Poor baseline data. LVH present. Inferolateral ST abnormality present. No ST elevation. Cardiac Monitoring: Cardiac monitoring ordered by me: The patient was placed on continuous cardiac monitoring and observed. It revealed a atrial fibrillation at 98 bpm Medical decision rules: none Imaging studies: Chest x-ray. Findings: A chest x-ray was performed and revealed no pneumothorax, effusion, infiltrate, pulmonary edema, free air under the diaphragm, or wide mediastinum. Impression: No acute disease. HPI: 88 year old Female arrives for evaluation of generalized weakness and shortness of breath. This started earlier this week and is progressing. The patient also notes the following associated symptoms, feeling dehydrated, nausea, poor appetite, dysuria, few episodes of diarrhea. The patient has tried Imodium for relieving factors. Current pain is rated as 0/10. Patient denies any sick contacts. Pt denies LOC, headache, fevers, chills, diaphoresis, visual changes, neck pain, chest pain, vomiting, abdominal pain, back pain, melena, hematochezia, rash, or other complaints. . PAST MEDICAL HISTORY: See Below, aortic stenosis, mitral stenosis PAST SURGICAL HISTORY: See Below, TAVR SOCIAL HISTORY: See Below, retired HOME MEDICATIONS: See Below ALLERGIES: See Below VITALS: See Below PHYSICAL EXAMINATION: GENERAL: Awake, alert, mildly ill appearing, in no distress HENT: Normocephalic, atraumatic. Oropharynx unremarkable. EYES: Normal conjunctiva. Sclera non-icteric. NECK: Inspection normal. Non-tender. Supple. No nuchal rigidity. FROM. No masses. RESPIRATORY: Clear to auscultation. No wheezes. No rales. Normal respiratory effort. CARDIAC: Borderline tachycardic rate. Irregular rhythm. Pulses equal. GI: Soft, non-distended. No tenderness to palpation. No rebound or guarding. No masses. RECTAL: Deferred. MUSCULOSKELETAL: Atraumatic. Chest examination reveals no tenderness. The back is kyphotic on inspection without obvious abnormality. There is no CVA tenderness to palpation. No joint edema. LOWER EXTREMITIES: Calves are equal size bilaterally and non-tender. No edema. No discoloration. NEURO: Normal sensorium. No sensory or motor deficits noted. SKIN: No rash or jaundice noted. PROCEDURES: none CRITICAL CARE: none OBSERVATION NOTE: none Past Med/Surg History Medical History (Updated 12/30/23 @ 14:06 by Rai Sharma MD) GI bleed Pulmonary hypertension mild, 04/2022 echo per [facility] cardio records Umbilical hernia OVER LAST FEW WEEKS SEEPING BLOOD History of anesthesia reaction with lumpectomy sx took multiple hours to wake up History of GI bleed chronic/unknown etiology History of breast cancer 2004 s/p lumpectomy and radiation (x35 treatments) left Pulmonary nodule noted in 2011, pt declined f/u per PCP records pt denies/not that she is aware of Left carotid bruit Umbilical hernia without obstruction or gangrene 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 Anemia chronic, 09/2021 GI bleed -pt denies gi bleed in sep 2021 reports hx gi bleeds Transient ischemic attack pt denies Chronic kidney disease, stage 3a pt unaware denies hx kidney problems or kidney stones - reports all tests have been normal with kidneys Bullous pemphigoid chronic steroids Mitral stenosis severe, no planned intervention per 04/2022 cardio consult Aortic stenosis, severe s/p aortic valve replacement 2020 Mitral regurgitation Hyperlipidemia Hypertension Gout hx Hypothyroid Surgical History H/O umbilical hernia repair (07/20/22) Open Incarcerated Umbilical Hernia Repair(Not Applicable) - Parag Rowell MD, FACS History of cardiac cath 2020 ([place]) PRIOR TO AORTIC VALVE REPLACEMENT History of endoscopy pt reports they stretched opening from esophagus into the stomach / it was almost closed History of colonoscopy H/O aortic valve replacement March 2021 S/P hysterectomy with oophorectomy "complete" 1996 - reports possible appendectomy with - pt not sure S/P lumpectomy, left breast Family History Sister Breast cancer Colorectal cancer COPD (chronic obstructive pulmonary disease) Mother Diabetes Sister Breast cancer Colorectal cancer Denies family history of Ovarian cancer Prostate cancer Myocardial infarction Social History (Updated 08/17/23 @ 14:22 by Jayna Peterson) Smoking Status: Former smoker Tobacco Type: Cigarettes Age Started Using Tobacco: 15; Age Quit Using Tobacco: 33; packs per day: 0.5; Cigarettes Per Day: 10; Smoking End Date: 1967; Second Hand Exposure: No; Do You Dip or Chew Tobacco: No; Hx Alcohol Use: No Hx Substance Use: No Preferred Language: Armenian Communication Ability: Effective Visual Impairment: No Limitations Hearing Ability: Normal Auto Repair Technician Required: No Beliefs That Will Affect Care: None marital status: / Current Living Situation: Alone current occupational status: retired 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 How many Children do You have: 3 Other Information That Helps Us Care for You: No Feels Safe at Home: Yes Safety Concerns: Feels Safe At This Time Childhood Exposure to Second-Hand Smoke: Yes Diet: regular caffeine: No during the past year weight has: remained stable Dental Care, Regularly: No Physical Activity Frequency: Does not Exercise Seatbelt Use: always Sunscreen Use: No Assistive Devices: Cane and Denture - Upper Allergies Allergies Allergy/AdvReac Type Severity Reaction Status Date / Time hydrochlorothiazide Allergy Unknown pt reports Verified 10/17/23 10:01 doesn't take it anymore, denies hx reaction simvastatin Allergy Unknown RASH Verified 10/17/23 10:01 [id number]-[id number]-DkH Reductase Allergy Unknown Rash Verified 10/17/23 10:01 Inhibitor [Roxpsev-Zfn-Awy Reductase Inhibitor] tramadol Allergy Unknown pt not Verified 10/17/23 10:01 sure/pt not recall taking this trospium Allergy Unknown pt doesn't Verified 10/17/23 10:01 recall taking this Home Meds Home Medications Medication Instructions Recorded Confirmed aspirin 81 mg tablet,delayed 0 mg PO QPM 04/20/21 12/30/23 release (Adult Aspirin Regimen) ferrous sulfate 325 mg (65 mg 0 mg PO Q2D 07/19/22 12/30/23 iron) tablet prednisone 10 mg tablet 10 mg PO Q OTHER DAY 01/03/23 12/30/23 calcium carbonate 600 mg-vitamin 0 cap PO DAILY 03/16/23 12/30/23 D3 12.5 mcg (500 unit) capsule (Calcium 600 with Vitamin D3) alendronate 70 mg tablet (Fosamax) 70 mg PO WK 12/30/23 12/30/23 diltiazem HCl 240 mg capsule,24 240 mg PO QAM 12/30/23 12/30/23 hr,extended release Previous Rx's Medication Instructions Recorded carvedilol 12.5 mg tablet 12.5 mg PO BID #180 tabs 07/05/23 allopurinol 100 mg tablet 200 mg (2 x 100 mg) PO QAM #180 10/02/23 tabs gemfibrozil 600 mg tablet 600 mg PO BID #180 tabs 11/23/23 levothyroxine 50 mcg tablet 50 mcg PO QAM 90 days #90 tabs 11/23/23 Results & Data (ED) Vital Signs Vital Signs - 24 hr 12/30/23 10:38 12/30/23 10:40 12/30/23 11:41 Temperature 36.8 C Temperature Source Temporal Artery Scan Pulse Rate 96 H 96 H Pulse Rate [Right Finger] Pulse Rhythm Regular Pulse Strength Normal Respiratory Rate 18 Respiratory Effort / Characteristics Non-Labored Respiratory Depth Normal Respiratory Pattern Regular Blood Pressure 101/61 Blood Pressure [Left Arm] Blood Pressure Mean 74 Blood Pressure Mean [Left Arm] Blood Pressure Position Sitting Blood Pressure Position [Left Arm] Pulse Oximetry 97 97 Oxygen Delivery Method Room Air Room Air Sepsis Recent Fever Within 48 Hours No Sepsis New/Unexplained Change in Mental Status No Sepsis Action Taken by Nursing No Action Required 12/30/23 11:45 12/30/23 12:40 12/30/23 13:45 Temperature Temperature Source Pulse Rate Pulse Rate [Right Finger] 100 H 92 H 92 H Pulse Rhythm Pulse Strength Respiratory Rate 20 24 20 Respiratory Effort / Characteristics Non-Labored Spontaneous Non-Labored Spontaneous Non-Labored Spontaneous Respiratory Depth Normal Normal Normal Respiratory Pattern Regular Regular Regular Blood Pressure Blood Pressure [Left Arm] 104/86 124/70 93/55 L Blood Pressure Mean Blood Pressure Mean [Left Arm] 92 88 67 Blood Pressure Position Blood Pressure Position [Left Arm] Semi-fowlers Semi-fowlers Semi-fowlers Pulse Oximetry 94 92 93 Oxygen Delivery Method Room Air Room Air Room Air Sepsis Recent Fever Within 48 Hours Sepsis New/Unexplained Change in Mental Status Sepsis Action Taken by Nursing 12/30/23 14:31 Temperature Temperature Source Pulse Rate Pulse Rate [Right Finger] 94 H Pulse Rhythm Pulse Strength Respiratory Rate 24 Respiratory Effort / Characteristics Non-Labored Spontaneous Respiratory Depth Normal Respiratory Pattern Regular Blood Pressure Blood Pressure [Left Arm] 87/66 L Blood Pressure Mean Blood Pressure Mean [Left Arm] 73 Blood Pressure Position Blood Pressure Position [Left Arm] Left Lateral Pulse Oximetry 93 Oxygen Delivery Method Room Air Sepsis Recent Fever Within 48 Hours Sepsis New/Unexplained Change in Mental Status Sepsis Action Taken by Nursing Laboratory Data 12/30/23 10:22 12/30/23 10:22 Lab Results 12/30/23 12/30/23 12/30/23 Range/Units 10:22 11:53 12:13 WBC 17.04 H (4.8-10.8) K/ul RBC 3.78 L (4.20-5.40) M/uL Hgb 11.9 L (12.0-16.0) g/dl Hct 36.1 L (37.0-47.0) % MCV 95.5 (80.0-100.0) fL MCH 31.5 (25.0-34.0) pg MCHC 33.0 (32.0-36.0) g/dL RDW Std Deviation 45.8 (36.4-46.3) fL RDW Coeff of Mervin 13.2 (11.5-14.5) % Plt Count 310 (130-400) K/uL MPV 10.5 (9.4-12.4) fL Immature Gran % (Auto) 0.7 % Neut % (Auto) 88.4 % Lymph % (Auto) 4.2 % [place] % (Auto) 5.5 % Eos % (Auto) 0.8 % Baso % (Auto) 0.4 % Neut # (Auto) 15.07 H (1.40-6.50) K/uL Lymph # (Auto) 0.72 L (1.20-3.40) K/uL [place] # (Auto) 0.94 H (0.11-0.59) K/uL Eos # (Auto) 0.13 (0.00-0.50) K/uL Baso # (Auto) 0.06 (0.00-0.20) K/uL Immature Gran # (Auto) 0.12 (0.01-0.20) K/uL PT 11.2 (9.0-12.0) Seconds INR 1.0 (0.9-1.1) APTT 24 (21-31) Seconds PTT Ratio 0.9 Sodium 137 (136-145) mmol/L Potassium 3.7 (3.5-5.1) mmol/L Chloride 104 (98-107) mmol/L Carbon Dioxide 23 (21-32) mmol/L Anion Gap 10 (3-11) BUN 31 H (6-23) mg/dl Creatinine 0.89 (0.6-1.2) mg/dl Est Cr Clr Drug Dosing 39.9 ml/min Est GFR ( Amer) 67.1 ml/min Est GFR (Non-Af Amer) 57.9 ml/min BUN/Creatinine Ratio 34.8 H (10-20) Glucose 107 H (70-99(Fasting)) mg/dl Lactate 1.2 (0.4-2.0) mmol/L Calcium 10.2 (8.6-10.3) mg/dl Magnesium 1.7 (1.7-2.4) mg/dl Total Bilirubin 0.5 (0.2-1.0) mg/dl AST 18 (13-39) U/L ALT 14 (7-52) U/L Alkaline Phosphatase 57 (34-104) U/L Troponin I High Sens 23.3 H (0-14) pg/ml C-Reactive Protein 6.18 H (0-0.5) mg/dl B-Natriuretic Peptide 1341 H (0-100) pg/ml Total Protein 7.3 (6.0-8.3) gm/dl Albumin 3.7 (3.4-5.0) gm/dl Globulin 3.6 (2.5-4.0) gm/dl Albumin/Globulin Ratio 1.0 (0.9-2) Procalcitonin 0.23 (0-0.5) ng/ml TSH 3.553 (0.300-4.500) uIu/ml Urine Color Yellow Urine Appearance Clear (Clear) Urine pH 6.0 (4.5-7.5) Ur Specific [place] 1.020 (1.000-1.030) Urine Protein Trace H (Negative) Urine Glucose (UA) Negative (Negative) Urine Ketones Trace H (Negative) Urine Blood Negative (Negative) Urine Nitrite Negative (Negative) Urine Bilirubin Negative (Negative) Urine Urobilinogen Negative (Negative) Ur Leukocyte Esterase Negative (Negative) Urine WBC (Auto) 0-5 (0-5) /hpf Urine RBC (Auto) 0-2 (0-2) /hpf U Hyaline Cast (Auto) 6-10 H (0-2) /lpf U Epithel Cells (Auto) 0-2 (0-2) /hpf Urine Bacteria (Auto) None Seen (None Seen) Calcium Oxalate Crystal Present A (None Prsent) 12/30/23 Range/Units 13:07 WBC (4.8-10.8) K/ul RBC (4.20-5.40) M/uL Hgb (12.0-16.0) g/dl Hct (37.0-47.0) % MCV (80.0-100.0) fL MCH (25.0-34.0) pg MCHC (32.0-36.0) g/dL RDW Std Deviation (36.4-46.3) fL RDW Coeff of Mervin (11.5-14.5) % Plt Count (130-400) K/uL MPV (9.4-12.4) fL Immature Gran % (Auto) % Neut % (Auto) % Lymph % (Auto) % [place] % (Auto) % Eos % (Auto) % Baso % (Auto) % Neut # (Auto) (1.40-6.50) K/uL Lymph # (Auto) (1.20-3.40) K/uL [place] # (Auto) (0.11-0.59) K/uL Eos # (Auto) (0.00-0.50) K/uL Baso # (Auto) (0.00-0.20) K/uL Immature Gran # (Auto) (0.01-0.20) K/uL PT (9.0-12.0) Seconds INR (0.9-1.1) APTT (21-31) Seconds PTT Ratio Sodium (136-145) mmol/L Potassium (3.5-5.1) mmol/L Chloride (98-107) mmol/L Carbon Dioxide (21-32) mmol/L Anion Gap (3-11) BUN (6-23) mg/dl Creatinine (0.6-1.2) mg/dl Est Cr Clr Drug Dosing ml/min Est GFR ( Amer) ml/min Est GFR (Non-Af Amer) ml/min BUN/Creatinine Ratio (10-20) Glucose (70-99(Fasting)) mg/dl Lactate (0.4-2.0) mmol/L Calcium (8.6-10.3) mg/dl Magnesium (1.7-2.4) mg/dl Total Bilirubin (0.2-1.0) mg/dl AST (13-39) U/L ALT (7-52) U/L Alkaline Phosphatase (34-104) U/L Troponin I High Sens 19.3 H D (0-14) pg/ml C-Reactive Protein (0-0.5) mg/dl B-Natriuretic Peptide (0-100) pg/ml Total Protein (6.0-8.3) gm/dl Albumin (3.4-5.0) gm/dl Globulin (2.5-4.0) gm/dl Albumin/Globulin Ratio (0.9-2) Procalcitonin (0-0.5) ng/ml TSH (0.300-4.500) uIu/ml Urine Color Urine Appearance (Clear) Urine pH (4.5-7.5) Ur Specific [place] (1.000-1.030) Urine Protein (Negative) Urine Glucose (UA) (Negative) Urine Ketones (Negative) Urine Blood (Negative) Urine Nitrite (Negative) Urine Bilirubin (Negative) Urine Urobilinogen (Negative) Ur Leukocyte Esterase (Negative) Urine WBC (Auto) (0-5) /hpf Urine RBC (Auto) (0-2) /hpf U Hyaline Cast (Auto) (0-2) /lpf U Epithel Cells (Auto) (0-2) /hpf Urine Bacteria (Auto) (None Seen) Calcium Oxalate Crystal (None Prsent) Administered Medications Carvedilol (Carvedilol 12.5 Mg Tab) 12.5 mg PO BID [facility] Stop: 01/29/24 20:59 Last Admin: 12/30/23 20:08 Dose: 12.5 mg Documented By: DUNG Diltiazem HCl (Diltiazem Hcl 240 Mg Capcr) 240 mg PO QPM [facility] Stop: 01/29/24 20:59 Last Admin: 12/30/23 20:08 Dose: 240 mg Documented By: DUNG Heparin Sodium/Dextrose (Heparin Sodium/Dextrose) 25,000 units in 500 mls @ 21 mls/hr IV .[id number] [facility]; Protocol Stop: 01/29/24 15:29 Last Titration: 12/30/23 19:02 Dose: 1,050 units/hr, 21 mls/hr Documented By: DUNG Co-signed By: SKY Admin: 12/30/23 16:39 Dose: 1,050 units/hr, 21 mls/hr Documented By: TEDDY Co-signed By: [facility] Miconazole Nitrate (Miconazole Nitrate Powder 85 Gm) 1 appln EXT BID [facility] Stop: 01/29/24 18:14 Last Admin: 12/30/23 18:27 Dose: Not Given Documented By: HM Prednisone (Prednisone 10 Mg Tablet) 10 mg PO Q48H DEQUAN Stop: 01/29/24 19:44 Last Admin: 12/30/23 20:08 Dose: 10 mg Documented By: DUNG Discontinued Medications Griffin Syrup (Griffin Syrup 5 Ml Udp) 5 ml PO ONE STA Stop: 12/30/23 14:50 Last Admin: 12/30/23 15:35 Dose: 5 ml Documented By: TEDDY Sodium Chloride (Nss) 1,000 mls @ 125 mls/hr IV .Q8H DEQUAN Stop: 01/29/24 11:29 Last Infusion: 12/30/23 13:45 Dose: Infused Documented By: Infusion: 12/30/23 12:00 Dose: 125 mls/hr Documented By: Infusion: 12/30/23 11:45 Dose: 999 mls/hr Documented By: Infusion: 12/30/23 11:45 Dose: 0 mls/hr Documented By: Admin: 12/30/23 11:28 Dose: 125 mls/hr Documented By: LMM Ceftriaxone Sodium (Rocephin) 2,000 mg in 50 mls @ 100 mls/hr IV NOW STA Stop: 12/30/23 12:14 Last Infusion: 12/30/23 13:20 Dose: Infused Documented By: Admin: 12/30/23 12:40 Dose: 100 mls/hr Documented By: LMM Sodium Chloride (Nss) 500 mls @ 999 mls/hr IV .Q31M ONE Stop: 12/30/23 12:15 Last Infusion: 12/30/23 12:48 Dose: Infused Documented By: Admin: 12/30/23 11:56 Dose: 999 mls/hr Documented By: NRB Lactated Ringer's (Lr) 1,000 mls @ 999 mls/hr IV .Q1H1M ONE Stop: 12/30/23 15:54 Last Infusion: 12/30/23 17:40 Dose: Infused Documented By: Admin: 12/30/23 15:39 Dose: 999 mls/hr Documented By: TEDDY Nystatin (Nystatin Cr 15 Gm Tube) 1 appln EXT NOW STA Stop: 12/30/23 14:52 Last Admin: 12/30/23 15:52 Dose: Not Given Documented By: TEDDY Ondansetron HCl (Ondansetron Inj 2 Mg/Ml 2 Ml Vial) 4 mg IV NOW STA Stop: 12/30/23 11:24 Last Admin: 12/30/23 11:29 Dose: 4 mg Documented By: LMM Vancomycin HCl (Vancomycin Hcl 125 Mg/2.5ml Soln) 125 mg PO ONE STA Stop: 12/30/23 14:50 Last Admin: 12/30/23 15:35 Dose: 125 mg Documented By: TEDDY Imaging Data Radiologist's Impression: Chest X-Ray 12/30/23 11:01 XR chest 1V portable CLINICAL HISTORY: shortness of breath COMPARISON STUDY: Chest radiograph September 15, 2023. FINDINGS: Low lung volumes are unchanged. There is no pneumothorax or pleural effusion. Aortic valve prosthesis is noted. Cardiomegaly is unchanged. There is no radiographic evidence for pulmonary edema. Left basilar opacity is unchanged and favors atelectasis. No consolidation to suggest pneumonia. IMPRESSION: No acute cardiopulmonary findings. Note significant change in appearance of the chest. ACT 112: Negative or not required by law. Electronically signed by: Nickolas Green M.D. 12/30/2023 11:43 AM Discharge Plan Visit Data Chief Complaint: Flu Like Symptoms Stated Complaint: SEVERE SOB/DIARRHEA/WEAK SHAKEY ED Provider: Bro Lunsford Discharge Problem: Generalized weakness, Leukocytosis, Acute dehydration Patient Disposition: Admitted As Inpatient Discharge Instructions Interventions: ED Discharge Assessment Last Done: 12/30/23 17:49
[2023-12-30 11:54] LABS: Albumin Level 3.7 gm/dl (3.4-5.0); BUN Creatinine Ratio 34.8 (10-20); Bilirubin,Total 0.5 mg/dl (0.2-1.0); Calcium 10.2 mg/dl (8.6-10.3); Creatinine Clr Calc Pharmacy 39.9 ml/min; Est GFR (African American) 67.1 ml/min; Est GFR (Non-African American) 57.9 ml/min; Globulin 3.6 gm/dl (2.5-4.0); Potassium 3.7 mmol/L (3.5-5.1); Total Protein 7.3 gm/dl (6.0-8.3)
[2023-12-30] MEDS: SODIUM CHLORIDE 0.9% 500 ML IV ONE (11:56)
[2023-12-30 12:00] LABS: Troponin I High Sensitivity 23.3 pg/ml (0-14)
[2023-12-30 12:34] LABS: Adenovirus PCR Not Detected (NotDetected); Bordetella parapertussis PCR Not Detected (NotDetected); Bordetella pertussis PCR Not Detected (NotDetected); Chlamydia pneumoniae PCR Not Detected (NotDetected); Coronavirus 229E PCR Not Detected (NotDetected); Coronavirus CoV-2 (COVID19)PCR Not Detected (NotDetected); Coronavirus HKU1 PCR Not Detected (NotDetected); Coronavirus NL63 PCR Not Detected (NotDetected); Coronavirus OC43PCR Not Detected (NotDetected); Human Metapneumovirus PCR Not Detected (NotDetected); Influenza A PCR Not Detected (NotDetected); Influenza B PCR Not Detected (NotDetected); Mycoplasma pneumoniae PCR Not Detected (NotDetected); Parainfluenza Virus 1 PCR Not Detected (NotDetected); Parainfluenza Virus 2 PCR Not Detected (NotDetected); Parainfluenza Virus 3 PCR Not Detected (NotDetected); Parainfluenza Virus 4 PCR Not Detected (NotDetected); Respiratory Syncytial VirusPCR Not Detected (NotDetected); Rhinovirus/Enterovirus PCR Not Detected (NotDetected)
[2023-12-30 12:37] LABS: Appearance Urine Clear (Clear); Bacteria Urine Automated None Seen (None Seen); Bilirubin Urine Negative (Negative); Blood Urine Negative (Negative); Color Urine Yellow; Epithelial Cell Urine Auto 0-2 /hpf (0-2); Glucose Urine UA Negative (Negative); Ketones Urine Trace (Negative); Leukocyte Esterase Urine Negative (Negative); Nitrite Urine Negative (Negative); Protein Urine Trace (Negative); RBC Urine Automated 0-2 /hpf (0-2); Urobilinogen Urine Negative (Negative); WBC Urine Automated 0-5 /hpf (0-5)
[2023-12-30] MEDS: cefTRIAXone SODIUM 2,000 MG/50 ML BAG IV STA (12:40)
[2023-12-30 12:50] LABS: Calcium Oxalate Crystals Urine Present (None Prsent)
--- NOTE | 2023-12-30 14:08 | History & Physical Report ---
Date of Service December 30, 2023 Assessment & Plan (1) New onset atrial fibrillation: Plan: In setting of known severe mitral stenosis with left atrial enlargement +/- acute infection TSH ordered TTE Continue rate control with current medications - carvedilol and diltiazem Anticoagulation with IV heparin, [id number] 4, noted prior history of GI bleed therefore will start with heparin in case of recurrence Aim K > 4, Mg > 2 (2) Tinea cruris: Plan: Miconazole powder BID (3) Cellulitis: Plan: Possible diagnosis of groin causing increased WBC but difficult to be sure on exam with concurrent tinea Increased CRP favors true cellulitis although procalcitonin negative Ceftriaxone 2g IV daily, follow up blood cultures (4) Diarrhea: Plan: Potentially concerning for c. diff with history of this Empirically treat with vancomycin 125mg PO now, further treatment only if c. diff PCR comes back positive Consider prophylactic treatment if she remains on IV antibiotics (5) Leukocytosis: Plan: Unclear whether stress reaction vs. sepsis Given potential sources of infection with skin in groin and diarrhea will treat as sepsis Lactate 1.2 Normal saline 600ml bolus given, will give additional 1L LR now due to ongoing hypotension Follow up urine and blood cultures IV ceftriaxone to cover for skin etiology as above One does PO vancomycin pending stool testing (6) Bullous pemphigoid: Plan: Continue home prednisone dose (7) Hypothyroid: Plan: TSH WNL Continue levothyroxine (8) Generalized weakness: Plan: Suspect due to infection PT/OT (9) Hypertension: Plan: Currently hypotensive but will continue diltiazem and carvedilol for rate control (10) Mitral stenosis: (11) S/P TAVR (transcatheter aortic valve replacement): Plan VTE Prophylaxis - IV heparin Diet - heart healthy Disposition - admit to PCU Admission and Anticipated Discharge Date Admission Date: December 30, 2023 History of Present Illness Chief Complaint: Generalized weakness, nausea Primary Care Provider: Ophelia Norman MD Ana Rodríguez is an 88-year-old female who presents to the ER with generalized weakness, groin rash and shortness of breath. She feels she has been sick since Sunday with diarrhea, dysuria, nausea, poor appetite, generalized weakness, nausea, stumbling around. Her diarrhea started on and she took x2 Imodium which helped until this morning with 2-3 watery/black bowel movements today. SHe has a notable history of c. diff. No fever, chills, cough, nasal congestion, flank pain, chest pain, abdominal pain, headache, neck pain. This morning she is felt acutely worse therefore decided to come to the ER. In the ER she was noted to be in atrial fibrillation and on review of prior cardiology notes this appears to be a new diagnosis. She reports he bullous pemphigoid is current well controlled on prednisone 10mg QOD. Allergies Allergy/AdvReac Type Severity Reaction Status Date / Time hydrochlorothiazide Allergy Unknown pt reports Verified 10/17/23 10:01 doesn't take it anymore, denies hx reaction simvastatin Allergy Unknown RASH Verified 10/17/23 10:01 Ncphabl-SXB-ZnV Reductase Allergy Unknown Rash Verified 10/17/23 10:01 Inhibitor [Ogymrwe-Fxq-Bdg Reductase Inhibitor] tramadol Allergy Unknown pt not Verified 10/17/23 10:01 sure/pt not recall taking this trospium Allergy Unknown pt doesn't Verified 10/17/23 10:01 recall taking this Home Medications Medication Instructions Recorded Confirmed Type aspirin 81 mg tablet,delayed 0 mg PO QPM 04/20/21 12/30/23 History release (Adult Aspirin Regimen) ferrous sulfate 325 mg (65 mg 0 mg PO Q2D 07/19/22 12/30/23 History iron) tablet prednisone 10 mg tablet 10 mg PO Q OTHER DAY 01/03/23 12/30/23 History calcium carbonate 600 mg-vitamin 0 cap PO DAILY 03/16/23 12/30/23 History D3 12.5 mcg (500 unit) capsule (Calcium 600 with Vitamin D3) carvedilol 12.5 mg tablet 12.5 mg PO BID #180 tabs 07/05/23 12/30/23 Rx allopurinol 100 mg tablet 200 mg (2 x 100 mg) PO QAM #180 10/02/23 12/30/23 Rx tabs gemfibrozil 600 mg tablet 600 mg PO BID #180 tabs 11/23/23 12/30/23 Rx levothyroxine 50 mcg tablet 50 mcg PO QAM 90 days #90 tabs 11/23/23 12/30/23 Rx alendronate 70 mg tablet (Fosamax) 70 mg PO WK 12/30/23 12/30/23 History diltiazem HCl 240 mg capsule,24 240 mg PO QAM 12/30/23 12/30/23 History hr,extended release Past Med/Surg History Medical History (Updated 12/31/23 @ 01:53 by Rai Sharma MD) GI bleed Pulmonary hypertension mild, 04/2022 echo per [facility] records Umbilical hernia OVER LAST FEW WEEKS SEEPING BLOOD History of anesthesia reaction with lumpectomy sx took multiple hours to wake up History of GI bleed chronic/unknown etiology History of breast cancer 2004 s/p lumpectomy and radiation (x35 treatments) left Pulmonary nodule noted in 2011, pt declined f/u per PCP records pt denies/not that she is aware of Left carotid bruit Umbilical hernia without obstruction or gangrene 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 Anemia chronic, 09/2021 GI bleed -pt denies gi bleed in sep 2021 reports hx gi bleeds Transient ischemic attack pt denies Chronic kidney disease, stage 3a pt unaware denies hx kidney problems or kidney stones - reports all tests have been normal with kidneys Bullous pemphigoid chronic steroids Mitral stenosis severe, no planned intervention per 04/2022 cardio consult Aortic stenosis, severe s/p aortic valve replacement 2020 Mitral regurgitation Hyperlipidemia Hypertension Gout hx Hypothyroid Surgical History H/O umbilical hernia repair (07/20/22) Open Incarcerated Umbilical Hernia Repair(Not Applicable) - Parag Rowell MD, FACS History of cardiac cath 2020 ([place]) PRIOR TO AORTIC VALVE REPLACEMENT History of endoscopy pt reports they stretched opening from esophagus into the stomach / it was almost closed History of colonoscopy H/O aortic valve replacement March 2021 S/P hysterectomy with oophorectomy "complete" 1996 - reports possible appendectomy with - pt not sure S/P lumpectomy, left breast Family History Sister Breast cancer Colorectal cancer COPD (chronic obstructive pulmonary disease) Mother Diabetes Sister Breast cancer Colorectal cancer Denies family history of Ovarian cancer Prostate cancer Myocardial infarction Social History (Updated 08/17/23 @ 14:22 by Jayna Peterson) Smoking Status: Former smoker Tobacco Type: Cigarettes Age Started Using Tobacco: 15; Age Quit Using Tobacco: 33; packs per day: 0.5; Cigarettes Per Day: 10; Smoking End Date: 1967; Second Hand Exposure: No; Do You Dip or Chew Tobacco: No; Hx Alcohol Use: No Hx Substance Use: No Preferred Language: Slovenian Communication Ability: Effective Visual Impairment: No Limitations Hearing Ability: Normal Billing Typist Required: No Beliefs That Will Affect Care: None marital status: / Current Living Situation: Alone current occupational status: retired 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 How many Children do You have: 3 Other Information That Helps Us Care for You: No Feels Safe at Home: Yes Safety Concerns: Feels Safe At This Time Childhood Exposure to Second-Hand Smoke: Yes Diet: regular caffeine: No during the past year weight has: remained stable Dental Care, Regularly: No Physical Activity Frequency: Does not Exercise Seatbelt Use: always Sunscreen Use: No Assistive Devices: Cane and Denture - Upper Review of Systems Review of Systems: All systems reviewed & are unremarkable except as noted in HPI & below Physical Exam Constitutional: WD/WN, vitals as above Eyes: PERRL, conjunctivae normal, anicteric sclerae ENMT: Mouth: + dry oral mucous membranes Respiratory: normal respiratory effort, lungs clear to auscultation Cardiovascular: Rate/Rhythm: + tachycardic and + irregularly irregular Heart Sounds: + murmur (apical systolic) Vessels: no JVD Extremities: normal capillary refill and + pedal edema; no calf tenderness Gastrointestinal (Abdomen): normal bowel sounds, soft, nontender, no hepatosplenomegaly Musculoskeletal: no cyanosis or clubbing, extremities motor strength 5/5 Skin: bilateral groin erythema with open skin on left groin, wet Neurologic: moves all extremities and awake; not confused Psychiatric: A+Ox3, euthymic affect Genitourinary: no CVA tenderness Results & Data Results & Data Vital Signs (Past 12 Hours) Vital Signs Temp Pulse Pulse Resp BP BP Pulse Ox 12/30/23 13:45 92 H 20 93/55 L 93 12/30/23 12:40 92 H 24 124/70 92 12/30/23 11:45 100 H 20 104/86 94 12/30/23 11:41 96 H 12/30/23 10:40 97 12/30/23 10:38 36.8 C 96 H 18 101/61 97 O2 Del Method 04/21/24 13:45 Room Air 12/30/23 12:40 Room Air 12/30/23 11:45 Room Air 12/30/23 11:41 12/30/23 10:40 Room Air 12/30/23 10:38 Room Air Laboratory Results Abnormal lab results 12/30/23 12/30/23 12/30/23 Range/Units 10:22 11:53 13:07 WBC 17.04 H (4.8-10.8) K/ul RBC 3.78 L (4.20-5.40) M/uL Hgb 11.9 L (12.0-16.0) g/dl Hct 36.1 L (37.0-47.0) % Neut # (Auto) 15.07 H (1.40-6.50) K/uL Lymph # (Auto) 0.72 L (1.20-3.40) K/uL Dewitt # (Auto) 0.94 H (0.11-0.59) K/uL BUN 31 H (6-23) mg/dl BUN/Creatinine Ratio 34.8 H (10-20) Glucose 107 H (70-99(Fasting)) mg/dl Troponin I High Sens 23.3 H 19.3 H D (0-14) pg/ml B-Natriuretic Peptide 1341 H (0-100) pg/ml Urine Protein Trace H (Negative) Urine Ketones Trace H (Negative) U Hyaline Cast (Auto) 6-10 H (0-2) /lpf Calcium Oxalate Crystal Present A (None Prsent) Diagnostic Findings XR chest 1V portable CLINICAL HISTORY: shortness of breath COMPARISON STUDY: Chest radiograph September 15, 2023. FINDINGS: Low lung volumes are unchanged. There is no pneumothorax or pleural effusion. Aortic valve prosthesis is noted. Cardiomegaly is unchanged. There is no radiographic evidence for pulmonary edema. Left basilar opacity is unchanged and favors atelectasis. No consolidation to suggest pneumonia. IMPRESSION: No acute cardiopulmonary findings. Note significant change in appearance of the chest. Medications Administered ER medications given: Normal saline 500 ml bolus Ceftriaxone 2 g IV Ondansetron 4 mg IV Normal saline 1 L bolus ECG Rate (beats per minute): 88 Rhythm: atrial fibrillation Findings: + other (Left ventricular hypertrophy, nonspecific T wave abnormality in inferior leads) Comparison ECG Date: from (September 15, 2023) Change: the following changes noted (Atrial fibrillation replaced sinus rhythm, T wave inversions in inferior leads are new) Code Status & VTE Plan Code Status DNR in setting of cardiac arrest, all other treatment including intubation and ventilation outside of a cardiac arrest VTE Prophylaxis Plan VTE Prophylaxis will be ordered: Yes PG Care Time/CCT Total # of Minutes Spent Total Time Spent with Patient: Total time spent is greater than 50% in coordination of care (as documented) at patient's floor/unit and/or counseling patient: Coding Level of Care Code 33817 INT INP/OBS CARE 3/75MIN Diagnoses New onset atrial fibrillation I48.91 Tinea cruris B35.6 Cellulitis L03.90 Diarrhea R19.7 Leukocytosis D72.829 Bullous pemphigoid L12.0 Acquired hypothyroidism E03.9 Hypothyroidism type: acquired Generalized weakness R53.1 Primary hypertension I10 Hypertension type: primary hypertension Mitral stenosis I05.0 S/P TAVR (transcatheter aortic valve replacement) Z95.2 (7) Hypothyroid Hypothyroidism type: acquired Qualified Code(s): E03.9 - Hypothyroidism, unspecified (9) Hypertension Hypertension type: primary hypertension Qualified Code(s): I10 - Essential (primary) hypertension
[2023-12-30 14:27] LABS: C Reactive Protein 6.18 mg/dl (0-0.5); Magnesium 1.7 mg/dl (1.7-2.4)
[2023-12-30 14:43] LABS: Thyroid Stimulating Hormone 3.553 uIu/ml (0.300-4.500)
[2023-12-30] MEDS ORDERED: Heparin IV Adult Wt-Based Standard *NO* INITIAL Bolus Protocol IV SCH (15:06)
[2023-12-30 15:22] LABS: Partial Thromboplastin Ratio 0.9; Partial Thromboplastin Time 24 Seconds (21-31); Prothrombin Time 11.2 Seconds (9.0-12.0)
[2023-12-30] MEDS: CHERRY SYRUP 5 ML UDP PO STA (15:35)
[2023-12-30] MEDS: VANCOMYCIN HCL 125 MG/2.5ML SOLN PO STA (15:35)
[2023-12-30] MEDS: LACTATED RINGER'S 1,000 ML IV ONE (15:39)
[2023-12-30] MEDS: NYSTATIN CR 15 GM TUBE EXT STA (15:52)
[2023-12-30] MEDS: HEPARIN SODIUM/DEXTROSE 25,000 UNITS/500 ML BAG IV SCH (16:39)
[2023-12-30] MEDS: MICONAZOLE NITRATE POWDER 85 GM EXT SCH (18:27)
[2023-12-30] MEDS: carvediloL 12.5 MG TAB PO SCH (20:08)
[2023-12-30] MEDS: predniSONE 10 MG TABLET PO SCH (20:08)
[2023-12-30] MEDS: dilTIAZem HCL 240 MG CAPCR PO SCH (20:08)
[2023-12-30] MEDS: gemfibroziL 600 MG TAB PO SCH (21:52)
[2023-12-30] MEDS: ASPIRIN 81 MG ECTAB PO SCH (21:52)
[2023-12-30] MEDS: MAGNESIUM SULFATE / D5W 1 GM/100 ML BAG IV SCH (22:28)
[2023-12-30 23:48] LABS: ANTI-Xa, UFH(UnfractionatedHep 0.34 IU/ml (0.3-0.7)
[2023-12-31 05:46] LABS: Basophils # (auto) 0.01 K/uL (0.00-0.20); Basophils % (auto) 0.1 %; Eosinophils # (auto) 0.01 K/uL (0.00-0.50); Eosinophils % (auto) 0.1 %; Hematocrit (blood only) 32.2 % (37.0-47.0); Hemoglobin 10.7 g/dl (12.0-16.0); Immature Granulocytes # (auto) 0.09 K/uL (0.01-0.20); Immature Granulocytes % (auto) 0.9 %; Lymphocytes % (auto) 7.1 %; Mean Corpuscular Hemoglobin 31.9 pg (25.0-34.0); Mean Corpuscular Hgb Conc 33.2 g/dL (32.0-36.0); Mean Corpuscular Volume 96.1 fL (80.0-100.0); Mean Platelet Volume 10.3 fL (9.4-12.4); Monocytes # (auto) 0.24 K/uL (0.11-0.59); Monocytes % (auto) 2.4 %; Neutrophils # (auto) 8.87 K/uL (1.40-6.50); Neutrophils % (auto) 89.4 %; Platelet Count 275 K/uL (130-400); RDW Coefficient of Variation 13.1 % (11.5-14.5); Red Blood Count 3.35 M/uL (4.20-5.40); White Blood Count 9.92 K/ul (4.8-10.8)
[2023-12-31 06:01] LABS: Albumin Globulin Ratio 1.1 (0.9-2); Albumin Level 3.3 gm/dl (3.4-5.0); BUN Creatinine Ratio 27.2 (10-20); Bilirubin,Total 0.4 mg/dl (0.2-1.0); Creatinine Clr Calc Pharmacy 44.1 ml/min; Est GFR (African American) 75.2 ml/min; Est GFR (Non-African American) 64.8 ml/min; Globulin 2.9 gm/dl (2.5-4.0); Potassium 4.1 mmol/L (3.5-5.1); Total Protein 6.2 gm/dl (6.0-8.3)
[2023-12-31] MEDS: LEVOTHYROXINE SODIUM 50 MCG TABLET PO SCH (06:01)
--- NOTE | 2023-12-31 06:04 | Electrocardiogram Report ---
Test Reason : Blood Pressure : / mmHG Vent. Rate : 088 BPM Atrial Rate : 000 BPM P-R Int : 000 ms QRS Dur : 098 ms QT Int : 380 ms P-R-T Axes : 000 -13 -07 degrees QTc Int : 459 ms Poor data quality, interpretation may be adversely affected Atrial fibrillation Moderate voltage criteria for LVH, may be normal variant ( R in aVL , [place] product ) Abnormal ECG When compared with ECG of 15-SEP-2023 14:25, Atrial fibrillation has replaced Sinus rhythm T wave inversion now evident in Inferior leads Confirmed by Vladislav Naik ([id number]) on 12/31/2023 6:04:03 AM Referred By: Ophelia Norman Confirmed By:Vladislav Naik
--- NOTE | 2023-12-31 06:06 | Electrocardiogram Report ---
Test Reason : Blood Pressure : / mmHG Vent. Rate : 093 BPM Atrial Rate : 000 BPM P-R Int : 000 ms QRS Dur : 100 ms QT Int : 376 ms P-R-T Axes : 000 -18 219 degrees QTc Int : 467 ms Atrial fibrillation Moderate voltage criteria for LVH, may be normal variant ( R in aVL , [place] product ) Abnormal ECG When compared with ECG of 30-DEC-2023 11:11, (unconfirmed) No significant change was found Confirmed by Vladislav Naik ([id number]) on 12/31/2023 6:06:32 AM Referred By: Ophelia Norman Confirmed By:Vladislav Naik
[2023-12-31 06:16] LABS: ANTI-Xa, UFH(UnfractionatedHep 0.48 IU/ml (0.3-0.7)
[2023-12-31] MEDS: allopurinoL 100 MG TAB PO SCH (08:33)
[2023-12-31] MEDS: WARFARIN SOD 10 MG TAB PO ONE (09:36)
--- NOTE | 2023-12-31 10:48 | Hospitalist Progress Note ---
Date of Service December 31, 2023 Assessment & Plan (1) New onset atrial fibrillation: Plan: New onset valvular atrial fibrillation Patient has a history of severe mitral stenosis status post TAVR and also aortic stenosis, Found to be in atrial fibrillation. No evidence of acute infection TSH within normal limits, 2D echo ordered result pending On account of valvular A-fib, and elevated [id number] score, keeping in mind a previous history of GI bleed, will initiate p.o. Coumadin, currently being bridged with IV heparin (2) Tinea cruris: Plan: Miconazole powder BID (3) Cellulitis: Plan: Possible diagnosis of groin causing increased WBC but difficult to be sure on exam with concurrent tinea Increased CRP favors true cellulitis although procalcitonin negative Ceftriaxone 2g IV daily, follow up blood cultures (4) Diarrhea: Plan: Potentially concerning for c. diff with history of this Empirically treat with vancomycin 125mg PO now, further treatment only if c. diff PCR comes back positive Consider prophylactic treatment if she remains on IV antibiotics No diarrhea this morning, so C. difficile has not been obtained (5) Leukocytosis: Plan: Unclear whether stress reaction vs. sepsis Given potential sources of infection with skin in groin and diarrhea will treat as sepsis Lactate 1.2 Normal saline 600ml bolus given, will give additional 1L LR now due to ongoing hypotension Follow up urine and blood cultures IV ceftriaxone to cover for skin etiology as above One does PO vancomycin pending stool testing (6) Bullous pemphigoid: Plan: Continue home prednisone dose (7) Hypothyroid: Plan: TSH WNL Continue levothyroxine (8) Generalized weakness: Plan: Suspect due to infection PT/OT (9) Hypertension: Plan: Currently hypotensive but will continue diltiazem and carvedilol for rate control (10) Mitral stenosis: (11) S/P TAVR (transcatheter aortic valve replacement): Plan VTE Prophylaxis -p.o. Coumadin Diet - heart healthy Disposition - admit to PCU Admission and Anticipated Discharge Date Admission Date: December 30, 2023 Subjective Patient seen and examined, sitting up in the chair denies shortness of breath or chest pain. Review of Systems Review of Systems: All systems reviewed are negative, apart from the ones contained in the history. Physical Exam Physical Exam: The patient is awake, alert and oriented 3, well developed and well nourished, normocephalic and atraumatic, lying in bed and in no acute distress. HEENT--PERRL, EOMI, mucous membranes and oropharynx mildly dry Neck--supple. No JVD. No bruits. Thyroid normal, trachea midline, no adenopathy. Heart--normal S1 and S2. No murmurs, rubs or gallops. Lungs--clear bilaterally, no respiratory distress, no accessory muscle use. Abdomen--normal bowel sounds and soft. Extremities--no cyanosis or clubbing. No edema. Dermatologic--normal skin turgor, normal color, no abnormal lymph nodes, no rash. Neurologic--cranial nerves II through XII grossly intact. Rheumatologic--normal range of motion. Psychiatric--normal affect. Results & Data Results & Data Vital Signs (Past 12 Hours) Vital Signs Temp Pulse Pulse Resp BP Pulse Ox O2 Del Method 12/31/23 07:20 97.7 F 60 18 121/77 93 Room Air 12/31/23 07:16 Room Air 12/31/23 03:00 97.7 F 88 18 104/56 L 90 Room Air 12/30/23 23:00 97.7 F 74 18 94/55 L 94 Room Air 12/30/23 23:00 98 H PG Care Time/CCT Total # of Minutes Spent Total Time Spent with Patient: Total time spent is greater than 50% in coordination of care (as documented) at patient's floor/unit and/or counseling patient: Coding Level of Care Code 58158 SUB INP/OBS CARE 2/35MIN Diagnoses New onset atrial fibrillation I48.91 Tinea cruris B35.6 Cellulitis L03.90 Diarrhea R19.7 Leukocytosis D72.829 Bullous pemphigoid L12.0 Acquired hypothyroidism E03.9 Hypothyroidism type: acquired Generalized weakness R53.1 Primary hypertension I10 Hypertension type: primary hypertension Mitral stenosis I05.0 S/P TAVR (transcatheter aortic valve replacement) Z95.2 Time Spent (min) 35 (7) Hypothyroid Hypothyroidism type: acquired Qualified Code(s): E03.9 - Hypothyroidism, unspecified (9) Hypertension Hypertension type: primary hypertension Qualified Code(s): I10 - Essential (primary) hypertension
--- NOTE | 2023-12-31 11:14 | XCELERA ---
[id number]
[2023-12-31] MEDS: cefTRIAXone SODIUM 2,000 MG in DEXTROSE 5 % MINI-B 50 ML IV SCH (12:45)
--- NOTE | 2024-01-01 05:01 | Communication Note ---
Date of Service: January 01, 2024 Notified by nursing of 3 dark stools. Noted history of GI bleed. Hemodynamically stable. Evaluated at bedside- abdomen soft, nontender, nondistended. Asym ptomatic. Heparin gtt put on hold. Start IV Protonix BID. CBC, PT/INR, CMP, Mg ordered. Hemoccult all stools.
[2024-01-01 05:06] LABS: Basophils # (auto) 0.05 K/uL (0.00-0.20); Basophils % (auto) 0.5 %; Eosinophils # (auto) 0.23 K/uL (0.00-0.50); Eosinophils % (auto) 2.3 %; Hematocrit (blood only) 31.2 % (37.0-47.0); Immature Granulocytes # (auto) 0.22 K/uL (0.01-0.20); Immature Granulocytes % (auto) 2.2 %; Lymphocytes # (auto) 1.12 K/uL (1.20-3.40); Mean Corpuscular Hemoglobin 31.3 pg (25.0-34.0); Mean Corpuscular Hgb Conc 32.1 g/dL (32.0-36.0); Mean Corpuscular Volume 97.8 fL (80.0-100.0); Monocytes # (auto) 0.75 K/uL (0.11-0.59); Monocytes % (auto) 7.4 %; Neutrophils # (auto) 7.78 K/uL (1.40-6.50); Neutrophils % (auto) 76.6 %; Platelet Count 312 K/uL (130-400); RDW Coefficient of Variation 13.1 % (11.5-14.5); Red Blood Count 3.19 M/uL (4.20-5.40); White Blood Count 10.15 K/ul (4.8-10.8)
[2024-01-01 05:18] LABS: Albumin Globulin Ratio 1.1 (0.9-2); Albumin Level 3.3 gm/dl (3.4-5.0); BUN Creatinine Ratio 29.4 (10-20); Bilirubin,Total 0.2 mg/dl (0.2-1.0); Calcium 8.5 mg/dl (8.6-10.3); Creatinine Clr Calc Pharmacy 41.6 ml/min; Est GFR (African American) 70.9 ml/min; Est GFR (Non-African American) 61.2 ml/min; Globulin 2.9 gm/dl (2.5-4.0); Potassium 3.7 mmol/L (3.5-5.1); Total Protein 6.2 gm/dl (6.0-8.3)
[2024-01-01 05:39] LABS: INR 1.6 (0.9-1.1)
[2024-01-01] MEDS: PANTOprazole 40 MG in SYRINGE 0 ML IV SCH (06:14)
[2024-01-01] MEDS: WARFARIN SOD 5 MG TAB PO ONE (08:55)
--- NOTE | 2024-01-01 11:13 | Hospitalist Progress Note ---
Date of Service January 01, 2024 Assessment & Plan (1) Dark stools: Plan: Patient reported a few episodes of dark stools overnight Will hold Coumadin for now Obtain stool for occult blood Monitor H&H. (2) New onset atrial fibrillation: Plan: New onset valvular atrial fibrillation Patient has a history of severe mitral stenosis status post TAVR and also aortic stenosis, Found to be in atrial fibrillation. No evidence of acute infection TSH within normal limits, 2D echo ordered result pending On account of valvular A-fib, and elevated [id number] score, keeping in mind a previous history of GI bleed, will initiate p.o. Coumadin, currently being bridged with IV heparin (on hold for now due to dark stools) INR 1.6 today (3) Tinea cruris: Plan: Miconazole powder BID (4) Cellulitis: Plan: Possible diagnosis of groin causing increased WBC but difficult to be sure on exam with concurrent tinea Increased CRP favors true cellulitis although procalcitonin negative Ceftriaxone 2g IV daily, follow up blood cultures (5) Diarrhea: Plan: Patient reported some episodes of dark tarry stools overnight Will obtain stool for occult blood (6) Leukocytosis: Plan: Trending down currently on IV ceftriaxone No growth on cultures for now. (7) Bullous pemphigoid: Plan: Continue home prednisone dose (8) Hypothyroid: Plan: TSH WNL Continue levothyroxine (9) Generalized weakness: Plan: Suspect due to infection PT/OT (10) Hypertension: Plan: Currently hypotensive but will continue diltiazem and carvedilol for rate control (11) Mitral stenosis: (12) S/P TAVR (transcatheter aortic valve replacement): Plan VTE Prophylaxis -p.o. Coumadin Diet - heart healthy Disposition - admit to PCU Admission and Anticipated Discharge Date Admission Date: December 30, 2023 Subjective Patient seen and examined, sitting up in the chair denies shortness of breath or chest pain. Reported having multiple dark tarry stools overnight Review of Systems Review of Systems: All systems reviewed are negative, apart from the ones contained in the history. Physical Exam Physical Exam: The patient is awake, alert and oriented 3, well developed and well nourished, normocephalic and atraumatic, lying in bed and in no acute distress. HEENT--PERRL, EOMI, mucous membranes and oropharynx mildly dry Neck--supple. No JVD. No bruits. Thyroid normal, trachea midline, no adenopathy. Heart--normal S1 and S2. No murmurs, rubs or gallops. Lungs--clear bilaterally, no respiratory distress, no accessory muscle use. Abdomen--normal bowel sounds and soft. Extremities--no cyanosis or clubbing. No edema. Dermatologic--normal skin turgor, normal color, no abnormal lymph nodes, no rash. Neurologic--cranial nerves II through XII grossly intact. Rheumatologic--normal range of motion. Psychiatric--normal affect. Results & Data Results & Data Vital Signs (Past 12 Hours) Vital Signs Temp Pulse Pulse Resp BP Pulse Ox O2 Del Method 01/01/24 08:35 97.9 F 89 18 117/54 L 97 Room Air 01/01/24 08:00 Room Air 01/01/24 07:00 73 01/01/24 03:16 98.1 F 97 H 18 122/88 97 Room Air PG Care Time/CCT Total # of Minutes Spent Total Time Spent with Patient: Total time spent is greater than 50% in coordination of care (as documented) at patient's floor/unit and/or counseling patient: Coding Level of Care Code 02141 SUB INP/OBS CARE 2/35MIN Diagnoses Dark stools R19.5 New onset atrial fibrillation I48.91 Tinea cruris B35.6 Cellulitis L03.90 Diarrhea R19.7 Leukocytosis D72.829 Bullous pemphigoid L12.0 Acquired hypothyroidism E03.9 Hypothyroidism type: acquired Generalized weakness R53.1 Primary hypertension I10 Hypertension type: primary hypertension Mitral stenosis I05.0 S/P TAVR (transcatheter aortic valve replacement) Z95.2 Time Spent (min) 35 (8) Hypothyroid Hypothyroidism type: acquired Qualified Code(s): E03.9 - Hypothyroidism, unspecified (10) Hypertension Hypertension type: primary hypertension Qualified Code(s): I10 - Essential (primary) hypertension
--- NOTE | 2024-01-01 12:50 | Electrocardiogram Report ---
Test Reason : Blood Pressure : / mmHG Vent. Rate : 070 BPM Atrial Rate : 078 BPM P-R Int : 000 ms QRS Dur : 094 ms QT Int : 424 ms P-R-T Axes : 000 -12 -10 degrees QTc Int : 457 ms Atrial fibrillation with premature ventricular or aberrantly conducted complexes Minimal voltage criteria for LVH, may be normal variant Abnormal ECG When compared with ECG of 30-DEC-2023 13:28, T wave inversion less evident in Lateral leads Confirmed by Chente Abdul ([id number]) on 01/01/2024 12:49:50 PM Referred By: Ophelia Norman Confirmed By:Chente Abdul
--- NOTE | 2024-01-01 12:58 | Electrocardiogram Report ---
Test Reason : Blood Pressure : / mmHG Vent. Rate : 082 BPM Atrial Rate : 075 BPM P-R Int : 000 ms QRS Dur : 096 ms QT Int : 408 ms P-R-T Axes : 000 -11 -63 degrees QTc Int : 476 ms Atrial fibrillation Minimal voltage criteria for LVH, may be normal variant Nonspecific ST and T wave abnormality Prolonged QT Abnormal ECG When compared with ECG of 31-DEC-2023 18:18, (unconfirmed) No significant change was found Confirmed by Chente Abdul ([id number]) on 01/01/2024 12:58:30 PM Referred By: Ophelia Norman Confirmed By:Chente Abdul
[2024-01-01] MEDS: WARFARIN SOD 5 MG TAB PO SCH (15:59)
[2024-01-02 07:22] LABS: Prothrombin Time 61.7 Seconds (9.0-12.0)
[2024-01-02 09:48] LABS: INR 6.3 (0.9-1.1)
--- NOTE | 2024-01-02 11:42 | Hospitalist Progress Note ---
Date of Service January 02, 2024 Assessment & Plan (1) Dark stools: Plan: Stools were negative for occult blood. (2) Supratherapeutic INR: Plan: INR 6.3 today Will hold Coumadin Recheck INR tomorrow No need to reverse for now (3) New onset atrial fibrillation: Plan: New onset valvular atrial fibrillation Patient has a history of severe mitral stenosis status post TAVR and also aortic stenosis, Found to be in atrial fibrillation. No evidence of acute infection TSH within normal limits, 2D echo ordered result pending On account of valvular A-fib, and elevated [id number] score, keeping in mind a previous history of GI bleed, will initiate p.o. Coumadin, (currently on hold for supratherapeutic INR) INR 6.3 today, will hold Coumadin (4) Tinea cruris: Plan: Miconazole powder BID (5) Cellulitis: Plan: Possible diagnosis of groin causing increased WBC but difficult to be sure on exam with concurrent tinea Increased CRP favors true cellulitis although procalcitonin negative Ceftriaxone 2g IV daily, follow up blood cultures (6) Diarrhea: Plan: Patient reported some episodes of dark tarry stools overnight Will obtain stool for occult blood (7) Leukocytosis: Plan: Trending down currently on IV ceftriaxone No growth on cultures for now. (8) Bullous pemphigoid: Plan: Continue home prednisone dose (9) Hypothyroid: Plan: TSH WNL Continue levothyroxine (10) Generalized weakness: Plan: Suspect due to infection PT/OT (11) Hypertension: Plan: Currently hypotensive but will continue diltiazem and carvedilol for rate control (12) Mitral stenosis: (13) S/P TAVR (transcatheter aortic valve replacement): Plan VTE Prophylaxis -p.o. Coumadin Diet - heart healthy Disposition - admit to PCU Admission and Anticipated Discharge Date Admission Date: December 30, 2023 Subjective Patient seen and examined, sitting up in the chair denies shortness of breath or chest pain. Review of Systems Review of Systems: All systems reviewed are negative, apart from the ones contained in the history. Physical Exam Physical Exam: The patient is awake, alert and oriented 3, well developed and well nourished, normocephalic and atraumatic, lying in bed and in no acute distress. HEENT--PERRL, EOMI, mucous membranes and oropharynx mildly dry Neck--supple. No JVD. No bruits. Thyroid normal, trachea midline, no adenopathy. Heart--normal S1 and S2. No murmurs, rubs or gallops. Lungs--clear bilaterally, no respiratory distress, no accessory muscle use. Abdomen--normal bowel sounds and soft. Extremities--no cyanosis or clubbing. No edema. Dermatologic--normal skin turgor, normal color, no abnormal lymph nodes, no rash . Neurologic--cranial nerves II through XII grossly intact. Rheumatologic--normal range of motion. Psychiatric--normal affect. Results & Data Results & Data Vital Signs (Past 12 Hours) Vital Signs Temp Pulse Pulse Resp BP BP Pulse Ox 01/02/24 11:13 97.9 F 72 18 109/66 96 01/02/24 07:49 98.1 F 92 H 18 113/54 L 95 01/02/24 07:00 01/02/24 07:00 84 01/02/24 03:26 98.1 F 75 16 101/61 94 O2 Del Method 01/02/24 11:13 Room Air 01/02/24 07:49 Room Air 01/02/24 07:00 Room Air 01/02/24 07:00 01/02/24 03:26 Room Air PG Care Time/CCT Total # of Minutes Spent Total Time Spent with Patient: Total time spent is greater than 50% in coordination of care (as documented) at patient's floor/unit and/or counseling patient: Coding Level of Care Code 95537 SUB INP/OBS CARE 2/35MIN Diagnoses Dark stools R19.5 Supratherapeutic INR R79.1 New onset atrial fibrillation I48.91 Tinea cruris B35.6 Cellulitis L03.90 Diarrhea R19.7 Leukocytosis D72.829 Bullous pemphigoid L12.0 Acquired hypothyroidism E03.9 Hypothyroidism type: acquired Generalized weakness R53.1 Primary hypertension I10 Hypertension type: primary hypertension Mitral stenosis I05.0 S/P TAVR (transcatheter aortic valve replacement) Z95.2 Time Spent (min) 35 (9) Hypothyroid Hypothyroidism type: acquired Qualified Code(s): E03.9 - Hypothyroidism, unspecified (11) Hypertension Hypertension type: primary hypertension Qualified Code(s): I10 - Essential (primary) hypertension
[2024-01-03 07:33] LABS: Prothrombin Time > 90.0 Seconds (9.0-12.0)
[2024-01-03 07:37] LABS: INR > 9.5 (0.9-1.1)
[2024-01-03] MEDS: PHYTONADIONE 5 MG TAB PO STA (08:37)
--- NOTE | 2024-01-03 11:11 | Hospitalist Progress Note ---
Date of Service January 03, 2024 Assessment & Plan (1) Dark stools: Plan: Stools were negative for occult blood. (2) Supratherapeutic INR: Plan: INR >9.5 today Will continue to hold Coumadin Evidence of vitamin K 5 mg Recheck INR tomorrow (3) New onset atrial fibrillation: Plan: New onset valvular atrial fibrillation Patient has a history of severe mitral stenosis status post TAVR and also aortic stenosis, Found to be in atrial fibrillation. No evidence of acute infection TSH within normal limits, 2D echo ordered result pending On account of valvular A-fib, and elevated [id number] score, keeping in mind a previous history of GI bleed, will initiate p.o. Coumadin, (currently on hold for supratherapeutic INR) On account of supratherapeutic INR, will hold Coumadin. (4) Tinea cruris: Plan: Miconazole powder BID (5) Cellulitis: Plan: Possible diagnosis of groin causing increased WBC but difficult to be sure on exam with concurrent tinea Increased CRP favors true cellulitis although procalcitonin negative Ceftriaxone 2g IV daily, follow up blood cultures (6) Diarrhea: Plan: Patient reported some episodes of dark tarry stools overnight Will obtain stool for occult blood (7) Leukocytosis: Plan: Trending down currently on IV ceftriaxone No growth on cultures for now. (8) Bullous pemphigoid: Plan: Continue home prednisone dose (9) Hypothyroid: Plan: TSH WNL Continue levothyroxine (10) Generalized weakness: Plan: Suspect due to infection PT/OT (11) Hypertension: Plan: Currently hypotensive but will continue diltiazem and carvedilol for rate control (12) Mitral stenosis: (13) S/P TAVR (transcatheter aortic valve replacement): Plan VTE Prophylaxis -p.o. Coumadin Diet - heart healthy Disposition - admit to PCU Admission and Anticipated Discharge Date Admission Date: December 30, 2023 Subjective Patient seen and examined, sitting up in the chair denies shortness of breath or chest pain. Review of Systems Review of Systems: All systems reviewed are negative, apart from the ones contained in the history. Physical Exam Physical Exam: The patient is awake, alert and oriented 3, well developed and well nourished, normocephalic and atraumatic, lying in bed and in no acute distress. HEENT--PERRL, EOMI, mucous membranes and oropharynx mildly dry Neck--supple. No JVD. No bruits. Thyroid normal, trachea midline, no adenopathy. Heart--normal S1 and S2. No murmurs, rubs or gallops. Lungs--clear bilaterally, no respiratory distress, no accessory muscle use. Abdomen--normal bowel sounds and soft. Extremities--no cyanosis or clubbing. No edema. Dermatologic--normal skin turgor, normal color, no abnormal lymph nodes, no rash. Neurologic--cranial nerves II through XII grossly intact. Rheumatologic--normal range of motion. Psychiatric--normal affect. Results & Data Results & Data Vital Signs (Past 12 Hours) Vital Signs Temp Pulse Resp BP BP Pulse Ox O2 Del Method 01/03/24 07:29 97.7 F 69 18 100/67 97 Room Air 01/03/24 03:00 97.9 F 68 20 122/64 96 Room Air PG Care Time/CCT Total # of Minutes Spent Total Time Spent with Patient: Total time spent is greater than 50% in coordination of care (as documented) at patient's floor/unit and/or counseling patient: Coding Level of Care Code 08431 SUB INP/OBS CARE 2/35MIN Diagnoses Dark stools R19.5 Supratherapeutic INR R79.1 New onset atrial fibrillation I48.91 Tinea cruris B35.6 Cellulitis L03.90 Diarrhea R19.7 Leukocytosis D72.829 Bullous pemphigoid L12.0 Acquired hypothyroidism E03.9 Hypothyroidism type: acquired Generalized weakness R53.1 Primary hypertension I10 Hypertension type: primary hypertension Mitral stenosis I05.0 S/P TAVR (transcatheter aortic valve replacement) Z95.2 Time Spent (min) 35 (9) Hypothyroid Hypothyroidism type: acquired Qualified Code(s): E03.9 - Hypothyroidism, unspecified (11) Hypertension Hypertension type: primary hypertension Qualified Code(s): I10 - Essential (primary) hypertension
[2024-01-03 12:12] LABS: Prothrombin Time > 90.0 Seconds (9.0-12.0)
[2024-01-03 12:43] LABS: INR > 9.5 (0.9-1.1)
[2024-01-04 06:55] LABS: INR 1.9 (0.9-1.1); Prothrombin Time 20.3 Seconds (9.0-12.0)
--- NOTE | 2024-01-04 10:25 | Discharge Summary ---
Date of Service January 04, 2024 Admission HPI Per Admitting Provider Ana Rodríguez is an 88-year-old female who presents to the ER with generalized weakness, groin rash and shortness of breath. She feels she has been sick since Sunday with diarrhea, dysuria, nausea, poor appetite, generalized weakness, nausea, stumbling around. Her diarrhea started on and she took x2 Imodium which helped until this morning with 2-3 watery/black bowel movements today. SHe has a notable history of c. diff. No fever, chills, cough, nasal congestion, flank pain, chest pain, abdominal pain, headache, neck pain. This morning she is felt acutely worse therefore decided to come to the ER. In the ER she was noted to be in atrial fibrillation and on review of prior cardiology notes this appears to be a new diagnosis. She reports he bullous pemphigoid is current well controlled on prednisone 10mg QOD. Principal Diagnosis new onset afib Discharge Exam The patient is awake, alert and oriented 3, well developed and well nourished, normocephalic and atraumatic, lying in bed and in no acute distress. HEENT--PERRL, EOMI, mucous membranes and oropharynx mildly dry Neck--supple. No JVD. No bruits. Thyroid normal, trachea midline, no adenopathy. Heart--normal S1 and S2. No murmurs, rubs or gallops. Lungs--clear bilaterally, no respiratory distress, no accessory muscle use. Abdomen--normal bowel sounds and soft. Extremities--no cyanosis or clubbing. No edema. Dermatologic--normal skin turgor, normal color, no abnormal lymph nodes, no rash. Neurologic--cranial nerves II through XII grossly intact. Rheumatologic--normal range of motion. Psychiatric--normal affect. Discharge Data Allergies Allergy/AdvReac Type Severity Reaction Status Date / Time hydrochlorothiazide Allergy Unknown pt reports Verified 10/17/23 10:01 doesn't take it anymore, denies hx reaction simvastatin Allergy Unknown RASH Verified 10/17/23 10:01 Ejwlpks-QSW-RpT Reductase Allergy Unknown Rash Verified 10/17/23 10:01 Inhibitor [Xqzwdbs-Jlj-Kjw Reductase Inhibitor] tramadol Allergy Unknown pt not Verified 10/17/23 10:01 sure/pt not recall taking this trospium Allergy Unknown pt doesn't Verified 02/07/24 10:01 recall taking this Consultations 12/30/23 13:13 ED Decision to Admit Stat Hospital Course (1) Dark stools: Stools were negative for occult blood. (2) Supratherapeutic INR: resolved INR 1.9 today (3) New onset atrial fibrillation: New onset valvular atrial fibrillation Patient has a history of severe mitral stenosis status post TAVR and also aortic stenosis, Found to be in atrial fibrillation. No evidence of acute infection TSH within normal limits, 2D echo ordered result pending On account of valvular A-fib, and elevated [id number] score, keeping in mind a previous history of GI bleed, will initiate p.o. Coumadin, D/C on coumadin 5mg daily, follow up with the coumadin clinic Goal INR is 2-3 (4) Tinea cruris: Miconazole powder BID (5) Cellulitis: completed a course of antibiotics (6) Diarrhea: Patient reported some episodes of dark tarry stools overnight Will obtain stool for occult blood (7) Leukocytosis: Trending down currently on IV ceftriaxone No growth on cultures for now. (8) Bullous pemphigoid: Continue home prednisone dose (9) Hypothyroid: TSH WNL Continue levothyroxine (10) Generalized weakness: Suspect due to infection PT/OT (11) Hypertension: Currently hypotensive but will continue diltiazem and carvedilol for rate contro l (12) Mitral stenosis: (13) S/P TAVR (transcatheter aortic valve replacement): Plan VTE Prophylaxis -p.o. Coumadin Diet - heart healthy Disposition - admit to PCU Total Time Total Time Spent Total Time Spent (In Minutes): 35 Discharge Plan Discharge Items Patient Disposition: Home - Self-Care Reason For Visit: A. FIB, CELLULITIS, DIARRHEA Discharge Diagnosis: afib Activity: Resume your previous activity Non-emergency contact: Primary Care Provider Call non-emergency contact if: you have any medication questions Follow-up/Referrals: Lou Shepard PA-C [Physician [employer]] - 01/08/24 2:30 pm (You will need to call Coumadin Clinic to make F/U appointment. ) Diet: Regular Ambulatory Orders: Prothrombin Time INR (Timed) Timeframe: 1 Day Facility: [facility] - Location: Anticoagulation Clinic Ordered By: Areli Moran Attending Provider Instructions: Please make appointment to follow up with the Coumadin clinic and also with your PCP Pending Studies at Discharge: No Stand-Alone Forms: My [facility], Smoking Cessation Medications and DC Order Prescriptions: New warfarin 5 mg Tablet 5 mg PO DAILY@1600 30 Days Qty: 30 0RF Continued carvedilol 12.5 mg tablet 12.5 mg PO BID Qty: 180 3RF Rx Instructions: must administer with a meal/food allopurinol 100 mg tablet 200 mg PO QAM Qty: 180 2RF gemfibrozil 600 mg tablet 600 mg PO BID Qty: 180 3RF levothyroxine 50 mcg tablet 50 mcg PO QAM 90 Days Qty: 90 2RF calcium carbonate-vitamin D3 [Calcium 600 with Vitamin D3] 600 mg-12.5 mcg (500 unit) capsule 0 cap PO DAILY Rx Instructions: Unable to verify OTC meds w/ patient at this date/time. aspirin [Adult Aspirin Regimen] 81 mg tablet,delayed release (DR/EC) 0 mg PO QPM Rx Instructions: Unable to verify OTC meds w/ patient at this date/time. prednisone 10 mg tablet 10 mg PO Q OTHER DAY Patient Comments: evening Rx Instructions: 10 mg orally every 2 days; take with evening meal ferrous sulfate 325 mg (65 mg iron) tablet 0 mg PO Q2D Patient Comments: one every other day Rx Instructions: Unable to verify OTC meds w/ patient at this date/time. alendronate [Fosamax] 70 mg tablet 70 mg PO WK Rx Instructions: usually on saturdays Please take 1 tablet once weekly. Take on an empty stomach with 8 oz. plain water. Wait 1 hour before eating/drinking anything else, or taking other pills. diltiazem HCl 240 mg capsule,extended release 24 hr 240 mg PO QAM Discharge Orders: Discharge Order (Routine); Ordered 01/04/24 Ordered By: Areli Magallanes Admission Data Admit Date/Time: 12/30/23 15:02 Attending Provider: Areli Magallanes Admit Provider: Rai Sharma Primary Care Provider: Ophelia Norman Other Providers: Rai Sharma Coding Level of Care Code 32927 INP/OBS DISCH >30 MIN Diagnoses Dark stools R19.5 Supratherapeutic INR R79.1 New onset atrial fibrillation I48.91 Tinea cruris B35.6 Cellulitis L03.90 Diarrhea R19.7 Leukocytosis D72.829 Bullous pemphigoid L12.0 Acquired hypothyroidism E03.9 Hypothyroidism type: acquired Generalized weakness R53.1 Primary hypertension I10 Hypertension type: primary hypertension Mitral stenosis I05.0 S/P TAVR (transcatheter aortic valve replacement) Z95.2 Time Spent (min) 35
== END 2024-01-04 12:19 | disposition home or self-care (01) | DRG 309 ==
LOC: ED 10:33 → 2S 15:02 → SUATTDRO 15:02 → 2S 17:49
DX: I12.9 Hypertensive chronic kidney disease with stage 1 through stage 4 chronic kidney disease, or unspecified chronic kidney disease; R91.1 Solitary pulmonary nodule; R19.5 Other fecal abnormalities; I48.91 Unspecified atrial fibrillation; Z79.82 Long term (current) use of aspirin; E86.0 Dehydration; Z66 Do not resuscitate; I34.2 Nonrheumatic mitral (valve) stenosis; Z87.891 Personal history of nicotine dependence; E03.9 Hypothyroidism, unspecified; L03.314 Cellulitis of groin; B35.6 Tinea cruris; R19.7 Diarrhea, unspecified; Z85.3 Personal history of malignant neoplasm of breast; N18.31 Chronic kidney disease, stage 3a; R79.1 Abnormal coagulation profile; L12.0 Bullous pemphigoid; I27.20 Pulmonary hypertension, unspecified; Z95.2 Presence of prosthetic heart valve

== ENCOUNTER 2024-01-08 21:19 | Inpatient (IN) ==
--- NOTE | 2024-01-08 21:41 | Emergency Department Note ---
ED Provider Note History of Present Illness Chief Complaint: Nose Bleed (Minor) Stated Complaint: NOSE BLEED, ON BLOOD THINNERS Time Seen by Provider: 01/08/24 21:40 This is an 88-year-old female who was recently placed on warfarin after a diagnosis of atrial fibrillation, recently discharged from this facility 4 days ago, accompanied by her friend, who presents to the emergency department with a left-sided nosebleed. Symptoms started about 1 hour ago when she was cleaning the inside of her nose with a tissue. She placed a tissue up into her nose which did get the bleeding to stop however she can see blood on the tissue. She has been taking warfarin 5 mg/day over the past 3 days. She is scheduled to have her INR checked later this week. She denies any new lightheadedness, weakness, chest pain, or shortness of breath. Has had mild nosebleeds in the past. Patient has not had any dark or tarry stools recently. Home Medications Medication Instructions Recorded Confirmed Type aspirin 81 mg tablet,delayed 0 mg PO QPM 04/20/21 01/09/24 History release (Adult Aspirin Regimen) prednisone 10 mg tablet 10 mg PO Q OTHER DAY 01/03/23 01/09/24 History calcium carbonate 600 mg-vitamin 0 cap PO DAILY 03/16/23 01/09/24 History D3 12.5 mcg (500 unit) capsule (Calcium 600 with Vitamin D3) carvedilol 12.5 mg tablet 12.5 mg PO BID #180 tabs 07/05/23 01/09/24 Rx allopurinol 100 mg tablet 200 mg (2 x 100 mg) PO QAM #180 10/02/23 01/09/24 Rx tabs gemfibrozil 600 mg tablet 600 mg PO BID #180 tabs 11/23/23 01/09/24 Rx levothyroxine 50 mcg tablet 50 mcg PO QAM 90 days #90 tabs 11/23/23 01/09/24 Rx alendronate 70 mg tablet (Fosamax) 70 mg PO WK 12/30/23 01/09/24 History diltiazem HCl 240 mg capsule,24 240 mg PO QAM 12/30/23 01/09/24 History hr,extended release warfarin 5 mg tablet 5 mg PO DAILY@1600 30 days #30 tabs 01/04/24 01/09/24 Rx ferrous sulfate 325 mg (65 mg 325 mg PO Q OTHER DAY 01/08/24 01/09/24 History iron) tablet Allergies Allergy/AdvReac Type Severity Reaction Status Date / Time simvastatin Allergy Intermediate RASH Verified 01/09/24 00:57 Jafblrh-AEU-RoT Reductase Allergy Intermediate Rash Verified 01/09/24 00:57 Inhibitor [Sfiaraj-Fkt-Bzp Reductase Inhibitor] hydrochlorothiazide Allergy Unknown pt reports Verified 01/09/24 00:57 doesn't take it anymore, denies hx reaction tramadol Allergy Unknown pt not Verified 01/09/24 00:57 sure/pt not recall taking this trospium Allergy Unknown pt doesn't Verified 01/09/24 00:57 recall taking this Past Med/Surg History Medical History GI bleed Pulmonary hypertension mild, 04/2022 echo per [facility] cardio records Umbilical hernia OVER LAST FEW WEEKS SEEPING BLOOD History of anesthesia reaction with lumpectomy sx took multiple hours to wake up History of GI bleed chronic/unknown etiology History of breast cancer 2004 s/p lumpectomy and radiation (x35 treatments) left Pulmonary nodule noted in 2011, pt declined f/u per PCP records pt denies/not that she is aware of Left carotid bruit Umbilical hernia without obstruction or gangrene 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 Anemia chronic, 09/2021 GI bleed -pt denies gi bleed in sep 2021 reports hx gi bleeds Transient ischemic attack pt denies Chronic kidney disease, stage 3a pt unaware denies hx kidney problems or kidney stones - reports all tests have been normal with kidneys Bullous pemphigoid chronic steroids Mitral stenosis severe, no planned intervention per 04/2022 cardio consult Aortic stenosis, severe s/p aortic valve replacement 2020 Mitral regurgitation Hyperlipidemia Hypertension Gout hx Hypothyroid Surgical History H/O umbilical hernia repair (07/20/22) Open Incarcerated Umbilical Hernia Repair(Not Applicable) - Parag Rowell MD, FACS History of cardiac cath 2020 ([place]) PRIOR TO AORTIC VALVE REPLACEMENT History of endoscopy pt reports they stretched opening from esophagus into the stomach / it was almost closed History of colonoscopy H/O aortic valve replacement March 2021 S/P hysterectomy with oophorectomy "complete" 1997 - reports possible appendectomy with - pt not sure S/P lumpectomy, left breast Family History Sister Breast cancer Colorectal cancer COPD (chronic obstructive pulmonary disease) Mother Diabetes Sister Breast cancer Colorectal cancer Denies family history of Ovarian cancer Prostate cancer Myocardial infarction Social History Smoking Status: Former smoker Tobacco Type: Cigarettes Age Started Using Tobacco: 15; Age Quit Using Tobacco: 33; packs per day: 0.5; Cigarettes Per Day: 10; Second Hand Exposure: No; Do You Dip or Chew Tobacco: No; Hx Alcohol Use: No Hx Substance Use: No Preferred Language: Sami Communication Ability: Effective Visual Impairment: No Limitations Hearing Ability: Normal Solar Photovoltaic Installer Required: No Beliefs That Will Affect Care: None marital status: / Current Living Situation: Alone current occupational status: retired 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 How many Children do You have: 3 Feels Safe at Home: Yes Childhood Exposure to Second-Hand Smoke: Yes Diet: regular caffeine: No during the past year weight has: remained stable Dental Care, Regularly: No Physical Activity Frequency: Does not Exercise Seatbelt Use: always Sunscreen Use: No Assistive Devices: Bedside Commode, Cane and Walker Physical Exam Vital Signs Vital Signs - 24 hr 01/08/24 21:25 01/08/24 21:52 01/08/24 22:32 Temperature 98.2 F Temperature Source Temporal Artery Scan Pulse Rate 94 H 89 Pulse Rate [Apical] 97 H Pulse Rhythm [Apical] Respiratory Rate 18 27 H Respiratory Effort / Characteristics Respiratory Depth Respiratory Pattern Blood Pressure 102/58 L Blood Pressure [Right Arm] 113/76 Blood Pressure Mean 72 Blood Pressure Mean [Right Arm] 88 Blood Pressure Position [Right Arm] Pulse Oximetry 92 93 Oxygen Delivery Method Room Air Room Air Sepsis Recent Fever Within 48 Hours No Sepsis New/Unexplained Change in Mental Status No Sepsis Action Taken by Nursing No Action Required 01/09/24 00:00 Temperature Temperature Source Pulse Rate Pulse Rate [Apical] 60 Pulse Rhythm [Apical] Regular Respiratory Rate 22 Respiratory Effort / Characteristics Non-Labored Spontaneous Respiratory Depth Normal Respiratory Pattern Regular Blood Pressure Blood Pressure [Right Arm] 108/74 Blood Pressure Mean Blood Pressure Mean [Right Arm] 85 Blood Pressure Position [Right Arm] Lying Pulse Oximetry 96 Oxygen Delivery Method Room Air Sepsis Recent Fever Within 48 Hours Sepsis New/Unexplained Change in Mental Status Sepsis Action Taken by Nursing CONSTITUTIONAL: Well developed, well nourished, in no acute distress, pleasant HEAD: Normocephalic, atraumatic. No facial swelling EYES: conjunctivae normal, extraocular muscles intact. ENMT: Nose: There is wet blood and a friable area located on the left side of the nose along the septum. No septal perforation. No active epistaxis. Posterior oropharynx clear with no active epistaxis. NECK: Full active range of motion. RESPIRATORY: Breathing unlabored and symmetric. Lungs clear to auscultation bilaterally. No wheeze, rales, or rhonchi. CARDIOVASCULAR: Regular rate and irregularly irregular rhythm. No murmurs, rubs, or gallops. MUSCULOSKELETAL: Moves all extremities at all joints without pain or difficulty. SKIN: [place], warm, dry. NEUROLOGIC: Awake, alert, oriented. No focal deficits. Course Administered Medications Discontinued Medications Phytonadione 10 mg/ Dextrose 51 mls @ 102 mls/hr IV ONE ONE Stop: 01/09/24 00:25 Last Infusion: 01/09/24 00:50 Dose: Infused Documented By: Admin: 01/09/24 00:12 Dose: 102 mls/hr Documented By: GHANSHYAM Oxymetazoline HCl (Oxymetazoline 0.05% 30 Ml Btl) Confirm Administered Dose 150 sprays .ROUTE .STK-MED ONE Stop: 01/08/24 21:45 Last Admin: 01/08/24 21:48 Dose: Not Given Documented By: ADONIS Oxymetazoline HCl (Oxymetazoline 0.05% 30 Ml Btl) 1 sprays NA [facility] ONE Stop: 01/08/24 21:48 Last Admin: 01/08/24 21:47 Dose: 1 sprays Documented By: ADONIS Medical Decision Making Differential Diagnosis Anterior epistaxis, posterior epistaxis, supratherapeutic INR, bleeding dyscrasia, abrasion, laceration, among other pathology Medical Records Attestation: I reviewed the patient's medical records. (Reviewed recent emergency department and hospitalist discharge notes) Laboratory Data 01/08/24 21:52 01/08/24 21:52 Lab Results 01/08/24 01/08/24 Range/Units 21:32 21:52 WBC 10.76 (4.8-10.8) K/ul RBC 3.50 L (4.20-5.40) M/uL Hgb 11.0 L (12.0-16.0) g/dl Hct 34.4 L (37.0-47.0) % MCV 98.3 (80.0-100.0) fL MCH 31.4 (25.0-34.0) pg MCHC 32.0 (32.0-36.0) g/dL RDW Std Deviation 49.1 H (36.4-46.3) fL RDW Coeff of Mervin 13.8 (11.5-14.5) % Plt Count 352 (130-400) K/uL MPV 9.8 (9.4-12.4) fL Immature Gran % (Auto) 0.7 % Neut % (Auto) 91.8 % Lymph % (Auto) 4.1 % [place] % (Auto) 2.5 % Eos % (Auto) 0.5 % Baso % (Auto) 0.4 % Neut # (Auto) 9.88 H (1.40-6.50) K/uL Lymph # (Auto) 0.44 L (1.20-3.40) K/uL [place] # (Auto) 0.27 (0.11-0.59) K/uL Eos # (Auto) 0.05 (0.00-0.50) K/uL Baso # (Auto) 0.04 (0.00-0.20) K/uL Immature Gran # (Auto) 0.08 (0.01-0.20) K/uL Polychromasia 1+ PT > 90.0 H (9.0-12.0) Seconds INR > 9.5 H* (0.9-1.1) APTT 41 H (21-31) Seconds PTT Ratio 1.5 Sodium 137 (136-145) mmol/L Potassium 4.2 (3.5-5.1) mmol/L Chloride 105 (98-107) mmol/L Carbon Dioxide 24 (21-32) mmol/L Anion Gap 8 (3-11) BUN 25 H (6-23) mg/dl Creatinine 0.93 (0.6-1.2) mg/dl Est Cr Clr Drug Dosing 39.3 ml/min Est GFR ( Amer) 63.6 ml/min Est GFR (Non-Af Amer) 54.9 ml/min BUN/Creatinine Ratio 26.9 H (10-20) Glucose 169 H (70-99(Fasting)) mg/dl Calcium 9.8 (8.6-10.3) mg/dl Total Bilirubin 0.4 (0.2-1.0) mg/dl AST 9 L (13-39) U/L ALT 7 (7-52) U/L Alkaline Phosphatase 54 (34-104) U/L Total Protein 6.6 (6.0-8.3) gm/dl Albumin 3.7 (3.4-5.0) gm/dl Globulin 2.9 (2.5-4.0) gm/dl Albumin/Globulin Ratio 1.3 (0.9-2) MDM Narrative 88-year-old female presents to the emergency department with a nosebleed on the left side that started about 1 hour ago. She was recently started on warfarin 3 days ago for atrial fibrillation. See above for further details. Patient resting comfortably no distress. She had a tissue stuffed into her left nostril, the tissue was slightly wet but not actively bleeding. After removing the tissue, she has a little bit of wet blood in the superficial nostril region and a friable area located along the septum, no septal perforation. Heart rhythm is irregularly irregular likely consistent with atrial fibrillation however she seems to be rate controlled under 100. Patient was given 2 sprays of Afrin on the left, 1 on the right, and a nasal clip was placed. An IV was inserted and labs were obtained. Labs: Supratherapeutic INR greater than 9.5. Per hospitalist notes, she had the same thing occurred when she was admitted and was given 5 mg IV vitamin K which did lower the INR to 1.9 at time of discharge. No leukocytosis. Stable anemia hemoglobin 11.0. No thrombocytopenia. No electrolyte disturbances. Kidney function is at baseline. No transaminitis. I removed the nose clip and evaluated the patient. She did not have any active epistaxis. Case reviewed with ED attending Dr. Galvez. I called and spoke with Dr. Jesus regarding the elevated INR. She recommends giving the patient 10 mg IV vitamin K and admitting the patient. If the patient begins to bleed, she can receive Kcentra however this was not indicated as she is not actively bleeding. She is happy to be contacted again as needed. Case discussed with Dr. Hurt who agrees to admit the patient to the hospitalist service. Impression Supratherapeutic INR, Acute anterior epistaxis Discharge Plan Visit Data Chief Complaint: Nose Bleed (Minor) Stated Complaint: NOSE BLEED, ON BLOOD THINNERS ED Provider: Luis Galvez ED Midlevel Provider: Tio Martin Discharge Problem: Supratherapeutic INR, Acute anterior epistaxis Patient Disposition: Admitted As Inpatient Condition: Good Forms Stand Alone Forms: [employer] Prescriptions Prescriptions: No Action carvedilol 12.5 mg tablet 12.5 mg PO BID Qty: 180 3RF Rx Instructions: must administer with a meal/food allopurinol 100 mg tablet 200 mg PO QAM Qty: 180 2RF gemfibrozil 600 mg tablet 600 mg PO BID Qty: 180 3RF levothyroxine 50 mcg tablet 50 mcg PO QAM 90 Days Qty: 90 2RF calcium carbonate-vitamin D3 [Calcium 600 with Vitamin D3] 600 mg-12.5 mcg (500 unit) capsule 0 cap PO DAILY Rx Instructions: Unable to verify OTC meds w/ patient at this date/time. aspirin [Adult Aspirin Regimen] 81 mg tablet,delayed release (DR/EC) 0 mg PO QPM Rx Instructions: Unable to verify OTC meds w/ patient at this date/time. prednisone 10 mg tablet 10 mg PO Q OTHER DAY Patient Comments: evening Rx Instructions: 10 mg orally every 2 days; take with evening meal ferrous sulfate 325 mg (65 mg iron) tablet 325 mg PO Q OTHER DAY Patient Comments: one every other day Rx Instructions: Unable to verify OTC meds w/ patient at this date/time. alendronate [Fosamax] 70 mg tablet 70 mg PO WK Rx Instructions: usually on saturdays Please take 1 tablet once weekly. Take on an empty stomach with 8 oz. plain water. Wait 1 hour before eating/drinking anything else, or taking other pills. diltiazem HCl 240 mg capsule,extended release 24 hr 240 mg PO QAM warfarin 5 mg Tablet 5 mg PO DAILY@1600 30 Days Qty: 30 0RF Referrals Referrals: Ophelia Norman MD [Primary Care Provider] -
[2024-01-08] MEDS: OXYMETAZOLINE 0.05% 30 ML BTL ONE ×2 (21:47→21:48)
[2024-01-08 22:07] LABS: Hematocrit (blood only) 34.4 % (37.0-47.0); Mean Corpuscular Hemoglobin 31.4 pg (25.0-34.0); Mean Corpuscular Volume 98.3 fL (80.0-100.0); Mean Platelet Volume 9.8 fL (9.4-12.4); Platelet Count 352 K/uL (130-400); RDW Coefficient of Variation 13.8 % (11.5-14.5); RDW Standard Deviation 49.1 fL (36.4-46.3); White Blood Count 10.76 K/ul (4.8-10.8)
[2024-01-08 22:25] LABS: Albumin Globulin Ratio 1.3 (0.9-2); Albumin Level 3.7 gm/dl (3.4-5.0); BUN Creatinine Ratio 26.9 (10-20); Basophils # (auto) 0.04 K/uL (0.00-0.20); Basophils % (auto) 0.4 %; Bilirubin,Total 0.4 mg/dl (0.2-1.0); Calcium 9.8 mg/dl (8.6-10.3); Creatinine Clr Calc Pharmacy 39.3 ml/min; Eosinophils # (auto) 0.05 K/uL (0.00-0.50); Eosinophils % (auto) 0.5 %; Est GFR (African American) 63.6 ml/min; Est GFR (Non-African American) 54.9 ml/min; Globulin 2.9 gm/dl (2.5-4.0); Immature Granulocytes # (auto) 0.08 K/uL (0.01-0.20); Immature Granulocytes % (auto) 0.7 %; Lymphocytes # (auto) 0.44 K/uL (1.20-3.40); Lymphocytes % (auto) 4.1 %; Monocytes # (auto) 0.27 K/uL (0.11-0.59); Monocytes % (auto) 2.5 %; Neutrophils # (auto) 9.88 K/uL (1.40-6.50); Neutrophils % (auto) 91.8 %; Polychromasia 1+; Potassium 4.2 mmol/L (3.5-5.1); Total Protein 6.6 gm/dl (6.0-8.3)
[2024-01-08 22:47] LABS: Prothrombin Time > 90.0 Seconds (9.0-12.0)
[2024-01-08 23:42] LABS: INR > 9.5 (0.9-1.1)
--- NOTE | 2024-01-08 23:50 | Emergency Department Note ---
ED Visit Note I was consulted by the Advanced Practice Provider. The case was discussed at length. I personally made/approved the management plan and take responsibility for the patient management. I performed a substantive portion of the visit. This includes the aspects of: The patient presents with epistaxis. Patient has been taking warfarin. The bleeding was controlled here in the ED with Afrin and a nasal clip. Hemoglobin returned essentially normal at 11. INR was quite elevated at greater than 9.5. The coagulation research consultant, Dr. Jesus was called. Her coagulopathy will be reversed. She will be hospitalized/observed. She is not stable for discharge home. .
[2024-01-08 23:59] LABS: Partial Thromboplastin Ratio 1.5; Partial Thromboplastin Time 41 Seconds (21-31)
[2024-01-09] MEDS: PHYTONADIONE 10 MG in DEXTROSE 5% 50 ML IV ONE (00:12)
--- NOTE | 2024-01-09 01:10 | History & Physical Report ---
Date of Service January 09, 2024 Assessment & Plan (1) Supratherapeutic INR: (2) Acute anterior epistaxis: (3) New onset atrial fibrillation: (4) Generalized weakness: (5) Bullous pemphigoid: (6) Hypothyroid: (7) S/P TAVR (transcatheter aortic valve replacement): (8) Mitral regurgitation: (9) Mitral stenosis: Plan Supratherapeutic INR on warfarin/anterior epistaxis- INR greater than 9.5 Received vitamin K 10 mg IV in the ED and oxymetazoline nasal spray Recheck PT/PTT/INR with morning labs in a few hours Follow serial CBC with differential, renal function panel and magnesium levels Admit to monitored bed 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 twice daily, diltiazem 240 mg every morning Holding warfarin due to supratherapeutic INR as noted above Heart rate in the emergency department tends to be in the mid to upper 50s, may need an adjustment and dosage of medication for rate control Hyperglycemia- On chronic prednisone If glucose is elevated in a.m., will place on regular Accu-Cheks History of Present Illness Chief Complaint: The patient presents to the emergency department with complaint of a left sided nosebleed that began about 1 hour prior to arrival while she was cleaning her nose with a tissue Primary Care Provider: Ophelia Norman MD The patient is an 88-year-old female with a past medical history including bullous pemphigoid, hypothyroidism, B12 deficiency, impaired fasting glucose, hypertension, mitral stenosis/regurgitation, aortic stenosis status post TAVR, chronic diarrhea pulmonary nodules. She was most recently admitted from 12/29- 01/04/2024 with new onset atrial fibrillation, and was discharged home on warfarin. She did have an episode of supratherapeutic INR, greater than 9.5 during that admission, and received vitamin K, and was discharged on warfarin 5 mg daily. Her antianterior epistaxis was controlled by ED staff tonight, however, INR again tested greater than 9.5, and she was given vitamin K 10 mg IV, then referred for evaluation for admission to Allergies Allergy/AdvReac Type Severity Reaction Status Date / Time simvastatin Allergy Intermediate RASH Verified 01/09/24 00:57 Glutdow-TWG-YfR Reductase Allergy Intermediate Rash Verified 01/09/24 00:57 Inhibitor [Tdteyns-Ohw-Vee Reductase Inhibitor] hydrochlorothiazide Allergy Unknown pt reports Verified 01/09/24 00:57 doesn't take it anymore, denies hx reaction tramadol Allergy Unknown pt not Verified 01/09/24 00:57 sure/pt not recall taking this trospium Allergy Unknown pt doesn't Verified 01/09/24 00:57 recall taking this Home Medications Medication Instructions Recorded Confirmed Type aspirin 81 mg tablet,delayed 0 mg PO QPM 04/20/21 01/09/24 History release (Adult Aspirin Regimen) prednisone 10 mg tablet 10 mg PO Q OTHER DAY 01/03/23 01/09/24 History calcium carbonate 600 mg-vitamin 0 cap PO DAILY 03/16/23 01/09/24 History D3 12.5 mcg (500 unit) capsule (Calcium 600 with Vitamin D3) carvedilol 12.5 mg tablet 12.5 mg PO BID #180 tabs 07/05/23 01/09/24 Rx allopurinol 100 mg tablet 200 mg (2 x 100 mg) PO QAM #180 10/02/23 01/09/24 Rx tabs gemfibrozil 600 mg tablet 600 mg PO BID #180 tabs 11/23/23 01/09/24 Rx levothyroxine 50 mcg tablet 50 mcg PO QAM 90 days #90 tabs 11/23/23 01/09/24 Rx alendronate 70 mg tablet (Fosamax) 70 mg PO WK 12/30/23 01/09/24 History diltiazem HCl 240 mg capsule,24 240 mg PO QAM 12/30/23 01/09/24 History hr,extended release warfarin 5 mg tablet 5 mg PO DAILY@1600 30 days #30 tabs 01/04/24 01/09/24 Rx ferrous sulfate 325 mg (65 mg 325 mg PO Q OTHER DAY 01/08/24 01/09/24 History iron) tablet Past Med/Surg History Medical History GI bleed Pulmonary hypertension mild, 04/2022 echo per [facility] cardio records Umbilical hernia OVER LAST FEW WEEKS SEEPING BLOOD History of anesthesia reaction with lumpectomy sx took multiple hours to wake up History of GI bleed chronic/unknown etiology History of breast cancer 2004 s/p lumpectomy and radiation (x35 treatments) left Pulmonary nodule noted in 2011, pt declined f/u per PCP records pt denies/not that she is aware of Left carotid bruit Umbilical hernia without obstruction or gangrene 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 Anemia chronic, 09/2021 GI bleed -pt denies gi bleed in sep 2021 reports hx gi bleeds Transient ischemic attack pt denies Chronic kidney disease, stage 3a pt unaware denies hx kidney problems or kidney stones - reports all tests have been normal with kidneys Bullous pemphigoid chronic steroids Mitral stenosis severe, no planned intervention per 04/2022 cardio consult Aortic stenosis, severe s/p aortic valve replacement 2020 Mitral regurgitation Hyperlipidemia Hypertension Gout hx Hypothyroid Surgical History H/O umbilical hernia repair (07/20/22) Open Incarcerated Umbilical Hernia Repair(Not Applicable) - Parag Rowell MD, FACS History of cardiac cath 2020 ([place]) PRIOR TO AORTIC VALVE REPLACEMENT History of endoscopy pt reports they stretched opening from esophagus into the stomach / it was almost closed History of colonoscopy H/O aortic valve replacement March 2021 S/P hysterectomy with oophorectomy "complete" 1996 - reports possible appendectomy with - pt not sure S/P lumpectomy, left breast Family History Sister Breast cancer Colorectal cancer COPD (chronic obstructive pulmonary disease) Mother Diabetes Sister Breast cancer Colorectal cancer Denies family history of Ovarian cancer Prostate cancer Myocardial infarction Social History Smoking Status: Former smoker Tobacco Type: Cigarettes Age Started Using Tobacco: 15; Age Quit Using Tobacco: 33; packs per day: 0.5; Cigarettes Per Day: 10; Second Hand Exposure: No; Do You Dip or Chew Tobacco: No; Hx Alcohol Use: No Hx Substance Use: No Preferred Language: Swedish Communication Ability: Effective Visual Impairment: No Limitations Hearing Ability: Normal Town Planner Required: No Beliefs That Will Affect Care: None marital status: / Current Living Situation: Alone current occupational status: retired 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 How many Children do You have: 3 Feels Safe at Home: Yes Childhood Exposure to Second-Hand Smoke: Yes Diet: regular caffeine: No during the past year weight has: remained stable Dental Care, Regularly: No Physical Activity Frequency: Does not Exercise Seatbelt Use: always Sunscreen Use: No Assistive Devices: Bedside Commode, Cane and Walker Review of Systems Review of Systems: the patient denies chest pain, palpitations, shortness of breath, dyspnea on exertion, cough, lower extremity swelling, sore throat, fevers, chills, sweats, weight change, fatigue, nausea, vomiting, diarrhea , constipation, abdominal pain, pelvic pain, blood in urine or stool, dysuria, urinary frequency or urgency, lightheadedness, dizziness, headache, memory loss, loss of consciousness, imbalance, focal or generalized weakness, numbness or tingling in arms or legs, generalized arthralgias or myalgias, back or neck pain, or night sweats. The review of systems is otherwise negative other than for that already noted above, and at least 10 systems have been reviewed. Physical Exam Physical Exam: The patient is awake, alert and oriented 3, well developed and well nourished, normocephalic and atraumatic, lying in bed and in no acute distress. HEENT--PERRL, EOMI, mucous membranes and oropharynx dry. Neck--supple. No JVD. No bruits. Thyroid normal, trachea midline, no adenopathy. Heart--irregularly irregular. No murmurs, rubs or gallops. Lungs--clear bilaterally, no respiratory distress, no accessory muscle use. Abdomen--normal bowel sounds and soft. Nontender. Nondistended, no hernias or masses, no organomegaly. Extremities--No edema. Dermatologic--normal skin turgor, normal color, no abnormal lymph nodes, no rash. Neurologic--cranial nerves II through XII grossly intact. Rheumatologic--normal range of motion. Psychiatric--normal affect. Results & Data Results & Data Vital Signs (Past 12 Hours) Vital Signs Temp Pulse Pulse Resp BP BP Pulse Ox 01/09/24 00:00 60 22 108/74 96 01/08/24 22:32 89 01/08/24 21:52 97 H 27 H 113/76 93 01/08/24 21:25 36.8 C 94 H 18 102/58 L 92 O2 Del Method 01/09/24 00:00 Room Air 01/08/24 22:32 01/08/24 21:52 Room Air 01/08/24 21:25 Room Air Laboratory Results Laboratory Results WBC 10.76 K/ul (4.8-10.8) 01/08/24 21:52 RBC 3.50 M/uL (4.20-5.40) L 01/08/24 21:52 Hgb 11.0 g/dl (12.0-16.0) L 01/08/24 21:52 Hct 34.4 % (37.0-47.0) L 01/08/24 21:52 MCV 98.3 fL (80.0-100.0) 01/08/24 21:52 MCH 31.4 pg (25.0-34.0) 01/08/24 21:52 MCHC 32.0 g/dL (32.0-36.0) 01/08/24 21:52 RDW Std Deviation 49.1 fL (36.4-46.3) H 01/08/24 21:52 RDW Coeff of Mervin 13.8 % (11.5-14.5) 01/08/24 21:52 Plt Count 352 K/uL (130-400) 01/08/24 21:52 MPV 9.8 fL (9.4-12.4) 01/08/24 21:52 Immature Gran % (Auto) 0.7 % 01/08/24 21:52 Neut % (Auto) 91.8 % 01/08/24 21:52 Lymph % (Auto) 4.1 % 01/08/24 21:52 [place] % (Auto) 2.5 % 01/08/24 21:52 Eos % (Auto) 0.5 % 01/08/24 21:52 Baso % (Auto) 0.4 % 01/08/24 21:52 Neut # (Auto) 9.88 K/uL (1.40-6.50) H 01/08/24 21:52 Lymph # (Auto) 0.44 K/uL (1.20-3.40) L 01/08/24 21:52 [place] # (Auto) 0.27 K/uL (0.11-0.59) 01/08/24 21:52 Eos # (Auto) 0.05 K/uL (0.00-0.50) 01/08/24 21:52 Baso # (Auto) 0.04 K/uL (0.00-0.20) 01/08/24 21:52 Immature Gran # (Auto) 0.08 K/uL (0.01-0.20) 01/08/24 21:52 Polychromasia 1+ 01/08/24 21:52 PT > 90.0 Seconds (9.0-12.0) H 01/08/24 21:52 INR > 9.5 (0.9-1.1) H* 01/08/24 21:52 APTT 41 Seconds (21-31) H 01/08/24 21:32 PTT Ratio 1.5 01/08/24 21:32 Sodium 137 mmol/L (136-145) 01/08/24 21:52 Potassium 4.2 mmol/L (3.5-5.1) 01/08/24 21:52 Chloride 105 mmol/L (98-107) 01/08/24 21:52 Carbon Dioxide 24 mmol/L (21-32) 01/08/24 21:52 Anion Gap 8 (3-11) 01/08/24 21:52 BUN 25 mg/dl (6-23) H 01/08/24 21:52 Creatinine 0.93 mg/dl (0.6-1.2) 01/08/24 21:52 Est Cr Clr Drug Dosing 39.3 ml/min 01/08/24 21:52 Est GFR ( Amer) 63.6 ml/min 01/08/24 21:52 Est GFR (Non-Af Amer) 54.9 ml/min 01/08/24 21:52 BUN/Creatinine Ratio 26.9 (10-20) H 01/08/24 21:52 Glucose 169 mg/dl (70-99(Fasting)) H 01/08/24 21:52 Calcium 9.8 mg/dl (8.6-10.3) 01/08/24 21:52 Total Bilirubin 0.4 mg/dl (0.2-1.0) 01/08/24 21:52 AST 9 U/L (13-39) L 01/08/24 21:52 ALT 7 U/L (7-52) 01/08/24 21:52 Alkaline Phosphatase 54 U/L (34-104) 01/08/24 21:52 Total Protein 6.6 gm/dl (6.0-8.3) 01/08/24 21:52 Albumin 3.7 gm/dl (3.4-5.0) 01/08/24 21:52 Globulin 2.9 gm/dl (2.5-4.0) 01/08/24 21:52 Albumin/Globulin Ratio 1.3 (0.9-2) 01/08/24 21:52 Code Status & VTE Plan Code Status Conditional code: Patient would not want chest compressions or cardioversion. Patient would except intubation and medications VTE Prophylaxis Plan VTE Prophylaxis will be ordered: Yes PG Care Time/CCT Total # of Minutes Spent Total Time Spent with Patient: Total time spent is greater than 50% in coordination of care (as documented) at patient's floor/unit and/or counseling patient: Coding Level of Care Code 93856 INT INP/OBS CARE 3/75MIN Diagnoses Supratherapeutic INR R79.1 Acute anterior epistaxis R04.0 New onset atrial fibrillation I48.91 Generalized weakness R53.1 Bullous pemphigoid L12.0 Acquired hypothyroidism E03.9 Hypothyroidism type: acquired S/P TAVR (transcatheter aortic valve replacement) Z95.2 Mitral regurgitation I34.0 Mitral stenosis I05.0 (6) Hypothyroid Hypothyroidism type: acquired Qualified Code(s): E03.9 - Hypothyroidism, unspecified
[2024-01-09] MEDS ORDERED: ONDANSETRON INJ 2 MG/ML 2 ML VIAL IV PRN (01:39)
[2024-01-09 04:47] LABS: Basophils # (auto) 0.01 K/uL (0.00-0.20); Basophils % (auto) 0.1 %; Eosinophils # (auto) 0.01 K/uL (0.00-0.50); Eosinophils % (auto) 0.1 %; Hematocrit (blood only) 31.6 % (37.0-47.0); Immature Granulocytes # (auto) 0.07 K/uL (0.01-0.20); Immature Granulocytes % (auto) 0.8 %; Lymphocytes # (auto) 0.56 K/uL (1.20-3.40); Lymphocytes % (auto) 6.7 %; Mean Corpuscular Hemoglobin 30.8 pg (25.0-34.0); Mean Corpuscular Hgb Conc 31.6 g/dL (32.0-36.0); Mean Corpuscular Volume 97.2 fL (80.0-100.0); Monocytes # (auto) 0.32 K/uL (0.11-0.59); Monocytes % (auto) 3.8 %; Neutrophils # (auto) 7.44 K/uL (1.40-6.50); Neutrophils % (auto) 88.5 %; Platelet Count 313 K/uL (130-400); RDW Coefficient of Variation 13.8 % (11.5-14.5); Red Blood Count 3.25 M/uL (4.20-5.40); White Blood Count 8.41 K/ul (4.8-10.8)
[2024-01-09 04:54] LABS: Albumin Level 3.4 gm/dl (3.4-5.0); BUN Creatinine Ratio 28.9 (10-20); Est GFR (African American) 81.2 ml/min; Phosphorus 4.3 mg/dl (2.5-4.9); Potassium 4.7 mmol/L (3.5-5.1)
[2024-01-09 05:11] LABS: INR 2.8 (0.9-1.1); Prothrombin Time 28.3 Seconds (9.0-12.0)
[2024-01-09] MEDS: LEVOTHYROXINE SODIUM 50 MCG TABLET PO SCH (06:10)
--- NOTE | 2024-01-09 07:32 | Hospitalist Progress Note ---
Date of Service January 09, 2024 Assessment & Plan (1) Supratherapeutic INR: (2) Acute anterior epistaxis: (3) New onset atrial fibrillation: (4) Generalized weakness: (5) Bullous pemphigoid: (6) Hypothyroid: (7) S/P TAVR (transcatheter aortic valve replacement): (8) Mitral regurgitation: (9) Mitral stenosis: Plan 88-year-old female with a past medical history including bullous pemphigoid, hypothyroidism, B12 deficiency, impaired fasting glucose, hypertension, mitral stenosis/regurgitation, aortic stenosis status post TAVR, chronic diarrhea and pulmonary nodules Supratherapeutic INR on warfarin/anterior epistaxis- Resolved INR greater than 9.5 on admission Today on therapeutic range INR: 2.3 s/p vitamin K 10 mg IV in the ED and oxymetazoline nasal spray Goal INR is 2-3 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 twice daily, diltiazem 240 mg every morning Holding warfarin due to supratherapeutic INR as noted above On Warfarin due to previous history of GI bleed Hyperglycemia On chronic prednisone If glucose is elevated in a.m., will place on regular Accu-Cheks Dark stool pt has history of GI bleeding Stools negative for occult blood on prev admission She denied current dark stools now Bullous pemphigoid: Continue home prednisone dose Hypothyroid: TSH WNL (12/29) Continue levothyroxine Hypertension - Continue Carvedilol and Diltiazem Mitral stenosis: S/P TAVR (transcatheter aortic valve replacement): Plan VTE Prophylaxis -SCD for now Diet - heart healthy Disposition - Med/surg Admission and Anticipated Discharge Date Admission Date: January 09, 2024 Supervising Physician Co-Signing Physician Notes Attending Physician Supervision Note: I independently interviewed and examined the patient and verified the khan history and physical, reviewed labs and image studies and agree with findings and care plan noted above. Subjective Patient was evaluated this morning, found awake and alert in NAD she was finishing her breakfast. Denied any active bleeding/epistaxis or any GI bleeding. She feels well. She is concern about her body not tolerating Coumadin. denied any chest pain, SOB, palpitations lightheadedness, or any other complains Review of Systems Review of Systems: All systems reviewed & are unremarkable except as noted in HPI & below Physical Exam Constitutional: WD/WN, vitals as above Respiratory: normal respiratory effort, lungs clear to auscultation Cardiovascular: Rate/Rhythm: + irregularly irregular Heart Sounds: normal S1, normal S2 and + murmur (DRAKE) Gastrointestinal (Abdomen): normal bowel sounds, soft, nontender, no hepatosplenomegaly Skin: no rashes, warm and dry Results & Data Results & Data Vital Signs (Past 12 Hours) Vital Signs Temp Pulse Pulse Resp BP BP Pulse Ox 01/09/24 07:26 91 H 01/09/24 06:31 87 19 91 01/09/24 06:20 71 19 93 01/09/24 06:10 85 18 94 01/09/24 06:00 69 17 91 01/09/24 06:00 127/74 01/09/24 05:52 64 18 128/67 93 01/09/24 05:50 67 17 91 01/09/24 05:40 76 15 90 01/09/24 05:30 59 L 16 90 01/09/24 05:20 62 16 94 01/09/24 05:10 73 17 94 01/09/24 05:00 124/64 01/09/24 05:00 74 17 93 01/09/24 04:50 70 17 94 01/09/24 04:40 71 17 94 01/09/24 04:30 67 18 90 01/09/24 04:20 65 19 93 01/09/24 04:10 58 L 18 93 01/09/24 04:00 66 20 94 01/09/24 04:00 120/71 01/09/24 03:50 67 16 95 01/09/24 03:40 62 19 93 01/09/24 03:30 72 18 95 01/09/24 03:20 58 L 22 94 01/09/24 03:10 65 18 93 01/09/24 03:00 62 18 95 01/09/24 03:00 118/68 01/09/24 02:50 62 19 95 01/09/24 02:40 61 26 H 94 01/09/24 02:30 66 20 95 01/09/24 02:24 68 01/09/24 02:20 70 22 97 01/09/24 02:19 76 18 112/54 L 99 01/09/24 02:18 62 19 01/09/24 02:18 112/54 L 01/09/24 02:17 69 20 01/09/24 02:00 61 25 H 94 01/09/24 02:00 124/60 01/09/24 02:00 64 20 124/60 95 01/09/24 01:53 61 20 117/56 L 95 01/09/24 01:50 63 20 95 01/09/24 01:40 64 16 94 01/09/24 01:30 117/56 L 01/09/24 01:30 60 22 94 01/09/24 01:20 68 15 96 01/09/24 01:10 65 22 95 01/09/24 01:00 117/66 01/09/24 01:00 71 21 94 01/09/24 00:50 63 25 H 96 01/09/24 00:40 62 20 95 01/09/24 00:30 115/63 01/09/24 00:30 66 19 93 01/09/24 00:20 71 22 96 01/09/24 00:10 74 32 H 93 01/09/24 00:00 108/74 01/09/24 00:00 60 22 108/74 96 01/08/24 22:32 89 01/08/24 21:52 97 H 27 H 113/76 93 01/08/24 21:25 36.8 C 94 H 18 102/58 L 92 O2 Del Method 01/09/24 07:26 01/09/24 06:31 01/09/24 06:20 01/09/24 06:10 01/09/24 06:00 01/09/24 06:00 01/09/24 05:52 Room Air 01/09/24 05:50 01/09/24 05:40 01/09/24 05:30 01/09/24 05:20 01/09/24 05:10 01/09/24 05:00 01/09/24 05:00 01/09/24 04:50 01/09/24 04:40 01/09/24 04:30 01/09/24 04:20 01/09/24 04:10 01/09/24 04:00 01/09/24 04:00 01/09/24 03:50 01/09/24 03:40 01/09/24 03:30 01/09/24 03:20 01/09/24 03:10 01/09/24 03:00 01/09/24 03:00 01/09/24 02:50 01/09/24 02:40 01/09/24 02:30 01/09/24 02:24 01/09/24 02:20 01/09/24 02:19 Room Air 01/09/24 02:18 01/09/24 02:18 01/09/24 02:17 01/09/24 02:00 01/09/24 02:00 01/09/24 02:00 Room Air 01/09/24 01:53 Room Air 01/09/24 01:50 01/09/24 01:40 01/09/24 01:30 01/09/24 01:30 01/09/24 01:20 01/09/24 01:10 01/09/24 01:00 01/09/24 01:00 01/09/24 00:50 01/09/24 00:40 01/09/24 00:30 01/09/24 00:30 01/09/24 00:20 01/09/24 00:01/09/24 00:00 01/09/24 00:00 Room Air 01/08/24 22:32 01/08/24 21:52 Room Air 01/08/24 21:25 Room Air Resident Activity Tracking Resident Involvement: Resident Care Provided Care Provided: Adult Hospital Medicine (6) Hypothyroid Hypothyroidism type: acquired Qualified Code(s): E03.9 - Hypothyroidism, unspecified
[2024-01-09] MEDS: allopurinoL 100 MG TAB PO SCH (08:05)
[2024-01-09] MEDS: carvediloL 12.5 MG TAB PO SCH (08:05)
[2024-01-09] MEDS: gemfibroziL 600 MG TAB PO SCH (08:05)
[2024-01-09] MEDS: dilTIAZem HCL 240 MG CAPCR PO SCH (08:05)
[2024-01-09 14:49] LABS: Magnesium 1.8 mg/dl (1.7-2.4)
--- NOTE | 2024-01-09 15:04 | Cardiology Consultation ---
Date of Consultation January 09, 2024 Assessment & Plan (1) Persistent atrial fibrillation: (2) Anticoagulant long-term use: (3) S/P TAVR (transcatheter aortic valve replacement): (4) Mitral stenosis: Plan 1. Atrial fibrillation: She remains in atrial fibrillation, this was identified about 1 week ago although we do not know the true duration, presumably longer than that. Her heart rate seems well-controlled or perhaps slightly slow on her current regimen of carvedilol 12.5 mg twice a day and diltiazem 240 mg daily. These medications predated the onset of atrial fibrillation. At this point we are pursuing a rate control/anticoagulation strategy although we may want to convert her rhythm to sinus when she has been adequately anticoagulated which would be another several weeks. That decision will be made later. For now I would not attempt to convert her rhythm but would continue with these rate control medications and she will need anticoagulation If possible. At least overnight I would continue her current medications, if her heart rate remains low (then we can get her up and walk tomorrow) we may want to cut that back. I would keep her on the monitor at least overnight. 2. Anticoagulation: She is clearly not a good warfarin candidate, the concept of "valvular atrial fibrillation" is not well-defined, there is data that with mitral stenosis warfarin may be a better agent than the newer ones although I do not believe the data is very robust and certainly in her case we cannot use warfarin. I did review the guidelines to a certain extent and it seems that the recommendation for warfarin is based on a study called INVICTUS which compared Xarelto with warfarin (I have not found a study using Eliquis which I suspect was not done once this was published). That trial showed the rivaroxaban mortality slightly higher (7.95 versus 6.35%), the stroke rates slightly higher (1.3 to versus 0.94%) with similar major bleeding. Although no caxf-af-cnpw study has been done all studies and I am familiar with show that Eliquis has better efficacy and lower mortality than Xarelto. With this in mind I would expect that warfarin and Eliquis have similar risk and efficacy, I would be surprised if warfarin was much better than Eliquis. She had markedly elevated INR readings twice now, once during loading and now shortly after going home. I think this is an extremely dangerous drug in her case. I would opt for Eliquis, we do not have to start it yet since her INR is therapeutic today at 2.8, I would wait until it drops to around 2. Her creatinine is normal and her weight is over 60 kg therefore her Eliquis dose would be 5 mg twice a day despite her advanced age. 3. TAVR: She has a TAVR in place, she has aortic stenosis based on her last echo although I did not see a gradient on the report. I believe her valve function and the possibility of intervention is being evaluated but is obviously problematic. 4. Mitral valve disease (mitral stenosis and mitral regurgitation): This may be an issue as far as her symptoms, and this may have to be addressed. As noted above that evaluation is in process. History of Present Illness Reason for Consultation: Difficulty with anticoagulation Attending Physician: Nohemi Koroma MD History of Present Illness This is an 88-year-old woman who follows with Dr. Law in our office. She has a history of aortic stenosis for which she had a TAVR performed March 2021. She was left with severe mitral stenosis and mild mitral regurgitation based on prior echocardiograms. Over the last several months she was having difficulty with dyspnea on exertion, including relatively light activities such as pushing groceries cart through a store. She presented to the emergency room on December 30, 2023 with weakness and shortness of breath and was noted to be in rate controlled atrial fibrillation and appeared to be in mild congestive heart failure based on elevated BNP. Due to the feeling that she had "valvular A-fib" with mitral stenosis she was started on Coumadin, rather than one of the newer agents. Of note there was difficulty with INR control during that admission. She was diuresed and discharged on January 04, 2024. An echocardiogram December 30, 2023 showed normal left ventricular systolic function with moderate concentric left ventricular hypertrophy and an ejection fraction of 60 to 65%. Severe aortic stenosis is described but the valve is not well-visualized. She does have mild to moderate mitral regurgitation and severe mitral stenosis on this echocardiogram. During that hospitalization, and her current one, her rate control medications have remained carvedilol 12.5 mg twice a day and diltiazem long-acting 240 mg daily. She returned to the emergency room on January 08, 2024 with a nosebleed and an INR of 9.5. This was treated with vitamin K and her INR January 09, 2024 was 2.8. With correction of her INR to a therapeutic level her nosebleed has resolved. Other than the nosebleed she has actually been feeling quite well. The difficulty with exertion she was having at her initial hospitalization does not seem to be present and she can be relatively active with minimal symptoms. She does not have palpitations. She may have a little bit of edema in the evening when she sits with her legs down, but not if she moves around and it resolves by morning. Allergies Allergy/AdvReac Type Severity Reaction Status Date / Time simvastatin Allergy Intermediate RASH Verified 01/09/24 00:57 Zvmunow-RQR-FlZ Reductase Allergy Intermediate Rash Verified 01/09/24 00:57 Inhibitor [Hkdbhad-Qob-Nlo Reductase Inhibitor] hydrochlorothiazide Allergy Unknown pt reports Verified 01/09/24 00:57 doesn't take it anymore, denies hx reaction tramadol Allergy Unknown pt not Verified 01/09/24 00:57 sure/pt not recall taking this trospium Allergy Unknown pt doesn't Verified 01/09/24 00:57 recall taking this Home Medications Medication Instructions Recorded Confirmed Type aspirin 81 mg tablet,delayed 0 mg PO QPM 04/20/21 01/09/24 History release (Adult Aspirin Regimen) prednisone 10 mg tablet 10 mg PO Q OTHER DAY 01/03/23 01/09/24 History calcium carbonate 600 mg-vitamin 0 cap PO DAILY 03/16/23 01/09/24 History D3 12.5 mcg (500 unit) capsule (Calcium 600 with Vitamin D3) carvedilol 12.5 mg tablet 12.5 mg PO BID #180 tabs 07/05/23 01/09/24 Rx allopurinol 100 mg tablet 200 mg (2 x 100 mg) PO QAM #180 10/02/23 01/09/24 Rx tabs gemfibrozil 600 mg tablet 600 mg PO BID #180 tabs 11/23/23 01/09/24 Rx levothyroxine 50 mcg tablet 50 mcg PO QAM 90 days #90 tabs 11/23/23 01/09/24 Rx alendronate 70 mg tablet (Fosamax) 70 mg PO WK 12/30/23 01/09/24 History diltiazem HCl 240 mg capsule,24 240 mg PO QAM 12/30/23 01/09/24 History hr,extended release warfarin 5 mg tablet 5 mg PO DAILY@1600 30 days #30 tabs 01/04/24 01/09/24 Rx ferrous sulfate 325 mg (65 mg 325 mg PO Q OTHER DAY 01/08/24 01/09/24 History iron) tablet Patient History Medical History GI bleed Pulmonary hypertension mild, 04/2022 echo per [facility] cardio records Umbilical hernia OVER LAST FEW WEEKS SEEPING BLOOD History of anesthesia reaction with lumpectomy sx took multiple hours to wake up History of GI bleed chronic/unknown etiology History of breast cancer 2004 s/p lumpectomy and radiation (x35 treatments) left Pulmonary nodule noted in 2011, pt declined f/u per PCP records pt denies/not that she is aware of Left carotid bruit Umbilical hernia without obstruction or gangrene 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 Anemia chronic, 09/2021 GI bleed -pt denies gi bleed in sep 2021 reports hx gi bleeds Transient ischemic attack pt denies Chronic kidney disease, stage 3a pt unaware denies hx kidney problems or kidney stones - reports all tests have been normal with kidneys Bullous pemphigoid chronic steroids Mitral stenosis severe, no planned intervention per 04/2022 cardio consult Aortic stenosis, severe s/p aortic valve replacement 2020 Mitral regurgitation Hyperlipidemia Hypertension Gout hx Hypothyroid Surgical History H/O umbilical hernia repair (07/20/22) Open Incarcerated Umbilical Hernia Repair(Not Applicable) - Parag Rowell MD, FACS History of cardiac cath 2020 ([place]) PRIOR TO AORTIC VALVE REPLACEMENT History of endoscopy pt reports they stretched opening from esophagus into the stomach / it was almost closed History of colonoscopy H/O aortic valve replacement March 2021 S/P hysterectomy with oophorectomy "complete" 1996 - reports possible appendectomy with - pt not sure S/P lumpectomy, left breast Family History Sister Breast cancer Colorectal cancer COPD (chronic obstructive pulmonary disease) Mother Diabetes Sister Breast cancer Colorectal cancer Denies family history of Ovarian cancer Prostate cancer Myocardial infarction Social History Smoking Status: Never smoker Tobacco Type: Cigarettes Age Started Using Tobacco: 15; Age Quit Using Tobacco: 33; packs per day: 0.5; Cigarettes Per Day: 10; Second Hand Exposure: No; Do You Dip or Chew Tobacco: No; Hx Alcohol Use: No Hx Substance Use: No Preferred Language: Welsh Communication Ability: Effective Visual Impairment: No Limitations Hearing Ability: Normal Back Grinder Required: No Beliefs That Will Affect Care: None marital status: / Current Living Situation: Alone current occupational status: retired 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 She is sitting in her chair at her bedside. HEENT: Unremarkable Neck: No jugular venous distention, carotid pulses are irregular but otherwise normal and equal bilaterally without bruits. Pulmonary: Clear to auscultation bilaterally. Cardiac: Irregular rhythm with a soft holosystolic murmur at the apex and a crescendo decrescendo murmur at the base, no gallop or rub. Abdomen: Soft, nontender with normal bowel sounds. Extremities: Trace edema. Neurologic: No focal findings. Skin: No rash, ecchymoses or petechiae. Results & Data Vital Signs (Past 12 Hours) Vital Signs Temp Pulse Pulse Resp BP BP Pulse Ox 01/09/24 14:00 36.4 C L 55 L 17 107/54 L 98 01/09/24 10:10 67 20 93 01/09/24 10:00 74 19 94 01/09/24 09:50 72 16 95 01/09/24 09:40 79 19 95 01/09/24 09:30 72 24 97 01/09/24 09:20 76 21 95 01/09/24 09:18 86 21 95 01/09/24 08:50 85 15 94 05 08:40 87 17 95 05 08:30 74 21 95 05 08:20 76 13 95 05 08:10 67 14 95 05 08:05 86 20 94 05 08:05 130/90 01/09/24 08:00 82 16 94 05 07:50 75 19 95 05 07:40 80 19 96 01/09/24 07:34 94 05 07:26 91 H 01/09/24 07:21 81 16 94 05 07:10 65 19 93 05 07:01 138/78 01/09/24 07:01 72 22 91 05 07:00 66 21 92 05 06:50 65 17 91 05 06:40 67 20 93 05 06:31 87 19 91 05 06:20 71 19 93 05 06:10 85 18 94 05 06:00 69 17 91 05 06:00 127/74 05 05:52 64 18 128/67 93 05 05:50 67 17 91 05 05:40 76 15 90 05 05:30 59 L 16 90 01/09/24 05:20 62 16 94 05 05:10 73 17 94 05 05:00 124/64 05 05:00 74 17 93 05 04:50 70 17 94 05 04:40 71 17 94 05 04:30 67 18 90 05 04:20 65 19 93 05 04:10 58 L 18 93 05 04:00 66 20 94 05 04:00 120/71 05 03:50 67 16 95 05 03:40 62 19 93 05 03:30 72 18 95 0524 03:20 58 L 22 94 05 03:10 65 18 93 05 03:00 62 18 95 05 03:00 118/68 O2 Del Method 01/09/24 14:00 Room Air 01/09/24 10:10 01/09/24 10:00 01/09/24 09:50 01/09/24 09:40 01/09/24 09:30 01/09/24 09:20 01/09/24 09:18 01/09/24 08:50 01/09/24 08:40 01/09/24 08:30 01/09/24 08:20 01/09/24 08:10 01/09/24 08:05 01/09/24 08:05 01/09/24 08:00 01/09/24 07:50 01/09/24 07:40 01/09/24 07:34 01/09/24 07:26 01/09/24 07:21 01/09/24 07:10 01/09/24 07:01 01/09/24 07:01 01/09/24 07:00 01/09/24 06:50 01/09/24 06:40 01/09/24 06:31 01/09/24 06:20 01/09/24 06:10 01/09/24 06:00 01/09/24 06:00 01/09/24 05:52 Room Air 01/09/24 05:50 01/09/24 05:40 01/09/24 05:30 01/09/24 05:20 01/09/24 05:10 01/09/24 05:00 01/09/24 05:00 01/09/24 04:50 01/09/24 04:40 01/09/24 04:30 01/09/24 04:20 01/09/24 04:10 01/09/24 04:00 01/09/24 04:00 01/09/24 03:50 01/09/24 03:40 01/09/24 03:30 01/09/24 03:20 01/09/24 03:10 01/09/24 03:00 01/09/24 03:00 Laboratory Results Cardiac Enzymes 01/08/24 Range/Units 21:52 AST 9 L (13-39) U/L Coagulation 01/08/24 01/08/24 01/09/24 Range/Units 21:32 21:52 04:14 PT > 90.0 H 28.3 H (9.0-12.0) Seconds APTT 41 H (21-31) Seconds CBC 01/08/24 01/09/24 Range/Units 21:52 04:14 WBC 10.76 8.41 (4.8-10.8) K/ul RBC 3.50 L 3.25 L (4.20-5.40) M/uL Hgb 11.0 L 10.0 L (12.0-16.0) g/dl Hct 34.4 L 31.6 L (37.0-47.0) % Plt Count 352 313 (130-400) K/uL Neut # (Auto) 9.88 H 7.44 H (1.40-6.50) K/uL Lymph # (Auto) 0.44 L 0.56 L (1.20-3.40) K/uL [place] # (Auto) 0.27 0.32 (0.11-0.59) K/uL Eos # (Auto) 0.05 0.01 (0.00-0.50) K/uL Baso # (Auto) 0.04 0.01 (0.00-0.20) K/uL Comprehensive Metabolic Panel 01/08/24 01/09/24 Range/Units 21:52 04:14 Sodium 137 138 (136-145) mmol/L Potassium 4.2 4.7 (3.5-5.1) mmol/L Chloride 105 108 H (98-107) mmol/L Carbon Dioxide 24 24 (21-32) mmol/L BUN 25 H 22 (6-23) mg/dl Creatinine 0.93 0.76 (0.6-1.2) mg/dl Glucose 169 H 136 H (70-99(Fasting)) mg/dl Calcium 9.8 9.0 (8.6-10.3) mg/dl AST 9 L (13-39) U/L ALT 7 (7-52) U/L Alkaline Phosphatase 54 (34-104) U/L Total Protein 6.6 (6.0-8.3) gm/dl Albumin 3.7 3.4 (3.4-5.0) gm/dl Intake and Output 01/08/24 01/09/24 01/09/24 22:59 06:59 14:59 Intake Total 51 / 51 Balance Intake: IV Phytonadione 10 mg In Dextrose 5% 50 ml @ 102 mls/hr IV ONE ONE Rx#:[id number] Oral 0 / 0 Other: # Unmeasured Voids 1 Weight 70.1 kg 70.1 kg Weight Measurement Method Built in Gemfirecale Chair Scale Diagnostic Findings Telemetry: Atrial fibrillation this admission, heart rate was around 100 on initial presentation that has gradually dropped to the mid 50s. PG Care Time/CCT Total # of Minutes Spent Total Time Spent with Patient: Total time spent is greater than 50% in coordination of care (as documented) at patient's floor/unit and/or counseling patient: Coding Level of Care Code 59757 INT INP/OBS CARE 2/55MIN Diagnoses Persistent atrial fibrillation I48.19 Anticoagulant long-term use Z79.01 S/P TAVR (transcatheter aortic valve replacement) Z95.2 Mitral valve stenosis, unspecified etiology I05.0 Cardiac valve disease etiology: etiology unspecified (4) Mitral stenosis Cardiac valve disease etiology: etiology unspecified Qualified Code(s): I05.0 - Rheumatic mitral stenosis
[2024-01-09] MEDS: ASPIRIN 81 MG ECTAB PO SCH (20:03)
[2024-01-10] MEDS: ACETAMINOPHEN 325 MG TAB PO PRN (03:09)
[2024-01-10 06:22] LABS: Basophils # (auto) 0.07 K/uL (0.00-0.20); Basophils % (auto) 0.7 %; Eosinophils # (auto) 0.15 K/uL (0.00-0.50); Eosinophils % (auto) 1.5 %; Hematocrit (blood only) 32.2 % (37.0-47.0); Hemoglobin 10.2 g/dl (12.0-16.0); Immature Granulocytes # (auto) 0.06 K/uL (0.01-0.20); Immature Granulocytes % (auto) 0.6 %; Lymphocytes # (auto) 1.01 K/uL (1.20-3.40); Lymphocytes % (auto) 10.4 %; Mean Corpuscular Hemoglobin 31.1 pg (25.0-34.0); Mean Corpuscular Hgb Conc 31.7 g/dL (32.0-36.0); Mean Corpuscular Volume 98.2 fL (80.0-100.0); Mean Platelet Volume 10.2 fL (9.4-12.4); Monocytes # (auto) 0.72 K/uL (0.11-0.59); Monocytes % (auto) 7.4 %; Neutrophils # (auto) 7.68 K/uL (1.40-6.50); Neutrophils % (auto) 79.4 %; Platelet Count 320 K/uL (130-400); RDW Standard Deviation 49.3 fL (36.4-46.3); Red Blood Count 3.28 M/uL (4.20-5.40); White Blood Count 9.69 K/ul (4.8-10.8)
[2024-01-10 06:29] LABS: INR 1.4 (0.9-1.1); Partial Thromboplastin Time 27 Seconds (21-31); Prothrombin Time 14.6 Seconds (9.0-12.0)
[2024-01-10 07:29] LABS: Albumin Level 3.5 gm/dl (3.4-5.0); BUN Creatinine Ratio 29.1 (10-20); Calcium 8.8 mg/dl (8.6-10.3); Creatinine Clr Calc Pharmacy 42.7 ml/min; Est GFR (African American) 69.9 ml/min; Est GFR (Non-African American) 60.3 ml/min; Magnesium 1.9 mg/dl (1.7-2.4); Phosphorus 3.1 mg/dl (2.5-4.9); Potassium 4.3 mmol/L (3.5-5.1)
--- NOTE | 2024-01-10 07:57 | Hospitalist Progress Note ---
Date of Service January 10, 2024 Assessment & Plan (1) Supratherapeutic INR: (2) Acute anterior epistaxis: (3) New onset atrial fibrillation: (4) Generalized weakness: (5) Bullous pemphigoid: (6) Hypothyroid: (7) S/P TAVR (transcatheter aortic valve replacement): (8) Mitral regurgitation: (9) Mitral stenosis: Plan 88-year-old female with a past medical history including bullous pemphigoid, hypothyroidism, B12 deficiency, impaired fasting glucose, hypertension, mitral stenosis/regurgitation, aortic stenosis status post TAVR, chronic diarrhea and pulmonary nodules Supratherapeutic INR on warfarin/anterior epistaxis- Resolved INR greater than 9.5 on admission Today on therapeutic range INR: 2.3 s/p vitamin K 10 mg IV in the ED and oxymetazoline nasal spray Goal INR is 2-[address] Law, to determine what type and follow up of anticoagulation Atrial fibrillation/mitral stenosis/mitral regurgitation/aortic stenosis status post TAVR- Rate controlled Continue aspirin 81 mg daily, carvedilol 12.5 mg p.o. twice daily, diltiazem 240 mg every morning Holding warfarin due to supratherapeutic INR as noted above On Warfarin due to previous history of GI bleed Hyperglycemia On chronic prednisone If glucose is elevated in a.m., will place on regular Accu-Cheks Dark stool pt has history of GI bleeding Stools negative for occult blood on prev admission She denied current dark stools now Bullous pemphigoid: Continue home prednisone dose Hypothyroid: TSH WNL (12/29) Continue levothyroxine Hypertension - Continue Carvedilol and Diltiazem Mitral stenosis: S/P TAVR (transcatheter aortic valve replacement): Plan VTE Prophylaxis -SCD for now Diet - heart healthy Disposition - Med/surg Admission and Anticipated Discharge Date Admission Date: January 09, 2024 Physical Exam Constitutional: WD/WN, vitals as above Respiratory: normal respiratory effort, lungs clear to auscultation Cardiovascular: Rate/Rhythm: + irregularly irregular Heart Sounds: normal S1, normal S2 and + murmur (DRAKE) Gastrointestinal (Abdomen): normal bowel sounds, soft, nontender, no hepatosplenomegaly Skin: no rashes, warm and dry Results & Data Results & Data Vital Signs (Past 12 Hours) Vital Signs Temp Pulse Pulse Resp BP Pulse Ox O2 Del Method 01/10/24 07:29 36.3 C L 80 16 121/62 95 Room Air 01/10/24 03:06 36.6 C 65 18 109/69 94 Room Air 01/10/24 02:00 01/09/24 22:31 36.9 C 84 18 100/70 91 Room Air 01/09/24 22:00 76 01/09/24 20:01 36.9 C 79 18 122/58 L 94 Room Air O2 Del Method 01/10/24 07:29 01/10/24 03:06 01/10/24 02:00 Room Air 01/09/24 22:31 01/09/24 22:00 01/09/24 20:01 (6) Hypothyroid Hypothyroidism type: acquired Qualified Code(s): E03.9 - Hypothyroidism, unspecified (9) Mitral stenosis Cardiac valve disease etiology: etiology unspecified Qualified Code(s): I05.0 - Rheumatic mitral stenosis
[2024-01-10] MEDS: APIXABAN 5 MG TABLET PO SCH (08:45)
--- NOTE | 2024-01-10 11:28 | Discharge Summary ---
Date of Service January 10, 2024 Admission HPI Per Admitting Provider The patient is an 88-year-old female with a past medical history including bullous pemphigoid, hypothyroidism, B12 deficiency, impaired fasting glucose, hypertension, mitral stenosis/regurgitation, aortic stenosis status post TAVR, chronic diarrhea pulmonary nodules. She was most recently admitted from 12/29- 01/04/2024 with new onset atrial fibrillation, and was discharged home on warfarin. She did have an episode of supratherapeutic INR, greater than 9.5 during that admission, and received vitamin K, and was discharged on warfarin 5 mg daily. Her antianterior epistaxis was controlled by ED staff tonight, however, INR again tested greater than 9.5, and she was given vitamin K 10 mg IV, then referred for evaluation for admission to Admission Exam Per Admitting Provider The patient is awake, alert and oriented 3, well developed and well nourished, normocephalic and atraumatic, lying in bed and in no acute distress. HEENT--PERRL, EOMI, mucous membranes and oropharynx dry. Neck--supple. No JVD. No bruits. Thyroid normal, trachea midline, no adenopathy. Heart--irregularly irregular. No murmurs, rubs or gallops. Lungs--clear bilaterally, no respiratory distress, no accessory muscle use. Abdomen--normal bowel sounds and soft. Nontender. Nondistended, no hernias or masses, no organomegaly. Extremities--No edema. Dermatologic--normal skin turgor, normal color, no abnormal lymph nodes, no rash. Neurologic--cranial nerves II through XII grossly intact. Rheumatologic--normal range of motion. Psychiatric--normal affect. Principal Diagnosis Supratherapeutic INR, Epistaxis Discharge Exam Constitutional WD/WN, vitals as above Respiratory normal respiratory effort, lungs clear to auscultation Cardiovascular Rate/Rhythm: + irregularly irregular Heart Sounds: normal S1 and normal S2 Extremities: no edema Gastrointestinal (Abdomen) normal bowel sounds, soft, nontender, no hepatosplenomegaly Skin no rashes, warm and dry Discharge Data Allergies Allergy/AdvReac Type Severity Reaction Status Date / Time simvastatin Allergy Intermediate RASH Verified 01/09/24 00:57 Zttcolh-EUO-YmK Reductase Allergy Intermediate Rash Verified 01/09/24 00:57 Inhibitor [Ejrvbuw-Gbn-Gtk Reductase Inhibitor] hydrochlorothiazide Allergy Unknown pt reports Verified 01/09/24 00:57 doesn't take it anymore, denies hx reaction tramadol Allergy Unknown pt not Verified 01/09/24 00:57 sure/pt not recall taking this trospium Allergy Unknown pt doesn't Verified 01/09/24 00:57 recall taking this Consultations 01/09/24 00:13 ED Decision to Admit Stat 01/09/24 01:39 Consult Cardiology Routine Hospital Course (1) Supratherapeutic INR: (2) Acute anterior epistaxis: (3) New onset atrial fibrillation: (4) Generalized weakness: (5) Bullous pemphigoid: (6) Hypothyroid: (7) S/P TAVR (transcatheter aortic valve replacement): (8) Mitral regurgitation: (9) Mitral stenosis: Plan 88-year-old female with a past medical history including bullous pemphigoid, h ypothyroidism, B12 deficiency, impaired fasting glucose, hypertension, mitral stenosis/regurgitation, aortic stenosis status post TAVR, chronic diarrhea and pulmonary nodules Supratherapeutic INR on warfarin/anterior epistaxis- Resolved Patient presented after epistaxis on arrival she was found with INR greater than 9.5 on admission She received vitamin K 10 mg IV in the ED and oxymetazoline nasal spray INR went down to 2.8. [employer] was consulted for adequate anticoagulation treatment: Eliquis 5 mg twice a day Atrial fibrillation/mitral stenosis/mitral regurgitation/severe mitral stenosis/aortic stenosis status post TAVR- Rate controlled Continue aspirin 81 mg daily, carvedilol 12.5 mg p.o. twice daily, diltiazem 240 mg every morning Continue Eliquis as above Follow up outpatient with Cardiology for further rate control Hyperglycemia On chronic prednisone Monitor as outpatient Dark stool pt has history of GI bleeding Stools negative for occult blood on prev admission She denied current dark stools now Bullous pemphigoid: Continue home prednisone dose Hypothyroid: TSH WNL (12/29) Continue levothyroxine Hypertension - Continue Carvedilol and Diltiazem Total Time Total Time Spent Total Time Spent (In Minutes): <30 Discharge Plan Discharge Items Patient Disposition: Home - Self-Care Reason For Visit: SUPRATHERAPEUTIC INR, EPISTAXIS Discharge Diagnosis: Supratherapeutic INR, Epistaxis Condition on Discharge: Good Activity: Resume your previous activity Non-emergency contact: Primary Care Provider Call non-emergency contact if: you have any medication questions Follow-up/Referrals: Ophelia Norman MD [Primary Care Provider] - 01/15/24 1:30 pm (Hospital f/u scheduled January 14 at 1:30 with PCP) Diet: Low Sodium (2gm) Addtl Attending Provider Instructions: Due to warfarin toxicity from high INR of >9 leading to nose bleed, your blood thinner is now switched to Apixaban (Eliquis) You will take 5 mg twice a day. Please follow up with your family physician in one week. Your medication list has been reviewed and reconciled upon discharge to ensure accuracy and continuity of care. An updated list of all your medications is included with your hospital discharge paperwork. Please review this list closel y, and make note of any changes. Pending Studies at Discharge: No Stand-Alone Forms: My [employer], Smoking Cessation Medications and DC Order Prescriptions: New Eliquis 5 mg Tablet 5 mg PO BID Qty: 60 0RF Continued carvedilol 12.5 mg tablet 12.5 mg PO BID Qty: 180 3RF Rx Instructions: must administer with a meal/food allopurinol 100 mg tablet 200 mg PO QAM Qty: 180 2RF gemfibrozil 600 mg tablet 600 mg PO BID Qty: 180 3RF levothyroxine 50 mcg tablet 50 mcg PO QAM 90 Days Qty: 90 2RF calcium carbonate-vitamin D3 [Calcium 600 with Vitamin D3] 600 mg-12.5 mcg (500 unit) capsule 0 cap PO DAILY Rx Instructions: Unable to verify OTC meds w/ patient at this date/time. aspirin [Adult Aspirin Regimen] 81 mg tablet,delayed release (DR/EC) 0 mg PO QPM Rx Instructions: Unable to verify OTC meds w/ patient at this date/time. prednisone 10 mg tablet 10 mg PO Q OTHER DAY Patient Comments: evening Rx Instructions: 10 mg orally every 2 days; take with evening meal ferrous sulfate 325 mg (65 mg iron) tablet 325 mg PO Q OTHER DAY Patient Comments: one every other day Rx Instructions: Unable to verify OTC meds w/ patient at this date/time. alendronate [Fosamax] 70 mg tablet 70 mg PO WK Rx Instructions: usually on saturdays Please take 1 tablet once weekly. Take on an empty stomach with 8 oz. plain water. Wait 1 hour before eating/drinking anything else, or taking other pills. diltiazem HCl 240 mg capsule,extended release 24 hr 240 mg PO QAM Discontinued warfarin 5 mg Tablet 5 mg PO DAILY@1600 30 Days Qty: 30 0RF Discharge Orders: Discharge Order (Routine); Ordered 01/10/24 Ordered By: Zaida Van Admission Data Admit Date/Time: 01/09/24 01:09 Attending Provider: Nohemi Koroma Admit Provider: Shekhar Hurt Primary Care Provider: Ophelia Norman Other Providers: Shekhar Hurt; Matthew Law Other Interventions: Discharge Summary Assessment (RN) Last Done: 01/10/24 11:58 Supervising Physician Co-Signing Physician Notes Attending Physician Supervision Note: I independently interviewed and examined the patient and verified the khan history and physical, reviewed labs and image studies and agree with findings and care plan noted above.
--- NOTE | 2024-01-10 13:07 | Cardiology Progress Note ---
Date of Service January 10, 2024 Assessment & Plan (1) Persistent atrial fibrillation: (2) Anticoagulant long-term use: (3) S/P TAVR (transcatheter aortic valve replacement): (4) Mitral stenosis: Plan 1. Atrial fibrillation: She remains in atrial fibrillation, this was identified about 1 week ago although we do not know the true duration, presumably longer than that. Her heart rate seems well-controlled or perhaps slightly slow on her current regimen of carvedilol 12.5 mg twice a day and diltiazem 240 mg daily. These medications predated the onset of atrial fibrillation. At this point we are pursuing a rate control/anticoagulation strategy although we may want to convert her rhythm to sinus when she has been adequately anticoagulated which would be another several weeks. That decision will take place as an outpatient later. For now I would not attempt to convert her rhythm but would continue with these rate control medications and she will need anticoagulation If possible. I would continue her current rate control medications. 2. Anticoagulation: She is clearly not a good warfarin candidate, the concept of "valvular atrial fibrillation" is not well-defined, there is data that with mitral stenosis warfarin may be a better agent than the newer ones although I do not believe the data is very robust and certainly in her case we cannot use warfarin. I did review the guidelines to a certain extent and it seems that the recommendation for warfarin is based on a study called INVICTUS which compared Xarelto with warfarin (I have not found a study using Eliquis which I suspect was not done once the Xarelto study was published). That trial showed the ri varoxaban mortality slightly higher (7.95 versus 6.35%), the stroke rates slightly higher (1.3 to versus 0.94%) with similar major bleeding. Although no [id number] study has been done all studies and I am familiar with for atrial fibrillation show that Eliquis has better efficacy and lower mortality and bleeding than Xarelto. With this in mind I would expect that warfarin and Eliquis have similar risk and efficacy, I would be surprised if warfarin was much better than Eliquis. She had markedly elevated INR readings twice now, once during loading and now shortly after going home. I think this is an extremely dangerous drug in her case. I would opt for Eliquis. Her creatinine is normal and her weight is over 60 kg therefore her Eliquis dose would be 5 mg twice a day despite her advanced age. 3. TAVR: She has a TAVR in place, she has aortic stenosis based on her last echo but the valve area is felt to be 2.1 cm which would certainly not prompt further evaluation. At her age and lack of symptoms I do not think this should be addressed now. 4. Mitral valve disease (mitral stenosis and mitral regurgitation): This may be an issue as far as her symptoms, and this may have to be addressed. As noted above with her advanced age, relative lack of symptoms and preserved left ventricular function I would not pursue this now. Admission and Anticipated Discharge Date Admission Date: January 09, 2024 Subjective She is feeling well today, she continues to be free of bleeding that she is aware of and she did start Eliquis this morning. She has no sensation of atrial fibrillation and is not at heart failure symptoms here. Physical Exam Physical Exam: Constitutional: Alert, cooperative and in no distress. She is sitting in her chair at her bedside. HEENT: Unremarkable Neck: No jugular venous distention, carotid pulses are irregular but otherwise normal and equal bilaterally without bruits. Pulmonary: Clear to auscultation bilaterally. Cardiac: Irregular rhythm with a soft holosystolic murmur at the apex and a crescendo decrescendo murmur at the base, no gallop or rub. Abdomen: Soft, nontender with normal bowel sounds. Extremities: Trace edema. Neurologic: No focal findings. Skin: No rash, ecchymoses or petechiae. Results & Data Vital Signs (Past 12 Hours) Vital Signs Temp Pulse Resp BP Pulse Ox O2 Del Method O2 Del Method 01/10/24 11:58 36.6 C 71 16 109/55 L 96 01/10/24 11:16 36.6 C 71 16 109/55 L 96 Room Air 01/10/24 07:29 36.3 C L 80 16 121/62 95 Room Air 01/10/24 03:06 36.6 C 65 18 109/69 94 Room Air 01/10/24 02:00 Room Air Laboratory Results Coagulation 01/10/24 Range/Units 05:30 PT 14.6 H (9.0-12.0) Seconds APTT 27 (21-31) Seconds CBC 01/10/24 Range/Units 05:30 WBC 9.69 (4.8-10.8) K/ul RBC 3.28 L (4.20-5.40) M/uL Hgb 10.2 L (12.0-16.0) g/dl Hct 32.2 L (37.0-47.0) % Plt Count 320 (130-400) K/uL Neut # (Auto) 7.68 H (1.40-6.50) K/uL Lymph # (Auto) 1.01 L (1.20-3.40) K/uL Bath # (Auto) 0.72 H (0.11-0.59) K/uL Eos # (Auto) 0.15 (0.00-0.50) K/uL Baso # (Auto) 0.07 (0.00-0.20) K/uL Comprehensive Metabolic Panel 01/10/24 Range/Units 05:30 Sodium 139 (136-145) mmol/L Potassium 4.3 (3.5-5.1) mmol/L Chloride 107 (98-107) mmol/L Carbon Dioxide 25 (21-32) mmol/L BUN 25 H (6-23) mg/dl Creatinine 0.86 (0.6-1.2) mg/dl Glucose 89 (70-99(Fasting)) mg/dl Calcium 8.8 (8.6-10.3) mg/dl Albumin 3.5 (3.4-5.0) gm/dl Intake and Output 01/09/24 01/10/24 01/10/24 22:59 06:59 14:59 Intake Total 300 / 500 200 / 500 Balance 300 / 500 200 / 500 Intake: Oral 300 / 500 200 / 500 Other: # Unmeasured Voids 2 1 Weight 71 kg 71 kg Weight Measurement Method Built in [facility] Patient Weight 01/11/24 06:59 Weight 71 kg Her INR this morning is 1.4 Diagnostic Findings Telemetry: Atrial fibrillation, rate averaging 60 to 70 bpm. PG Care Time/CCT Total # of Minutes Spent Total Time Spent with Patient: Total time spent is greater than 50% in coordination of care (as documented) at patient's floor/unit and/or counseling patient: Coding Level of Care Code 96208 SUB INP/OBS CARE 2/35MIN Diagnoses Persistent atrial fibrillation I48.19 Anticoagulant long-term use Z79.01 S/P TAVR (transcatheter aortic valve replacement) Z95.2 Mitral valve stenosis, unspecified etiology I05.0 Cardiac valve disease etiology: etiology unspecified (4) Mitral stenosis Cardiac valve disease etiology: etiology unspecified Qualified Code(s): I05.0 - Rheumatic mitral stenosis
[2024-01-10] MEDS ORDERED: predniSONE 10 MG TABLET PO SCH (16:30)
--- NOTE | 2024-01-11 12:38 | Electrocardiogram Report ---
Test Reason : Blood Pressure : / mmHG Vent. Rate : 062 BPM Atrial Rate : 060 BPM P-R Int : 000 ms QRS Dur : 088 ms QT Int : 434 ms P-R-T Axes : 000 -15 -29 degrees QTc Int : 440 ms Atrial fibrillation Nonspecific ST and T wave abnormality Abnormal ECG When compared with ECG of 31-DEC-2023 23:22, Nonspecific T wave abnormality no longer evident in Lateral leads Confirmed by Vladislav Naik ([id number]) on 01/11/2024 12:37:57 PM Referred By: REFERRED SELF Confirmed By:Vladislav Naik
== END 2024-01-10 13:24 | disposition home or self-care (01) | DRG 813 ==
LOC: ED 21:19 → SUATTDRO 01-09 01:09 → EDINP 01-09 01:09 → 2S 01-09 01:40

== ENCOUNTER 2024-01-14 17:04 | Inpatient (IN) ==
--- NOTE | 2024-01-14 17:15 | ED Triage Note ---
Date of Service January 14, 2024 Provider in Triage Author: Elicia Gilliam History of Present Illness This patient was briefly evaluated while in triage. An abbreviated physical exam was performed. This patient is a 88-year-old Female who presents to the ED for evaluation of possible GI bleed. She was discharged from here about 5 days ago. She was discharged on Eliquis (switched from Coumadin). She has had black stools for a few days. Today she has had black diarrhea. She denies any abdominal pain and vomiting. She does have some shortness of breath. Physical Exam GENERAL: Non-toxic and in no acute distress. Sitting upright in wheelchair in triage. LUNGS: Normal respiratory effort. ABDOMEN: Soft, nontender to palpation. NEURO: Alert and oriented. No obvious neurological deficits on quick neuro exam. Initial orders for labs and / or imaging were placed and patient was placed in the waiting area until a bed is available. Please see further documentation for the full ED course.
[2024-01-14 17:56] LABS: Basophils # (auto) 0.07 K/uL (0.00-0.20); Basophils % (auto) 0.7 %; Hemoglobin 8.3 g/dl (12.0-16.0); Immature Granulocytes # (auto) 0.07 K/uL (0.01-0.20); Immature Granulocytes % (auto) 0.7 %; Lymphocytes # (auto) 1.07 K/uL (1.20-3.40); Lymphocytes % (auto) 10.9 %; Mean Corpuscular Hemoglobin 31.4 pg (25.0-34.0); Mean Corpuscular Hgb Conc 31.9 g/dL (32.0-36.0); Mean Corpuscular Volume 98.5 fL (80.0-100.0); Mean Platelet Volume 9.9 fL (9.4-12.4); Monocytes % (auto) 7.1 %; Neutrophils # (auto) 7.74 K/uL (1.40-6.50); Neutrophils % (auto) 78.6 %; Platelet Count 281 K/uL (130-400); RDW Coefficient of Variation 14.6 % (11.5-14.5); RDW Standard Deviation 52.5 fL (36.4-46.3); Red Blood Count 2.64 M/uL (4.20-5.40); White Blood Count 9.85 K/ul (4.8-10.8)
--- NOTE | 2024-01-14 17:59 | Emergency Department Note ---
Impression & Plan CONDON (dyspnea on exertion), Melena, Fatigue, Anemia ED Provider Note ED Provider Note NAME: RAFA MACIEL AGE:88 SEX: Female : 1935 ARRIVES VIA: Private vehicle INFORMANT: Patient ED PROVIDER(s): Ludy Weiss DO CHIEF COMPLAINT: Black stools, shortness of breath, fatigue HPI: This is an 88-year-old female who presents emergency department due to concern for loose black stools since being started on blood thinners for a new diagnosis of atrial fibrillation. She states she is also noticed increased dyspnea with exertion and increased fatigue. She states she was initially started on Coumadin however had a significant nosebleed and so was transition to Eliquis. She denies noting any blood from any source including the stool. She states the stools are black and loose. [id number] at bedside confirms this. She states no recent change in any medications. She denies any cough or URI symptoms. She denies any coming abdominal pain, chest pain, palpitations, or fevers. Patient states 4 years ago she had melanotic stools and was evaluated at [place]. She underwent capsule endoscopy however no source of bleeding was ever found. PAST MEDICAL HISTORY:See Below PAST SURGICAL HISTORY:See Below FAMILY HISTORY:See Below SOCIAL HISTORY:See Below HOME MEDICATIONS:See Below ALLERGIES:See Below VITALS:See Below PHYSICAL EXAMINATION: GENERAL: alert, well appearing, well nourished, no distress, non-toxic EYE EXAM: normal conjunctiva, PERRL and EOM's grossly intact OROPHARYNX: no exudate, no erythema, lips, buccal mucosa, and tongue normal and mucous membranes are moist NECK: supple, no nuchal rigidity, no adenopathy, non-tender LUNGS: Clear to auscultation. Normal chest wall mechanics, no w/r/r HEART: no murmurs, S1 normal and S2 normal ABDOMEN: abdomen soft, non-tender, normo-active bowel sounds, no masses, no rebound or guarding. SKIN: no rashes, petechiae, orbruising UPPER EXTREMITIES: upper extremities are grossly normal. FROM, nml pulses b/l. LOWER EXTREMITIES: No pitting edema. FROM, nml pulses b/l. NEURO EXAM: Normal sensorium, cranial nerves II-XII grossly intact, normal speech, no facial droop,nogross weakness of arms, no gross weakness of legs. Gross sensation intact. No ataxia. Vital Signs: reviewed and remarkable Differential Diagnosis: diverticulosis, AVM, coagulopathy, colitis, malignancy, Edie-Genao tear, esophagitis, peptic ulcer disease, variceal bleed, gastritis, fissure, hemorrhoids, as well as others were entertained. MEDICAL DECISION MAKING: This is an 88-year-old female who presents emergency room due to concern for persistent loose melanotic stools as well as increased fatigue and dyspnea on exertion. She was afebrile vital signs stable on arrival. Patient initially tachycardic and does have history of A-fib although once patient was allowed to rest in bed her heart rate did return to the 80s and 90s. Patient does take Eliquis daily for her atrial fibrillation. Patient had no abdominal pain on bedside exam. Labs are drawn and sent including a type and screen, IV established, EKG and chest were performed at bedside and interpreted by me and patient monitored on telemetry. Patient sent for CT of the abdomen and pelvis as a precaution which did not reveal any other acute cause of her presumed GI bleed. She was started on IV Protonix bolus and drip. Patient noted to have a decreased H&H compared to prior from her most recent admission. Due to concern for occult GI bleed and worsening symptoms, case discussed with the hospitalist team for additional evaluation management. Consultation(s): 1801: Discussed with Dr. Sharma, [place] hospitalist, for additional evaluation and mgmt. ER Treatment Provided: See below Diagnostics Interpreted By Me: -ECG: Atrial fibrillation at 93, normal axis, normal QRS and QTc, nonspecific ST/T wave changes -Cardiac Monitoring: An order was placed for continuous cardiac monitoring. The monitor shows a rate of 96 with A-fib rhythm. -Laboratory studies: As stated above and show below. -Imaging studies: Chest x-ray: No cardiomegaly, no wide mediastinum, appearance of left pleural effusion versus infiltrate noted Triage Nursing Note Reviewed Prior/Outside Records Reviewed -prior discharge summary from January 10, 2024 for reviewed Critical Care: Critical care of 39 min performed to assess and manage high likelihood of life- threatening GI bleed, involving labs and imaging performed with assessment to evaluate GI bleed diagnosis with frequent reassessment. This time includes bedside time, treatment discussions with patient/family/consultants, documentation time and excludes procedure time. 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 Anemia chronic, 09/2021 GI bleed -pt denies gi bleed in sep 2021 reports hx gi bleeds Transient ischemic attack pt denies Chronic kidney disease, stage 3a pt unaware denies hx kidney problems or kidney stones - reports all tests have been normal with kidneys Bullous pemphigoid chronic steroids Mitral stenosis severe, no planned intervention per 04/2022 cardio consult Aortic stenosis, severe s/p aortic valve replacement 2020 Mitral regurgitation Hyperlipidemia Hypertension Gout hx Hypothyroid Surgical History H/O umbilical hernia repair (07/20/22) Open Incarcerated Umbilical Hernia Repair(Not Applicable) - Parag Rowell MD, FACS History of cardiac cath 2020 ([place]) PRIOR TO AORTIC VALVE REPLACEMENT History of endoscopy pt reports they stretched opening from esophagus into the stomach / it was almost closed History of colonoscopy H/O aortic valve replacement March 2021 S/P hysterectomy with oophorectomy "complete" 1996 - reports possible appendectomy with - pt not sure S/P lumpectomy, left breast Family History Sister Breast cancer Colorectal cancer COPD (chronic obstructive pulmonary disease) Mother Diabetes Sister Breast cancer Colorectal cancer Denies family history of Ovarian cancer Prostate cancer Myocardial infarction Social History Smoking Status: Never smoker Tobacco Type: Cigarettes Age Started Using Tobacco: 15; Age Quit Using Tobacco: 33; packs per day: 0.5; Cigarettes Per Day: 10; Second Hand Exposure: No; Do You Dip or Chew Tobacco: No; Hx Alcohol Use: No Hx Substance Use: No Preferred Language: Malagasy Communication Ability: Effective Visual Impairment: No Limitations Hearing Ability: Normal Front End Developer Required: No Beliefs That Will Affect Care: None marital status: / Current Living Situation: Alone current occupational status: retired 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 How many Children do You have: 3 Feels Safe at Home: Yes Childhood Exposure to Second-Hand Smoke: Yes Diet: regular caffeine: No during the past year weight has: remained stable Dental Care, Regularly: No Physical Activity Frequency: Does not Exercise Seatbelt Use: always Sunscreen Use: No Assistive Devices: Bedside Commode, Cane, Walker and Wheelchair Allergies Allergies Allergy/AdvReac Type Severity Reaction Status Date / Time simvastatin Allergy Intermediate RASH Verified 01/09/24 00:57 Csszrua-GPW-OiG Reductase Allergy Intermediate Rash Verified 01/09/24 00:57 Inhibitor [Rqfbulq-Wmu-Nsn Reductase Inhibitor] hydrochlorothiazide Allergy Unknown pt reports Verified 01/09/24 00:57 doesn't take it anymore, denies hx reaction tramadol Allergy Unknown pt not Verified 01/09/24 00:57 sure/pt not recall taking this trospium Allergy Unknown pt doesn't Verified 01/09/24 00:57 recall taking this warfarin AdvReac Severe Verified 01/11/24 10:08 Home Meds Home Medications Medication Instructions Recorded Confirmed aspirin 81 mg tablet,delayed 81 mg PO QPM 04/20/21 01/14/24 release (Adult Aspirin Regimen) prednisone 10 mg tablet 10 mg PO Q OTHER DAY 01/03/23 01/14/24 calcium carbonate 600 mg-vitamin 1 cap PO DAILY 03/16/23 01/14/24 D3 12.5 mcg (500 unit) capsule (Calcium 600 with Vitamin D3) alendronate 70 mg tablet (Fosamax) 70 mg PO WK 12/30/23 01/14/24 diltiazem HCl 240 mg capsule,24 240 mg PO QAM 12/30/23 01/14/24 hr,extended release ferrous sulfate 325 mg (65 mg 325 mg PO Q OTHER DAY 01/08/24 01/14/24 iron) tablet Previous Rx's Medication Instructions Recorded carvedilol 12.5 mg tablet 12.5 mg PO BID #180 tabs 10/26/23 allopurinol 100 mg tablet 200 mg (2 x 100 mg) PO QAM #180 10/02/23 tabs gemfibrozil 600 mg tablet 600 mg PO BID #180 tabs 11/23/23 levothyroxine 50 mcg tablet 50 mcg PO QAM 90 days #90 tabs 11/23/23 apixaban 5 mg tablet (Eliquis) 5 mg PO BID #60 tabs 01/10/24 Results & Data (ED) Vital Signs Vital Signs - 24 hr 01/14/24 17:12 01/14/24 17:42 01/14/24 17:43 Temperature 36.6 C Temperature Source Temporal Artery Scan Pulse Rate 83 Pulse Rate [Apical] 105 H Respiratory Rate 18 24 Respiratory Effort / Characteristics Non-Labored Spontaneous Short of Breath Respiratory Depth Normal Respiratory Pattern Regular Blood Pressure 102/65 Blood Pressure [Right Arm] 108/60 Blood Pressure Mean 77 Blood Pressure Mean [Right Arm] 76 Pulse Oximetry 96 95 95 Oxygen Delivery Method Room Air Room Air Room Air Sepsis Recent Fever Within 48 Hours No Sepsis New/Unexplained Change in Mental Status N/A Sepsis Action Taken by Nursing No Action Required 01/14/24 18:14 Temperature Temperature Source Pulse Rate 104 H Pulse Rate [Apical] Respiratory Rate Respiratory Effort / Characteristics Respiratory Depth Respiratory Pattern Blood Pressure Blood Pressure [Right Arm] Blood Pressure Mean Blood Pressure Mean [Right Arm] Pulse Oximetry Oxygen Delivery Method Sepsis Recent Fever Within 48 Hours Sepsis New/Unexplained Change in Mental Status Sepsis Action Taken by Nursing Laboratory Data 01/14/24 21:41 01/14/24 17:33 Lab Results 01/14/24 01/14/24 Range/Units 17:33 17:34 WBC 9.85 (4.8-10.8) K/ul RBC 2.64 L (4.20-5.40) M/uL Hgb 8.3 L (12.0-16.0) g/dl Hct 26.0 L (37.0-47.0) % MCV 98.5 (80.0-100.0) fL MCH 31.4 (25.0-34.0) pg MCHC 31.9 L (32.0-36.0) g/dL RDW Std Deviation 52.5 H (36.4-46.3) fL RDW Coeff of Mervin 14.6 H (11.5-14.5) % Plt Count 281 (130-400) K/uL MPV 9.9 (9.4-12.4) fL Immature Gran % (Auto) 0.7 % Neut % (Auto) 78.6 % Lymph % (Auto) 10.9 % Crawford % (Auto) 7.1 % Eos % (Auto) 2.0 % Baso % (Auto) 0.7 % Neut # (Auto) 7.74 H (1.40-6.50) K/uL Lymph # (Auto) 1.07 L (1.20-3.40) K/uL Crawford # (Auto) 0.70 H (0.11-0.59) K/uL Eos # (Auto) 0.20 (0.00-0.50) K/uL Baso # (Auto) 0.07 (0.00-0.20) K/uL Immature Gran # (Auto) 0.07 (0.01-0.20) K/uL PT 18.9 H (9.0-12.0) Seconds INR 1.8 H (0.9-1.1) APTT 30 (21-31) Seconds PTT Ratio 1.1 Sodium 137 (136-145) mmol/L Potassium 4.1 (3.5-5.1) mmol/L Chloride 104 (98-107) mmol/L Carbon Dioxide 25 (21-32) mmol/L Anion Gap 8 (3-11) BUN 32 H (6-23) mg/dl Creatinine 0.73 (0.6-1.2) mg/dl Est Cr Clr Drug Dosing Not Reportable Est GFR ( Amer) 85.2 ml/min Est GFR (Non-Af Amer) 73.5 ml/min BUN/Creatinine Ratio 43.8 H (10-20) Glucose 109 H (70-99(Fasting)) mg/dl Calcium 8.9 (8.6-10.3) mg/dl Magnesium 1.7 (1.7-2.4) mg/dl Total Bilirubin 0.6 (0.2-1.0) mg/dl AST 11 L (13-39) U/L ALT 6 L (7-52) U/L Alkaline Phosphatase 40 (34-104) U/L Troponin I High Sens 10.8 (0-14) pg/ml Total Protein 6.1 (6.0-8.3) gm/dl Albumin 3.5 (3.4-5.0) gm/dl Globulin 2.6 (2.5-4.0) gm/dl Albumin/Globulin Ratio 1.3 (0.9-2) Procalcitonin 0.06 (0-0.5) ng/ml Blood Type A Positive Antibody Screen NEGATIVE Administered Medications Carvedilol (Carvedilol 12.5 Mg Tab) 12.5 mg PO BIDM DEQUAN Stop: 02/13/24 21:21 Last Admin: 01/14/24 23:36 Dose: 12.5 mg Documented By: DEBRA Pantoprazole Sodium 40 mg/ (Dextrose) 100 mls @ 20 mls/hr IV Q5H DEQUAN Stop: 02/13/24 18:59 Last Admin: 01/14/24 20:27 Dose: 8 mg/hr, 20 mls/hr Documented By: BRAD Discontinued Medications Sodium Chloride (Nss) 1,000 mls @ 125 mls/hr IV .Q8H DEQUAN Stop: 02/13/24 17:59 Last Infusion: 01/14/24 23:09 Dose: Infused Documented By: Admin: 01/14/24 18:12 Dose: 125 mls/hr Documented By: CONOR Pantoprazole Sodium 80 mg/ (Dextrose) 120 mls @ 480 mls/hr IV NOW ONE Stop: 01/14/24 18:48 Last Infusion: 01/14/24 20:28 Dose: Infused Documented By: Admin: 01/14/24 19:56 Dose: 480 mls/hr Documented By: BRAD Magnesium Sulfate/Dextrose (Magnesium Sulfate / D5w) 1 gm in 100 mls @ 100 mls/hr IV NOW STA Stop: 01/14/24 20:46 Last Infusion: 01/14/24 21:38 Dose: Infused Documented By: Admin: 01/14/24 20:34 Dose: 100 mls/hr Documented By: BRAD Ioversol (Optiray 320 100ml) 92 ml IV ONCE ONE Stop: 01/14/24 18:41 Last Admin: 01/14/24 18:40 Dose: 92 ml Documented By: KATT Pantoprazole Sodium (Pantoprazole Bolus/Drip) 1 each IV NOW STA Stop: 01/14/24 18:35 Last Admin: 01/14/24 20:34 Dose: Not Given Documented By: [facility] Imaging Data Radiologist's Impression: Chest X-Ray 01/14/24 17:16 XR chest 1V portable CLINICAL HISTORY: weakness TECHNIQUE: Single frontal radiograph of the chest was obtained. Comparison: Comparison is made to chest radiograph 12/30/2023 FINDINGS: No lines and tubes are seen. Cardiomegaly is noted. Left lower lung airspace opacity is seen. Small left pleural effusion is seen. IMPRESSION: Small left pleural effusion is seen. Airspace opacity may represent atelectasis or pneumonia, and/or aspiration. ACT 112: Negative or not required by law. Electronically signed by: Tyrell Castorena M.D. 01/14/2024 7:05 PM Abdomen/Pelvis CT 01/14/24 18:11 Exam(s): CT ABDOMEN + PELVIS With Contrast IV Amt: 92 ml optiray 320 EXAM: CT Abdomen and Pelvis With Intravenous Contrast CLINICAL HISTORY: Reason for exam: gi bleed. TECHNIQUE: Axial computed tomography images of the abdomen and pelvis with intravenous contrast. CTDI is 25.79 mGy and DLP is 1116.57 mGy-cm. Automated exposure control was utilized for the study. A dose lowering technique was utilized adhering to the principles of ALARA. CONTRAST: Patient received 92 ml optiray 320 of IV contrast COMPARISON: CT abdomen pelvis 04/25/2022 FINDINGS: Pleural space: Small bilateral pleural effusions. ABDOMEN: Liver: Unremarkable. Gallbladder and bile ducts: Fat stranding around the gallbladder. No radiopaque stones or gallbladder distention. Pancreas: Unremarkable. Spleen: Unremarkable. Adrenals: Unremarkable. Kidneys and ureters: Unremarkable. No obstructing stones. No hydronephrosis. Stomach and bowel: No active GI bleed identified. Colonic diverticulosis without diverticulitis. PELVIS: Appendix: No findings to suggest acute appendicitis. Bladder: Unremarkable. Reproductive: Status post hysterectomy. ABDOMEN and PELVIS: Intraperitoneal space: Unremarkable. No free air. No significant fluid collection. Bones/joints: No acute fracture. Soft tissues: Unremarkable. Vasculature: Aortobiiliac atherosclerotic calcifications. Lymph nodes: Unremarkable. IMPRESSION: 1. No active GI bleed identified. 2. Colonic diverticulosis without diverticulitis. 3. Fat stranding around the gallbladder. No radiopaque stones or gallbladder distention. Consider right upper quadrant ultrasound. 4. Small bilateral pleural effusions. Electronically signed by: Baltazar Peoples MD 01/14/24 19:28 PM Discharge Plan Visit Data Chief Complaint: Shortness of Breath/Dyspnea Stated Complaint: SOB, DIRRHEA, LETHERGIC ED Provider: Ludy Weiss Discharge Problem: CONDON (dyspnea on exertion), Melena, Fatigue, Anemia Patient Disposition: Admitted As Inpatient Discharge Instructions Interventions: ED Discharge Assessment Last Done: 01/14/24 21:23
[2024-01-14 18:02] LABS: INR 1.8 (0.9-1.1); Partial Thromboplastin Ratio 1.1; Partial Thromboplastin Time 30 Seconds (21-31); Prothrombin Time 18.9 Seconds (9.0-12.0)
[2024-01-14 18:12] LABS: Alanine Aminotransferase 6 U/L (7-52); Albumin Globulin Ratio 1.3 (0.9-2); Albumin Level 3.5 gm/dl (3.4-5.0); Alkaline Phosphatase 40 U/L (34-104); Anion Gap 8 (3-11); Aspartate Aminotransferase 11 U/L (13-39); BUN Creatinine Ratio 43.8 (10-20); Bilirubin,Total 0.6 mg/dl (0.2-1.0); Blood Urea Nitrogen 32 mg/dl (6-23); Calcium 8.9 mg/dl (8.6-10.3); Carbon Dioxide 25 mmol/L (21-32); Chloride 104 mmol/L (98-107); Est GFR (African American) 85.2 ml/min; Est GFR (Non-African American) 73.5 ml/min; Globulin 2.6 gm/dl (2.5-4.0); Glucose 109 mg/dl (70-99(Fasting)); Magnesium 1.7 mg/dl (1.7-2.4); Potassium 4.1 mmol/L (3.5-5.1); Sodium 137 mmol/L (136-145); Total Protein 6.1 gm/dl (6.0-8.3)
[2024-01-14] MEDS: SODIUM CHLORIDE 0.9% 1,000 ML IV SCH (18:12)
[2024-01-14] MEDS: OPTIRAY 320 100ml IV ONE (18:40)
--- NOTE | 2024-01-14 19:07 | XRay Report ---
XR chest 1V portable CLINICAL HISTORY: weakness TECHNIQUE: Single frontal radiograph of the chest was obtained. Comparison: Comparison is made to chest radiograph 12/30/2023 FINDINGS: No lines and tubes are seen. Cardiomegaly is noted. Left lower lung airspace opacity is seen. Small l eft pleural effusion is seen. IMPRESSION: Small left pleural effusion is seen. Airspace opacity may represent atelectasis or pneumonia, and/or aspiration. ACT 112: Negative or not required by law. Electronically signed by: Tyrell Castorena M.D. 01/14/2024 7:05 PM
--- NOTE | 2024-01-14 19:29 | CT Scan Report ---
Exam(s): CT ABDOMEN + PELVIS With Contrast IV Amt: 92 ml optiray 320 EXAM: CT Abdomen and Pelvis With Intravenous Contrast CLINICAL HISTORY: Reason for exam: gi bleed. TECHNIQUE: Axial computed tomography images of the abdomen and pelvis with intravenous contrast. CTDI is 25.79 mGy and DLP is 1116.57 mGy-cm. Automated exposure control was utilized for the study. A dose lowering technique was utilized adhering to the principles of ALARA. CONTRAST: Patient received 92 ml optiray 320 of IV contrast COMPARISON: CT abdomen pelvis 04/25/2022 FINDINGS: Pleural space: Small bilateral pleural effusions. ABDOMEN: Liver: Unremarkable. Gallbladder and bile ducts: Fat stranding around the gallbladder. No radiopaque stones or gallbladder distention. Pancreas: Unremarkable. Spleen: Unremarkable. Adrenals: Unremarkable. Kidneys and ureters: Unremarkable. No obstructing stones. No hydronephrosis. Stomach and bowel: No active GI bleed identified. Colonic diverticulosis without diverticulitis. PELVIS: Appendix: No findings to suggest acute appendicitis. Bladder: Unremarkable. Reproductive: Status post hysterectomy. ABDOMEN and PELVIS: Intraperitoneal space: Unremarkable. No free air. No significant fluid collection. Bones/joints: No acute fracture. Soft tissues: Unremarkable. Vasculature: Aortobiiliac atherosclerotic calcifications. Lymph nodes: Unremarkable. IMPRESSION: 1. No active GI bleed identified. 2. Colonic diverticulosis without diverticulitis. 3. Fat stranding around the gallbladder. No radiopaque stones or gallbladder distention. Consider right upper quadrant ultrasound. 4. Small bilateral pleural effusions. Electronically signed by: Baltazar Peoples MD 01/14/24 19:28 PM
--- NOTE | 2024-01-14 19:50 | History & Physical Report ---
Date of Service January 14, 2024 Assessment & Plan (1) Symptomatic anemia: Plan: Ferritin, iron studies, B12, folate, reticulocyte count, LDH Transfuse less than 7 overnight, consider higher threshold if she continues to be symptomatic (2) Acute GI bleeding: Plan: FOB +ve, melena, Hx GI bleed without source [place] [facility] [place] Pantoprazole 80mg IV bolus and drip NPO, IV fluids Consult gastroenterology (3) Persistent atrial fibrillation: Plan: Diagnosed December 2023 Continue rate control with carvedilol and diltiazem with hold parameters - these pre-dated her atrial fibrillation Hold anticoagulation due to GI bleed, if source found and controlled possible can go back on this, if no source found may need to be titrated back up while on pantoprazole Consider left atrial appendage closure as outpatient (4) S/P TAVR (transcatheter aortic valve replacement): (5) Melena: (6) Acute blood loss anemia: (7) Bullous pemphigoid: Plan: Reason for chronic steroid use Plan VTE Prophylaxis - chemical contraindicated, SCDs Diet - NPO Disposition - admit to PCU Admission and Anticipated Discharge Date Admission Date: January 14, 2024 History of Present Illness Chief Complaint: Shortness of breath Melena Primary Care Provider: Ophelia Norman MD Ana Rodríguez is an 88-year-old female who presents to the ER with melena, diarrhea and shortness of breath on exertion. This started a day after discharge when she was started on Eliquis after supratherapeutic INR was on warfarin for her atrial fibrillation that was diagnosed in December. She denies any black stool during her admission. Shortness of breath on exertion-shortly after melena. She is continuing to have black stool in the emergency room. No acid taste in her mouth, dizziness, abdominal pain, chest pain or reflux noted by the patient. She has a significant history of GI bleed in 2020. She was transferred [place] [facility] [place] that time due to severe aortic stenosis (now s/p TAVR). She reports no source of the bleeding was found on EGD or small bowel capsule endoscopy. Allergies Allergy/AdvReac Type Severity Reaction Status Date / Time simvastatin Allergy Intermediate RASH Verified 01/09/24 00:57 [id number] Reductase Allergy Intermediate Rash Verified 01/09/24 00:57 Inhibitor [Mhrkhku-Gcj-Vsf Reductase Inhibitor] hydrochlorothiazide Allergy Unknown pt reports Verified 01/09/24 00:57 doesn't take it anymore, denies hx reaction tramadol Allergy Unknown pt not Verified 01/09/24 00:57 sure/pt not recall taking this trospium Allergy Unknown pt doesn't Verified 01/09/24 00:57 recall taking this warfarin AdvReac Severe Verified 01/11/24 10:08 Home Medications Medication Instructions Recorded Confirmed Type aspirin 81 mg tablet,delayed 81 mg PO QPM 04/20/21 01/14/24 History release (Adult Aspirin Regimen) prednisone 10 mg tablet 10 mg PO Q OTHER DAY 01/03/23 01/14/24 History calcium carbonate 600 mg-vitamin 1 cap PO DAILY 03/16/23 01/14/24 History D3 12.5 mcg (500 unit) capsule (Calcium 600 with Vitamin D3) carvedilol 12.5 mg tablet 12.5 mg PO BID #180 tabs 07/05/23 01/14/24 Rx allopurinol 100 mg tablet 200 mg (2 x 100 mg) PO QAM #180 10/02/23 01/14/24 Rx tabs gemfibrozil 600 mg tablet 600 mg PO BID #180 tabs 11/23/23 01/14/24 Rx levothyroxine 50 mcg tablet 50 mcg PO QAM 90 days #90 tabs 11/23/23 01/14/24 Rx alendronate 70 mg tablet (Fosamax) 70 mg PO WK 12/30/23 01/14/24 History diltiazem HCl 240 mg capsule,24 240 mg PO QAM 12/30/23 01/14/24 History hr,extended release ferrous sulfate 325 mg (65 mg 325 mg PO Q OTHER DAY 01/08/24 01/14/24 History iron) tablet apixaban 5 mg tablet (Eliquis) 5 mg PO BID #60 tabs 01/10/24 01/14/24 Rx Past Med/Surg History Medical History GI bleed Pulmonary hypertension mild, 04/2022 echo per 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 Anemia chronic, 09/2021 GI bleed -pt denies gi bleed in sep 2021 reports hx gi bleeds Transient ischemic attack pt denies Chronic kidney disease, stage 3a pt unaware denies hx kidney problems or kidney stones - reports all tests have been normal with kidneys Bullous pemphigoid chronic steroids Mitral stenosis severe, no planned intervention per 04/2022 cardio consult Aortic stenosis, severe s/p aortic valve replacement 2020 Mitral regurgitation Hyperlipidemia Hypertension Gout hx Hypothyroid Surgical History H/O umbilical hernia repair (07/20/22) Open Incarcerated Umbilical Hernia Repair(Not Applicable) - Parag Rowell MD, FACS History of cardiac cath 2020 ([place]) PRIOR TO AORTIC VALVE REPLACEMENT History of endoscopy pt reports they stretched opening from esophagus into the stomach / it was almost closed History of colonoscopy H/O aortic valve replacement March 2021 S/P hysterectomy with oophorectomy "complete" 1996 - reports possible appendectomy with - pt not sure S/P lumpectomy, left breast Family History Sister Breast cancer Colorectal cancer COPD (chronic obstructive pulmonary disease) Mother Diabetes Sister Breast cancer Colorectal cancer Denies family history of Ovarian cancer Prostate cancer Myocardial infarction Social History Smoking Status: Never smoker Tobacco Type: Cigarettes Age Started Using Tobacco: 15; Age Quit Using Tobacco: 33; packs per day: 0.5; Cigarettes Per Day: 10; Second Hand Exposure: No; Do You Dip or Chew Tobacco: No; Hx Alcohol Use: No Hx Substance Use: No Preferred Language: Micronesian Communication Ability: Effective Visual Impairment: No Limitations Hearing Ability: Normal Rug Dyer Required: No Beliefs That Will Affect Care: None marital status: / Current Living Situation: Alone current occupational status: retired 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 How many Children do You have: 3 Feels Safe at Home: Yes Childhood Exposure to Second-Hand Smoke: Yes Diet: regular caffeine: No during the past year weight has: remained stable Dental Care, Regularly: No Physical Activity Frequency: Does not Exercise Seatbelt Use: always Sunscreen Use: No Assistive Devices: Cane and Denture - Upper Review of Systems Review of Systems: All systems reviewed & are unremarkable except as noted in HPI & below Physical Exam Constitutional: WD/WN, vitals as above Eyes: + anicteric sclerae; normal pupil size ENMT: external ear and nose normal, oropharynx normal Respiratory: normal respiratory effort, lungs clear to auscultation Cardiovascular: Rate/Rhythm: regular rate and + irregularly irregular Heart Sounds: no murmur Extremities: normal capillary refill; no calf tenderness and no pedal edema Gastrointestinal (Abdomen): normal bowel sounds, soft, nontender, no hepatosplenomegaly Musculoskeletal: no cyanosis or clubbing, extremities motor strength 5/5 Skin: no rashes, warm and dry Neurologic: moves all extremities and awake; not confused Psychiatric: A+Ox3, euthymic affect Results & Data Results & Data Vital Signs (Past 12 Hours) Vital Signs Temp Pulse Pulse Resp BP BP Pulse Ox 01/14/24 18:14 104 H 01/14/24 17:43 105 H 24 108/60 95 01/14/24 17:42 95 01/14/24 17:12 36.6 C 83 18 102/65 96 O2 Del Method 01/14/24 18:14 01/14/24 17:43 Room Air 01/14/24 17:42 Room Air 01/14/24 17:12 Room Air Laboratory Results Abnormal lab results 01/14/24 Range/Units 17:33 RBC 2.64 L (4.20-5.40) M/uL Hgb 8.3 L (12.0-16.0) g/dl Hct 26.0 L (37.0-47.0) % MCHC 31.9 L (32.0-36.0) g/dL RDW Std Deviation 52.5 H (36.4-46.3) fL RDW Coeff of Mervin 14.6 H (11.5-14.5) % Neut # (Auto) 7.74 H (1.40-6.50) K/uL Lymph # (Auto) 1.07 L (1.20-3.40) K/uL [place] # (Auto) 0.70 H (0.11-0.59) K/uL PT 18.9 H (9.0-12.0) Seconds INR 1.8 H (0.9-1.1) BUN 32 H (6-23) mg/dl BUN/Creatinine Ratio 43.8 H (10-20) Glucose 109 H (70-99(Fasting)) mg/dl AST 11 L (13-39) U/L ALT 6 L (7-52) U/L Diagnostic Findings XR chest 1V portable CLINICAL HISTORY: weakness TECHNIQUE: Single frontal radiograph of the chest was obtained. Comparison: Comparison is made to chest radiograph 12/30/2023 FINDINGS: No lines and tubes are seen. Cardiomegaly is noted. Left lower lung airspace opacity is seen. Small left pleural effusion is seen. IMPRESSION: Small left pleural effusion is seen. Airspace opacity may represent atelectasis or pneumonia, and/or aspiration. CT Abdomen and Pelvis With Intravenous Contrast CLINICAL HISTORY: Reason for exam: gi bleed. TECHNIQUE: Axial computed tomography images of the abdomen and pelvis with intravenous contrast. CTDI is 25.79 mGy and DLP is 1116.57 mGy-cm. Automated exposure control was utilized for the study. A dose lowering technique was utilized adhering to the principles of ALARA. CONTRAST: Patient received 92 ml optiray 320 of IV contrast COMPARISON: CT abdomen pelvis 04/25/2022 FINDINGS: Pleural space: Small bilateral pleural effusions. ABDOMEN: Liver: Unremarkable. Gallbladder and bile ducts: Fat stranding around the gallbladder. No radiopaque stones or gallbladder distention. Pancreas: Unremarkable. Spleen: Unremarkable. Adrenals: Unremarkable. Kidneys and ureters: Unremarkable. No obstructing stones. No hydronephrosis. Stomach and bowel: No active GI bleed identified. Colonic diverticulosis without diverticulitis. PELVIS: Appendix: No findings to suggest acute appendicitis. Bladder: Unremarkable. Reproductive: Status post hysterectomy. ABDOMEN and PELVIS: Intraperitoneal space: Unremarkable. No free air. No significant fluid collection. Bones/joints: No acute fracture. Soft tissues: Unremarkable. Vasculature: Aortobiiliac atherosclerotic calcifications. Lymph nodes: Unremarkable. IMPRESSION: 1. No active GI bleed identified. 2. Colonic diverticulosis without diverticulitis. 3. Fat stranding around the gallbladder. No radiopaque stones or gallbladder distention. Consider right upper quadrant ultrasound. 4. Small bilateral pleural effusions. Medications Administered ER medications given: Pantoprazole 80 mg IV bolus and drip Normal saline at 125 ml/h ECG Rate (beats per minute): 93 Rhythm: atrial fibrillation Findings: + PVC Comparison ECG Date: from (January 10, 2024) Change: the following changes noted (ST depressions laterally, premature ventricular or aberrantly conducted complexes are new) Code Status & VTE Plan Code Status All treatment outside of the cardiac arrest Okay for intubation and ventilation VTE Prophylaxis Plan VTE Prophylaxis will be ordered: Yes PG Care Time/CCT Total # of Minutes Spent Total Time Spent with Patient: Total time spent is greater than 50% in coordination of care (as documented) at patient's floor/unit and/or counseling patient: Coding Level of Care Code 09614 INT INP/OBS CARE 3/75MIN Diagnoses Symptomatic anemia D64.9 Acute GI bleeding K92.2 Persistent atrial fibrillation I48.19 S/P TAVR (transcatheter aortic valve replacement) Z95.2 Melena K92.1 Acute blood loss anemia D62 Bullous pemphigoid L12.0
[2024-01-14] MEDS: PANTOprazole 80 MG in DEXTROSE 5% 100 ML IV ONE (19:56)
[2024-01-14 20:17] LABS: Troponin I High Sensitivity 10.8 pg/ml (0-14)
[2024-01-14] MEDS ORDERED: SODIUM CHLORIDE 0.9% 250 ML IV PRN (20:27)
[2024-01-14] MEDS: PANTOprazole 40 MG in DEXTROSE 5% MINI-B 100 ML IV SCH (20:27)
[2024-01-14] MEDS: MAGNESIUM SULFATE / D5W 1 GM/100 ML BAG IV STA (20:34)
[2024-01-14] MEDS: PANTOPRAZOLE BOLUS/DRIP IV STA (20:34)
[2024-01-14] MEDS ORDERED: ONDANSETRON INJ 2 MG/ML 2 ML VIAL IV PRN (21:22)
[2024-01-14 22:24] LABS: Hematocrit (blood only) 25.1 % (37.0-47.0); Hemoglobin 8.1 g/dl (12.0-16.0)
[2024-01-14] MEDS: carvediloL 12.5 MG TAB PO SCH (23:36)
[2024-01-15] MEDS: LACTATED RINGER'S 1,000 ML IV SCH (01:25)
[2024-01-15 01:50] LABS: Hematocrit (blood only) 24.4 % (37.0-47.0); Hemoglobin 7.7 g/dl (12.0-16.0)
[2024-01-15 04:41] LABS: Appearance Urine Clear (Clear); Bacteria Urine Automated None Seen (None Seen); Bilirubin Urine Negative (Negative); Blood Urine 2+ (Negative); Cast Urine Automated 0-2 /lpf (0-2); Color Urine Yellow; Epithelial Cell Urine Auto 0-2 /hpf (0-2); Glucose Urine UA Negative (Negative); Ketones Urine Negative (Negative); Leukocyte Esterase Urine 1+ (Negative); Nitrite Urine Negative (Negative); Protein Urine Negative (Negative); RBC Urine Automated 0-2 /hpf (0-2); Specific Gravity Urine 1.042 (1.000-1.030); Urobilinogen Urine Negative (Negative); WBC Urine Automated 0-5 /hpf (0-5); pH Urine 6.5 (4.5-7.5)
[2024-01-15] MEDS: LEVOTHYROXINE SODIUM 50 MCG TABLET PO SCH (06:22)
[2024-01-15 06:29] LABS: Basophils # (auto) 0.06 K/uL (0.00-0.20); Basophils % (auto) 0.5 %; Eosinophils # (auto) 0.19 K/uL (0.00-0.50); Eosinophils % (auto) 1.4 %; Hematocrit (blood only) 24.7 % (37.0-47.0); Hemoglobin 7.9 g/dl (12.0-16.0); Immature Granulocytes # (auto) 0.09 K/uL (0.01-0.20); Immature Granulocytes % (auto) 0.7 %; Lymphocytes % (auto) 7.6 %; Mean Corpuscular Hemoglobin 31.3 pg (25.0-34.0); Mean Platelet Volume 10.1 fL (9.4-12.4); Monocytes # (auto) 0.78 K/uL (0.11-0.59); Monocytes % (auto) 5.9 %; Neutrophils # (auto) 11.04 K/uL (1.40-6.50); Neutrophils % (auto) 83.9 %; Platelet Count 263 K/uL (130-400); RDW Coefficient of Variation 14.6 % (11.5-14.5); RDW Standard Deviation 51.5 fL (36.4-46.3); Red Blood Count 2.52 M/uL (4.20-5.40); White Blood Count 13.16 K/ul (4.8-10.8)
[2024-01-15 06:37] LABS: Potassium 3.7 mmol/L (3.5-5.1)
[2024-01-15 06:43] LABS: BUN Creatinine Ratio 36.6 (10-20); Est GFR (African American) 88.1 ml/min
[2024-01-15 06:53] LABS: RBC Morphology Unremarkable
[2024-01-15] MEDS: allopurinoL 100 MG TAB PO SCH (08:11)
[2024-01-15] MEDS: dilTIAZem HCL 240 MG CAPCR PO SCH (08:11)
[2024-01-15] MEDS: CALCIUM 600MG + VIT D 400 IU TAB PO SCH (08:11)
[2024-01-15 10:14] LABS: Hematocrit (blood only) 26.7 % (37.0-47.0); Hemoglobin 8.4 g/dl (12.0-16.0)
--- NOTE | 2024-01-15 10:35 | Gastrointestinal Consultation ---
Date of Consultation January 15, 2024 Assessment & Plan (1) Acute blood loss anemia: (2) Melena: (3) Small bowel arteriovenous malformation: Plan Patient is a 88 y.o. 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 1. Agree with holding anticoagulation. 2. Continue PPI ggt at 20 ml/hr. 3. No plan for invasive GI work up as bleeding most likely from known AVM. 4. If recurrent bleeding issues, may need to consider WATCHMAN. 5. Transfuse is needed per protocol. 6. Supportive care per primary team. Thank you for allowing us to participate in the care of this patient. If you have any questions or concerns, please do not hesitate to contact us. Supervising Physician Co-Signing Physician Notes Agree with HORACIO Comer as above Interviewed and Examined patient as above Abd: Soft, NT, ND Continue current therapy and supportive care Will hold off on invasive testing at present, as she has not had any overt GI bleeding History of Present Illness Reason for Consultation: GI bleed Requesting Physician: Dr. Sharma Attending Physician: Mariella Christina MD History of Present Illness Patient is a 88 y.o. female with a history of persistent atrial fibrillation on chronic anticoagulation therapy s/p TAVR evaluated most recently by Dr. Woodruff in the office in September of 2022 for chronic diarrhea. She also has a history of recurrent UGIB and did undergo both EGD and colonoscopy by Dr. Woodruff in 2019. The findings at that time included hiatus hernia, Schatzki's ring, diverticulosis and internal hemorrhoids. Patient did eventually undergo a video capsule endoscopy in 2020 that demonstrated a single AVM in the small bowel. Most recently, patient was switched from Coumadin to Eliquis for anticoagulation due to supratherapeutic INR. States she has been having shortness of breath and weakness on the Eliquis prompting ER evaluation. Hemoglobin was 10.2 on 01/09 and H&H is 7.9/24.7 today. States she has been having melena for the past several days. She is heme positive. CT a/p was ordered, however, and negative for any active bleeding. Patient has been placed on NPO status and initiated on a PPI ggt. Allergies Allergy/AdvReac Type Severity Reaction Status Date / Time simvastatin Allergy Intermediate RASH Verified 01/09/24 00:57 Yxxdsje-JTO-EpJ Reductase Allergy Intermediate Rash Verified 01/09/24 00:57 Inhibitor [Dijjrlm-Qka-Qto Reductase Inhibitor] hydrochlorothiazide Allergy Unknown pt reports Verified 01/09/24 00:57 doesn't take it anymore, denies hx reaction tramadol Allergy Unknown pt not Verified 01/09/24 00:57 sure/pt not recall taking this trospium Allergy Unknown pt doesn't Verified 01/09/24 00:57 recall taking this warfarin AdvReac Severe Verified 01/11/24 10:08 Home Medications Medication Instructions Recorded Confirmed Type aspirin 81 mg tablet,delayed 81 mg PO QPM 04/20/21 01/14/24 History release (Adult Aspirin Regimen) prednisone 10 mg tablet 10 mg PO Q OTHER DAY 01/03/23 01/14/24 History calcium carbonate 600 mg-vitamin 1 cap PO DAILY 03/16/23 01/14/24 History D3 12.5 mcg (500 unit) capsule (Calcium 600 with Vitamin D3) carvedilol 12.5 mg tablet 12.5 mg PO BID #180 tabs 07/05/23 01/14/24 Rx allopurinol 100 mg tablet 200 mg (2 x 100 mg) PO QAM #180 10/02/23 01/14/24 Rx tabs gemfibrozil 600 mg tablet 600 mg PO BID #180 tabs 11/23/23 01/14/24 Rx levothyroxine 50 mcg tablet 50 mcg PO QAM 90 days #90 tabs 11/23/23 01/14/24 Rx alendronate 70 mg tablet (Fosamax) 70 mg PO WK 12/30/23 01/14/24 History diltiazem HCl 240 mg capsule,24 240 mg PO QAM 12/30/23 01/14/24 History hr,extended release ferrous sulfate 325 mg (65 mg 325 mg PO Q OTHER DAY 01/08/24 01/14/24 History iron) tablet apixaban 5 mg tablet (Eliquis) 5 mg PO BID #60 tabs 01/10/24 01/14/24 Rx Patient History Medical History GI bleed Pulmonary hypertension mild, 04/2022 echo per [facility] cardio records Umbilical hernia OVER LAST FEW WEEKS SEEPING BLOOD History of anesthesia reaction with lumpectomy sx took multiple hours to wake up History of GI bleed chronic/unknown etiology History of breast cancer 2004 s/p lumpectomy and radiation (x35 treatments) left Pulmonary nodule noted in 2011, pt declined f/u per PCP records pt denies/not that she is aware of Left carotid bruit Umbilical hernia without obstruction or gangrene 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 Anemia chronic, 09/2021 GI bleed -pt denies gi bleed in sep 2021 reports hx gi bleeds Transient ischemic attack pt denies Chronic kidney disease, stage 3a pt unaware denies hx kidney problems or kidney stones - reports all tests have been normal with kidneys Bullous pemphigoid chronic steroids Mitral stenosis severe, no planned intervention per 04/2022 cardio consult Aortic stenosis, severe s/p aortic valve replacement 2020 Mitral regurgitation Hyperlipidemia Hypertension Gout hx Hypothyroid Surgical History H/O umbilical hernia repair (07/20/22) Open Incarcerated Umbilical Hernia Repair(Not Applicable) - Parag Rowell MD, FACS History of cardiac cath 2020 ([place]) PRIOR TO AORTIC VALVE REPLACEMENT History of endoscopy pt reports they stretched opening from esophagus into the stomach / it was almost closed History of colonoscopy H/O aortic valve replacement March 2021 S/P hysterectomy with oophorectomy "complete" 1996 - reports possible appendectomy with - pt not sure S/P lumpectomy, left breast Family History Sister Breast cancer Colorectal cancer COPD (chronic obstructive pulmonary disease) Mother Diabetes Sister Breast cancer Colorectal cancer Denies family history of Ovarian cancer Prostate cancer Myocardial infarction Social History Smoking Status: Never smoker Tobacco Type: Cigarettes Age Started Using Tobacco: 15; Age Quit Using Tobacco: 33; packs per day: 0.5; Cigarettes Per Day: 10; Second Hand Exposure: No; Do You Dip or Chew Tobacco: No; Hx Alcohol Use: No Hx Substance Use: No Preferred Language: [place] Communication Ability: Effective Visual Impairment: No Limitations Hearing Ability: Normal Skiver Blockers Required: No Beliefs That Will Affect Care: None marital status: / Current Living Situation: Alone current occupational status: retired 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 How many Children do You have: 3 Feels Safe at Home: Yes Childhood Exposure to Second-Hand Smoke: Yes Diet: regular caffeine: No during the past year weight has: remained stable Dental Care, Regularly: No Physical Activity Frequency: Does not Exercise Seatbelt Use: always Sunscreen Use: No Assistive Devices: Cane and Denture - Upper Review of Systems Constitutional: as per Subjective / HPI Respiratory: as per Subjective / HPI Cardiovascular: no chest pain and no palpitations Gastrointestinal: as per Subjective / HPI Physical Exam Constitutional: WD/WN, vitals as above Respiratory: normal respiratory effort, lungs clear to auscultation Cardiovascular: Rate/Rhythm: + irregularly irregular Gastrointestinal (Abdomen): normal bowel sounds, soft, nontender, no hepatosplenomegaly Psychiatric: A+Ox3, euthymic affect Results & Data Vital Signs (Past 12 Hours) Vital Signs Temp Pulse Pulse Resp BP Pulse Ox O2 Del Method 01/15/24 08:00 Room Air 01/15/24 02:56 36.6 C 80 20 105/66 94 Room Air 01/15/24 01:45 Room Air 01/15/24 00:54 36.5 C 84 18 118/75 93 Room Air 01/15/24 00:30 100 H 01/14/24 23:07 96 H 22 137/68 97 Room Air Diagnostic Findings Laboratory Results WBC 13.16 K/ul (4.8-10.8) H 01/15/24 05:48 RBC 2.52 M/uL (4.20-5.40) L 01/15/24 05:48 Hgb 8.4 g/dl (12.0-16.0) L 01/15/24 09:22 Hct 26.7 % (37.0-47.0) L 01/15/24 09:22 MCV 98.0 fL (80.0-100.0) 01/15/24 05:48 MCH 31.3 pg (25.0-34.0) 01/15/24 05:48 MCHC 32.0 g/dL (32.0-36.0) 01/15/24 05:48 RDW Std Deviation 51.5 fL (36.4-46.3) H 01/15/24 05:48 RDW Coeff of Mervin 14.6 % (11.5-14.5) H 01/15/24 05:48 Plt Count 263 K/uL (130-400) 01/15/24 05:48 MPV 10.1 fL (9.4-12.4) 01/15/24 05:48 Immature Gran % (Auto) 0.7 % 01/15/24 05:48 Neut % (Auto) 83.9 % 01/15/24 05:48 Lymph % (Auto) 7.6 % 01/15/24 05:48 [place]illion % (Auto) 5.9 % 01/15/24 05:48 Eos % (Auto) 1.4 % 01/15/24 05:48 Baso % (Auto) 0.5 % 01/15/24 05:48 Neut # (Auto) 11.04 K/uL (1.40-6.50) H 01/15/24 05:48 Lymph # (Auto) 1.00 K/uL (1.20-3.40) L 01/15/24 05:48 [place]illion # (Auto) 0.78 K/uL (0.11-0.59) H 01/15/24 05:48 Eos # (Auto) 0.19 K/uL (0.00-0.50) 01/15/24 05:48 Baso # (Auto) 0.06 K/uL (0.00-0.20) 01/15/24 05:48 Immature Gran # (Auto) 0.09 K/uL (0.01-0.20) 01/15/24 05:48 RBC Morphology Unremarkable 01/15/24 05:48 PT 18.9 Seconds (9.0-12.0) H 01/14/24 17:33 INR 1.8 (0.9-1.1) H 01/14/24 17:33 APTT 30 Seconds (21-31) 01/14/24 17:33 PTT Ratio 1.1 01/14/24 17:33 Sodium 136 mmol/L (136-145) 01/15/24 05:48 Potassium 3.7 mmol/L (3.5-5.1) 01/15/24 05:48 Chloride 106 mmol/L (98-107) 01/15/24 05:48 Carbon Dioxide 21 mmol/L (21-32) 01/15/24 05:48 Anion Gap 9 (3-11) 01/15/24 05:48 BUN 26 mg/dl (6-23) H 01/15/24 05:48 Creatinine 0.71 mg/dl (0.6-1.2) 01/15/24 05:48 Est Cr Clr Drug Dosing 50.0 ml/min 01/15/24 05:48 Est GFR ( Amer) 88.1 ml/min 01/15/24 05:48 Est GFR (Non-Af Amer) 76.0 ml/min 01/15/24 05:48 BUN/Creatinine Ratio 36.6 (10-20) H 01/15/24 05:48 Glucose 97 mg/dl (70-99(Fasting)) 01/15/24 05:48 Calcium 8.0 mg/dl (8.6-10.3) L 01/15/24 05:48 Magnesium 1.7 mg/dl (1.7-2.4) 01/14/24 17:33 Total Bilirubin 0.6 mg/dl (0.2-1.0) 01/14/24 17:33 AST 11 U/L (13-39) L 01/14/24 17:33 ALT 6 U/L (7-52) L 01/14/24 17:33 Alkaline Phosphatase 40 U/L (34-104) 01/14/24 17:33 Troponin I High Sens 10.8 pg/ml (0-14) 01/14/24 17:33 Total Protein 6.1 gm/dl (6.0-8.3) 01/14/24 17:33 Albumin 3.5 gm/dl (3.4-5.0) 01/14/24 17:33 Globulin 2.6 gm/dl (2.5-4.0) 01/14/24 17:33 Albumin/Globulin Ratio 1.3 (0.9-2) 01/14/24 17:33 Procalcitonin 0.06 ng/ml (0-0.5) 01/14/24 17:34 Urine Color Yellow 01/15/24 04:15 Urine Appearance Clear (Clear) 01/15/24 04:15 Urine pH 6.5 (4.5-7.5) 01/15/24 04:15 Ur Specific Wrens 1.042 (1.000-1.030) H 01/15/24 04:15 Urine Protein Negative (Negative) 01/15/24 04:15 Urine Glucose (UA) Negative (Negative) 01/15/24 04:15 Urine Ketones Negative (Negative) 01/15/24 04:15 Urine Blood 2+ (Negative) H 01/15/24 04:15 Urine Nitrite Negative (Negative) 01/15/24 04:15 Urine Bilirubin Negative (Negative) 01/15/24 04:15 Urine Urobilinogen Negative (Negative) 01/15/24 04:15 Ur Leukocyte Esterase 1+ (Negative) H 01/15/24 04:15 Urine WBC (Auto) 0-5 /hpf (0-5) 01/15/24 04:15 Urine RBC (Auto) 0-2 /hpf (0-2) 01/15/24 04:15 U Hyaline Cast (Auto) 0-2 /lpf (0-2) 01/15/24 04:15 U Epithel Cells (Auto) 0-2 /hpf (0-2) 01/15/24 04:15 Urine Bacteria (Auto) None Seen (None Seen) 01/15/24 04:15 Stool Occult Bld Scrn Positive (Negative) A 01/15/24 Unknown Blood Type A Positive 01/14/24 17:34 Antibody Screen NEGATIVE 01/14/24 17:34 Impressions Chest X-Ray 01/14/24 17:16 XR chest 1V portable CLINICAL HISTORY: weakness TECHNIQUE: Single frontal radiograph of the chest was obtained. Comparison: Comparison is made to chest radiograph 12/30/2023 FINDINGS: No lines and tubes are seen. Cardiomegaly is noted. Left lower lung airspace opacity is seen. Small left pleural effusion is seen. IMPRESSION: Small left pleural effusion is seen. Airspace opacity may represent atelectasis or pneumonia, and/or aspiration. ACT 112: Negative or not required by law. Electronically signed by: Tyrell Castorena M.D. 01/14/2024 7:05 PM Abdomen/Pelvis CT 01/14/24 18:11 Exam(s): CT ABDOMEN + PELVIS With Contrast IV Amt: 92 ml optiray 320 EXAM: CT Abdomen and Pelvis With Intravenous Contrast CLINICAL HISTORY: Reason for exam: gi bleed. TECHNIQUE: Axial computed tomography images of the abdomen and pelvis with intravenous contrast. CTDI is 25.79 mGy and DLP is 1116.57 mGy-cm. Automated exposure control was utilized for the study. A dose lowering technique was utilized adhering to the principles of ALARA. CONTRAST: Patient received 92 ml optiray 320 of IV contrast COMPARISON: CT abdomen pelvis 04/25/2022 FINDINGS: Pleural space: Small bilateral pleural effusions. ABDOMEN: Liver: Unremarkable. Gallbladder and bile ducts: Fat stranding around the gallbladder. No radiopaque stones or gallbladder distention. Pancreas: Unremarkable. Spleen: Unremarkable. Adrenals: Unremarkable. Kidneys and ureters: Unremarkable. No obstructing stones. No hydronephrosis. Stomach and bowel: No active GI bleed identified. Colonic diverticulosis without diverticulitis. PELVIS: Appendix: No findings to suggest acute appendicitis. Bladder: Unremarkable. Reproductive: Status post hysterectomy. ABDOMEN and PELVIS: Intraperitoneal space: Unremarkable. No free air. No significant fluid collection. Bones/joints: No acute fracture. Soft tissues: Unremarkable. Vasculature: Aortobiiliac atherosclerotic calcifications. Lymph nodes: Unremarkable. IMPRESSION: 1. No active GI bleed identified. 2. Colonic diverticulosis without diverticulitis. 3. Fat stranding around the gallbladder. No radiopaque stones or gallbladder distention. Consider right upper quadrant ultrasound. 4. Small bilateral pleural effusions. Electronically signed by: Baltazar Peoples MD 01/14/24 19:28 PM PG Care Time/CCT Total # of Minutes Spent Total Time Spent with Patient: Total time spent is greater than 50% in coordination of care (as documented) at patient's floor/unit and/or counseling patient: Coding Level of Care Code None Diagnoses Acute blood loss anemia D62 Melena K92.1 Small bowel arteriovenous malformation K55.20
[2024-01-15] MEDS: hydrOXYzine HCl 10 MG TAB PO PRN (11:56)
--- NOTE | 2024-01-15 14:20 | Hospitalist Progress Note ---
Date of Service January 15, 2024 Assessment & Plan (1) Acute blood loss anemia: Plan: Presents with melena, no abd pain, in setting of taking Eliquis, ASA On chronic prednisone so could have PUD but no heartburn or pain CT A/P with fat stranding around GB but no abd pain, normal LFTs. No active bleeding seen Hgb dropped to 7.7 from 10.2 one week prior and now stabilized at 8.1 on repeat check GI recommends no scope due to comorbidities. I have asked them to arrange VCE as outpt. Pt previously had a small bowel AVM in 2020 on VCE Continue PPI IV DC IVFs and advance diet to clears Check CBC at 1700 and if stable, then in AM Continue to hold ASA and have stopped Eliquis Consult Cardiology to discss further management of anticoagulation and possible Watchman procedure as outpt (2) Acute GI bleeding: Plan: as above (3) Persistent atrial fibrillation: Plan: Diagnosed December 2023, rate controlled Had severe epistaxis and labile INR on Coumadin, then GIB now on Eliquis-AC on hold Consult Cardiology for further evaluation for management Continue rate control with carvedilol and diltiazem (4) S/P TAVR (transcatheter aortic valve replacement): Plan: noted Cardio consult (5) Bullous pemphigoid: Plan: Reason for chronic steroid use (6) Hypothyroid: Plan: TSH recently normal at 3.55 continue home LT4 (7) Mitral stenosis: Plan: severe on recent ECHO, has been told not a good candidate for repair (8) Hypertension: Plan: BPs controlled continue home meds Situational anxiety-add on Vistaril prn for anxiety related to health conditions Gout-continue allopurinol Plan VTE Prophylaxis - chemical contraindicated, SCDs Disposition - continued stay on PCU Admission and Anticipated Discharge Date Admission Date: January 14, 2024 Subjective Pt denies abd pain. Had 2 small black stools this AM. No heartburn. SHe is very nervous to ever take anticoagulation again. I discussed her care with Cardio and GI. Tele with Afib, normal rates Physical Exam 2 Constitutional: WD/WN, vitals as above Respiratory: normal respiratory effort, lungs clear to auscultation Cardiovascular: Rate/Rhythm: regular rate and + irregularly irregular Heart Sounds: no murmur Gastrointestinal (Abdomen): normal bowel sounds, soft, nontender, no hepatosplenomegaly Musculoskeletal: Extremities: extremities normal to inspection; no cyanosis and no clubbing Skin: no rashes, warm and dry Neurologic: moves all extremities and awake; no focal motor deficits Psychiatric: A+Ox3, euthymic affect Lymphatic: no lymphedema Results & Data Results & Data Vital Signs (Past 12 Hours) Vital Signs Temp Pulse Resp BP Pulse Ox O2 Del Method 01/15/24 10:46 36.6 C 93 H 18 110/67 94 Room Air 01/15/24 08:00 Room Air 01/15/24 02:56 36.6 C 80 20 105/66 94 Room Air Laboratory Results CBC, H/H, BMP reviewed PG Care Time/CCT Total # of Minutes Spent Total Time Spent with Patient: Total time spent is greater than 50% in coordination of care (as documented) at patient's floor/unit and/or counseling patient: Coding Level of Care Code 80311 SUB INP/OBS CARE 3/50MIN Diagnoses Acute blood loss anemia D62 Acute GI bleeding K92.2 Persistent atrial fibrillation I48.19 S/P TAVR (transcatheter aortic valve replacement) Z95.2 Bullous pemphigoid L12.0 Acquired hypothyroidism E03.9 Hypothyroidism type: acquired Mitral valve stenosis, unspecified etiology I05.0 Cardiac valve disease etiology: etiology unspecified Primary hypertension I10 Hypertension type: primary hypertension (6) Hypothyroid Hypothyroidism type: acquired Qualified Code(s): E03.9 - Hypothyroidism, unspecified (7) Mitral stenosis Cardiac valve disease etiology: etiology unspecified Qualified Code(s): I05.0 - Rheumatic mitral stenosis (8) Hypertension Hypertension type: primary hypertension Qualified Code(s): I10 - Essential (primary) hypertension
--- NOTE | 2024-01-15 15:18 | Cardiology Consultation ---
Date of Consultation January 15, 2024 Assessment & Plan (1) Persistent atrial fibrillation: (2) Anticoagulant long-term use: (3) CONDON (dyspnea on exertion): (4) Acute GI bleeding: (5) Mitral stenosis: (6) S/P TAVR (transcatheter aortic valve replacement): Plan ASSESSMENT/PLAN: 1. Atrial fibrillation: Persistent. Seems to be rather asymptomatic. Heart rate reasonably controlled on beta-evangelist and diltiazem. Continue current rate controlling strategy. With severe mitral stenosis, rhythm control would be difficult. In regards to anticoagulation for stroke risk reduction, she has elevated risk of stroke given her mitral stenosis and other risk factors. Unfortunately, she has had significant epistaxis prompting hospitalization and now melena with significant drop in hemoglobin within the past week. She is reluctant to resume anticoagulation therapy. Agree with holding of anticoagulation therapy now. Long-term options are difficult. She is aware of Watchman device and inquired about it on her own regard. She is aware that it would also require anticoagulation therapy and is not sure if she would want to even use it for a short-term basis. Recommend holding of anticoagulation therapy for now and she can have further discussion in the outpatient setting with her technical analyst, Dr. Law. 2. Anticoagulation therapy: As above. Holding due to melena with acute blood loss anemia. 3. 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 Defer treatment as to GI. Holding anticoagulation therapy as noted. 4. Mitral stenosis: Reported as severe. [facility] Law. 5. TAVR: SBE prophylaxis for dental procedures. When safe from a GI bleeding standpoint, resume aspirin 81 mg daily while anticoagulation therapy is held. 6. Disposition: Follow-up with Dr. Law, her primary technical analyst, upon discharge. Plan of care communicated with Dr. Chrisitna of the primary hospitalist service. Cardiology will sign off at this time. Please call with any other questions or concerns. Thank you for allowing me to participate in the care of your patient. Please call for any other questions or concerns. Sincerely, Anjum Porras M.D. History of Present Illness Reason for Consultation: Atrial fibrillation and GI bleed Requesting Physician: Mariella Christina MD Attending Physician: Mariella Christina MD History of Present Illness Ms. Rodríguez is a very pleasant 88-year-old female with a history significant for atrial fibrillation, s/p TAVR, severe mitral stenosis, nonsevere mitral regurgitation, GI bleed, hypertension, dyslipidemia, CKD, and breast cancer (s/p XRT and lumpectomy 2004). Her primary technical analyst is Dr. Law. She was diagnosed with atrial fibrillation near the end of December 2023. She was placed on warfarin. There was reportedly difficulty in controlling her INR. She was admitted on 01/09/2024 with significant epistaxis with an INR of 9.5. Due to her bleed and difficulty in controlling her INR in a short period of time, Eliquis was initiated in place of warfarin. She was discharged home on 01/10/2024. She was admitted again on 01/14/2024 with melena. She had melena for a few days prior to presentation and describes her bowel movements as "black as tar." She denies abdominal pain, nausea, vomiting, chest pain, syncope, near syncope, palpitations, or worsening edema. She has dyspnea on exertion with her melena. Melena has improved since being here. She was seen by GI earlier today who recommended holding anticoagulation therapy and continuing PPI drip. There is no plan for invasive GI workup and they suspect that her bleeding is mostly like from a previously known AVM. She had GI bleed in 2020 and was treated at [facility] and had capsule endoscopy. She reports that she did not require PRBC at that time but did have PRBC 3 or 4 years ago during another hospitalization. She has chronic lower extremity edema if she does not elevate her legs, but no recent worsening. She denies history of stroke, TIA, diabetes, heart failure. Review of systems: As above. Review of systems otherwise negative/unremarkable. Family history: No known premature CAD. Social history: She quit smoking in October 1967. She denies alcohol or drug abuse. She lives alone in a mobile home. She is a . She has 3 sons, all of which live within an hour of her. She walks with a cane. She was unaccompanied. Allergies Allergy/AdvReac Type Severity Reaction Status Date / Time simvastatin Allergy Intermediate RASH Verified 01/09/24 00:57 Pxseexv-JMY-PzF Reductase Allergy Intermediate Rash Verified 01/09/24 00:57 Inhibitor [Tmbrgle-Hxz-Fup Reductase Inhibitor] hydrochlorothiazide Allergy Unknown pt reports Verified 01/09/24 00:57 doesn't take it anymore, denies hx reaction tramadol Allergy Unknown pt not Verified 01/09/24 00:57 sure/pt not recall taking this trospium Allergy Unknown pt doesn't Verified 01/09/24 00:57 recall taking this warfarin AdvReac Severe Verified 01/11/24 10:08 Home Medications Medication Instructions Recorded Confirmed Type aspirin 81 mg tablet,delayed 81 mg PO QPM 04/20/21 01/14/24 History release (Adult Aspirin Regimen) prednisone 10 mg tablet 10 mg PO Q OTHER DAY 01/03/23 01/14/24 History calcium carbonate 600 mg-vitamin 1 cap PO DAILY 03/16/23 01/14/24 History D3 12.5 mcg (500 unit) capsule (Calcium 600 with Vitamin D3) carvedilol 12.5 mg tablet 12.5 mg PO BID #180 tabs 07/05/23 01/14/24 Rx allopurinol 100 mg tablet 200 mg (2 x 100 mg) PO QAM #180 10/02/23 01/14/24 Rx tabs gemfibrozil 600 mg tablet 600 mg PO BID #180 tabs 11/23/23 01/14/24 Rx levothyroxine 50 mcg tablet 50 mcg PO QAM 90 days #90 tabs 11/23/23 01/14/24 Rx alendronate 70 mg tablet (Fosamax) 70 mg PO WK 12/30/23 01/14/24 History diltiazem HCl 240 mg capsule,24 240 mg PO QAM 12/30/23 01/14/24 History hr,extended release ferrous sulfate 325 mg (65 mg 325 mg PO Q OTHER DAY 01/08/24 01/14/24 History iron) tablet apixaban 5 mg tablet (Eliquis) 5 mg PO BID #60 tabs 01/10/24 01/14/24 Rx Patient History Medical History GI bleed Pulmonary hypertension mild, 04/2022 echo per [facility] cardio records Umbilical hernia OVER LAST FEW WEEKS SEEPING BLOOD History of anesthesia reaction with lumpectomy sx took multiple hours to wake up History of GI bleed chronic/unknown etiology History of breast cancer 2004 s/p lumpectomy and radiation (x35 treatments) left Pulmonary nodule noted in 2011, pt declined f/u per PCP records pt denies/not that she is aware of Left carotid bruit Umbilical hernia without obstruction or gangrene 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 Anemia chronic, 09/2021 GI bleed -pt denies gi bleed in sep 2021 reports hx gi bleeds Transient ischemic attack pt denies Chronic kidney disease, stage 3a pt unaware denies hx kidney problems or kidney stones - reports all tests have been normal with kidneys Bullous pemphigoid chronic steroids Mitral stenosis severe, no planned intervention per 04/2022 cardio consult Aortic stenosis, severe s/p aortic valve replacement 2020 Mitral regurgitation Hyperlipidemia Hypertension Gout hx Hypothyroid Surgical History H/O umbilical hernia repair (07/20/22) Open Incarcerated Umbilical Hernia Repair(Not Applicable) - Parag Rowell MD, FACS History of cardiac cath 2020 ([place]) PRIOR TO AORTIC VALVE REPLACEMENT History of endoscopy pt reports they stretched opening from esophagus into the stomach / it was almost closed History of colonoscopy H/O aortic valve replacement March 2021 S/P hysterectomy with oophorectomy "complete" 1996 - reports possible appendectomy with - pt not sure S/P lumpectomy, left breast Family History Sister Breast cancer Colorectal cancer COPD (chronic obstructive pulmonary disease) Mother Diabetes Sister Breast cancer Colorectal cancer Denies family history of Ovarian cancer Prostate cancer Myocardial infarction Social History Smoking Status: Never smoker Tobacco Type: Cigarettes Age Started Using Tobacco: 15; Age Quit Using Tobacco: 33; packs per day: 0.5; Cigarettes Per Day: 10; Second Hand Exposure: No; Do You Dip or Chew Tobacco: No; Hx Alcohol Use: No Hx Substance Use: No Preferred Language: Mongolian Communication Ability: Effective Visual Impairment: No Limitations Hearing Ability: Normal Laminating Press Operator Required: No Beliefs That Will Affect Care: None marital status: / Current Living Situation: Alone current occupational status: retired 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 Alert and oriented. HEENT: Anicteric sclera. Neck: No JVD. Normal carotid upstrokes bilaterally. Cardiac: No ventricular heave. Irregularly irregular. Normal heart rate. Normal S1-S2. 2/6 systolic ejection murmur. 1/6 diastolic murmur. Pulmonary: Clear to auscultation bilaterally without wheezes, rales, or rhonchi. Abdomen: Soft, nontender, nondistended, with normoactive bowel sounds. No bruits noted. Extremities: 2+ radial pulses bilaterally. 2+ posterior tibialis pulses bilaterally. No edema or cyanosis. Psychiatric: Affect appears appropriate. Results & Data Vital Signs (Past 12 Hours) Vital Signs Temp Pulse Resp BP Pulse Ox O2 Del Method 01/15/24 15:07 36.5 C 93 H 18 106/61 95 Room Air 01/15/24 10:46 36.6 C 93 H 18 110/67 94 Room Air 01/15/24 08:00 Room Air Laboratory Results Laboratory Results - last 24 hr 01/14/24 01/14/24 01/14/24 17:33 17:34 21:41 WBC 9.85 RBC 2.64 L Hgb 8.3 L 8.1 L Hct 26.0 L 25.1 L MCV 98.5 MCH 31.4 MCHC 31.9 L RDW Std Deviation 52.5 H RDW Coeff of Mervin 14.6 H Plt Count 281 MPV 9.9 Immature Gran % (Auto) 0.7 Neut % (Auto) 78.6 Lymph % (Auto) 10.9 Gulf % (Auto) 7.1 Eos % (Auto) 2.0 Baso % (Auto) 0.7 Neut # (Auto) 7.74 H Lymph # (Auto) 1.07 L Gulf # (Auto) 0.70 H Eos # (Auto) 0.20 Baso # (Auto) 0.07 Immature Gran # (Auto) 0.07 RBC Morphology PT 18.9 H INR 1.8 H APTT 30 PTT Ratio 1.1 Sodium 137 Potassium 4.1 Chloride 104 Carbon Dioxide 25 Anion Gap 8 BUN 32 H Creatinine 0.73 Est Cr Clr Drug Dosing Not Reportable Est GFR ( Amer) 85.2 Est GFR (Non-Af Amer) 73.5 BUN/Creatinine Ratio 43.8 H Glucose 109 H Calcium 8.9 Magnesium 1.7 Total Bilirubin 0.6 AST 11 L ALT 6 L Alkaline Phosphatase 40 Troponin I High Sens 10.8 Total Protein 6.1 Albumin 3.5 Globulin 2.6 Albumin/Globulin Ratio 1.3 Procalcitonin 0.06 Urine Color Urine Appearance Urine pH Ur Specific [place] Urine Protein Urine Glucose (UA) Urine Ketones Urine Blood Urine Nitrite Urine Bilirubin Urine Urobilinogen Ur Leukocyte Esterase Urine WBC (Auto) Urine RBC (Auto) U Hyaline Cast (Auto) U Epithel Cells (Auto) Urine Bacteria (Auto) Stool Occult Bld Scrn Blood Type A Positive Antibody Screen NEGATIVE 01/15/24 01/15/24 01/15/24 00:58 04:15 05:48 WBC 13.16 H RBC 2.52 L Hgb 7.7 L 7.9 L Hct 24.4 L 24.7 L MCV 98.0 MCH 31.3 MCHC 32.0 RDW Std Deviation 51.5 H RDW Coeff of Mervin 14.6 H Plt Count 263 MPV 10.1 Immature Gran % (Auto) 0.7 Neut % (Auto) 83.9 Lymph % (Auto) 7.6 Gulf % (Auto) 5.9 Eos % (Auto) 1.4 Baso % (Auto) 0.5 Neut # (Auto) 11.04 H Lymph # (Auto) 1.00 L Gulf # (Auto) 0.78 H Eos # (Auto) 0.19 Baso # (Auto) 0.06 Immature Gran # (Auto) 0.09 RBC Morphology Unremarkable PT INR APTT PTT Ratio Sodium 136 Potassium 3.7 Chloride 106 Carbon Dioxide 21 Anion Gap 9 BUN 26 H Creatinine 0.71 Est Cr Clr Drug Dosing 50.0 Est GFR ( Amer) 88.1 Est GFR (Non-Af Amer) 76.0 BUN/Creatinine Ratio 36.6 H Glucose 97 Calcium 8.0 L Magnesium Total Bilirubin AST ALT Alkaline Phosphatase Troponin I High Sens Total Protein Albumin Globulin Albumin/Globulin Ratio Procalcitonin Urine Color Yellow Urine Appearance Clear Urine pH 6.5 Ur Specific [place] 1.042 H Urine Protein Negative Urine Glucose (UA) Negative Urine Ketones Negative Urine Blood 2+ H Urine Nitrite Negative Urine Bilirubin Negative Urine Urobilinogen Negative Ur Leukocyte Esterase 1+ H Urine WBC (Auto) 0-5 Urine RBC (Auto) 0-2 U Hyaline Cast (Auto) 0-2 U Epithel Cells (Auto) 0-2 Urine Bacteria (Auto) None Seen Stool Occult Bld Scrn Blood Type Antibody Screen 01/15/24 01/15/24 09:22 Unknown WBC RBC Hgb 8.4 L Hct 26.7 L MCV MCH MCHC RDW Std Deviation RDW Coeff of Mervin Plt Count MPV Immature Gran % (Auto) Neut % (Auto) Lymph % (Auto) Gulf % (Auto) Eos % (Auto) Baso % (Auto) Neut # (Auto) Lymph # (Auto) Gulf # (Auto) Eos # (Auto) Baso # (Auto) Immature Gran # (Auto) RBC Morphology PT INR APTT PTT Ratio Sodium Potassium Chloride Carbon Dioxide Anion Gap BUN Creatinine Est Cr Clr Drug Dosing Est GFR ( Amer) Est GFR (Non-Af Amer) BUN/Creatinine Ratio Glucose Calcium Magnesium Total Bilirubin AST ALT Alkaline Phosphatase Troponin I High Sens Total Protein Albumin Globulin Albumin/Globulin Ratio Procalcitonin Urine Color Urine Appearance Urine pH Ur Specific [place] Urine Protein Urine Glucose (UA) Urine Ketones Urine Blood Urine Nitrite Urine Bilirubin Urine Urobilinogen Ur Leukocyte Esterase Urine WBC (Auto) Urine RBC (Auto) U Hyaline Cast (Auto) U Epithel Cells (Auto) Urine Bacteria (Auto) Stool Occult Bld Scrn Positive A Blood Type Antibody Screen Diagnostic Findings Labs reviewed and notable for more profound anemia than last week with a hemoglobin as low as 7.7 earlier this morning (hemoglobin was 10.2 on 01/10/2024). Stable renal function, normal potassium, normal high-sensitivity troponin. Echo 12/31/2023 report reviewed: LVEF 60 to 65%. Aortic transvalvular velocity acceptable for bioprosthetic aortic valve. Severe mitral stenosis reported. Mild to moderate MR. ECG personally reviewed 01/14/2024: Atrial fibrillation 93 bpm. PVC versus dot rrantly conducted complexes. Lateral ST/T wave abnormality. LVH. Telemetry personally reviewed: Atrial fibrillation with reasonable heart rate. GI consultation and history and physical report reviewed. Medications Administered Current Inpatient Medications Allopurinol (Allopurinol 100 Mg Tab) 200 mg PO QAM [facility] Stop: 02/14/24 08:59 Last Admin: 01/15/24 08:11 Dose: 200 mg Calcium/Vitamin D (Calcium 600mg + Vit D 400 Iu Tab) 1 tab PO DAILY [facility] Stop: 02/14/24 08:59 Last Admin: 01/15/24 08:11 Dose: 1 tab Carvedilol (Carvedilol 12.5 Mg Tab) 12.5 mg PO BIDM [facility] Stop: 02/13/24 21:21 Last Admin: 01/15/24 08:11 Dose: 12.5 mg Diltiazem HCl (Diltiazem Hcl 240 Mg Capcr) 240 mg PO QAM [facility] Stop: 02/14/24 08:59 Last Admin: 01/15/24 08:11 Dose: 240 mg Hydroxyzine HCl (Hydroxyzine Hcl 10 Mg Tab) 10 mg PO Q6H PRN PRN Reason: Anxiety Stop: 02/14/24 08:30 Last Admin: 01/15/24 11:56 Dose: 10 mg Pantoprazole Sodium 40 mg/ (Dextrose) 100 mls @ 20 mls/hr IV Q5H [facility] Stop: 02/13/24 18:59 Last Admin: 01/15/24 11:14 Dose: 8 mg/hr, 20 mls/hr Levothyroxine Sodium (Levothyroxine Sodium 50 Mcg Tablet) 50 mcg PO DAILYBB [facility] Stop: 02/14/24 06:29 Last Admin: 01/15/24 06:22 Dose: 50 mcg Ondansetron HCl (Ondansetron Inj 2 Mg/Ml 2 Ml Vial) 4 mg IV Q6H PRN PRN Reason: Nausea Stop: 02/13/24 21:21 Prednisone (Prednisone 10 Mg Tablet) 10 mg PO Q2D@1630 [facility] Stop: 02/14/24 16:29 PG Care Time/CCT Total # of Minutes Spent Total Time Spent with Patient: Total time spent is greater than 50% in coordination of care (as documented) at patient's floor/unit and/or counseling patient: Coding Level of Care Code 89967 INT INP/OBS CARE 2/55MIN Diagnoses Persistent atrial fibrillation I48.19 Anticoagulant long-term use Z79.01 CONDON (dyspnea on exertion) R06.09 Acute GI bleeding K92.2 Mitral valve stenosis, unspecified etiology I05.0 Cardiac valve disease etiology: etiology unspecified S/P TAVR (transcatheter aortic valve replacement) Z95.2 (5) Mitral stenosis Cardiac valve disease etiology: etiology unspecified Qualified Code(s): I05.0 - Rheumatic mitral stenosis
[2024-01-15] MEDS: predniSONE 10 MG TABLET PO SCH (16:43)
[2024-01-15 17:31] LABS: Mean Corpuscular Hemoglobin 31.4 pg (25.0-34.0); Mean Platelet Volume 9.8 fL (9.4-12.4); Platelet Count 273 K/uL (130-400); RDW Coefficient of Variation 14.8 % (11.5-14.5); RDW Standard Deviation 52.1 fL (36.4-46.3); Red Blood Count 2.55 M/uL (4.20-5.40); White Blood Count 14.25 K/ul (4.8-10.8)
--- NOTE | 2024-01-16 04:01 | Electrocardiogram Report ---
Test Reason : Blood Pressure : / mmHG Vent. Rate : 093 BPM Atrial Rate : 000 BPM P-R Int : 000 ms QRS Dur : 104 ms QT Int : 400 ms P-R-T Axes : 000 -27 090 degrees QTc Int : 497 ms Atrial fibrillation with premature ventricular or aberrantly conducted complexes Moderate voltage criteria for LVH, may be normal variant Abnormal ECG When compared with ECG of 10-JAN-2024 05:12, T wave inversion now evident in Lateral leads Confirmed by Peter Porras ([id number]) on 01/16/2024 4:01:29 AM Referred By: REFERRED SELF Confirmed By:Peter Porras
[2024-01-16 07:09] LABS: BUN Creatinine Ratio 23.4 (10-20); Calcium 7.8 mg/dl (8.6-10.3); Creatinine Clr Calc Pharmacy 46.9 ml/min; Est GFR (African American) 79.9 ml/min; Est GFR (Non-African American) 68.9 ml/min; Magnesium 1.8 mg/dl (1.7-2.4); Potassium 3.8 mmol/L (3.5-5.1)
[2024-01-16 07:17] LABS: Hematocrit (blood only) 24.6 % (37.0-47.0); Hemoglobin 7.7 g/dl (12.0-16.0); Mean Corpuscular Hemoglobin 31.4 pg (25.0-34.0); Mean Corpuscular Hgb Conc 31.3 g/dL (32.0-36.0); Mean Corpuscular Volume 100.4 fL (80.0-100.0); Mean Platelet Volume 9.8 fL (9.4-12.4); Platelet Count 233 K/uL (130-400); RDW Coefficient of Variation 15.1 % (11.5-14.5); RDW Standard Deviation 53.4 fL (36.4-46.3); Red Blood Count 2.45 M/uL (4.20-5.40); White Blood Count 11.38 K/ul (4.8-10.8)
[2024-01-16 07:18] LABS: Basophils # (auto) 0.04 K/uL (0.00-0.20); Basophils % (auto) 0.4 %; Eosinophils # (auto) 0.04 K/uL (0.00-0.50); Eosinophils % (auto) 0.4 %; Immature Granulocytes # (auto) 0.09 K/uL (0.01-0.20); Immature Granulocytes % (auto) 0.8 %; Lymphocytes % (auto) 7.9 %; Monocytes # (auto) 0.54 K/uL (0.11-0.59); Monocytes % (auto) 4.7 %; Neutrophils # (auto) 9.77 K/uL (1.40-6.50); Neutrophils % (auto) 85.8 %; Polychromasia 1+
--- NOTE | 2024-01-16 15:30 | Hospitalist Progress Note ---
Date of Service January 16, 2024 Assessment & Plan (1) Acute blood loss anemia: Plan: Presents with melena, no abd pain, in setting of taking Eliquis, ASA On chronic prednisone so could have PUD but no heartburn or pain CT A/P with fat stranding around GB but no abd pain, normal LFTs. No active bleeding seen on imaging Hgb dropped to 7.7 from 10.2 one week prior and now stabilized at 8.1 on repeat check GI recommends no scope due to comorbidities. I have asked them to arrange VCE as outpt. 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 F/u outpt with primary Science Analyst to discuss possible Watchman procedure Give Venofer 300mg IV daily today and tomorrow (2) Acute GI bleeding: Plan: as above (3) Persistent atrial fibrillation: Plan: Diagnosed December 2023, rate controlled. CHADS2 score 2 = 4% annual risk of CVA Had severe epistaxis and labile INR on Coumadin, then GIB now on Eliquis-AC stopped Consult Cardiology for further evaluation for management appreciated Continue rate control with carvedilol and diltiazem Considering Watchman procedure as outpt-f/u with Cardio as outpt (4) S/P TAVR (transcatheter aortic valve replacement): Plan: noted Cardio consult resume ASA when possible/safe from bleeding standpoint (5) Bullous pemphigoid: Plan: Reason for chronic steroid use (6) Hypothyroid: Plan: TSH recently normal at 3.55 continue home LT4 (7) Mitral stenosis: Plan: severe on recent ECHO, has been told not a good candidate for repair but being monitored (8) Hypertension: Plan: BPs controlled continue home meds Situational anxiety-continue on Vistaril prn for anxiety related to health conditions Gout-continue allopurinol Plan VTE Prophylaxis - chemical contraindicated, SCDs Disposition - continued stay on PCU, possible dc to home in 1-2 days if no further GIB, hgb remains stable discussed care with son and friend at bedside on 01/15 Admission and Anticipated Discharge Date Admission Date: January 14, 2024 Subjective Pt still feeling SOB with exertion. Had 2 very small amounts of black stool overnight but otherwise feels well. No abd pain.No CP. Tele with Afib, rates in 60-80s Physical Exam Constitutional: WD/WN, vitals as above Respiratory: normal respiratory effort, lungs clear to auscultation Cardiovascular: Rate/Rhythm: regular rate and + irregularly irregular Heart Sounds: no murmur Gastrointestinal (Abdomen): normal bowel sounds, soft, nontender, no hepatosplenomegaly Musculoskeletal: Extremities: extremities normal to inspection; no cyanosis and no clubbing Skin: no rashes, warm and dry Neurologic: moves all extremities and awake; no focal motor deficits Psychiatric: A+Ox3, euthymic affect Lymphatic: no lymphedema Results & Data Results & Data Vital Signs (Past 12 Hours) Vital Signs Temp Pulse Pulse Resp BP Pulse Ox O2 Del Method 01/16/24 11:08 36.6 C 76 18 98/61 L 94 Room Air 01/16/24 07:51 73 01/16/24 07:33 Room Air 01/16/24 07:31 36.6 C 102 H 18 119/63 95 Room Air 01/16/24 03:49 36.6 C 84 18 104/56 L 97 Room Air Laboratory Results CBC, BMP, magnesium reviewed PG Care Time/CCT Total # of Minutes Spent Total Time Spent with Patient: Total time spent is greater than 50% in coordination of care (as documented) at patient's floor/unit and/or counseling patient: Coding Level of Care Code 00527 SUB INP/OBS CARE 3/50MIN Diagnoses Acute blood loss anemia D62 Acute GI bleeding K92.2 Persistent atrial fibrillation I48.19 S/P TAVR (transcatheter aortic valve replacement) Z95.2 Bullous pemphigoid L12.0 Acquired hypothyroidism E03.9 Hypothyroidism type: acquired Mitral valve stenosis, unspecified etiology I05.0 Cardiac valve disease etiology: etiology unspecified Primary hypertension I10 Hypertension type: primary hypertension (6) Hypothyroid Hypothyroidism type: acquired Qualified Code(s): E03.9 - Hypothyroidism, unspecified (7) Mitral stenosis Cardiac valve disease etiology: etiology unspecified Qualified Code(s): I05.0 - Rheumatic mitral stenosis (8) Hypertension Hypertension type: primary hypertension Qualified Code(s): I10 - Essential (primary) hypertension
[2024-01-16] MEDS: IRON SUCROSE 300 MG in SODIUM CHLORIDE 0.9% 250 ML IV ONE (16:24)
[2024-01-17] MEDS: ACETAMINOPHEN 500 MG TAB PO PRN (06:31)
[2024-01-17 06:38] LABS: Basophils # (auto) 0.03 K/uL (0.00-0.20); Basophils % (auto) 0.4 %; Eosinophils # (auto) 0.23 K/uL (0.00-0.50); Eosinophils % (auto) 2.9 %; Hematocrit (blood only) 23.4 % (37.0-47.0); Hemoglobin 7.4 g/dl (12.0-16.0); Immature Granulocytes # (auto) 0.05 K/uL (0.01-0.20); Immature Granulocytes % (auto) 0.6 %; Lymphocytes # (auto) 0.66 K/uL (1.20-3.40); Lymphocytes % (auto) 8.2 %; Mean Corpuscular Hemoglobin 31.6 pg (25.0-34.0); Mean Corpuscular Hgb Conc 31.6 g/dL (32.0-36.0); Mean Platelet Volume 9.9 fL (9.4-12.4); Monocytes # (auto) 0.67 K/uL (0.11-0.59); Monocytes % (auto) 8.3 %; Neutrophils # (auto) 6.39 K/uL (1.40-6.50); Neutrophils % (auto) 79.6 %; Platelet Count 233 K/uL (130-400); RDW Coefficient of Variation 15.6 % (11.5-14.5); RDW Standard Deviation 55.7 fL (36.4-46.3); Red Blood Count 2.34 M/uL (4.20-5.40); White Blood Count 8.03 K/ul (4.8-10.8)
[2024-01-17 06:58] LABS: Polychromasia 1+
[2024-01-17 07:01] LABS: BUN Creatinine Ratio 20.2 (10-20); Calcium 7.4 mg/dl (8.6-10.3); Creatinine Clr Calc Pharmacy 40.4 ml/min; Est GFR (African American) 67.1 ml/min; Est GFR (Non-African American) 57.9 ml/min; Magnesium 1.8 mg/dl (1.7-2.4); Potassium 3.5 mmol/L (3.5-5.1)
[2024-01-17] MEDS: IRON SUCROSE 300 MG in SODIUM CHLORIDE 0.9% 250 ML IV ONE (08:03)
--- NOTE | 2024-01-17 10:57 | Gastroenterology Progress Note ---
Date of Service January 17, 2024 Assessment & Plan (1) Acute blood loss anemia: (2) Melena: (3) Small bowel arteriovenous malformation: Plan Patient is a 88 y.o. 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 1. Anticoagulation per cardiology. 2. As lack of overt GIB, can stop PPI ggt and start Pantoprazole 40 mg IV BID. 3. Agree with IV iron infusion. 4. Supportive care per primary team. Admission and Anticipated Discharge Date Admission Date: January 14, 2024 Supervising Physician Co-Signing Physician Notes Agree with HORACIO Comer as above Interviewed and examined patient and agree with above Abd: Soft, NT, ND, +BS Continue current therapy and supportive care Appreciate Cardiology input Subjective Patient reports she had one bowel movement last night which was formed and brown. No melena or bright red rectal bleeding despite the slight drop in hemoglobin. No abdominal pain or other GI complaints. Currently receiving IV iron infusion. Review of Systems Constitutional: + fatigue Respiratory: + dyspnea Cardiovascular: no chest pain and no palpitations Gastrointestinal: as per Subjective / HPI Physical Exam Constitutional: WD/WN, vitals as above Respiratory: normal respiratory effort, lungs clear to auscultation Cardiovascular: Rate/Rhythm: regular rate (irregular rhythm) Gastrointestinal (Abdomen): Inspection/Auscultation: normal bowel sounds Percussion/Palpation: abdomen soft; abdomen nontender, no guarding and abdomen not rigid Results & Data Results & Data Vital Signs (Past 12 Hours) Vital Signs Temp Pulse Pulse Resp BP BP Pulse Ox 01/17/24 07:15 36.4 C L 56 L 17 109/65 94 01/17/24 06:02 78 01/17/24 03:04 36.6 C 79 18 119/70 94 01/16/24 23:46 36.6 C 65 18 107/67 93 01/16/24 23:36 85 O2 Del Method 01/17/24 07:15 Room Air 01/17/24 06:02 01/17/24 03:04 Room Air 01/16/24 23:46 Room Air 01/16/24 23:36 PG Care Time/CCT Total # of Minutes Spent Total Time Spent with Patient: Total time spent is greater than 50% in coordination of care (as documented) at patient's floor/unit and/or counseling patient: Coding Level of Care Code 30230 SUB INP/OBS CARE 350MIN Diagnoses Acute blood loss anemia D62 Melena K92.1 Small bowel arteriovenous malformation K55.20
--- NOTE | 2024-01-17 15:33 | Hospitalist Progress Note ---
Date of Service January 17, 2024 Assessment & Plan (1) Acute blood loss anemia: Plan: Presents with melena, no abd pain, in setting of taking Eliquis, ASA On chronic prednisone so could have PUD but no heartburn or pain. 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 No active bleeding seen on imaging Hgb dropped to 7.7 from 10.2 one week prior and now stabilized but slightly lower than yesterday at 7.4 GI recommends no scope due to comorbidities. I have asked them to arrange VCE as outpt. Pt previously had a small bowel AVM in 2020 on VCE Bleeding has stopped-had brown BM on 01/16 Still with CONDON from anemia Continue PPI but change to po bid Continue low fiber diet Follow CBC in AM or sooner prn acute bleeding or if hemodynamically unstable Continue to hold ASA and have stopped Eliquis Consult Cardiology to discuss further management of anticoagulation and possible Watchman procedure as outpt appreciated--> plan to resume ASA due to h/o TAVR when possible-would wait at least one more week. F/u outpt with primary Building Serviceman to discuss possible Watchman procedure Give Venofer 300mg IV daily x 3 doses F/u with GI as outpt (2) Acute GI bleeding: Plan: as above (3) Persistent atrial fibrillation: Plan: Diagnosed December 2023, rate controlled. CHADS2 score 2 = 4% annual risk of CVA Had severe epistaxis and labile INR on Coumadin, then GIB now on Eliquis-AC stopped Consult Cardiology for further evaluation for management appreciated Continue rate control with carvedilol and diltiazem Considering Watchman procedure as outpt-f/u with Cardio as outpt (4) S/P TAVR (transcatheter aortic valve replacement): Plan: noted Cardio consult resume ASA when possible/safe from bleeding standpoint (5) Bullous pemphigoid: Plan: Reason for chronic steroid use (6) Hypothyroid: Plan: TSH recently normal at 3.55 continue home LT4 (7) Mitral stenosis: Plan: severe on recent ECHO, has been told not a good candidate for repair but being monitored (8) Hypertension: Plan: BPs controlled continue home meds Situational anxiety-continue on Vistaril prn for anxiety related to health conditions-asked RN to give dose today given her "restless legs" Gout-continue allopurinol Plan VTE Prophylaxis - chemical contraindicated, SCDs Disposition - continued stay on PCU, possible dc to home tomorrow if no further GIB, hgb remains stable discussed care with son and friend at bedside on 01/15 Admission and Anticipated Discharge Date Admission Date: January 14, 2024 Subjective C/o a lot of anxiety and "restless legs" today while sitting in chair but thinks her legs are jumpy from being anxious. Had a peanut butter colored stool today, no abd pain Still feels very SOB with exertion and even with bending over. Physical Exam Constitutional: WD/WN, vitals as above Respiratory: normal respiratory effort, lungs clear to auscultation Cardiovascular: Rate/Rhythm: regular rate and + irregularly irregular Heart Sounds: no murmur Gastrointestinal (Abdomen): normal bowel sounds, soft, nontender, no hepatosplenomegaly Musculoskeletal: Extremities: extremities normal to inspection; no cyanosis and no clubbing Skin: no rashes, warm and dry Neurologic: moves all extremities and awake; no focal motor deficits Psychiatric: A+Ox3, euthymic affect Lymphatic: no lymphedema Results & Data Results & Data Vital Signs (Past 12 Hours) Vital Signs Temp Pulse Pulse Resp BP Pulse Ox O2 Del Method 01/17/24 15:05 36.7 C 89 18 92/53 L 97 Room Air 01/17/24 10:58 36.5 C 79 18 105/50 L 95 Room Air 01/17/24 07:15 36.4 C L 56 L 17 109/65 94 Room Air 01/17/24 06:02 78 Laboratory Results CBC, Mag, BMP reviewed PG Care Time/CCT Total # of Minutes Spent Total Time Spent with Patient: Total time spent is greater than 50% in coordination of care (as documented) at patient's floor/unit and/or counseling patient: Coding Level of Care Code 60986 SUB INP/OBS CARE 2/35MIN Diagnoses Acute blood loss anemia D62 Acute GI bleeding K92.2 Persistent atrial fibrillation I48.19 S/P TAVR (transcatheter aortic valve replacement) Z95.2 Bullous pemphigoid L12.0 Acquired hypothyroidism E03.9 Hypothyroidism type: acquired Mitral valve stenosis, unspecified etiology I05.0 Cardiac valve disease etiology: etiology unspecified Primary hypertension I10 Hypertension type: primary hypertension (6) Hypothyroid Hypothyroidism type: acquired Qualified Code(s): E03.9 - Hypothyroidism, unspecified (7) Mitral stenosis Cardiac valve disease etiology: etiology unspecified Qualified Code(s): I05.0 - Rheumatic mitral stenosis (8) Hypertension Hypertension type: primary hypertension Qualified Code(s): I10 - Essential (primary) hypertension
[2024-01-17] MEDS: PANTOprazole 40 MG TAB PO SCH (21:26)
[2024-01-18 07:00] LABS: Basophils # (auto) 0.04 K/uL (0.00-0.20); Basophils % (auto) 0.4 %; Eosinophils # (auto) 0.04 K/uL (0.00-0.50); Eosinophils % (auto) 0.4 %; Hematocrit (blood only) 24.4 % (37.0-47.0); Hemoglobin 7.9 g/dl (12.0-16.0); Lymphocytes # (auto) 0.93 K/uL (1.20-3.40); Lymphocytes % (auto) 9.1 %; Mean Corpuscular Hemoglobin 32.1 pg (25.0-34.0); Mean Corpuscular Hgb Conc 32.4 g/dL (32.0-36.0); Mean Corpuscular Volume 99.2 fL (80.0-100.0); Monocytes # (auto) 0.69 K/uL (0.11-0.59); Monocytes % (auto) 6.8 %; Neutrophils # (auto) 8.42 K/uL (1.40-6.50); Neutrophils % (auto) 82.3 %; Nucleated RBC # (auto) 0.02 K/uL (0.00-0.12); Nucleated RBC % (auto) 0.2 %; Platelet Count 264 K/uL (130-400); RDW Coefficient of Variation 15.8 % (11.5-14.5); RDW Standard Deviation 54.8 fL (36.4-46.3); Red Blood Count 2.46 M/uL (4.20-5.40); White Blood Count 10.22 K/ul (4.8-10.8)
[2024-01-18 07:30] LABS: Anisocytosis Present; Polychromasia 1+
[2024-01-18 08:43] LABS: BUN Creatinine Ratio 19.5 (10-20); Calcium 8.2 mg/dl (8.6-10.3); Creatinine Clr Calc Pharmacy 45.1 ml/min; Est GFR (Non-African American) 63.9 ml/min; Magnesium 1.8 mg/dl (1.7-2.4); Potassium 3.8 mmol/L (3.5-5.1)
[2024-01-18] MEDS: IRON SUCROSE 300 MG in SODIUM CHLORIDE 0.9% 250 ML IV SCH (09:29)
--- NOTE | 2024-01-18 10:06 | Discharge Summary ---
Discharge Summary Date of Service January 18, 2024 Notes For Next Care Provider Check CBC, BMP in 2-3 days Resume ASA 81mg daily in 3 days if no ongoing bleeding or drop in hgb Needs video capsule endoscopy arranged Needs follow up with Cardiology, Dr. Law, to discuss Watchman device Medication Changes From Visit Stop Eliquis HOLD aspirin 81mg daily x 3 more days Started Protonix 40mg po bid Started hydroxyzine 10mg po q6h prn anxiety Admission HPI Per Admitting Provider Ana Rodríguez is an 88-year-old female who presents to the ER with melena, diarrhea and shortness of breath on exertion. This started a day after discharge when she was started on Eliquis after supratherapeutic INR was on warfarin for her atrial fibrillation that was diagnosed in December. She denies any black stool during her admission. Shortness of breath on exertion-shortly after melena. She is continuing to have black stool in the emergency room. No acid taste in her mouth, dizziness, abdominal pain, chest pain or reflux noted by the patient. She has a significant history of GI bleed in 2020. She [place] [facility] [place] due to severe aortic stenosis (now s/p TAVR). She reports no source of the bleeding was found on EGD or small bowel capsule endoscopy. Principal Dx & Hospital Course #1 = Principal Diagnosis (1) Acute blood loss anemia: Presents with melena without abd pain, in setting of taking Eliquis, ASA On chronic prednisone so could have PUD but no heartburn or pain. 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 No active bleeding seen on imaging Hgb dropped to 7.7 from 10.2 one week prior and now stabilized/improved at 7.9 No further melena in several days GI recommends no scope due to comorbidities. I have asked them to arrange VCE as outpt. Pt previously had a small bowel AVM in 2020 on VCE Still with CONDON from anemia and mild tachycardia with ambulation from Afib, blood loss Received IV PPI gtt for several days and then changed to po bid Continue low fiber diet Follow CBC in 3 days at rehab Continue to hold ASA x 3 more days and have stopped Eliquis Consult Cardiology to discuss further management of anticoagulation and possible Watchman procedure as outpt appreciated--> F/u outpt with primary School Plant Consultant Dr. Law Gave Venofer 300mg IV daily x 3 doses (2) Acute GI bleeding: as abov, resolved (3) Persistent atrial fibrillation: Diagnosed December 2023, rate controlled. CHADS2 score 2 = 4% annual risk of CVA Had severe epistaxis and labile INR on Coumadin, then GIB now on Eliquis-AC stopped Consult Cardiology for further evaluation for management appreciated Continue rate control with carvedilol and diltiazem -rates in 120s with ambulation which causes dyspnea but BPs soft so no room to increase diltiazem or Coreg at this time Considering Watchman procedure as outpt-f/u with Cardio as outpt (4) S/P TAVR (transcatheter aortic valve replacement): noted Cardio consult resume ASA when possible/safe from bleeding standpoint in about 3 more days (5) Bullous pemphigoid: Reason for chronic steroid use (6) Hypothyroid: TSH recently normal at 3.55 continue home LT4 (7) Mitral stenosis: severe on recent ECHO, has been told not a good candidate for repair but being monitored (8) Hypertension: BPs controlled to soft/low normal continue home meds Situational anxiety-continue on Vistaril prn for anxiety related to health conditions Gout-continue allopurinol Plan VTE Prophylaxis - chemical contraindicated, SCDs Disposition - dc to acute rehab at [facility] discussed care with son and friend at bedside on 01/15 Discharge Exam Constitutional WD/WN, vitals as above Respiratory normal respiratory effort, lungs clear to auscultation Cardiovascular Rate/Rhythm: regular rate and + irregularly irregular Heart Sounds: no murmur Gastrointestinal (Abdomen) normal bowel sounds, soft, nontender, no hepatosplenomegaly Musculoskeletal Extremities: extremities normal to inspection; no cyanosis and no clubbing Skin no rashes, warm and dry Neurologic moves all extremities and awake; no focal motor deficits Psychiatric A+Ox3, euthymic affect Lymphatic no lymphedema Updated Medication List Medication Instructions Recorded Confirmed Type aspirin 81 mg tablet,delayed 81 mg PO QPM 04/20/21 01/14/24 History release (Adult Aspirin Regimen) prednisone 10 mg tablet 10 mg PO Q OTHER DAY 01/03/23 01/14/24 History calcium carbonate 600 mg-vitamin 1 cap PO DAILY 03/16/23 01/14/24 History D3 12.5 mcg (500 unit) capsule (Calcium 600 with Vitamin D3) carvedilol 12.5 mg tablet 12.5 mg PO BID #180 tabs 07/05/23 01/14/24 Rx allopurinol 100 mg tablet 200 mg (2 x 100 mg) PO QAM #180 10/02/23 01/14/24 Rx tabs gemfibrozil 600 mg tablet 600 mg PO BID #180 tabs 11/23/23 01/14/24 Rx levothyroxine 50 mcg tablet 50 mcg PO QAM 90 days #90 tabs 11/23/23 01/14/24 Rx alendronate 70 mg tablet (Fosamax) 70 mg PO WK 12/30/23 01/14/24 History diltiazem HCl 240 mg capsule,24 240 mg PO QAM 12/30/23 01/14/24 History hr,extended release ferrous sulfate 325 mg (65 mg 325 mg PO Q OTHER DAY 01/08/24 01/14/24 History iron) tablet apixaban 5 mg tablet (Eliquis) 5 mg PO BID #60 tabs 01/10/24 01/14/24 Rx hydroxyzine HCl 10 mg tablet 10 mg PO Q6H PRN anxiety #20 tabs 01/18/24 Rx pantoprazole 40 mg tablet,delayed 40 mg PO BID #60 tabs 01/18/24 Rx release Hospital Stay Data Consultations 01/14/24 19:39 ED Decision to Admit Stat 01/14/24 21:22 Consult Gastroenterology Routine 01/15/24 13:58 Consult Cardiology Routine Diagnostic Imagining Performed 01/14/24 18:11 CT abd pelvis IV con only Stat Pending Results Patient Have Any Pending Studies at Discharge: No Discharge Instructions Given to Patient (Per Discharging Provider) You were admitted with a GI bleed and lost blood. Your bleeding stopped and your blood count stabilized. You were given three IV iron infusions to help improve your blood ocunts faster. You are still feeling a bit short of breath with walking due to your anemia and your atrial fibrillation. Your oxygen levels are normal with walking. It is recommended that you go to rehab for a short term stay until your condition continues to improve. Please check a CBC and BMP in 2-3 days at rehab. You will need to have a video capsule endoscopy test which is being arranged by Dr. Woodruff's office. This test will likely be done at the [facility] GI office in [place] vs [facility] office in [facility]. This will help to figure out from where you were bleeding. You will also need to follow up with Dr. Law to discuss possibly having a Watchman device placed so you can avoid blood thinners in the future. For now, DO NOT TAKE the Eliquis. You should resume your baby aspirin in the next few days due to your history of aortic valve replacement and mitral stenosis. Total Time Total Time Spent Total Time Spent (In Minutes): 35 min Total Time Includes: Examination of the Patient, Discharge Planning, Medication Reconciliation and Communication With Other Providers Coding Level of Care Code 05205 INP/OBS DISCH >30 MIN Diagnoses Acute blood loss anemia D62 Acute GI bleeding K92.2 Persistent atrial fibrillation I48.19 S/P TAVR (transcatheter aortic valve replacement) Z95.2 Bullous pemphigoid L12.0 Acquired hypothyroidism E03.9 Hypothyroidism type: acquired Mitral valve stenosis, unspecified etiology I05.0 Cardiac valve disease etiology: etiology unspecified Primary hypertension I10 Hypertension type: primary hypertension
== END 2024-01-18 14:00 | DRG 378 ==
LOC: ED 17:04 → EDINP 19:38 → SUATTDRO 19:38 → 2S 21:23

== ENCOUNTER 2025-01-15 17:37 | Observation (INO) ==
--- NOTE | 2025-01-15 18:01 | Emergency Department Note ---
Impression & Plan Stroke-like symptoms, Transient ischemic attack ED Provider Note NAME: RAFA MACIEL AGE: 89 SEX: F : 1935 ARRIVES VIA: Ambulance INFORMANT: Patient, ED PROVIDER(S): Shirley De León MD CHIEF COMPLAINT: Right hand difficulty HPI: This is an 89-year-old female presents for right hand weakness. Patient notes that at around 2 PM she began noticing difficulty with her right hand. 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 She notes is not usual. She is unable to hold a pencil which is never happened before. She does not currently take blood thinners. She reports no weakness in walking or right lower extremity weakness. Reports no nausea, vomiting, headache, vision changes. She reports no slurred speech. ROS: See above HPI for pertinent positives & negatives. A total of 10 systems reviewed and were otherwise negative. PAST MEDICAL HISTORY: See Below PAST SURGICAL HISTORY: See Below FAMILY HISTORY: See Below SOCIAL HISTORY: See Below HOME MEDICATIONS: See Below ALLERGIES: See Below VITALS: See Below PHYSICAL EXAMINATION: General: resting comfortably in no acute distress Head: Normocephalic and atraumatic Eyes: Normal inspection, extraocular muscles intact Ear, nose, throat: Normal external exam Neck: Normal range of motion Respiratory: lungs clear to auscultation bilaterally Cardiovascular: Regular rate/rhythm, no murmur GI: soft, nontender, no guarding or rebound Extremities: nontender, moves all extremities Neuro: The patient awake and alert, appropriately conversive, right hand software design analyst is weaker than left, no dysmetria, slightly weaker right upper extremity MEDICAL DECISION MAKING: This is a an 89-year-old female presenting for right hand weakness. Patient's software design analyst strength is asymmetrical with right being weaker than left. She has very subtle weakness in the right upper extremity otherwise. She otherwise has no other deficits including cranial nerves. - CT imaging ordered for stroke rule out. Stroke alert called. -Bloodwork is reviewed showing no significant leukocytosis, anemia, electrolyte or creatinine abnormality -Troponin minimally elevated at 14 -CT imaging currently negative for acute intracranial process -Discussed with Dr. Zepeda, stroke neurologist. He states patient had a window for TNK and the symptoms are not severe enough to warrant this. He will write a note in the chart. Does recommend admission and aspirin. Differential diagnosis: Stroke, TIA, encephalitis, radiculopathy Independent History obtained from: [facility] interpreted by me: ECG: ECG independently interpreted by me with normal sinus rhythm, rate of 99, normal OK, normal QRS, normal QTc, no ST segment elevations consistent with STEMI criteria, inferior ST depressions, similar to previous Cardiac Monitoring: An order was placed for continuous cardiac monitoring. The monitor shows a rate of 76 with sinusrhythm. 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 Chronic diarrhea Pulmonary nodule Medical History Basal cell carcinoma GI bleed Pulmonary hypertension Umbilical hernia History of anesthesia reaction History of GI bleed History of breast cancer Pulmonary nodule Left carotid bruit Clostridioides difficile infection Anemia Transient ischemic attack Chronic kidney disease, stage 3a Mitral stenosis Aortic stenosis, severe Mitral regurgitation Hyperlipidemia Hypertension Gout Surgical History H/O umbilical hernia repair (07/20/22) Open Incarcerated Umbilical Hernia Repair(Not Applicable) - Parag Rowell MD, FACS History of cardiac cath 2020 ([place]) PRIOR TO AORTIC VALVE REPLACEMENT History of endoscopy pt reports they stretched opening from esophagus into the stomach / it was almost closed History of colonoscopy H/O aortic valve replacement March 2021 S/P hysterectomy with oophorectomy "complete" 1996 - reports possible appendectomy with - pt not sure S/P lumpectomy, left breast Family History Sister Breast cancer Colorectal cancer COPD (chronic obstructive pulmonary disease) Mother Diabetes Sister Breast cancer Colorectal cancer Denies family history of Ovarian cancer Prostate cancer Myocardial infarction Social History (Updated 12/22/24 @ 14:30 by BROOKE Turcios) Smoking Status: Never smoker Tobacco Type: Cigarettes Age Started Using Tobacco: 15; Age Quit Using Tobacco: 33; packs per day: 0.5; Cigarettes Per Day: 10; Second Hand Exposure: No; Do You Dip or Chew Tobacco: No; Hx Alcohol Use: No Hx Substance Use: No Preferred Language: Belarusian Communication Ability: Effective Visual Impairment: No Limitations Hearing Ability: Normal Sheet Catcher Required: No Beliefs That Will Affect Care: None marital status: / Current Living Situation: Alone current occupational status: retired 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 How many Children do You have: 3 Feels Safe at Home: Yes Childhood Exposure to Second-Hand Smoke: Yes Diet: regular caffeine: No during the past year weight has: remained stable Dental Care, Regularly: No Physical Activity Frequency: Does not Exercise Seatbelt Use: always Sunscreen Use: No Assistive Devices: Cane, Denture - Upper, Denture - Lower and Glasses Allergies Allergies Allergy/AdvReac Type Severity Reaction Status Date / Time simvastatin Allergy Intermediate RASH Verified 01/15/25 21:57 [id number]-PWK-TtS Reductase Allergy Intermediate Rash Verified 01/15/25 21:57 Inhibitor [Olqylfn-Cwo-Xqa Reductase Inhibitor] apixaban [From Eliquis] Allergy Unknown Unknown Verified 01/15/25 21:57 hydrochlorothiazide Allergy Unknown pt reports Verified 01/15/25 21:57 doesn't take it anymore, denies hx reaction tramadol Allergy Unknown pt not Verified 01/15/25 21:57 sure/pt not recall taking this trospium Allergy Unknown pt doesn't Verified 01/15/25 21:57 recall taking this warfarin AdvReac Severe Unknown Verified 01/15/25 21:57 Home Meds Home Medications Medication Instructions Recorded Confirmed prednisone 10 mg tablet 10 mg PO 3XWK 01/03/23 01/15/25 calcium 600 mg (as 1 cap PO QAM 03/16/23 01/15/25 carbonate)-vitamin D3 12.5 mcg (500 unit) capsule (Calcium with Vit D3) diclofenac sodium 1 % topical gel 2 g topical BID PRN Pain 02/01/24 01/15/25 aspirin 81 mg tablet,delayed 81 mg PO QAM 08/19/24 01/15/25 release (Adult Aspirin Regimen) ferrous sulfate 325 mg (65 mg 325 mg PO QAM 08/19/24 01/15/25 iron) tablet allopurinol 300 mg tablet 150 mg PO QAM 01/15/25 01/15/25 diltiazem HCl 240 mg capsule,24 240 mg PO QPM 01/15/25 01/15/25 hr,extended release (Tiadylt ER) furosemide 40 mg tablet 40 mg PO QDL 01/15/25 01/15/25 levothyroxine 75 mcg tablet 75 mcg PO DAILYBB 01/15/25 01/15/25 potassium chloride 20 mEq 40 meq PO QDL 01/15/25 01/15/25 tablet,extended release Previous Rx's Medication Instructions Recorded carvedilol 6.25 mg tablet 6.25 mg PO BID #180 tabs 02/14/24 alendronate 70 mg tablet (Fosamax) 70 mg PO WK #12 tabs 12/22/24 pantoprazole 40 mg tablet,delayed 40 mg PO BID 30 days #60 tabs 12/22/24 release Results & Data (ED) Vital Signs Vital Signs - 24 hr 01/15/25 17:53 01/15/25 17:53 01/15/25 21:00 Temperature 37.1 C Temperature Source Oral Pulse Rate 100 H Pulse Rate [Finger] 83 Pulse Rhythm [Finger] Regular Pulse Strength [Finger] Normal Respiratory Rate 13 20 Respiratory Effort / Characteristics Non-Labored Spontaneous Non-Labored Spontaneous Respiratory Depth Normal Normal Respiratory Pattern Regular Regular Blood Pressure 165/118 H Blood Pressure [Right Arm] 142/80 H Blood Pressure Mean 133 Blood Pressure Mean [Right Arm] 100 Blood Pressure Position [Right Arm] Lying Pulse Oximetry 94 94 95 Oxygen Delivery Method Room Air Room Air Room Air Sepsis Recent Fever Within 48 Hours No Sepsis New/Unexplained Change in Mental Status No Sepsis Action Taken by Nursing No Action Required Laboratory Data 01/15/25 17:50 01/15/25 17:50 Lab Results 01/15/25 01/15/25 01/15/25 Range/Units 17:50 17:51 18:13 WBC 10.41 (4.8-10.8) K/ul RBC 4.68 (4.20-5.40) M/uL Hgb 14.0 (12.0-16.0) g/dl Hct 42.9 (37.0-47.0) % MCV 91.7 (80.0-100.0) fL MCH 29.9 (25.0-34.0) pg MCHC 32.6 (32.0-36.0) g/dL RDW Std Deviation 48.3 H (36.4-46.3) fL RDW Coeff of Mervin 14.5 (11.5-14.5) % Plt Count 277 (130-400) K/uL MPV 10.0 (9.4-12.4) fL Immature Gran % (Auto) 0.5 % Neut % (Auto) 70.8 % Lymph % (Auto) 10.5 % Cass % (Auto) 8.8 % Eos % (Auto) 8.4 % Baso % (Auto) 1.0 % Neut # (Auto) 7.38 H (1.40-6.50) K/uL Lymph # (Auto) 1.09 L (1.20-3.40) K/uL Cass # (Auto) 0.92 H (0.11-0.59) K/uL Eos # (Auto) 0.87 H (0.00-0.50) K/uL Baso # (Auto) 0.10 (0.00-0.20) K/uL Immature Gran # (Auto) 0.05 (0.01-0.20) K/uL PT 10.8 (9.0-12.0) Seconds INR 1.0 (0.9-1.1) APTT 25 (21-31) Seconds PTT Ratio 0.9 Sodium 141 (136-145) mmol/L Potassium 3.6 (3.5-5.1) mmol/L Chloride 103 (98-107) mmol/L Carbon Dioxide 31 (21-32) mmol/L Anion Gap 7 (3-11) BUN 25 H (6-23) mg/dl Creatinine 1.12 (0.6-1.2) mg/dl Est Cr Clr Drug Dosing 30.8 ml/min eGFR 47.00 BUN/Creatinine Ratio 22.3 H (10-20) Glucose 157 H (70-99(Fasting)) mg/dl POC Glucose 145 H (70-99) mg/dl Calcium 9.4 (8.6-10.3) mg/dl Magnesium 1.8 (1.7-2.4) mg/dl Total Bilirubin 0.8 (0.2-1.0) mg/dl AST 15 (13-39) U/L ALT 8 (7-52) U/L Alkaline Phosphatase 80 (34-104) U/L Troponin I High Sens 14.1 H (0-14) pg/ml Total Protein 7.7 (6.0-8.3) gm/dl Albumin 4.1 (3.4-5.0) gm/dl Globulin 3.6 (2.5-4.0) gm/dl Albumin/Globulin Ratio 1.1 (0.9-2) Vitamin B12 311 (180-914) pg/ml TSH 6.654 H (0.300-4.500) uIu/ml Free T4 1.06 (0.61-1.60) ng/dl Blood Type A Positive Antibody Screen NEGATIVE Administered Medications Discontinued Medications Aspirin (Aspirin Chew 324 Mg) 324 mg PO NOW STA Stop: 01/15/25 20:58 Last Admin: 01/15/25 21:10 Dose: 324 mg Documented By: NAW Ioversol (Optiray 320 125ml) 119 ml IV ONCE ONE Stop: 01/15/25 18:03 Last Admin: 01/15/25 18:03 Dose: 119 ml Documented By: PLW Imaging Data Radiologist's Impression: Head CT 01/15/25 17:53 EXAMINATION: Head CT without CLINICAL HISTORY: Neurodeficit, acute stroke suspected PRIORS: None TECHNIQUE: Contiguous axial images were obtained through the head without the use of intravenous contrast. Sagittal and coronal reformations are supplied. FINDINGS: Mild to moderate volume loss is noted. Mancia-white differentiation is preserved. No edema or midline shift. No intra-axial or extra-axial hemorrhage. Ventricles are normal in size and configuration. Brainstem and cerebellum have a normal appearance. Calvarium unremarkable. Paranasal sinuses and mastoid air cells are well-pneumatized. Globes are intact. No retrobulbar abnormality. Moderate to high-grade atherosclerotic disease present involving the internal carotid arteries, cavernous portion IMPRESSION: No CT evidence of an acute intracranial abnormality. Findings discussed with Dr.Niketu De León In the emergency department at 6:28 PM EST on 01/15/2025. Electronically signed by Abigail Patel 01-15-2025 6:33 PM Head CTA 01/15/25 17:53 EXAM: CTA head with CLINICAL HISTORY: Neurodeficit, stroke suspected TECHNIQUE: Contiguous CTA axial images were obtained through the head after the administration of intravenous contrast. Sagittal and coronal reformations are supplied. PRIORS: None FINDINGS: The vertebral arteries form the basilar artery at the skull base. [place] is patent. No thrombus or hemodynamically significant stenosis. No aneurysmal dilatation or argueta aneurysm. Mild calcified atherosclerotic disease of the cavernous internal carotid arteries bilaterally with no stenosis or thrombus. No enhancing mass in the brain. IMPRESSION: No CTA evidence of an acute vascular abnormality. Findings discussed with Dr.Niketu De León In the emergency department at 6:28 PM EST on 01/15/2025. Electronically signed by Abigail Patel 01-15-2025 6:33 PM Neck CTA 01/15/25 17:53 EXAM: CT angio neck with con CLINICAL HISTORY: Neurodeficit, acute stroke suspected TECHNIQUE: Contiguous CTA axial images were obtained through the neck with the administration of intravenous contrast. Sagittal and coronal reformations are supplied. MIPS are supplied. COMPARISON: None FINDINGS: A left-sided aortic arch is noted with moderate atherosclerotic disease. Normal takeoff of the 3 great vessels present. Mild atherosclerotic disease present at the origin of the left subclavian artery with no hemodynamically significant stenosis. The bilateral common carotid arteries are normally opacified. Mild atherosclerotic disease of the proximal internal carotid arteries present with no hemodynamically significant stenosis or thrombus. The distal internal carotid arteries entered the petrous portion of the skull base normally The vertebral arteries are patent and codominant. No hemodynamically significant stenosis or thrombosis. Both contribute to form the basilar artery. IMPRESSION: No CT evidence of an acute vascular abnormality. Findings discussed with Dr.Niketu De León In the emergency department at 6:28 PM EST on 01/15/2025. Electronically signed by Abigail Patel 01-15-2025 6:33 PM Discharge Plan Visit Data Chief Complaint: Stroke/CVA Symptoms ED Provider: Shirley De León Discharge Problem: Stroke-like symptoms, Transient ischemic attack Patient Disposition: Admitted As Inpatient Condition: Fair Discharge Instructions Interventions: ED Discharge Assessment Last Done: 01/15/25 23:07
[2025-01-15] MEDS: OPTIRAY 320 125ml IV ONE (18:03)
[2025-01-15 18:06] LABS: Eosinophils # (auto) 0.87 K/uL (0.00-0.50); Eosinophils % (auto) 8.4 %; Hematocrit (blood only) 42.9 % (37.0-47.0); Immature Granulocytes # (auto) 0.05 K/uL (0.01-0.20); Immature Granulocytes % (auto) 0.5 %; Lymphocytes # (auto) 1.09 K/uL (1.20-3.40); Lymphocytes % (auto) 10.5 %; Mean Corpuscular Hemoglobin 29.9 pg (25.0-34.0); Mean Corpuscular Hgb Conc 32.6 g/dL (32.0-36.0); Mean Corpuscular Volume 91.7 fL (80.0-100.0); Monocytes # (auto) 0.92 K/uL (0.11-0.59); Monocytes % (auto) 8.8 %; Neutrophils # (auto) 7.38 K/uL (1.40-6.50); Neutrophils % (auto) 70.8 %; Platelet Count 277 K/uL (130-400); RDW Coefficient of Variation 14.5 % (11.5-14.5); RDW Standard Deviation 48.3 fL (36.4-46.3); Red Blood Count 4.68 M/uL (4.20-5.40); White Blood Count 10.41 K/ul (4.8-10.8)
[2025-01-15 18:26] LABS: Albumin Globulin Ratio 1.1 (0.9-2); Albumin Level 4.1 gm/dl (3.4-5.0); BUN Creatinine Ratio 22.3 (10-20); Bilirubin,Total 0.8 mg/dl (0.2-1.0); Calcium 9.4 mg/dl (8.6-10.3); Creatinine Clr Calc Pharmacy 30.8 ml/min; Globulin 3.6 gm/dl (2.5-4.0); Magnesium 1.8 mg/dl (1.7-2.4); Potassium 3.6 mmol/L (3.5-5.1); Total Protein 7.7 gm/dl (6.0-8.3)
[2025-01-15 18:33] LABS: Troponin I High Sensitivity 14.1 pg/ml (0-14)
--- NOTE | 2025-01-15 18:33 | CT Scan Report ---
EXAMINATION: Head CT without CLINICAL HISTORY: Neurodeficit, acute stroke suspected PRIORS: None TECHNIQUE: Contiguous axial images were obtained through the head without the use of intravenous contrast. Sagittal and coronal reformations are supplied. FINDINGS: Mild to moderate volume loss is noted. Mancia-white differentiation is preserved. No edema or midline shift. No intra-axial or extra-axial hemorrhage. Ventricles are normal in size and configuration. Brainstem and cerebellum have a normal appearance. Calvarium unremarkable. Paranasal sinuses and mastoid air cells are well-pneumatized. Globes are intact. No retrobulbar abnormality. Moderate to high-grade atherosclerotic disease present involving the internal carotid arteries, cavernous portion IMPRESSION: No CT evidence of an acute intracranial abnormality. Findings discussed with Dr.Niketu De León In the emergency department at 6:28 PM EST on 01/15/2025. Electronically signed by Abigail Patel 01-15-2025 6:33 PM
--- NOTE | 2025-01-15 18:33 | CT Scan Report ---
EXAM: CTA head with CLINICAL HISTORY: Neurodeficit, stroke suspected TECHNIQUE: Contiguous CTA axial images were obtained through the head after the administration of intravenous contrast. Sagittal and coronal reformations are supplied. PRIORS: None FINDINGS: The vertebral arteries form the basilar artery at the skull base. [place] is patent. No thrombus or hemodynamically significant stenosis. No aneurysmal dilatation or argueta aneurysm. Mild calcified atherosclerotic disease of the cavernous internal carotid arteries bilaterally with no stenosis or thrombus. No enhancing mass in the brain. IMPRESSION: No CTA evidence of an acute vascular abnormality. Findings discussed with Dr.Niketu De León In the emergency department at 6:28 PM EST on 01/15/2025. Electronically signed by Abigail Patel 01-15-2025 6:33 PM
--- NOTE | 2025-01-15 18:33 | CT Scan Report ---
EXAM: CT angio neck with con CLINICAL HISTORY: Neurodeficit, acute stroke suspected TECHNIQUE: Contiguous CTA axial images were obtained through the neck with the administration of intravenous contrast. Sagittal and coronal reformations are supplied. MIPS are supplied. COMPARISON: None FINDINGS: A left-sided aortic arch is noted with moderate atherosclerotic disease. Normal takeoff of the 3 great vessels present. Mild atherosclerotic disease present at the origin of the left subclavian artery with no hemodynamically significant stenosis. The bilateral common carotid arteries are normally opacified. Mild atherosclerotic disease of the proximal internal carotid arteries present with no hemodynamically significant stenosis or thrombus. The distal internal carotid arteries entered the petrous portion of the skull base normally The vertebral arteries are patent and codominant. No hemodynamically significant stenosis or thrombosis. Both contribute to form the basilar artery. IMPRESSION: No CT evidence of an acute vascular abnormality. Findings discussed with Dr.Niketu De León In the emergency department at 6:28 PM EST on 01/15/2025. Electronically signed by Abigail Patel 01-15-2025 6:33 PM
[2025-01-15 18:37] LABS: Partial Thromboplastin Ratio 0.9; Partial Thromboplastin Time 25 Seconds (21-31); Prothrombin Time 10.8 Seconds (9.0-12.0)
--- NOTE | 2025-01-15 20:40 | History & Physical Report ---
Date of Service January 15, 2025 Assessment & Plan (1) Transient ischemic attack: (2) Elevated troponin: (3) Persistent atrial fibrillation: (4) S/P TAVR (transcatheter aortic valve replacement): Plan The patient is a 89 y/o female with a PMHx of a fib not on AC due to GI bleed January 2024, severe s/p TAVR, HFpEF, pulm HTN, CKD 3a, HLD, HTN. She presented due to right hand weakness that has since resolved and is being admitted for a stroke workup. Diagnostic imaging negative and not TNK candidate given outside time window and strength only decreased to 4/5. #TIA - Symptoms resolved and outside of TNK time window. 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 Laboratories essentially negative. - stroke without TNK order set - active ROM, no IVs right side, Q4H neuro checks - asa load given on admission - continue daily ASA 81mg - Allow for permissive hypertension with goal parameters 220/110 x 24 hours - Telemetry monitoring - echo with bubble study ordered - lipid panel and A1C with AM labs - of note patient is intolerant/has allergy of statins - B12 and TSH ordered - patient declines MRI 2/2 severe claustrophobia; offered Ativan and still declines. Reasonable given MRI results would not change medical management - patient on daily baby aspirin and will be started on cholesterol medication. Consider DAPT. #Elevated troponin - trop 14.1. Patient denies any chest pain. Sinus rhythm on telemetry. - EKG ordered - repeat with AM labs #Persistent A-fib rate controlled, no AC given GI bleed January 2024. Sinus rhythm on telemetry at time of admission. - Continue diltiazem and carvedilol #s/p TAVR follows with cardiology, Dr. Law. - Continue ASA #bullous pemphigoid stable - Continue on prednisone 10 Mg q. every other day; Has been on for many years #Hypothyroidism TSH ordered - Continue levothyroxine #HFpEF stable, no acute exacerbation. Most recent EF December 2023 60 to 65%. - Continue Lasix and Potassium supplement #GERD/ history of GI bleed stable - Continue PPI VTE ppx: SCDs, no chemical ppx with GI bleed january 2024 Dispo: med/tele - anticipate dc home 01/16/25 after echocardiogram Admission and Anticipated Discharge Date Admission Date: 01/15/25 History of Present Illness Chief Complaint: cva symptoms Primary Care Provider: Ophelia Norman MD The patient is a 89 y/o female with a PMHx of a fib not on AC due to GI bleed January 2024, severe s/p TAVR, HFpEF, pulm HTN, CKD 3a, HLD, HTN. She presented due to right hand weakness and is now being admitted for a stroke workup. Diagnostic imaging negative and not TNK candidate given outside time window and strength only decreased to 4/5. Patient seen at bedside with her son present who works at [employer]. She stated that this afternoon at about 230 she developed right hand weakness in which she could not hold a pencil or put her On her water bottle, she denies any numbness, tingling, pain, other strokelike symptoms like confusion, slurred speech, blurry vision, facial droop. Symptoms have since resolved. she denies any personal history of stroke or family history of stroke. She denies any nicotine use. She did take her morning medications today which includes a daily baby aspirin; she has a noted history of an allergy to statins and stated she is intolerable of them, she is not on anything for cholesterol. She still takes prednisone every other day for bullous pemphigoid. Patient stated she gets extremely claustrophobic with MRIs and is declining MRI at time of admission, offered IV Ativan to assist with anxiety however she still declines. She feels as though she would need to be fully sedated for an MRI. She is still agreeable to admission for monitoring and echocardiogram. Allergies Allergy/AdvReac Type Severity Reaction Status Date / Time simvastatin Allergy Intermediate RASH Verified 01/15/25 21:57 Ifdwyis-OAX-CcW Reductase Allergy Intermediate Rash Verified 01/15/25 21:57 Inhibitor [Ueglgxe-Nht-Cmx Reductase Inhibitor] apixaban [From Eliquis] Allergy Unknown Unknown Verified 01/15/25 21:57 hydrochlorothiazide Allergy Unknown pt reports Verified 01/15/25 21:57 doesn't take it anymore, denies hx reaction tramadol Allergy Unknown pt not Verified 01/15/25 21:57 sure/pt not recall taking this trospium Allergy Unknown pt doesn't Verified 01/15/25 21:57 recall taking this warfarin AdvReac Severe Unknown Verified 01/15/25 21:57 Home Medications Medication Instructions Recorded Confirmed Type prednisone 10 mg tablet 10 mg PO 3XWK 01/03/23 01/15/25 History calcium 600 mg (as 1 cap PO QAM 03/16/23 01/15/25 History carbonate)-vitamin D3 12.5 mcg (500 unit) capsule (Calcium with Vit D3) diclofenac sodium 1 % topical gel 2 g topical BID PRN Pain 02/01/24 01/15/25 History carvedilol 6.25 mg tablet 6.25 mg PO BID #180 tabs 02/14/24 01/15/25 Rx aspirin 81 mg tablet,delayed 81 mg PO QAM 08/19/24 01/15/25 History release (Adult Aspirin Regimen) ferrous sulfate 325 mg (65 mg 325 mg PO QAM 08/19/24 01/15/25 History iron) tablet alendronate 70 mg tablet (Fosamax) 70 mg PO WK #12 tabs 12/22/24 01/15/25 Rx pantoprazole 40 mg tablet,delayed 40 mg PO BID 30 days #60 tabs 12/22/24 01/15/25 Rx release allopurinol 300 mg tablet 150 mg PO QAM 01/15/25 01/15/25 History diltiazem HCl 240 mg capsule,24 240 mg PO QPM 01/15/25 01/15/25 History hr,extended release (Tiadylt ER) furosemide 40 mg tablet 40 mg PO QDL 01/15/25 01/15/25 History levothyroxine 75 mcg tablet 75 mcg PO DAILYBB 01/15/25 01/15/25 History potassium chloride 20 mEq 40 meq PO QDL 01/15/25 01/15/25 History tablet,extended release 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 Chronic diarrhea Pulmonary nodule Medical History Basal cell carcinoma GI bleed Pulmonary hypertension Umbilical hernia History of anesthesia reaction History of GI bleed History of breast cancer Pulmonary nodule Left carotid bruit Clostridioides difficile infection Anemia Transient ischemic attack Chronic kidney disease, stage 3a Mitral stenosis Aortic stenosis, severe Mitral regurgitation Hyperlipidemia Hypertension Gout Surgical History H/O umbilical hernia repair (07/20/22) Open Incarcerated Umbilical Hernia Repair(Not Applicable) - Parag Rowell MD, FACS History of cardiac cath [place] ([place] PRIOR TO AORTIC VALVE REPLACEMENT History of endoscopy pt reports they stretched opening from esophagus into the stomach / it was almost closed History of colonoscopy H/O aortic valve replacement March 2021 S/P hysterectomy with oophorectomy "complete" 1996 - reports possible appendectomy with - pt not sure S/P lumpectomy, left breast Family History Sister Breast cancer Colorectal cancer COPD (chronic obstructive pulmonary disease) Mother Diabetes Sister Breast cancer Colorectal cancer Denies family history of Ovarian cancer Prostate cancer Myocardial infarction Social History (Updated 12/22/24 @ 14:30 by BROOKE Turcios) Smoking Status: Never smoker Tobacco Type: Cigarettes Age Started Using Tobacco: 15; Age Quit Using Tobacco: 33; packs per day: 0.5; Cigarettes Per Day: 10; Second Hand Exposure: No; Do You Dip or Chew Tobacco: No; Hx Alcohol Use: No Hx Substance Use: No Preferred Language: Martiniquais Communication Ability: Effective Visual Impairment: No Limitations Hearing Ability: Normal Scale Installer Required: No Beliefs That Will Affect Care: None marital status: / Current Living Situation: Alone current occupational status: retired 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 How many Children do You have: 3 Other Information That Helps Us Care for You: No Feels Safe at Home: Yes Safety Concerns: Feels Safe At This Time Childhood Exposure to Second-Hand Smoke: Yes Diet: regular caffeine: No during the past year weight has: remained stable Dental Care, Regularly: No Physical Activity Frequency: Does not Exercise Seatbelt Use: always Sunscreen Use: No Assistive Devices: Cane Review of Systems Review of Systems: see HPI Physical Exam Physical Exam: The patient is awake, alert and oriented 3, well developed and well nourished, normocephalic and atraumatic, in no acute distress. Non-toxic appearing. HEENT- EOMI, mucous membranes moist. Hearing grossly intact. Heart-normal S1 and S2. No murmurs, rubs or gallops. Lungs-clear bilaterally, no respiratory distress, no accessory muscle use. Abdomen-normal bowel sounds and soft. No ascites noted. Non-tender. Extremities- no clubbing, cyanosis, or edema. Rheumatologic-normal range of motion. Psychiatric-normal affect. Musculoskeletal: no cyanosis or clubbing, extremities motor strength 5/5 Neurologic: PERRL, EOMI, accommodation nl, no face palsy, no dysarthria no focal motor deficits Results & Data Results & Data Vital Signs (Past 12 Hours) Vital Signs Temp Pulse Resp BP Pulse Ox O2 Del Method 01/15/25 17:53 94 Room Air 01/15/25 17:53 37.1 C 100 H 13 165/118 H 94 Room Air Laboratory Results reviewed CBC, CMP, pt/inr, mag, tsh, b12, trop Diagnostic Findings Reviewed head CT, head CTA, neck CTA Medications Administered EDnone AdmissionASA 325 Mg ECG Additional Comments: ordered Code Status & VTE Plan Code Status Full VTE Prophylaxis Plan VTE Prophylaxis will be ordered: Yes Supervising Physician Co-Signing Physician Notes patient seen and examined, chart reviewed, case discussed with LUISITO Ba and I agree with assessment and plan as documented above. In brief, patient is an 89-year-old female with history of A-fib not on anticoagulation, heart failure preserved EF, pulmonary hypertension, CKD, hypertension, hyperlipidemia presenting with right handed weakness. Symptoms have since completely resolved. Patient with no additional complaints at this time On exam patient is resting comfortably in bed 279-1 + S1, S2, irregularly irregular Lungs CTA anteriorly Abdomen soft, nontender, nondistended Neurologically grossly intact Labs and images reviewed Assessment/plansuspect TIA Patient does not wish to have MRI Will obtain echo with bubble study, lipid panel and hemoglobin A1c Continue aspirin and statin Trend troponin to peak Remainder as above PG Care Time/CCT Total # of Minutes Spent Total Time Spent with Patient: Total time spent is greater than 50% in coordination of care (as documented) at patient's floor/unit and/or counseling patient: Coding Level of Care Code 70190 INT INP/OBS CARE 375MIN Diagnoses Transient ischemic attack G45.9 Elevated troponin R79.89 Persistent atrial fibrillation I48.19 S/P TAVR (transcatheter aortic valve replacement) Z95.2
[2025-01-15] MEDS: ASPIRIN CHEW 324 MG PO STA (21:10)
[2025-01-15 21:37] LABS: Thyroid Stimulating Hormone 6.654 uIu/ml (0.300-4.500)
[2025-01-15 22:11] LABS: T4 Free Thyroxine 1.06 ng/dl (0.61-1.60)
[2025-01-15] MEDS ORDERED: ONDANSETRON INJ 2 MG/ML 2 ML VIAL IV PRN (23:44)
[2025-01-15] MEDS ORDERED: DOCUSATE SODIUM 100 MG CAP PO PRN (23:44)
[2025-01-15] MEDS ORDERED: ACETAMINOPHEN 325 MG TAB PO PRN (23:44)
[2025-01-15] MEDS ORDERED: MELATONIN 3 MG TAB PO PRN (23:44)
[2025-01-15] MEDS ORDERED: PHARMACIST DISCHARGE MED REC CONSULT PRN (23:44)
[2025-01-16] MEDS: PANTOprazole 40 MG TAB PO SCH (01:44)
[2025-01-16] MEDS: LEVOTHYROXINE SODIUM 75 MCG TABLET PO SCH (06:00)
[2025-01-16 07:15] LABS: Basophils # (auto) 0.11 K/uL (0.00-0.20); Eosinophils % (auto) 10.9 %; Hematocrit (blood only) 41.5 % (37.0-47.0); Hemoglobin 13.4 g/dl (12.0-16.0); Immature Granulocytes # (auto) 0.07 K/uL (0.01-0.20); Immature Granulocytes % (auto) 0.6 %; Lymphocytes % (auto) 10.9 %; Mean Corpuscular Hemoglobin 29.6 pg (25.0-34.0); Mean Corpuscular Hgb Conc 32.3 g/dL (32.0-36.0); Mean Corpuscular Volume 91.6 fL (80.0-100.0); Mean Platelet Volume 10.4 fL (9.4-12.4); Monocytes # (auto) 1.04 K/uL (0.11-0.59); Monocytes % (auto) 9.5 %; Neutrophils # (auto) 7.34 K/uL (1.40-6.50); Neutrophils % (auto) 67.1 %; Platelet Count 283 K/uL (130-400); RDW Coefficient of Variation 14.5 % (11.5-14.5); RDW Standard Deviation 48.5 fL (36.4-46.3); Red Blood Count 4.53 M/uL (4.20-5.40); White Blood Count 10.96 K/ul (4.8-10.8)
[2025-01-16 07:33] LABS: BUN Creatinine Ratio 23.7 (10-20); Calcium 8.9 mg/dl (8.6-10.3); Chol HDL Ratio 4.8 (0-5); Creatinine Clr Calc Pharmacy 32.5 ml/min; Potassium 3.7 mmol/L (3.5-5.1)
[2025-01-16 07:37] LABS: Estimated Average Glucose 123 mg/dl; Hemoglobin A1C 5.9 % (4.5-5.6)
[2025-01-16 07:39] LABS: Troponin I High Sensitivity 13.9 pg/ml (0-14)
[2025-01-16] MEDS: ASPIRIN 81 MG ECTAB PO SCH (08:13)
[2025-01-16] MEDS: FERROUS SULFATE 325 MG TAB PO SCH (08:13)
[2025-01-16] MEDS: allopurinoL 300 MG TAB PO SCH (08:13)
[2025-01-16] MEDS: predniSONE 10 MG TABLET PO SCH (08:14)
--- NOTE | 2025-01-16 09:26 | Hospitalist Progress Note ---
Date of Service January 16, 2025 Assessment & Plan (1) Transient ischemic attack: (2) Elevated troponin: (3) Persistent atrial fibrillation: (4) S/P TAVR (transcatheter aortic valve replacement): Plan The patient is a 89 y/o female with a PMHx of a fib not on AC due to GI bleed January 2024, severe s/p TAVR, HFpEF, pulm HTN, CKD 3a, HLD, HTN. She presented due to right hand weakness that has since resolved and is being admitted for a stroke workup. Diagnostic imaging negative and not TNK candidate given outside time window and strength only decreased to 4/5. #TIA - Symptoms resolved and outside of TNK time window. 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 Laboratories essentially negative. - stroke without TNK order set - active ROM, no IVs right side, Q4H neuro checks - asa load given on admission - continue daily ASA 81mg - Allow for permissive hypertension with goal parameters 220/110 x 24 hours - Telemetry monitoring - echo with bubble study ordered - lipid panel and A1C with AM labs - of note patient is intolerant/has allergy of statins - B12 and TSH ordered - patient declines MRI 2/2 severe claustrophobia; offered Ativan and still declines. Reasonable given MRI results would not change medical management - patient on daily baby aspirin and will be started on cholesterol medication. Consider DAPT. #Elevated troponin - trop 14.1. Patient denies any chest pain. Sinus rhythm on telemetry. - EKG ordered - repeat with AM labs #Persistent A-fib rate controlled, no AC given GI bleed January 2024. Sinus rhythm on telemetry at time of admission. - Continue diltiazem and carvedilol #s/p TAVR follows with cardiology, Dr. Law. - Continue ASA #bullous pemphigoid stable - Continue on prednisone 10 Mg q. every other day; Has been on for many years #Hypothyroidism TSH ordered - Continue levothyroxine #HFpEF stable, no acute exacerbation. Most recent EF December 2023 60 to 65%. - Continue Lasix and Potassium supplement #GERD/ history of GI bleed stable - Continue PPI VTE ppx: SCDs, no chemical ppx with GI bleed january 2024 Dispo: med/tele - anticipate dc home 01/16/25 after echocardiogram Ordered miconazole for pelvic intertriginous areas and check vitamin D levels if levels are low patient will benefit from vitamin D supplementation Anticipate discharge tomorrow morning Admission and Anticipated Discharge Date Admission Date: January 15, 2025 Subjective Patient had TIA and persistent atrial fibrillation not on anticoagulation due to GI bleed echocardiogram was done lipid panel A1c and B12 and TSH are pending patient declined MRI because of claustrophobia she also had pemphigoid lesions Physical Exam Physical Exam: The patient is a wake, alert and or iented 3, well de veloped and well n ourished, normocep halic and atraumat ic, in no acute d istress. Non-toxic appearing. HEENT - EOMI, mucous mem branes moist. Hea ring grossly intac t. Heart-normal S 1 and S2. No murm urs, rubs or mello ps. Lungs-clear bi laterally, no resp iratory distress, no accessory muscl e use. Abdomen-nor mal bowel sounds a nd soft. No ascit es noted. Non-tend er. Extremities- no clubbing, cyano sis, or edema. Rh eumatologic-normal range of motion. Psychiatric-normal affect. Musculoskeletal: no cyanosis or clu bbing, extremities motor strength 5/ 5 Neurologic: PERRL, EOMI, accom modation nl, no fa ce palsy, no dysar thria no focal mo tor deficits Results & Data Results & Data Results & Data Vital Signs (Past 12 Hours) Vital Signs Temp Pulse Pulse Pulse Resp BP Pulse Ox 01/16/25 07:31 36.6 C 62 23 121/65 94 01/16/25 05:39 75 01/16/25 02:53 36.5 C 69 18 115/62 92 01/15/25 23:40 71 01/15/25 23:35 01/15/25 23:35 36.6 C 64 18 121/61 92 01/15/25 23:07 01/15/25 21:36 76 O2 Del Method 01/16/25 07:31 Room Air 01/16/25 05:39 01/16/25 02:53 Room Air 01/15/25 23:40 01/15/25 23:35 Room Air 01/15/25 23:35 Room Air 01/15/25 23:07 Room Air 05/08/25 21:36 PG Care Time/CCT Total # of Minutes Spent Total Time Spent with Patient: Total time spent is greater than 50% in coordination of care (as documented) at patient's floor/unit and/or counseling patient: Coding Level of Care Code 69187 SUB INP/OBS CARE 2/35MIN Diagnoses Transient ischemic attack G45.9 Elevated troponin R79.89 Persistent atrial fibrillation I48.19 S/P TAVR (transcatheter aortic valve replacement) Z95.2
[2025-01-16] MEDS: carvediloL 6.25 MG TAB PO SCH (09:57)
[2025-01-16] MEDS: FUROSEMIDE 40 MG TAB PO SCH (11:12)
[2025-01-16] MEDS: POTASSIUM CHLORIDE CRTAB 20 MEQ TABCR PO SCH (11:12)
[2025-01-16] MEDS: ZINC SULFATE 220 MG CAPSULE PO SCH (16:00)
--- NOTE | 2025-01-16 18:17 | XCELERA ---
[id number]
[2025-01-16] MEDS: MICONAZOLE NITRATE 2% CR 30 GM TUBE EXT SCH (20:18)
[2025-01-16] MEDS: dilTIAZem HCL 240 MG CAPCR PO SCH (20:22)
--- NOTE | 2025-01-16 22:12 | Electrocardiogram Report ---
Test Reason : Blood Pressure : */* mmHG Vent. Rate : 99 BPM Atrial Rate : 99 BPM P-R Int : 184 ms QRS Dur : 90 ms QT Int : 376 ms P-R-T Axes : 41 -17 2 degrees QTcB Int : 482 ms Normal sinus rhythm Left ventricular hypertrophy with repolarization abnormality ( R in aVL , Dami product , Romhilt-E stes ) Abnormal ECG When compared with ECG of 14-Jan-2024 18:05, Sinus rhythm has replaced Atrial fibrillation Confirmed by Peter Porras ([id number]) on 01/16/2025 10:11:42 PM Referred By: REFERRED SELF Confirmed By: Peter Porras
[2025-01-17 07:42] VITALS: RESP 18; O2SAT 97
--- NOTE | 2025-01-17 09:10 | Neurology Consultation ---
Date of Consultation January 17, 2025 Assessment & Plan (1) Hand weakness: History of Present Illness Attending Physician: Brigitte Hodges MD History of Present Illness S: pt with transient rt hand weakness and difficulty using it. resolved in 1 hr. pt now asymptomatic, hx of atrial fib but not on OAC due to GI bleed issue. pt has been taking ASA daily. CT head/ CTA head/neck normal. chart reviewed. admission HPI: The patient is a 89 y/o female with a PMHx of a fib not on AC due to GI bleed January 2024, severe s/p TAVR, HFpEF, pulm HTN, CKD 3a, HLD, HTN. She presented due to right hand weakness and is now being admitted for a stroke workup. Diagnostic imaging negative and not TNK candidate given outside time window and strength only decreased to 4/5. Patient seen at bedside with her son present who works at [employer]. She stated that this afternoon at about 230 she developed right hand weakness in which she could not hold a pencil or put her On her water bottle, she denies any numbness, tingling, pain, other strokelike symptoms like confusion, slurred speech, blurry vision, facial droop. Symptoms have since resolved. she denies any personal history of stroke or family history of stroke. She denies any nicotine use. She did take her morning medications today which includes a daily baby aspirin; she has a noted history of an allergy to statins and stated she is intolerable of them, she is not on anything for cholesterol. She still takes prednisone every other day for bullous pemphigoid. Patient stated she gets extremely claustrophobic with MRIs and is declining MRI at time of admission, offered IV Ativan to assist with anxiety however she still declines. She feels as though she would need to be fully sedated for an MRI. She is still agreeable to admission for monitoring and echocardiogram. Allergies Allergy/AdvReac Type Severity Reaction Status Date / Time simvastatin Allergy Intermediate RASH Verified 01/15/25 21:57 Dejbwvl-EJU-ZfQ Reductase Allergy Intermediate Rash Verified 01/15/25 21:57 Inhibitor [Zjbynmv-Jfa-Ugl Reductase Inhibitor] apixaban [From Eliquis] Allergy Unknown Unknown Verified 01/15/25 21:57 hydrochlorothiazide Allergy Unknown pt reports Verified 01/15/25 21:57 doesn't take it anymore, denies hx reaction tramadol Allergy Unknown pt not Verified 01/15/25 21:57 sure/pt not recall taking this trospium Allergy Unknown pt doesn't Verified 01/15/25 21:57 recall taking this warfarin AdvReac Severe Unknown Verified 01/15/25 21:57 Home Medications Medication Instructions Recorded Confirmed Type prednisone 10 mg tablet 10 mg PO 3XWK 01/03/23 01/15/25 History calcium 600 mg (as 1 cap PO QAM 03/16/23 01/15/25 History carbonate)-vitamin D3 12.5 mcg (500 unit) capsule (Calcium with Vit D3) diclofenac sodium 1 % topical gel 2 g topical BID PRN Pain 02/01/24 01/15/25 History carvedilol 6.25 mg tablet 6.25 mg PO BID #180 tabs 02/14/24 01/15/25 Rx aspirin 81 mg tablet,delayed 81 mg PO QAM 08/19/24 01/15/25 History release (Adult Aspirin Regimen) ferrous sulfate 325 mg (65 mg 325 mg PO QAM 08/19/24 01/15/25 History iron) tablet alendronate 70 mg tablet (Fosamax) 70 mg PO WK #12 tabs 12/22/24 01/15/25 Rx pantoprazole 40 mg tablet,delayed 40 mg PO BID 30 days #60 tabs 12/22/24 01/15/25 Rx release allopurinol 300 mg tablet 150 mg PO QAM 01/15/25 01/15/25 History diltiazem HCl 240 mg capsule,24 240 mg PO QPM 01/15/25 01/15/25 History hr,extended release (Tiadylt ER) furosemide 40 mg tablet 40 mg PO QDL 01/15/25 01/15/25 History levothyroxine 75 mcg tablet 75 mcg PO DAILYBB 01/15/25 01/15/25 History potassium chloride 20 mEq 40 meq PO QDL 01/15/25 01/15/25 History tablet,extended release Patient History Medical History Basal cell carcinoma GI bleed Pulmonary hypertension Umbilical hernia History of anesthesia reaction History of GI bleed History of breast cancer Pulmonary nodule Left carotid bruit Clostridioides difficile infection Anemia Transient ischemic attack Chronic kidney disease, stage 3a Mitral stenosis Aortic stenosis, severe Mitral regurgitation Hyperlipidemia Hypertension Gout Surgical History H/O umbilical hernia repair (07/20/22) Open Incarcerated Umbilical Hernia Repair(Not Applicable) - Parag Rowell MD, FACS History of cardiac [place]) PRIOR TO AORTIC VALVE REPLACEMENT History of endoscopy pt reports they stretched opening from esophagus into the stomach / it was almost closed History of colonoscopy H/O aortic valve replacement March 2021 S/P hysterectomy with oophorectomy "complete" 1996 - reports possible appendectomy with - pt not sure S/P lumpectomy, left breast Family History Sister Breast cancer Colorectal cancer COPD (chronic obstructive pulmonary disease) Mother Diabetes Sister Breast cancer Colorectal cancer Denies family history of Ovarian cancer Prostate cancer Myocardial infarction Social History (Updated 12/22/24 @ 14:30 by BROOKE Turcios) Smoking Status: Never smoker Tobacco Type: Cigarettes Age Started Using Tobacco: 15; Age Quit Using Tobacco: 33; packs per day: 0.5; Cigarettes Per Day: 10; Second Hand Exposure: No; Do You Dip or Chew Tobacco: No; Hx Alcohol Use: No Hx Substance Use: No Preferred Language: Nepali Communication Ability: Effective Visual Impairment: No Limitations Hearing Ability: Normal Planning And Analysis Manager Required: No Beliefs That Will Affect Care: None marital status: / Current Living Situation: Alone current occupational status: retired 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 How many Children do You have: 3 Other Information That Helps Us Care for You: No Feels Safe at Home: Yes Safety Concerns: Feels Safe At This Time Childhood Exposure to Second-Hand Smoke: Yes Diet: regular caffeine: No during the past year weight has: remained stable Dental Care, Regularly: No Physical Activity Frequency: Does not Exercise Seatbelt Use: always Sunscreen Use: No Assistive Devices: Cane and Walker Exam (Neuro) Physical Exam: HEENT: normocephalic grossly Neuro: Mental: AOx4, fluent speech, normal comprehension, no apraxia, no L/R confusion, no neglect CN: PERRL, Full EOM, symmetric face, midline T/U/P, grossly full ROM neck Motor: No abnormal movements, normal tone, 5/5 t/o bilaterally Sens: intact to touch b/l grossly Coord: intact FNT b/l Impression: 89 yo female with transient rt hand weakness that is resolved in setting of atrial fib. Not clear if it was actually TIA/vascular event. pt does not want further work up with MRI. pt asymptomatic. pt not on OAC due to GI bleed issues. Recommendations: continue ASA as now, I do not see clear indication for DAPT or OAC at this point. f/u with cardiology as planned. will sign off. Chart reviewed I have spent more than 50% educating patient about potential diagnosis and neurological evaluation and coordinating care with patient's treatment team. Total time spent (including chart review and coordination of care): 40 min (this includes chart review). Results & Data Vital Signs (Past 12 Hours) Vital Signs Temp Pulse Pulse Resp BP Pulse Ox O2 Del Method 01/17/25 07:41 36.5 C 80 18 117/72 97 Room Air 01/17/25 03:44 36.3 C L 81 20 116/64 92 Room Air 01/16/25 23:49 36.6 C 97 H 20 119/61 92 Room Air 01/16/25 21:45 93 H PG Care Time/CCT Total # of Minutes Spent Total Time Spent with Patient: Total time spent is greater than 50% in coordination of care (as documented) at patient's floor/unit and/or counseling patient: Coding Level of Care Code 66870 IN/OBS CONSULT LVL 2,35M Diagnoses Hand weakness R29.898
[2025-01-17 11:48] VITALS: TEMP 97.5
[2025-01-17] MEDS ORDERED: STROKE PATIENT DISCHARGE STA (12:40)
--- NOTE | 2025-01-17 12:46 | Discharge Summary ---
Date of Service January 17, 2025 Admission HPI Per Admitting Provider The patient is a 89 y/o female with a PMHx of a fib not on AC due to GI bleed January 2024, severe s/p TAVR, HFpEF, pulm HTN, CKD 3a, HLD, HTN. She presented due to right hand weakness and is now being admitted for a stroke workup. Diagnostic imaging negative and not TNK candidate given outside time window and strength only decreased to 4/5. Patient seen at bedside with her son present who works at [employer]. She stated that this afternoon at about 230 she developed right hand weakness in which she could not hold a pencil or put her On her water bottle, she denies any numbness, tingling, pain, other strokelike symptoms like confusion, slurred speech, blurry vision, facial droop. Symptoms have since resolved. she denies any personal history of stroke or family history of stroke. She denies any nicotine use. She did take her morning medications today which includes a daily baby aspirin; she has a noted history of an allergy to statins and stated she is intolerable of them, she is not on anything for cholesterol. She still takes prednisone every other day for bullous pemphigoid. Patient stated she gets extremely claustrophobic with MRIs and is declining MRI at time of admission, offered IV Ativan to assist with anxiety however she still declines. She feels as though she would need to be fully sedated for an MRI. She is still agreeable to admission for monitoring and echocardiogram. During her hospital stay patient denied MRI she had an echocardiogram done interpretive summary is normal left ventricular size with hyperdynamic systolic function greater than 70% no regional wall motion abnormality moderate concentric left ventricular hypertrophy noted severe left atrial dilatation patient has a bioprosthetic aortic valve with acceptable transvalvular gradient and may have mild paravalvular leak severe mitral stenosis with a mean gradient of 17 mild mitral regurgitation mild pulmonary hypertension with right ventricular systolic pressure of 41 mmHg no [id number] interatrial shunt noted following agitated saline administration compared to echo on December 2019 for similar findings Admission Exam (Per Admitting) Constitutional At this time patient is mentally awake alert oriented x 4 fluent to speech normal comprehension no apraxia no confusion no neglect patient's HEENT atraumatic normocephalic pupil equal round reactive to light mucous members are moist full range of motion symmetrical face range of motion is grossly intact motor no abnormality found no sensory abnormality found coordination is intact Chest exam patient has aortic murmur from aortic valve replacement and mitral valve mitral murmur Abdomen is soft nontender patient has intertriginous bullous pemphigoid lesions on which miconazole has was applied vitamin D levels were checked and is 34 Discharge Data Consultations 01/17/25 08:52 Consult Neurology Routine Hospital Course (1) Transient ischemic attack: (2) Elevated troponin: (3) Persistent atrial fibrillation: (4) S/P TAVR (transcatheter aortic valve replacement): Plan The patient is a 89 y/o female with a PMHx of a fib not on AC due to GI bleed January 2024, severe s/p TAVR, HFpEF, pulm HTN, CKD 3a, HLD, HTN. She presented due to right hand weakness that has since resolved and is being admitted for a stroke workup. Diagnostic imaging negative and not TNK candidate given outside time window and strength only decreased to 4/5. #TIA - Symptoms resolved and outside of TNK time window. 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 Laboratories essentially negative. - stroke without TNK order set - active ROM, no IVs right side, Q4H neuro checks - asa load given on admission - continue daily ASA 81mg - Allow for permissive hypertension with goal parameters 220/110 x 24 hours - Telemetry monitoring - echo with bubble study no interatrial shunt patient has high-grade mitral stenosis and status post TAVR - lipid panel Trysul glyceride is 113 cholesterol 220 LDL is 151 VLDL is 23 HDL is 46 and A1C 5.9 w - of note patient is intolerant/has allergy of statins - B12 311 and TSH 6.65 - patient declines MRI 2/2 severe claustrophobia; offered Ativan and still declines. Reasonable given MRI results would not change medical management - patient on daily baby aspirin and appreciate neurology input patient will only be going on aspirin for now #Elevated troponin - trop 14.1. Patient denies any chest pain. Sinus rhythm on telemetry. - Outpatient follow-up with cardiology #Persistent A-fib rate controlled, no AC given GI bleed January 2024. Sinus rhythm on telemetry at time of admission. - Continue diltiazem and carvedilol #s/p TAVR follows with cardiology, Dr. Law. - Continue ASA #bullous pemphigoid stable - Continue on prednisone 10 Mg q. every other day; Has been on for many years #Hypothyroidism TSH ordered - Continue levothyroxine #HFpEF stable, no acute exacerbation. Most recent EF December 2023 60 to 65%. - Continue Lasix and Potassium supplement #GERD/ history of GI bleed stable - Continue PPI Patient is being discharged home with outpatient follow-up with cardiology Coding Level of Care Code 20217 INP/OBS DISCH >30 MIN Diagnoses Transient ischemic attack G45.9 Elevated troponin R79.89 Persistent atrial fibrillation I48.19 S/P TAVR (transcatheter aortic valve replacement) Z95.2
--- NOTE | 2025-01-17 12:47 | Discharge Summary ---
Date of Service January 17, 2025 Admission HPI Per Admitting Provider The patient is a 89 y/o female with a PMHx of a fib not on AC due to GI bleed January 2024, severe s/p TAVR, HFpEF, pulm HTN, CKD 3a, HLD, HTN. She presented due to right hand weakness and is now being admitted for a stroke workup. Diagnostic imaging negative and not TNK candidate given outside time window and strength only decreased to 4/5. Patient seen at bedside with her son present who works at [employer]. She stated that this afternoon at about 230 she developed right hand weakness in which she could not hold a pencil or put her On her water bottle, she denies any numbness, tingling, pain, other strokelike symptoms like confusion, slurred speech, blurry vision, facial droop. Symptoms have since resolved. she denies any personal history of stroke or family history of stroke. She denies any nicotine use. She did take her morning medications today which includes a daily baby aspirin; she has a noted history of an allergy to statins and stated she is intolerable of them, she is not on anything for cholesterol. She still takes prednisone every other day for bullous pemphigoid. Patient stated she gets extremely claustrophobic with MRIs and is declining MRI at time of admission, offered IV Ativan to assist with anxiety however she still declines. She feels as though she would need to be fully sedated for an MRI. She is still agreeable to admission for monitoring and echocardiogram. During her hospital stay patient denied MRI she had an echocardiogram done interpretive summary is normal left ventricular size with hyperdynamic systolic function greater than 70% no regional wall motion abnormality moderate concentric left ventricular hypertrophy noted severe left atrial dilatation patient has a bioprosthetic aortic valve with acceptable transvalvular gradient and may have mild paravalvular leak severe mitral stenosis with a mean gradient of 17 mild mitral regurgitation mild pulmonary hypertension with right ventricular systolic pressure of 41 mmHg no [id number] interatrial shunt noted following agitated saline administration compared to echo on December 2019 for similar findings Discharge Data Consultations 01/17/25 08:52 Consult Neurology Routine Coding Level of Care Code 10550 INP/OBS DISCH >30 MIN Time Spent (min) 40
[2025-01-17 13:14] VITALS: BP 146/77; PULSE 69
== END 2025-01-17 15:22 | disposition home or self-care (01) ==
LOC: ED 17:37 → 2N 17:37 → SUATTDRO 21:08 → 2N 23:07